=== PATIENT | female | born 1955 | race American Indian/Alaskan Native ===

== ENCOUNTER 2018-03-14 14:55 | Inpatient (IN) | payer MEDICARE ==
--- NOTE | 2018-03-14 15:45 | C.PDOC ---
History Of Present Illness 62 year old female presents to the ER via ALS after daughter noticed patient became increasingly weak and fell, had slurred speech, and had bowel incontinence at approximately 1330. As per daughter, patient has a PMHx of aneurysm s/p coil replacement in 2018, after aneurysm surgery patient was sent to rehab at [facility] where she stayed until 3 weeks ago. Since then patient has been at home with a home health aide, she was improving well, and ambulating with a walker until today. Patient is ambulatory and speaks normally at baseline. Daughter states patient did not hit her head when she fell. Daughter notes patient complained of a headache 2 days ago and yesterday seemed weak with slightly slurred speech but otherwise has not had any recent complaints. Patient also has a Hx of anemia requiring blood transfusion a few weeks ago. Time Seen by Provider: 03/14/18 15:13 Chief Complaint (Nursing): High Blood Sugar History Per: Patient, EMS History/Exam Limitations: no limitations Onset/Duration Of Symptoms: Hrs Current Symptoms Are (Timing): Still Present Causative (Exacerbating) Factor(s): Other (Not known) Recent travel outside of the [place]: No Past Medical History Reviewed: Historical Data, Nursing Documentation, Vital Signs Vital Signs: Last Vital Signs Temp 98.2 F 03/14/18 15:21 Pulse 113 H 03/14/18 16:26 Resp 18 03/14/18 16:26 BP 120/67 03/14/18 16:26 Pulse Ox 98 03/14/18 17:49 Family History: States: Unknown Family Hx - Social History Hx Tobacco Use: Yes Hx Alcohol Use: No Hx Substance Use: No - Immunization History Hx Tetanus Toxoid Vaccination: No Hx Influenza Vaccination: No Hx Pneumococcal Vaccination: No Review Of Systems Constitutional: Positive for: Weakness. Negative for: Fever Cardiovascular: Negative for: Chest Pain, Palpitations Respiratory: Negative for: Shortness of Breath Gastrointestinal: Negative for: Abdominal Pain Neurological: Positive for: Weakness, Altered Mental Status, Dizziness Physical Exam - Physical Exam Appears: Non-toxic Skin: Warm, Dry, Pale Head: Atraumatic, Normacephalic Eye(s): bilateral: Normal Inspection, PERRL, EOMI, Conjunctiva Pale Oral Mucosa: Dry Neck: Normal, Supple Chest: Symmetrical, No Tenderness Cardiovascular: Rhythm Regular (Tachycardic) Respiratory: Normal Breath Sounds, No Rales, No Rhonchi, No Wheezing Gastrointestinal/Abdominal: Soft, No Tenderness Rectal: Normal Exam, Heme Positive (light brown stool) Back: No CVA Tenderness Extremity: No Pedal Edema Extremity: Bilateral: Atraumatic, Normal Color And Temperature Neurological/Psych: No Oriented x3 (patient responsive and answers questions but seems lethargic), No Normal Speech (slurred), Normal Cranial Nerves, No Normal Motor (generalized weakness right greater than left), Normal Sensation, Other (No focal deficits, does not follow commands well. Generalized weakness more to right hand.) Gait: Unable To Assess ED Course And Treatment - Laboratory Results Result Diagrams: 03/14/18 16:07 03/14/18 16:07 Lab Interpretation: Abnormal (Hgb 6.2) ECG: Interpreted By Me ECG Rhythm: Sinus Tachycardia, ST/T Changes ( T wave inversions II, III, AVF, V2 -6) ECG Interpretation: Abnormal O2 Sat by Pulse Oximetry: 98 (room air) Pulse Ox Interpretation: Normal - Radiology CXR: Viewed By Me, Read By Radiologist CXR Interpretation: Yes: Other (Hypoinflation with basilar atelectasis) - CT Scan/US head Other Rad Studies (CT/US): Read By Radiologist, Radiology Report Reviewed CT/US Interpretation: Accession No. : [id number]. Patient Name / ID : OLIVE SORENSEN / [id number]. Exam Date : 03/14/2018 16:11:27 ( Approved ). Study Comment : Sex / Age : F / [id number]. Creator : Destiny Gutiérrez. Dictator : Ole Stephenson MD. Plastic Maker : Rand Sewer : Ole Stephenson MD. Approver2 : Report Date : 03/14/2018 16:16:56. My Comment : . Date of service: 03/14/2018. PROCEDURE: CT HEAD WITHOUT CONTRAST. HISTORY: R/O Bleed. COMPARISON: None available. TECHNIQUE: Axial computed tomography images were obtained through the head/brain without intravenous contrast. Radiation dose: Total exam DLP = 966.45 mGy-cm. This CT exam was performed using one or more of the following dose reduction techniques: Automated exposure control, adjustment of the mA and/or kV according to patient size, and/ or use of iterative reconstruction technique. FINDINGS: HEMORRHAGE: No acute parenchymal, subarachnoid or extra-axial hemorrhage so far as can be seen through significant streak and beam hardening artifact which obscures several of mid axial sections. See below additional details. BRAIN: There is a large approximately 16 mm rounded wall of what appears represent metal embolization located in what appears just anterior to upper brainstem likely occluding a large basilar tip aneurysm however clinical correlation with history is recommended. This wall coils resultant significant streak and beam hardening artifact obscuring nearly all detailed over these levels. Note also made of what may represent small coiled material within the inferior basilar artery. Significant diffuse and confluent chronic white matter ischemic changes seen extending peripherally into the deep and subcortical white matter both cerebral hemispheres. There appears to be extension of these changes into the white matter tracts of both basal nuclei as well. . Chronic appearing bilateral basal ganglia lacunar type infarcts. There is also a chronic infarct along the left VENEER JOINTER territory. Note that the possibility of a hyperacute infarct cannot be excluded on this exam. Clinical correlation recommended. No obvious parenchymal nor extra-axial mass or collection seen on this noncontrast exam. Moderate atrophy. . Minor vascular calcifications both carotid siphons. VENTRICLES: The ventricular system dilated up possibly due to mild chronic compensated hydrocephalus versus central volume loss. . . CALVARIUM: No acute calvarial fractures. Old fracture deformity right lamina a papyracea. . There is a small elliptical shaped lipoma within the mid frontal scalp near the vertex. PARANASAL SINUSES: Unremarkable as visualized. No significant inflammatory changes. MASTOID AIR CELLS: Unremarkable as visualized. No inflammatory changes. OTHER FINDINGS: None. IMPRESSION: Limited study due to significant streak and beam hardening artifact secondary to a large of fall of embolization coils presumably occluding the basilar tip aneurysm. . There also appear to be at least 2 small coils within the inferior margin of the basilar artery appear clinical correlation with history recommended. No evidence of acute intracranial hemorrhage. Significant chronic white matter ischemic changes. Chronic appearing bilateral basal ganglia lacunar type infarcts. There is also a chronic infarct along the left VENEER JOINTER territory. . The ventricles are dilated up possibly due to mild chronic compensated hydrocephalus versus central volume loss Progress Note: CT head, CXR, EKG, and urinalysis ordered. IV fluids administered. Reevaluation Time: 17:41 Reassessment Condition: Improved (after IV fluids) - Physician Consult Information Physician Contacted: Nesha Antonio Outcome Of Conversation: Patient well known to him. He will accept patient to his service for evaluation of anemia. Disposition - Disposition Disposition: HOSPITALIZED Disposition Time: 17:42 Condition: FAIR Instructions: Weakness (ED) - POA Present On Arrival: Falls Or Trauma - Clinical Impression Clinical Impression: Anemia, Weakness generalized, GI bleeding - Scribe Statement The provider has reviewed the documentation as recorded by the Scribclifford Bautista All medical record entries made by the Yamilexibclifford were at my direction and personally dictated by me. I have reviewed the chart and agree that the record accurately reflects my personal performance of the history, physical exam, medical decision making, and the department course for this patient. I have also personally directed, reviewed, and agree with the discharge instructions and disposition.
[2018-03-14] MEDS ORDERED: Sodium Chloride 0.9% 1,000 ML IV ONE (15:48)
[2018-03-14 16:12] LABS: BASO % 0.1 % (0.0-2.0); LYMPH # 0.3 K/uL (1.0-4.3); LYMPH % 1.9 % (20.0-40.0); MEAN CELL VOLUME 62.8 fL (81.0-99.0); MEAN CORPUSCULAR HEMOGLOBIN 20.1 pg (27.0-31.0); MEAN PLATELET VOLUME 8.2 fL (7.2-11.7); MONO # 0.7 K/uL (0.0-0.8); MONO % 4.4 % (0.0-10.0); NEUT # 15.2 K/uL (1.8-7.0); NEUT % 93.6 % (50.0-75.0); NRBC % 0.2 % (0.0-2.0); PLATELET COUNT 442 K/uL (130-400); RBC 3.08 Mil/uL (3.80-5.20); RED CELL DISTRIBUTION WIDTH 23.7 % (11.5-14.5); WHITE BLOOD COUNT 16.3 K/uL (4.8-10.8)
[2018-03-14 16:24] LABS: HEMOGLOBIN 6.2 g/dL (11.0-16.0)
[2018-03-14 16:25] LABS: ALB/GLOB RATIO 1.3 (1.0-2.1); ALBUMIN 3.8 g/dL (3.5-5.0); ALT/SGPT 33 U/L (9-52); AST/SGOT 19 U/L (14-36); BLOOD UREA NITROGEN 10 mg/dL (7-17); CALCIUM 8.6 mg/dl (8.6-10.4); GFR NON-AFRICAN AMERICAN > 60
--- NOTE | 2018-03-14 16:39 | CT ---
Date of service: 03/14/2018 PROCEDURE: CT HEAD WITHOUT CONTRAST. HISTORY: R/O Bleed COMPARISON: None available. TECHNIQUE: Axial computed tomography images were obtained through the head/brain without intravenous contrast. Radiation dose: Total exam DLP = 966.45 mGy-cm. This CT exam was performed using one or more of the following dose reduction techniques: Automated exposure control, adjustment of the mA and/or kV according to patient size, and/or use of iterative reconstruction technique. FINDINGS: HEMORRHAGE: No acute parenchymal, subarachnoid or extra-axial hemorrhage so far as can be seen through significant streak and beam hardening artifact which obscures several of mid axial sections. See below additional details BRAIN: There is a large approximately 16 mm rounded wall of what appears represent metal embolization located in what appears just anterior to upper brainstem likely occluding a large basilar tip aneurysm however clinical correlation with history is recommended. This wall coils resultant significant streak and beam hardening artifact obscuring nearly all detailed over these levels. Note also made of what may represent small coiled material within the inferior basilar artery. Significant diffuse and confluent chronic white matter ischemic changes seen extending peripherally into the deep and subcortical white matter both cerebral hemispheres. There appears to be extension of these changes into the white matter tracts of both basal nuclei as well. . Chronic appearing bilateral basal ganglia lacunar type infarcts. There is also a chronic infarct along the left LINING VAMPER territory. Note that the possibility of a hyperacute infarct cannot be excluded on this exam. Clinical correlation recommended. No obvious parenchymal nor extra-axial mass or collection seen on this noncontrast exam Moderate atrophy. . Minor vascular calcifications both carotid siphons. VENTRICLES: The ventricular system dilated up possibly due to mild chronic compensated hydrocephalus versus central volume loss. . CALVARIUM: No acute calvarial fractures. Old fracture deformity right lamina a papyracea. . There is a small elliptical shaped lipoma within the mid frontal scalp near the vertex. PARANASAL SINUSES: Unremarkable as visualized. No significant inflammatory changes. MASTOID AIR CELLS: Unremarkable as visualized. No inflammatory changes. OTHER FINDINGS: None. IMPRESSION: Limited study due to significant streak and beam hardening artifact secondary to a large of fall of embolization coils presumably occluding the basilar tip aneurysm. . There also appear to be at least 2 small coils within the inferior margin of the basilar artery appear clinical correlation with history recommended. No evidence of acute intracranial hemorrhage. Significant chronic white matter ischemic changes. Chronic appearing bilateral basal ganglia lacunar type infarcts. There is also a chronic infarct along the left LINING VAMPER territory. . The ventricles are dilated up possibly due to mild chronic compensated hydrocephalus versus central volume loss
--- NOTE | 2018-03-14 16:57 | RAD ---
HISTORY: SOB COMPARISON: None available TECHNIQUE: Chest, one view. FINDINGS: Patient's chin obscures evaluation of the lung apices. Examination limited by habitus and hypoinflation. LUNGS: Mild basilar atelectasis. Please note that chest x-ray has limited sensitivity for the detection of pulmonary masses. PLEURA: No significant pleural effusion identified. No definite pneumothorax . CARDIOVASCULAR: Borderline cardiomegaly, partially obscured. OSSEOUS STRUCTURES: Osseous demineralization. Degenerative changes. VISUALIZED UPPER ABDOMEN: Unremarkable. OTHER FINDINGS: None. IMPRESSION: Hypoinflation. Mild basilar atelectasis.
[2018-03-14] MEDS ORDERED: Sodium Chloride 0.9% 1,000 ML ONE (17:02)
[2018-03-14 17:16] LABS: URINE BACTERIA OCC (<OCC); URINE BILIRUBIN NEGATIVE (NEGATIVE); URINE BLOOD 3+ (NEGATIVE); URINE CLARITY Clear (Clear); URINE COLOR Yellow (YELLOW); URINE GLUCOSE (UA) 1+ mg/dL (Normal); URINE LEUKOCYTE ESTERASE NEG Leu/uL (Negative); URINE PROTEIN 1+ mg/dL (NEGATIVE); URINE UROBILINOGEN NORMAL mg/dL (0.2-1.0)
[2018-03-14 17:36] LABS: BARBITURATES, UR NEGATIVE (NEGATIVE); BENZODIAZEPINES, UR NEGATIVE (NEGATIVE); OPIATES, UR NEGATIVE (NEGATIVE); PHENCYCLIDINE, UR NEGATIVE (NEGATIVE)
[2018-03-14] MEDS ORDERED: Potassium Chloride 20 mEq ER Tab PO ONE (17:43)
[2018-03-14] MEDS ORDERED: Potassium Chloride 20 mEq/15 ml LIQ UD ONE (17:52)
[2018-03-14] MEDS ORDERED: Potassium Chloride 20 mEq/15 ml LIQ UD PO STA (17:53)
[2018-03-14] MEDS ORDERED: Potassium Chloride 20 mEq ER Tab PO STA (17:53)
[2018-03-14 18:19] LABS: BANDS 2 % (0-2); LYMPHOCYTE 2 % (20-40); MONOCYTE 3 % (0-10); NEUTROPHIL 93 % (50-75); TOTAL CELLS COUNTED 100
[2018-03-14 18:20] LABS: ANISOCYTOSIS SLIGHT; HYPOCHROMIC SLIGHT; MICROCYTOSIS SLIGHT; POIKILOCYTOSIS SLIGHT; SCHISTOCYTES SLIGHT
[2018-03-14 18:21] LABS: PLATELET ESTIMATE SLIGHTLY INCREASED (NORMAL)
[2018-03-14] MEDS: (Novolin R) Insulin Human Regular 100 units/ml vial SC SCH (22:00)
[2018-03-15 08:29] LABS: INR 1.2; PROTHROMBIN TIME 13.4 SECONDS (9.7-12.2)
[2018-03-15] MEDS: (Novolin R) Insulin Human Regular 100 units/ml vial SC SCH ×4 (08:35→22:00)
[2018-03-15 08:56] LABS: ALB/GLOB RATIO 1.1 (1.0-2.1); ALBUMIN 3.2 g/dL (3.5-5.0); ALT/SGPT 25 U/L (9-52); AST/SGOT 14 U/L (14-36); BLOOD UREA NITROGEN 10 mg/dL (7-17); CALCIUM 8.3 mg/dl (8.6-10.4); CK-MB 0.64 ng/mL (0.0-3.38); GFR NON-AFRICAN AMERICAN > 60
[2018-03-15 09:02] LABS: BASO # 0.1 K/uL (0.0-0.2); BASO % 0.5 % (0.0-2.0); EOS % 0.4 % (0.0-4.0); LYMPH # 1.4 K/uL (1.0-4.3); LYMPH % 12.2 % (20.0-40.0); MEAN CORPUSCULAR HEMOGLOBIN 21.8 pg (27.0-31.0); MEAN CORPUSCULAR HGB CONC 32.5 g/dL (33.0-37.0); MEAN PLATELET VOLUME 8.7 fL (7.2-11.7); MONO # 0.6 K/uL (0.0-0.8); MONO % 5.3 % (0.0-10.0); NEUT # 9.6 K/uL (1.8-7.0); NEUT % 81.6 % (50.0-75.0); NRBC % 0.1 % (0.0-2.0); RBC 3.78 Mil/uL (3.80-5.20); RED CELL DISTRIBUTION WIDTH 23.6 % (11.5-14.5); WHITE BLOOD COUNT 11.7 K/uL (4.8-10.8)
[2018-03-15 09:03] LABS: HEMOGLOBIN 8.2 g/dL (11.0-16.0)
[2018-03-15] MEDS: Sodium Chloride 0.9% 1,000 ML IV SCH (13:02)
--- NOTE | 2018-03-15 13:24 | CP.PCM.PN ---
Subjective - Date & Time of Evaluation Date of Evaluation: 03/15/18 Time of Evaluation: 13:13 - Subjective Subjective: PGY3 progress note for Dr. Antonio 62 year old female with past medical history of brain aneurysm s/p recent coil placement in 2018 presented for syncope, slurred speech and bowel incontinence. Pts daughter at bedside and helps with history. Patient used walker to go to bathroom at home and developed lightheadedness and subsequently had a syncopal episode and had bowel incontinence. Per daughter, no recent blood stools or melena. Patient was admitted to [facility] in December and underwent colonoscopy but daughter does not know results. Currently, pt is A&ox1 (to person). She is answering questions but still has mild slurred speech. Patient denies having any AVILA, CP, SOB, abd pain, N/V/d/c, numbness/tingling in extremities. PMhx: stated above sx: knee replacement, coil placement in brain for aneurysm in 2018 social: lives with daughter Objective - Vital Signs/Intake and Output Vital Signs (last 24 hours): Temp Pulse Resp BP Pulse Ox 98.2 F 94 H 18 145/80 99 03/15/18 07:00 03/15/18 08:00 03/15/18 07:00 03/15/18 07:00 03/15/18 07:00 Intake and Output: 03/15/18 03/15/18 06:59 18:59 Intake Total 1725 Output Total 450 Balance 1275 - Medications Medications: Current Medications Sodium Chloride (Sodium Chloride 0.9%) 1,000 mls @ 50 mls/hr IV .Q20H [facility] Last Admin: 03/15/18 13:02 Dose: 50 mls/hr Insulin Human Regular (Novolin R) 1 unit SC ACHS BILL PRN Reason: Protocol Last Admin: 03/15/18 12:21 Dose: Not Given - Labs Labs: 03/15/18 08:09 03/15/18 08:09 PT 13.4 SECONDS (9.7-12.2) H 03/15/18 08:09 INR 1.2 03/15/18 08:09 APTT 28 SECONDS (21-34) 03/15/18 08:09 - Constitutional Appears: Non-toxic, No Acute Distress - Head Exam Head Exam: ATRAUMATIC, NORMOCEPHALIC - ENT Exam ENT Exam: Mucous Membranes Moist - Respiratory Exam Respiratory Exam: Clear to Ausculation Bilateral, NORMAL BREATHING PATTERN. absent: Accessory Muscle Use, Rales, Rhonchi, Wheezes, Respiratory Distress - Cardiovascular Exam Cardiovascular Exam: REGULAR RHYTHM, +S1, +S2 - GI/Abdominal Exam GI & Abdominal Exam: Soft, Normal Bowel Sounds. absent: Distended, Firm, Guarding, Rigid, Tenderness, Organomegaly - Extremities Exam Extremities Exam: absent: Pedal Edema, Tenderness - Neurological Exam Neurological Exam: Alert, Awake, CN II-XII Intact, Oriented x3 Neuro motor strength exam: Left Upper Extremity: 4, Right Upper Extremity: 4, Left Lower Extremity: 4, Right Lower Extremity: 4 - Psychiatric Exam Psychiatric exam: Normal Affect, Normal Mood - Skin Skin Exam: Dry, Intact, Normal Color, Warm Assessment and Plan - Assessment and Plan (Free Text) Assessment: 62 year old female with past medical history of brain aneurysm s/p coil placement is admitted for syncope and slurred speech Syncope - CT of head on admission showed no acute hemorrhage but did show chronic lacunar infarcts at basal ganglia and chronic left STOCK DEALER infarct. - Negative UDS - On admission, pt had leukocytosis at 16.3. - Hgb was 6.2 on admission - UA showed blood and mild WBC and occasional bacteria - Neurology, Dr. Tovar is consulted. Pending further recs - will check EEG - Will check urine culture. If positive will treat - Will check echo, hgba1c and lipid panel Anemia - Likely 2/2 GI bleed. Stool occult positive on admission - Pt transfused 2 units. Hgb this am is 8.2 - GI, Dr. Lock is consulted. Recommend making pt NPO for EGD in am - Will continue to monitor for bleeding. - Will hold Aspirin, plavix and oral AC - NS at 50 cc - NPO overnight. Accuchecks ACHS Prophylaxis - Will hold oral AC due to GI bleed - SCDs - Protonix IV All orders and management per Dr. Antonio
[2018-03-15] MEDS ORDERED: Potassium Chloride 20 mEq ER Tab PO ONE (17:13)
--- NOTE | 2018-03-15 23:54 | CP.PCM.CON ---
History of Present Illness - History of Present Illness History of Present Illness: 62 year old female with a history of ?CVA, brain aneurysm s/p coiling, presenting after syncopal episode, found to be anemic. The patient is currently lethargic and I am unable to obtain a history from the patient. Review of her medical records shows shows she was admitted with hgb of 6.2 and is FOBT positive. She is s/p PRBC transfusion with improvement in her H/H. She is currently undergoing GI w/u. Past medical, surgical, family history cannot be obtained Allergies: NKA per documentation Review of systems cannot be obtained. Past Patient History - Infectious Disease Hx of Infectious Diseases: None - Past Medical History & Family History Past Medical History?: Yes - Past Social History Smoking Status: Heavy Smoker > 10 Cigarettes Daily - ENDOCRINE/METABOLIC Hx Diabetes Mellitus Type 2: Yes - HEMATOLOGICAL/ONCOLOGICAL Hx Anemia: Yes - MUSCULOSKELETAL/RHEUMATOLOGICAL Hx Falls: Yes - PSYCHIATRIC Hx Substance Use: No - SURGICAL HISTORY Hx Surgeries: Yes Hx Orthopedic Surgery: Yes (tkr= right) - ANESTHESIA Hx Anesthesia: Yes Hx Anesthesia Reactions: No Hx Malignant Hyperthermia: No Meds Allergies/Adverse Reactions: Allergies Allergy/AdvReac Type Severity Reaction Status Date / Time No Known Allergies Allergy Verified 03/14/18 15:20 - Medications Medications: Current Medications Acetaminophen (Tylenol 325mg Tab) 650 mg PO Q6 PRN PRN Reason: Pain, Mild (1-3) Albuterol/Ipratropium (Duoneb 3 Mg/0.5 Mg (3 Ml) Ud) 3 ml INH RQ6 [facility] Amlodipine Besylate (Norvasc) 10 mg PO DAILY [facility] Aspirin (Ecotrin) 81 mg PO DAILY [facility] Carvedilol (Coreg) 3.125 mg PO Q12 [facility] Last Admin: 03/15/18 22:49 Dose: 3.125 mg Clopidogrel Bisulfate (Plavix) 75 mg PO DAILY [facility] Hydralazine HCl (Apresoline) 25 mg PO Q8 [facility] Last Admin: 03/15/18 22:49 Dose: 25 mg Sodium Chloride (Sodium Chloride 0.9%) 1,000 mls @ 50 mls/hr IV .Q20H [facility] Last Admin: 03/15/18 13:02 Dose: 50 mls/hr Insulin Human Regular (Novolin R) 1 unit SC ACHS [facility] PRN Reason: Protocol Last Admin: 03/15/18 17:00 Dose: Not Given Lactulose (Enulose) 20 gm PO HS [facility] Last Admin: 03/15/18 22:49 Dose: 20 gm Levetiracetam (Keppra) 250 mg PO BID [facility] Last Admin: 03/15/18 22:49 Dose: 250 mg Pantoprazole Sodium (Protonix Inj) 40 mg IVP DAILY [facility] Last Admin: 03/15/18 14:31 Dose: 40 mg Venlafaxine HCl (Effexor Xr) 37.5 mg PO DAILY [facility] Physical Exam - Head Exam Head Exam: ATRAUMATIC - Eye Exam Eye Exam: Normal appearance - ENT Exam ENT Exam: Mucous Membranes Dry - Respiratory Exam Respiratory Exam: NORMAL BREATHING PATTERN - Cardiovascular Exam Cardiovascular Exam: +S1, +S2 - GI/Abdominal Exam GI & Abdominal Exam: Normal Bowel Sounds Results - Vital Signs Recent Vital Signs: Last Vital Signs Temp 98.8 F 03/15/18 15:00 Pulse 91 H 03/15/18 15:00 Resp 20 03/15/18 15:00 BP 152/84 H 03/15/18 15:00 Pulse Ox 98 03/15/18 15:00 - Labs Result Diagrams: 03/15/18 08:09 03/15/18 08:09 Labs: Laboratory Results - last 24 hr 03/14/18 03/15/18 03/15/18 16:41 06:12 07:26 WBC RBC Hgb Hct MCV MCH MCHC RDW Plt Count MPV Neut % (Auto) Lymph % (Auto) [place] % (Auto) Eos % (Auto) Baso % (Auto) Neut # (Auto) Lymph # (Auto) [place] # (Auto) Eos # (Auto) Baso # (Auto) PT INR APTT Sodium Potassium Chloride Carbon Dioxide Anion Gap BUN Creatinine Est GFR ( Amer) Est GFR (Non-Af Amer) POC Glucose (mg/dL) 106 Random Glucose Calcium Phosphorus Magnesium Total Bilirubin AST ALT Alkaline Phosphatase Total Creatine Kinase CK-MB (Mass) Troponin I Total Protein Albumin Globulin Albumin/Globulin Ratio Stool Occult Blood Positive H Blood Type B POSITIVE Blood Type Confirm B POSITIVE Antibody Screen Negative 03/15/18 03/15/18 03/15/18 08:09 08:09 08:09 WBC 11.7 H RBC 3.78 L Hgb 8.2 L D Hct 25.3 L MCV 67.0 L D MCH 21.8 L MCHC 32.5 L RDW 23.6 H Plt Count 385 MPV 8.7 Neut % (Auto) 81.6 H Lymph % (Auto) 12.2 L [place] % (Auto) 5.3 Eos % (Auto) 0.4 Baso % (Auto) 0.5 Neut # (Auto) 9.6 H Lymph # (Auto) 1.4 [place] # (Auto) 0.6 Eos # (Auto) 0.0 Baso # (Auto) 0.1 PT 13.4 H INR 1.2 APTT 28 Sodium 148 Potassium 3.6 Chloride 113 H Carbon Dioxide 27 Anion Gap 11 BUN 10 Creatinine 0.7 Est GFR ( Amer) > 60 Est GFR (Non-Af Amer) > 60 POC Glucose (mg/dL) Random Glucose 120 H Calcium 8.3 L Phosphorus 3.2 Magnesium 1.9 Total Bilirubin 2.0 H AST 14 D ALT 25 Alkaline Phosphatase 96 Total Creatine Kinase 131 CK-MB (Mass) 0.64 Troponin I 0.0200 Total Protein 6.2 L Albumin 3.2 L Globulin 3.0 Albumin/Globulin Ratio 1.1 Stool Occult Blood Blood Type Blood Type Confirm Antibody Screen 03/15/18 03/15/18 03/15/18 11:37 16:44 20:42 WBC RBC Hgb Hct MCV MCH MCHC RDW Plt Count MPV Neut % (Auto) Lymph % (Auto) [place] % (Auto) Eos % (Auto) Baso % (Auto) Neut # (Auto) Lymph # (Auto) [place] # (Auto) Eos # (Auto) Baso # (Auto) PT INR APTT Sodium Potassium Chloride Carbon Dioxide Anion Gap BUN Creatinine Est GFR ( Amer) Est GFR (Non-Af Amer) POC Glucose (mg/dL) 121 H 101 105 Random Glucose Calcium Phosphorus Magnesium Total Bilirubin AST ALT Alkaline Phosphatase Total Creatine Kinase CK-MB (Mass) Troponin I Total Protein Albumin Globulin Albumin/Globulin Ratio Stool Occult Blood Blood Type Blood Type Confirm Antibody Screen Assessment & Plan (1) Anemia Assessment and Plan: rule out iron deficiency, rule out hemoglobinopathy f/u retic count, b12, folate ferritin GI w/u s/p PRBC transfusion will start IV iron Thank you for this interesting consult. Status: Acute
[2018-03-16] MEDS: Albuterol-Ipratrop 3 mg / 0.5 (3 ml) UD INH SCH ×4 (01:04→19:34)
[2018-03-16] MEDS: Sodium Chloride 0.9% 1,000 ML IV SCH (04:00)
--- NOTE | 2018-03-16 07:08 | CARD ---
APPROVED REPORT Date of service: 03/15/2018 EXAM: Two-dimensional and M-mode echocardiogram with Doppler and color Doppler. INDICATION Anemia 2D DIMENSIONS IVSd1.1 (0.7-1.1cm)Aortic Root (2D)3.0 (2.0-3.7cm) LVDd3.8 (3.9-5.9cm)PWd1.1 (0.7-1.1cm) LVDs2.4 (2.5-4.0cm)FS (%) 36.8 % LVEF (%)67.4 (>50%) M-Mode DIMENSIONS RVDd1.49 (2.1-3.2cm)Left Atrium (MM)3.25 (2.5-4.0cm) IVSd0.70 (0.7-1.1cm)Aortic Root3.22 (2.2-3.7cm) LVDd3.83 (4.0-5.6cm)Aortic Cusp Exc.2.22 (1.5-2.0cm) PWd0.91 (0.7-1.1cm)FS (%) 40 % LVDs2.28 (2.0-3.8cm)TAPSE14.58 cm LVEF (%)72 (>50%) Aortic Valve AI P 1/2 [id number] Mitral Valve MV E Agxgsceg63.8cm/sMV A Tbmlvmdi728.6cm/sE/A ratio0.7 TDI E/Lateral E'0.0E/Medial E'0.0 Tricuspid Valve TR Peak Dgmvrbol170oa/sTR Peak Gr.[id number] LEFT VENTRICLE The left ventricle is normal size. There is normal left ventricular wall thickness. Left ventricle systolic function is normal. The Ejection Fraction is 65-70%. There is normal LV segmental wall motion. The left ventricular diastolic function is normal. RIGHT VENTRICLE The right ventricle is normal size. There is normal right ventricular wall thickness. The right ventricular systolic function is normal. ATRIA The left atrium size is normal. The right atrium size is normal. The interatrial septum is intact with no evidence for an atrial septal defect. AORTIC VALVE The aortic valve is normal in structure. No aortic regurgitation is present. There is no aortic valvular stenosis. MITRAL VALVE The posterior mitral valve leaflet appears thickened, but open well. Mitral annular calcification is mild. There is no evidence of mitral valve prolapse. There is no mitral valve stenosis. There is no mitral valve regurgitation noted. TRICUSPID VALVE The tricuspid valve is normal in structure. There is mild tricuspid regurgitation. Right ventricular systolic pressure is estimated at 30-40 mmHg. There is mild pulmonary hypertension. PULMONIC VALVE The pulmonic valve is not well visualized. There is no pulmonic valvular regurgitation. GREAT VESSELS The aortic root is normal in size. PERICARDIAL EFFUSION There is no significant pericardial effusion. <Conclusion> Left ventricle systolic function is normal. The Ejection Fraction is 65-70%. No aortic regurgitation is present. There is no mitral valve regurgitation noted. There is mild tricuspid regurgitation. There is mild pulmonary hypertension. There is no pulmonic valvular regurgitation.
--- NOTE | 2018-03-16 07:27 | CP.PCM.PN ---
Subjective - Date & Time of Evaluation Date of Evaluation: 03/16/18 Time of Evaluation: 08:00 - Subjective Subjective: PGY-[address] Antonio Patient was seen and examined at bedside in the AM. Patient is only oriented to self. She is answering questions but continues to have mild slurred speech. Patient denies chest pain, shortness of breath, nausea, vomiting, diarrhea or constipation. Objective - Vital Signs/Intake and Output Vital Signs (last 24 hours): Temp Pulse Resp BP Pulse Ox 98.8 F 98 H 20 137/85 98 03/16/18 04:19 03/16/18 04:19 03/16/18 04:19 03/16/18 04:19 03/16/18 04:19 Intake and Output: 03/16/18 03/16/18 06:59 18:59 Intake Total 1250 Output Total 800 Balance 450 - Medications Medications: Current Medications Acetaminophen (Tylenol 325mg Tab) 650 mg PO Q6 PRN PRN Reason: Pain, Mild (1-3) Albuterol/Ipratropium (Duoneb 3 Mg/0.5 Mg (3 Ml) Ud) 3 ml INH RQ6 [facility] Last Admin: 03/16/18 01:04 Dose: 3 ml Amlodipine Besylate (Norvasc) 10 mg PO DAILY [facility] Aspirin (Ecotrin) 81 mg PO DAILY [facility] Carvedilol (Coreg) 3.125 mg PO Q12 [facility] Last Admin: 03/15/18 22:49 Dose: 3.125 mg Clopidogrel Bisulfate (Plavix) 75 mg PO DAILY [facility] Hydralazine HCl (Apresoline) 25 mg PO Q8 [facility] Last Admin: 03/16/18 05:42 Dose: 25 mg Sodium Chloride (Sodium Chloride 0.9%) 1,000 mls @ 50 mls/hr IV .Q20H [facility] Last Admin: 03/16/18 04:00 Dose: 50 mls/hr Insulin Human Regular (Novolin R) 1 unit SC ACHS BILL PRN Reason: Protocol Last Admin: 03/15/18 22:00 Dose: Not Given Lactulose (Enulose) 20 gm PO HS [facility] Last Admin: 03/15/18 22:00 Dose: Not Given Levetiracetam (Keppra) 250 mg PO BID [facility] Last Admin: 03/15/18 22:49 Dose: 250 mg Pantoprazole Sodium (Protonix Inj) 40 mg IVP DAILY [facility] Last Admin: 03/15/18 14:31 Dose: 40 mg Venlafaxine HCl (Effexor Xr) 37.5 mg PO DAILY [facility] - Labs Labs: 03/15/18 08:09 03/15/18 08:09 PT 13.4 SECONDS (9.7-12.2) H 03/15/18 08:09 INR 1.2 03/15/18 08:09 APTT 28 SECONDS (21-34) 03/15/18 08:09 - Constitutional Appears: No Acute Distress, Chronically Ill - Head Exam Head Exam: ATRAUMATIC, NORMAL INSPECTION - Eye Exam Eye Exam: EOMI, Normal appearance - ENT Exam ENT Exam: Mucous Membranes Moist - Respiratory Exam Respiratory Exam: NORMAL BREATHING PATTERN - Cardiovascular Exam Cardiovascular Exam: REGULAR RHYTHM, +S1, +S2 - GI/Abdominal Exam GI & Abdominal Exam: Soft, Normal Bowel Sounds. absent: Tenderness - Extremities Exam Extremities Exam: Normal Inspection - Neurological Exam Neurological Exam: Awake. absent: Oriented x3 Assessment and Plan - Assessment and Plan (Free Text) Assessment: 62 year old female with past medical history of brain aneurysm s/p coil placement is admitted for syncope and slurred speech Syncope - CT of head on admission showed no acute hemorrhage but did show chronic lacunar infarcts at basal ganglia and chronic left CONTINGENTS SUPERVISOR infarct. - Negative UDS - On admission, pt had leukocytosis at 16.3. - Hgb was 6.2 on admission - UA showed blood and mild WBC and occasional bacteria - Urine culture: Negative - ECHO (03/16/18): Left ventricle systolic function is normal. EF 65-70%. No aortic regurgitation is present. Please see full report. - Neurology, Dr. Tovar is consulted. Pending further recs - will check EEG Anemia - Likely 2/2 GI bleed. Stool occult positive on admission - Patient was transfused 2 units 03/15/18. - Hgb this am is 8.3 - B12 395; Folate 9.7 - Ferritin 46.9; Retic Count 2.0 - GI, Dr. Lock is consulted --> help appreciated - EGD (03/16/18): LA Grade A esophagitis; medium-sized hiatal hernia; patchy mildly erythematous mucosa without bleeding. Please see full report - f/u with Dr. Lock for recommendations - Liquid Diet/NS at 50 cc - Will continue to monitor for bleeding. - Will hold Aspirin, plavix and oral AC History of Brain Aneurysm s/p coil - Head CT: Limited study due to significant streak and beam hardening artifact secondary to a large of fall of embolization coils presumably occluding the basilar tip aneurysm. . There also appear to be at least 2 small coils within the inferior margin of the basilar artery appear clinical correlation with history recommended. No evidence of acute intracranial hemorrhage. Significant chronic white matter ischemic changes. Chronic appearing bilateral basal ganglia lacunar type infarcts. There is also a chronic infarct along the left CONTINGENTS SUPERVISOR territory. The ventricles are dilated up possibly due to mild chronic compensated hydrocephalus versus central volume loss. - f/u MRA of head - Continue Home Medications: * Aspirin 81mg daily - hold * Keppra 250mg po bid History of HTN - Continue home Medications * Amlodipine 10mg daily * Coreg 3.125mg po q12h * Hydralazine 25mg q8h po Impaired Glucose Tolerance - hA1c: 5.6 - Lipid Panel: Cholesterol 90; LDL 39; HDL 28; Triglycerides 108 - Accuchecks - Hypoglycemia Protocol - Insulin 1units SC ACHS Prophylaxis - Will hold oral AC due to GI bleed - SCDs - Dulcolax 10mg po daily; Lactulose 20gm po HS - Will hold Aspirin, plavix and oral AC - VTE contraindication - Protonix IV All orders and management per Dr. Antonio
[2018-03-16] MEDS: (Novolin R) Insulin Human Regular 100 units/ml vial SC SCH ×4 (08:39→22:39)
--- NOTE | 2018-03-16 10:06 | HP ---
HISTORY OF PRESENT ILLNESS: A 62-year-old female with history of intracranial aneurysm status post coiling, admitted to the hospital with altered mental status, weakness. The patient thought that she might be anemic. The patient was advised admission to the hospital . PHYSICAL EXAMINATION: GENERAL: Currently awake, but confused. VITAL SIGNS: Temperature 98, pulse 90. HEENT: Within normal limits. NECK: Supple. CHEST: Symmetrical. HEART: Regular. ABDOMEN: Soft. EXTREMITIES: No edema. IMPRESSION: The patient suffers from anemia, rule out cerebrovascular accident, aneurysm. The patient bed rest, neuro consult and GI consult. Nesha Antonio MD
[2018-03-16] MEDS: Venlafaxine 37.5 mg ER Cap PO SCH (10:28)
[2018-03-16 11:36] LABS: BASO % 0.4 % (0.0-2.0); EOS # 0.1 K/uL (0.0-0.7); EOS % 1.3 % (0.0-4.0); HEMOGLOBIN 8.3 g/dL (11.0-16.0); LYMPH # 1.7 K/uL (1.0-4.3); LYMPH % 18.5 % (20.0-40.0); MEAN CELL VOLUME 66.3 fL (81.0-99.0); MEAN CORPUSCULAR HEMOGLOBIN 22.2 pg (27.0-31.0); MEAN CORPUSCULAR HGB CONC 33.5 g/dL (33.0-37.0); MEAN PLATELET VOLUME 8.6 fL (7.2-11.7); MONO # 0.4 K/uL (0.0-0.8); MONO % 4.4 % (0.0-10.0); NEUT # 6.8 K/uL (1.8-7.0); NEUT % 75.4 % (50.0-75.0); NRBC % 0.3 % (0.0-2.0); RBC 3.72 Mil/uL (3.80-5.20); RED CELL DISTRIBUTION WIDTH 24.8 % (11.5-14.5)
[2018-03-16 11:55] LABS: ALB/GLOB RATIO 1.1 (1.0-2.1); ALBUMIN 3.1 g/dL (3.5-5.0); ALT/SGPT 22 U/L (9-52); AST/SGOT 10 U/L (14-36); BLOOD UREA NITROGEN 8 mg/dL (7-17); CALCIUM 8.3 mg/dl (8.6-10.4); GFR NON-AFRICAN AMERICAN > 60; HDL CHOLESTEROL 28 mg/dL (30-70)
[2018-03-16 12:01] LABS: LDL CHOLESTEROL 39 mg/dL (0-129)
[2018-03-16 12:29] LABS: FERRITIN 46.9 ng/mL
[2018-03-16] MEDS ORDERED: Propofol 10 mg/ml Inj (20 ML) ONE (12:58)
[2018-03-16 12:59] LABS: FOLATE 9.7 ng/mL
[2018-03-16] MEDS ORDERED: Magnesium Citrate Oral SOL (300 ml) PO ONE ×2 (13:14→14:36)
[2018-03-16] MEDS: Bisacodyl 5mg EC Tab PO SCH (14:27)
[2018-03-16] MEDS ORDERED: Potassium Chloride 20 mEq ER Tab PO ONE (14:37)
--- NOTE | 2018-03-16 14:57 | CP.PCM.CON ---
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 Per daughter, patient used walker to go to bathroom at home and developed lightheadedness and subsequently had a syncopal episode and had bowel incontinence. Daughter states patient did not hit her head when she fell. At that time daughter noticed patient was speaking more slowly and with some slurring as if patient was intoxicated. On evaluation today patient was AAOx3 able to follow commands however she she seemed dysarthric and had tangential speech. Patient is ambulatory with walker and speaks normally at baseline. She had a CVA in 10/2017 and spent 3 weeks in rehab after discharge. Patient denies having any AVILA, CP, SOB, abd pain, N/V/d/c, numbness/tingling in extremities. 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, brain aneurysm s/p recent coil placement in 2018, anemia PSHx: knee replacement, coil placement in brain for aneurysm in 2018 Allergies: NKA FamHx: mother from CVA SocialHx: 40 pack year tobacco hx, no alcohol, no illicit substances, lives with daughterChetna Review of Systems - Constitutional Constitutional: absent: Chills, Fever - EENT Eyes: absent: Blurred Vision - Cardiovascular Cardiovascular: absent: Chest Pain - Respiratory Respiratory: absent: Dyspnea - Gastrointestinal Gastrointestinal: absent: Abdominal Pain, Diarrhea, Early Satiety - Genitourinary Genitourinary: absent: Dysuria - Neurological Neurological: absent: Convulsions, Dizziness, Focal Weakness, Sensory Deficit, Syncope Past Patient History - Infectious Disease Hx of Infectious Diseases: None - Past Medical History & Family History Past Medical History?: Yes - Past Social History Smoking Status: Heavy Smoker > 10 Cigarettes Daily - CARDIAC Hx Hypercholesterolemia: Yes Hx Hypertension: Yes - PULMONARY Hx Respiratory Disorders: No - NEUROLOGICAL Hx Seizures: Yes - HEENT Hx HEENT Problems: No - RENAL Hx Chronic Kidney Disease: No - ENDOCRINE/METABOLIC Hx Diabetes Mellitus Type 2: Yes - HEMATOLOGICAL/ONCOLOGICAL Hx Anemia: Yes - INTEGUMENTARY Hx Dermatological Problems: No - MUSCULOSKELETAL/RHEUMATOLOGICAL Hx Falls: Yes - GASTROINTESTINAL Hx Gastroesophageal Reflux: Yes - GENITOURINARY/GYNECOLOGICAL Hx Incontinence: Yes - PSYCHIATRIC Hx Substance Use: No - SURGICAL HISTORY Hx Surgeries: Yes Hx Orthopedic Surgery: Yes (tkr= right) - ANESTHESIA Hx Anesthesia: Yes Hx Anesthesia Reactions: No Hx Malignant Hyperthermia: No Meds Allergies/Adverse Reactions: Allergies Allergy/AdvReac Type Severity Reaction Status Date / Time No Known Allergies Allergy Verified 03/14/18 15:20 - Medications Medications: Current Medications Acetaminophen (Tylenol 325mg Tab) 650 mg PO Q6 PRN PRN Reason: Pain, Mild (1-3) Albuterol/Ipratropium (Duoneb 3 Mg/0.5 Mg (3 Ml) Ud) 3 ml INH RQ6 [facility] Last Admin: 03/16/18 13:58 Dose: Not Given Amlodipine Besylate (Norvasc) 10 mg PO DAILY [facility] Last Admin: 03/16/18 10:29 Dose: Not Given Aspirin (Ecotrin) 81 mg PO DAILY [facility] Last Admin: 03/16/18 10:28 Dose: Not Given Bisacodyl (Dulcolax) 10 mg PO DAILY [facility] Last Admin: 03/16/18 14:27 Dose: 10 mg Carvedilol (Coreg) 3.125 mg PO Q12 [facility] Last Admin: 03/16/18 10:29 Dose: Not Given Clopidogrel Bisulfate (Plavix) 75 mg PO DAILY [facility] Last Admin: 03/16/18 10:29 Dose: Not Given Hydralazine HCl (Apresoline) 25 mg PO Q8 [facility] Last Admin: 03/16/18 05:42 Dose: 25 mg Sodium Chloride (Sodium Chloride 0.9%) 1,000 mls @ 50 mls/hr IV .Q20H [facility] Last Admin: 03/16/18 04:00 Dose: 50 mls/hr Insulin Human Regular (Novolin R) 1 unit SC ACHS [facility] PRN Reason: Protocol Last Admin: 03/16/18 12:00 Dose: Not Given Lactulose (Enulose) 20 gm PO HS [facility] Last Admin: 03/15/18 22:00 Dose: Not Given Levetiracetam (Keppra) 250 mg PO BID [facility] Last Admin: 03/16/18 10:29 Dose: Not Given Pantoprazole Sodium (Protonix Inj) 40 mg IVP DAILY [facility] Last Admin: 03/16/18 09:23 Dose: 40 mg Venlafaxine HCl (Effexor Xr) 37.5 mg PO DAILY [facility] Last Admin: 03/16/18 10:28 Dose: Not Given Physical Exam - Constitutional Appears: No Acute Distress, Unkempt - Head Exam Head Exam: ATRAUMATIC, NORMAL INSPECTION - Eye Exam Eye Exam: EOMI, PERRL - ENT Exam ENT Exam: Mucous Membranes Moist - Neck Exam Neck exam: Positive for: Normal Inspection - Respiratory Exam Respiratory Exam: Clear to Auscultation Bilateral, NORMAL BREATHING PATTERN. absent: Rales, Rhonchi, Wheezes - Cardiovascular Exam Cardiovascular Exam: REGULAR RHYTHM, +S1, +S2. absent: Bradycardia, Tachycardia , JVD, Systolic Murmur - GI/Abdominal Exam GI & Abdominal Exam: Normal Bowel Sounds, Soft. absent: Tenderness - Extremities Exam Extremities exam: Positive for: normal inspection - Neurological Exam Neurological exam: Alert, CN II-XII Intact, Oriented x3 Additional comments: -Dysarthric -Tangential speech -Inhibited Results - Vital Signs Recent Vital Signs: Last Vital Signs Temp 98 F 03/16/18 13:10 Pulse 77 03/16/18 13:40 Resp 19 03/16/18 13:40 BP 136/82 03/16/18 13:40 Pulse Ox 100 03/16/18 13:40 - Labs Result Diagrams: 03/16/18 11:27 03/16/18 11:27 Labs: Laboratory Results - last 24 hr 03/15/18 03/15/18 03/16/18 16:44 20:42 06:07 WBC RBC Hgb Hct MCV MCH MCHC RDW Plt Count MPV Neut % (Auto) Lymph % (Auto) [place] % (Auto) Eos % (Auto) Baso % (Auto) Neut # (Auto) Lymph # (Auto) [place] # (Auto) Eos # (Auto) Baso # (Auto) Retic Count Sodium Potassium Chloride Carbon Dioxide Anion Gap BUN Creatinine Est GFR ( Amer) Est GFR (Non-Af Amer) POC Glucose (mg/dL) 101 105 104 Random Glucose Hemoglobin A1c Calcium Phosphorus Magnesium Ferritin Total Bilirubin AST ALT Alkaline Phosphatase Total Protein Albumin Globulin Albumin/Globulin Ratio Triglycerides Cholesterol LDL Cholesterol Direct HDL Cholesterol Vitamin B12 Folate 03/16/18 03/16/18 03/16/18 10:55 11:27 11:27 WBC RBC Hgb Hct MCV MCH MCHC RDW Plt Count MPV Neut % (Auto) Lymph % (Auto) [place] % (Auto) Eos % (Auto) Baso % (Auto) Neut # (Auto) Lymph # (Auto) [place] # (Auto) Eos # (Auto) Baso # (Auto) Retic Count Sodium 145 Potassium 3.5 L Chloride 111 H Carbon Dioxide 25 Anion Gap 13 BUN 8 Creatinine 0.7 Est GFR ( Amer) > 60 Est GFR (Non-Af Amer) > 60 POC Glucose (mg/dL) 107 Random Glucose 99 Hemoglobin A1c 5.6 Calcium 8.3 L Phosphorus 4.0 Magnesium 1.8 Ferritin 46.9 Total Bilirubin 0.9 AST 10 L D ALT 22 Alkaline Phosphatase 100 Total Protein 6.0 L Albumin 3.1 L Globulin 2.9 Albumin/Globulin Ratio 1.1 Triglycerides 108 Cholesterol 90 LDL Cholesterol Direct 39 HDL Cholesterol 28 L Vitamin B12 395 Folate 9.7 03/16/18 11:27 WBC 9.0 RBC 3.72 L Hgb 8.3 L Hct 24.7 L MCV 66.3 L MCH 22.2 L MCHC 33.5 RDW 24.8 H Plt Count 372 MPV 8.6 Neut % (Auto) 75.4 H Lymph % (Auto) 18.5 L [place] % (Auto) 4.4 Eos % (Auto) 1.3 Baso % (Auto) 0.4 Neut # (Auto) 6.8 Lymph # (Auto) 1.7 [place] # (Auto) 0.4 Eos # (Auto) 0.1 Baso # (Auto) 0.0 Retic Count 2.0 H Sodium Potassium Chloride Carbon Dioxide Anion Gap BUN Creatinine Est GFR ( Amer) Est GFR (Non-Af Amer) POC Glucose (mg/dL) Random Glucose Hemoglobin A1c Calcium Phosphorus Magnesium Ferritin Total Bilirubin AST ALT Alkaline Phosphatase Total Protein Albumin Globulin Albumin/Globulin Ratio Triglycerides Cholesterol LDL Cholesterol Direct HDL Cholesterol Vitamin B12 Folate Assessment & Plan - Assessment and Plan (Free Text) Plan: Mrs Loredo is a 62yo female with a PMHx of brain aneurysm s/p recent coil placement in 2017, 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, HTN, depression, and anemia who presented for syncope, slurred speech and bowel incontinence: Altered Mental Status -Sx possibly 2/2 to TIA; there are no meningeal signs, no fluctuating level of consciousness -Had upper endoscopy today - no active bleeding found -F/U EEG -Speech, occupational and physical therapy -Increased home keppra to 500mg Q12 (home dose was 250mg Q12) -Continue aspirin and plavix -LDL 39 -CT head w/o contrast: * Limited study due to significant streak and beam hardening artifact secondary to a large of fall of embolization coils presumably occluding the basilar tip aneurysm. . There also appear to be at least 2 small coils within the inferior margin of the basilar artery appear clinical correlation with history recommended. No evidence of acute intracranial hemorrhage. Significant chronic white matter ischemic changes. Chronic appearing bilateral basal ganglia lacunar type infarcts. 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 The ventricles are dilated up possibly due to mild chronic compensated hydrocephalus versus central volume loss -Echo: * Left ventricle systolic function is normal. The Ejection Fraction is 65-70%. No aortic regurgitation is present. There is no mitral valve regurgitation noted. There is mild tricuspid regurgitation. There is mild pulmonary hypertension. There is no pulmonic valvular regurgitation. Case discussed with Dr Tovar
[2018-03-16] MEDS ORDERED: Dextrose 50% SYRINGE Inj (50 ml) IV PRN (14:58)
[2018-03-16] MEDS ORDERED: Glucagon Recombinant 1 mg Inj IM PRN (14:58)
[2018-03-16] MEDS: levETIRAcetam 500 MG in Sodium Chloride 0.9% 100 ML IVPB SCH (18:18)
[2018-03-17] MEDS: Albuterol-Ipratrop 3 mg / 0.5 (3 ml) UD INH SCH ×4 (02:36→19:30)
[2018-03-17] MEDS: levETIRAcetam 500 MG in Sodium Chloride 0.9% 100 ML IVPB SCH ×2 (06:00→17:30)
[2018-03-17] MEDS: Sodium Chloride 0.9% 1,000 ML IV SCH ×2 (06:45→19:45)
[2018-03-17] MEDS: (Novolin R) Insulin Human Regular 100 units/ml vial SC SCH ×4 (09:48→22:00)
--- NOTE | 2018-03-17 11:15 | PN ---
DATE: 03/17/2018 LOCATION: 660, bed A. SUBJECTIVE: This is a 62-year-old female seen and examined early in rounds post upper endoscopy with biopsy yesterday without significant clinical changes with intermittent periods of mild abdominal pain. The entire chart is reviewed including but not limited to the most recent lab and radiology study results, current and the previous medication list, current and the previous medical events. Case discussed with the staff at length. Today's lab showed blood glucose level of 97. However, the patient still has low hemoglobin and hematocrit as per yesterday, with low total protein and low albumin, as well as low calcium. PHYSICAL EXAMINATION: GENERAL: A 62-year-old female with low-grade temperature of 99.8, pulse of 92, respiratory rate 20-22, blood pressure of 160/80. HEENT: Showed pale, dry oral mucous membranes. Nonicteric sclerae. LUNGS: Few scattered crepitations. Decreased air entry at bases. HEART: Positive S1 and S2. ABDOMEN: Soft. Bowel sounds are present. No mass or organomegaly. No rebound tenderness or guarding. EXTREMITIES: Slight generalized edematous changes. However, it was noticed that the patient has right-sided upper and lower extremity weakness and edematous changes. No clubbing or cyanosis. NEUROLOGIC: No reported new neurological deficits, sensory or motor. IMPRESSION: 1. Anemia with reexacerbation of peptic ulcer disease, to rule out lower gastrointestinal tract blood loss. 2. Rule out recurrent brain infarction. 3. Multiple past medical history including brain aneurysm, with status post recent coil placement, cerebrovascular accident, hypertension, depression, with malnutrition. SUGGESTIONS: 1. Continue current management. 2. The patient is seen by Neurology mainframe consultant. Further evaluation and recommendation to follow. 3. The patient for colonoscopy when she is more stable clinically. Vishnu Carter MD
[2018-03-17 11:46] LABS: MCH 21.5 pg (27.0-33.0); MCV 70.1 fL (80.0-100.0)
[2018-03-17] MEDS: Bisacodyl 5mg EC Tab PO SCH (11:49)
[2018-03-17] MEDS: Venlafaxine 37.5 mg ER Cap PO SCH (11:50)
[2018-03-18] MEDS: Albuterol-Ipratrop 3 mg / 0.5 (3 ml) UD INH SCH ×4 (02:29→20:17)
[2018-03-18] MEDS: levETIRAcetam 500 MG in Sodium Chloride 0.9% 100 ML IVPB SCH ×2 (04:35→16:37)
[2018-03-18] MEDS: (Novolin R) Insulin Human Regular 100 units/ml vial SC SCH ×4 (08:09→22:30)
--- NOTE | 2018-03-18 08:28 | CARD ---
APPROVED REPORT Date of service: 03/14/2018 EKG Measurement Heart [id number] <Conclusion> Sinus tachycardia Marked T wave abnormality, consider anterolateral ischemia Prolonged QT Abnormal ECG
[2018-03-18] MEDS ORDERED: Magnesium Citrate Oral SOL (300 ml) PO ONE ×3 (08:56→16:00)
--- NOTE | 2018-03-18 09:50 | CON ---
DATE: 03/15/[address] Carter to Dr. Nesha Antonio. I was called for GI consultation by the admitting MD. The patient is seen and fully examined with the admitting medical staff on 03/15/2018, as well as the case was discussed at length with the patient's daughter before and immediately after my GI consultation on 03/15/2018. The entire chart is reviewed, including, but not limited to, the most recent lab and radiology study results, current and previous medication list, current and previous medical events. HISTORY OF PRESENT ILLNESS: This is a 62-year-old female who was admitted to the hospital through the emergency room due to generalized weakness and malaise, some slurred speech with fecal incontinence. She is post coil replacement recently due to brain aneurysm. The patient's family reported also slurred speech and recent episodes of headache prior to her admission. The patient received blood transfusion few weeks ago due to her anemia, details are not available, but no reported recent endoscopic evaluation of the GI tract at all as per her daughter's statement. PAST MEDICAL HISTORY: Including, but not limited to, peptic ulcer disease, brain aneurysm, status post coil replacement, questionable CVA recently. FAMILY HISTORY: Unknown. SOCIAL HISTORY: Positive for cigarette smoking, but no recent history of alcohol intake. CURRENT MEDICATIONS: Post-admission medication lists are reviewed. ALLERGIC TO MEDICATIONS: UNKNOWN. LABORATORY DATA: Initial blood workup post admission showed hemoglobin of 6.2, hematocrit 19.4, white blood cells 16.3 with thrombocytosis of 442. Blood glucose level 180. Sodium 149 and potassium 3.1. EKG showed evidence of sinus tachycardia. The patient had CAT scan of the head at the time of the admission. Official report is seen, but no clear evidence of acute intracranial hemorrhage. PHYSICAL EXAMINATION: GENERAL: A 62-year-old female, somewhat mildly lethargic, does not respond well to verbal stimuli, afebrile with pulse of 100, respiratory rate 18-20, blood pressure 124/64. HEENT: Showed pale, dry oral mucous membrane. Nonicteric sclerae. LYMPH NODES: No lymphadenitis or lymphadenopathy. LUNGS: Scattered mild crepitation. Decreased air entry at bases. HEART: Possible S1 and S2 with increased rate. ABDOMEN: Soft with slight distention, slight generalized tenderness mainly in the midepigastric and left lower quadrant area. No mass or organomegaly. No rebound tenderness or guarding. RECTAL: The patient refused. EXTREMITIES: Without significant clubbing, cyanosis, or edema. NEUROLOGIC: No reported new neurological deficits, sensory or motor. However, it was noticed that the patient has right-sided weakness in the upper and lower extremities with right-sided mild lower extremity edematous changes. IMPRESSION: 1. Severe anemia, to rule out lower versus upper gastrointestinal tract blood loss. 2. To rule out occult gastrointestinal malignancy. 3. Multiple past medical history, including, but not limited to, brain aneurysm with status post recent coil replacement, recent history of cerebrovascular accident with residual right-sided weakness. 4. Past medical history including peptic ulcer disease, depression, hypertension with anemia, recently of unclear etiology. 5. Status post knee replacement. SUGGESTIONS: 1. Agree with your plan. 2. Blood transfusion to keep hemoglobin around 10 g percent. Correct any underlying electrolyte imbalance. Sectional abdominal and pelvic CAT scan. Neurology consult. 3. Endoscopic evaluation of the GI tract upon obtaining an official consent from the legal guardian and when the patient is more stable clinically as well as post blood transfusion. Thank you for letting me to participate in your patient's case management, and cancer markers to be done. Add proton pump inhibitors IV. Vishnu Carter MD
[2018-03-18] MEDS: Bisacodyl 5mg EC Tab PO SCH (11:09)
[2018-03-18] MEDS: Venlafaxine 37.5 mg ER Cap PO SCH (11:09)
--- NOTE | 2018-03-18 12:37 | PN ---
DATE: 03/18/2018 LOCATION: 660, bed A. SUBJECTIVE: This is a 62-year-old female, seen and examined in rounds, somewhat responding to verbal stimuli when you call her name mainly, but with periods of some disorientation of time but not the place without any reported active bleeding, still has slurred speech. No reported chest pain, palpitation, or nausea or vomiting. The entire chart is reviewed including but not limited to the most recent lab and radiology study results, current and the previous medication list, current and the previous medical events. Today's lab results showed blood glucose level of 131. The patient still has low hemoglobin and hematocrit despite recent blood transfusion. PHYSICAL EXAMINATION: GENERAL: A 62-year-old female. VITAL SIGNS: Afebrile, with pulse of 82, respiratory rate of 20-22, blood pressure of 124/74. HEENT: Showed pale, dry oral mucous membranes. Nonicteric sclerae. LUNGS: Few scattered crepitations. Decreased air entry at bases. HEART: Positive S1 and S2. ABDOMEN: Soft. Bowel sounds are present. No mass or organomegaly. No rebound tenderness or guarding. EXTREMITIES: With right-sided residual weakness with slight lower extremity edematous changes, mainly in the right side. No clubbing or cyanosis. NEUROLOGIC: No new reported neurological deficits, sensory or motor. IMPRESSION: 1. Anemia. 2. Reexacerbation of peptic ulcer disease. 3. To rule out lower gastrointestinal tract source of blood loss versus occult gastrointestinal malignancy. 4. History of cerebrovascular accident, brain aneurysm, hypertension, depression with malnutrition, hypoalbuminemia. 5. Status post recent coil replacement done surgically. SUGGESTIONS: 1. Continue current management. 2. The patient for colonoscopy at a.m. Vishnu Carter MD
[2018-03-18] MEDS: Dextrose 5%/0.45% NS 1,000 ML IV SCH (15:01)
--- NOTE | 2018-03-18 18:45 | CP.PCM.PN ---
Subjective - Date & Time of Evaluation Date of Evaluation: 03/16/18 Time of Evaluation: 12:00 - Subjective Subjective: Appears fatigued, lethargic. Objective - Vital Signs/Intake and Output Vital Signs (last 24 hours): Temp Pulse Resp BP Pulse Ox 99.3 F 96 H 20 143/84 97 03/18/18 15:25 03/18/18 15:25 03/18/18 15:25 03/18/18 15:25 03/18/18 15:25 Intake and Output: 03/18/18 03/18/18 06:59 18:59 Intake Total 1400 550 Output Total 600 Balance 1400 -50 - Medications Medications: Current Medications Acetaminophen (Tylenol 325mg Tab) 650 mg PO Q6 PRN PRN Reason: Pain, Mild (1-3) Albuterol/Ipratropium (Duoneb 3 Mg/0.5 Mg (3 Ml) Ud) 3 ml INH RQ6 [facility] Last Admin: 03/18/18 13:45 Dose: 3 ml Amlodipine Besylate (Norvasc) 10 mg PO DAILY [facility] Last Admin: 03/18/18 11:09 Dose: 10 mg Aspirin (Ecotrin) 81 mg PO DAILY [facility] Last Admin: 03/17/18 11:49 Dose: 81 mg Bisacodyl (Dulcolax) 10 mg PO DAILY [facility] Last Admin: 03/18/18 11:09 Dose: 10 mg Carvedilol (Coreg) 3.125 mg PO Q12 [facility] Last Admin: 03/18/18 11:09 Dose: 3.125 mg Clopidogrel Bisulfate (Plavix) 75 mg PO DAILY [facility] Last Admin: 03/17/18 11:49 Dose: 75 mg Dextrose (Dextrose 50% Inj) 0 ml IV STAT PRN; Protocol PRN Reason: Hypoglycemia Protocol Dextrose (Glutose 15) 0 gm PO ONCE PRN; Protocol PRN Reason: Hypoglycemia Protocol Glucagon (Glucagen Diagnostic Kit) 0 mg IM STAT PRN; Protocol PRN Reason: Hypoglycemia Protocol Hydralazine HCl (Apresoline) 25 mg PO Q8 [facility] Last Admin: 03/18/18 13:24 Dose: 25 mg Dextrose (Dextrose 5% In Water 1000 Ml) 1,000 mls @ 0 mls/hr IV .Q0M PRN; Protocol; Per Protocol PRN Reason: Hypoglycemia Protocol Levetiracetam 500 mg/ Sodium (Chloride) 105 mls @ 420 mls/hr IVPB Q12H [facility] Last Admin: 03/18/18 16:37 Dose: 420 mls/hr Dextrose/Sodium Chloride (Dextrose 5%/0.45% Ns 1000 Ml) 1,000 mls @ 80 mls/hr IV .[id number] [facility] Last Admin: 03/18/18 15:01 Dose: 80 mls/hr Insulin Human Regular (Novolin R) 1 unit SC ACHS [facility] PRN Reason: Protocol Last Admin: 03/18/18 12:08 Dose: Not Given Lactulose (Enulose) 20 gm PO HS [facility] Last Admin: 03/17/18 21:39 Dose: 20 gm Levetiracetam (Keppra) 250 mg PO BID [facility] Last Admin: 03/16/18 10:29 Dose: Not Given Pantoprazole Sodium (Protonix Inj) 40 mg IVP DAILY [facility] Last Admin: 03/18/18 11:09 Dose: 40 mg Venlafaxine HCl (Effexor Xr) 37.5 mg PO DAILY [facility] Last Admin: 03/18/18 11:09 Dose: 37.5 mg - Labs Labs: 03/16/18 11:27 03/16/18 11:27 PT 13.4 SECONDS (9.7-12.2) H 03/15/18 08:09 INR 1.2 03/15/18 08:09 APTT 28 SECONDS (21-34) 03/15/18 08:09 - Head Exam Head Exam: ATRAUMATIC - Eye Exam Eye Exam: Normal appearance - ENT Exam ENT Exam: Mucous Membranes Dry - Respiratory Exam Respiratory Exam: NORMAL BREATHING PATTERN - Cardiovascular Exam Cardiovascular Exam: +S1, +S2 - GI/Abdominal Exam GI & Abdominal Exam: Normal Bowel Sounds Assessment and Plan (1) Anemia Assessment & Plan: hypoproliferative erythroid response borderline iron stores in IV iron FOBT positive; GI w/u in progress antiplatelet and anticoagulation on hold Status: Acute
--- NOTE | 2018-03-18 18:46 | CP.PCM.PN ---
Subjective - Date & Time of Evaluation Date of Evaluation: 03/17/18 Time of Evaluation: 18:00 - Subjective Subjective: appears comfortable, lethargic Objective - Vital Signs/Intake and Output Vital Signs (last 24 hours): Temp Pulse Resp BP Pulse Ox 99.3 F 96 H 20 143/84 97 03/18/18 15:25 03/18/18 15:25 03/18/18 15:25 03/18/18 15:25 03/18/18 15:25 Intake and Output: 03/18/18 03/18/18 06:59 18:59 Intake Total 1400 550 Output Total 600 Balance 1400 -50 - Medications Medications: Current Medications Acetaminophen (Tylenol 325mg Tab) 650 mg PO Q6 PRN PRN Reason: Pain, Mild (1-3) Albuterol/Ipratropium (Duoneb 3 Mg/0.5 Mg (3 Ml) Ud) 3 ml INH RQ6 [facility] Last Admin: 03/18/18 13:45 Dose: 3 ml Amlodipine Besylate (Norvasc) 10 mg PO DAILY [facility] Last Admin: 03/18/18 11:09 Dose: 10 mg Aspirin (Ecotrin) 81 mg PO DAILY [facility]S [facility] Last Admin: 03/17/18 11:49 Dose: 81 mg Bisacodyl (Dulcolax) 10 mg PO DAILY [facility] 234 [facility]S [facility] Last Admin: 03/18/18 11:09 Dose: 10 mg Carvedilol (Coreg) 3.125 mg PO Q12 [facility] 234 [facility]S AT [facility] Last Admin: 03/18/18 11:09 Dose: 3.125 mg Clopidogrel Bisulfate (Plavix) 75 mg PO DAILY [facility]S [facility] Last Admin: 03/17/18 11:49 Dose: 75 mg Dextrose (Dextrose 50% Inj) 0 ml IV STAT PRN; Protocol PRN Reason: Hypoglycemia Protocol Dextrose (Glutose 15) 0 gm PO ONCE PRN; Protocol PRN Reason: Hypoglycemia Protocol Glucagon (Glucagen Diagnostic Kit) 0 mg IM STAT PRN; Protocol PRN Reason: Hypoglycemia Protocol Hydralazine HCl (Apresoline) 25 mg PO Q8 [facility]S [facility] Last Admin: 03/18/18 13:24 Dose: 25 mg Dextrose (Dextrose 5% In Water 1000 Ml) 1,000 mls @ 0 mls/hr IV .Q0M PRN; Protocol; Per Protocol PRN Reason: Hypoglycemia Protocol Levetiracetam 500 mg/ Sodium (Chloride) 105 mls @ 420 mls/hr IVPB Q12H [facility] 234 [facility]S [facility] Last Admin: 03/18/18 16:37 Dose: 420 mls/hr Dextrose/Sodium Chloride (Dextrose 5%/0.45% Ns 1000 Ml) 1,000 mls @ 80 mls/hr IV .[id number] [facility] 234 [facility]S AT [facility] Last Admin: 03/18/18 15:01 Dose: 80 mls/hr Insulin Human Regular (Novolin R) 1 unit SC ACHS [facility]S AT [facility] PRN Reason: Protocol Last Admin: 03/18/18 12:08 Dose: Not Given Lactulose (Enulose) 20 gm PO HS [facility] Last Admin: 03/17/18 21:39 Dose: 20 gm Levetiracetam (Keppra) 250 mg PO BID [facility] Last Admin: 03/16/18 10:29 Dose: Not Given Pantoprazole Sodium (Protonix Inj) 40 mg IVP DAILY [facility] Last Admin: 03/18/18 11:09 Dose: 40 mg Venlafaxine HCl (Effexor Xr) 37.5 mg PO DAILY [facility]S [facility] Last Admin: 03/18/18 11:09 Dose: 37.5 mg - Labs Labs: 03/16/18 11:27 03/16/18 11:27 PT 13.4 SECONDS (9.7-12.2) H 03/15/18 08:09 INR 1.2 03/15/18 08:09 APTT 28 SECONDS (21-34) 03/15/18 08:09 - Head Exam Head Exam: ATRAUMATIC - Eye Exam Eye Exam: Normal appearance - ENT Exam ENT Exam: Mucous Membranes Dry - Respiratory Exam Respiratory Exam: NORMAL BREATHING PATTERN - Cardiovascular Exam Cardiovascular Exam: +S1, +S2 - GI/Abdominal Exam GI & Abdominal Exam: Normal Bowel Sounds Assessment and Plan (1) Anemia Assessment & Plan: hypoproliferative erythroid response borderline iron stores in IV iron FOBT positive; GI w/u in progress antiplatelet and anticoagulation on hold Status: Acute
--- NOTE | 2018-03-18 18:46 | CP.PCM.PN ---
Subjective - Date & Time of Evaluation Date of Evaluation: 03/18/18 Time of Evaluation: 13:00 - Subjective Subjective: Appears comfortable but lethargic Objective - Vital Signs/Intake and Output Vital Signs (last 24 hours): Temp Pulse Resp BP Pulse Ox 99.3 F 96 H 20 143/84 97 03/18/18 15:25 03/18/18 15:25 03/18/18 15:25 03/18/18 15:25 03/18/18 15:25 Intake and Output: 03/18/18 03/18/18 06:59 18:59 Intake Total 1400 550 Output Total 600 Balance 1400 -50 - Medications Medications: Current Medications Acetaminophen (Tylenol 325mg Tab) 650 mg PO Q6 PRN PRN Reason: Pain, Mild (1-3) Albuterol/Ipratropium (Duoneb 3 Mg/0.5 Mg (3 Ml) Ud) 3 ml INH RQ6 [facility] Last Admin: 03/18/18 13:45 Dose: 3 ml Amlodipine Besylate (Norvasc) 10 mg PO DAILY [facility] Last Admin: 03/18/18 11:09 Dose: 10 mg Aspirin (Ecotrin) 81 mg PO DAILY [facility] Last Admin: 03/17/18 11:49 Dose: 81 mg Bisacodyl (Dulcolax) 10 mg PO DAILY [facility] Last Admin: 03/18/18 11:09 Dose: 10 mg Carvedilol (Coreg) 3.125 mg PO Q12 [facility] Last Admin: 03/18/18 11:09 Dose: 3.125 mg Clopidogrel Bisulfate (Plavix) 75 mg PO DAILY [facility] Last Admin: 03/17/18 11:49 Dose: 75 mg Dextrose (Dextrose 50% Inj) 0 ml IV STAT PRN; Protocol PRN Reason: Hypoglycemia Protocol Dextrose (Glutose 15) 0 gm PO ONCE PRN; Protocol PRN Reason: Hypoglycemia Protocol Glucagon (Glucagen Diagnostic Kit) 0 mg IM STAT PRN; Protocol PRN Reason: Hypoglycemia Protocol Hydralazine HCl (Apresoline) 25 mg PO Q8 [facility] Last Admin: 03/18/18 13:24 Dose: 25 mg Dextrose (Dextrose 5% In Water 1000 Ml) 1,000 mls @ 0 mls/hr IV .Q0M PRN; Protocol; Per Protocol PRN Reason: Hypoglycemia Protocol Levetiracetam 500 mg/ Sodium (Chloride) 105 mls @ 420 mls/hr IVPB Q12H [facility] Last Admin: 03/18/18 16:37 Dose: 420 mls/hr Dextrose/Sodium Chloride (Dextrose 5%/0.45% Ns 1000 Ml) 1,000 mls @ 80 mls/hr IV .[id number] [facility] Last Admin: 03/18/18 15:01 Dose: 80 mls/hr Insulin Human Regular (Novolin R) 1 unit SC ACHS [facility] PRN Reason: Protocol Last Admin: 03/18/18 12:08 Dose: Not Given Lactulose (Enulose) 20 gm PO HS [facility] Last Admin: 03/17/18 21:39 Dose: 20 gm Levetiracetam (Keppra) 250 mg PO BID [facility] Last Admin: 03/16/18 10:29 Dose: Not Given Pantoprazole Sodium (Protonix Inj) 40 mg IVP DAILY [facility] Last Admin: 03/18/18 11:09 Dose: 40 mg Venlafaxine HCl (Effexor Xr) 37.5 mg PO DAILY [facility] Last Admin: 03/18/18 11:09 Dose: 37.5 mg - Labs Labs: 03/16/18 11:27 03/16/18 11:27 PT 13.4 SECONDS (9.7-12.2) H 03/15/18 08:09 INR 1.2 03/15/18 08:09 APTT 28 SECONDS (21-34) 03/15/18 08:09 - Head Exam Head Exam: ATRAUMATIC - Eye Exam Eye Exam: Normal appearance - ENT Exam ENT Exam: Mucous Membranes Dry - Respiratory Exam Respiratory Exam: NORMAL BREATHING PATTERN - Cardiovascular Exam Cardiovascular Exam: +S1, +S2 - GI/Abdominal Exam GI & Abdominal Exam: Normal Bowel Sounds Assessment and Plan (1) Anemia Assessment & Plan: hypoproliferative erythroid response borderline iron stores in IV iron FOBT positive; GI w/u in progress antiplatelet and anticoagulation on hold Status: Acute
[2018-03-19] MEDS: Albuterol-Ipratrop 3 mg / 0.5 (3 ml) UD INH SCH ×3 (02:26→07:43)
[2018-03-19] MEDS: levETIRAcetam 500 MG in Sodium Chloride 0.9% 100 ML IVPB SCH ×2 (04:50→17:48)
[2018-03-19] MEDS: Dextrose 5%/0.45% NS 1,000 ML IV SCH ×2 (04:57→20:42)
[2018-03-19] MEDS: (Novolin R) Insulin Human Regular 100 units/ml vial SC SCH ×4 (07:52→21:38)
--- NOTE | 2018-03-19 09:04 | CP.PCM.PN ---
Subjective - Date & Time of Evaluation Date of Evaluation: 03/19/18 Time of Evaluation: 08:57 - Subjective Subjective: PGY3 progress note for Dr. Antonio Pt seen and examined at bedside. No acute events overnight. Pt is awake and answering questions without difficulty. Patient denies having any abd pain, CP , AVILA. Complete ROS unobtainable due to mental status. Objective - Vital Signs/Intake and Output Vital Signs (last 24 hours): Temp Pulse Resp BP Pulse Ox 98.6 F 82 20 124/67 95 03/19/18 07:00 03/19/18 08:00 03/19/18 07:00 03/19/18 07:00 03/19/18 07:00 Intake and Output: 03/19/18 03/19/18 06:59 18:59 Intake Total 1280 Output Total 1200 Balance 80 - Medications Medications: Current Medications Acetaminophen (Tylenol 325mg Tab) 650 mg PO Q6 PRN PRN Reason: Pain, Mild (1-3) Albuterol/Ipratropium (Duoneb 3 Mg/0.5 Mg (3 Ml) Ud) 3 ml INH RQ6 [facility] Last Admin: 03/19/18 07:43 Dose: Not Given Amlodipine Besylate (Norvasc) 10 mg PO DAILY [facility] Last Admin: 03/18/18 11:09 Dose: 10 mg Aspirin (Ecotrin) 81 mg PO DAILY [facility] Last Admin: 03/17/18 11:49 Dose: 81 mg Bisacodyl (Dulcolax) 10 mg PO DAILY [facility] Last Admin: 03/18/18 11:09 Dose: 10 mg Carvedilol (Coreg) 3.125 mg PO Q12 [facility] Last Admin: 03/18/18 22:06 Dose: 3.125 mg Clopidogrel Bisulfate (Plavix) 75 mg PO DAILY [facility] Last Admin: 03/17/18 11:49 Dose: 75 mg Dextrose (Dextrose 50% Inj) 0 ml IV STAT PRN; Protocol PRN Reason: Hypoglycemia Protocol Dextrose (Glutose 15) 0 gm PO ONCE PRN; Protocol PRN Reason: Hypoglycemia Protocol Glucagon (Glucagen Diagnostic Kit) 0 mg IM STAT PRN; Protocol PRN Reason: Hypoglycemia Protocol Hydralazine HCl (Apresoline) 25 mg PO Q8 [facility] Last Admin: 03/19/18 06:01 Dose: 25 mg Dextrose (Dextrose 5% In Water 1000 Ml) 1,000 mls @ 0 mls/hr IV .Q0M PRN; Protocol; Per Protocol PRN Reason: Hypoglycemia Protocol Levetiracetam 500 mg/ Sodium (Chloride) 105 mls @ 420 mls/hr IVPB Q12H [facility] Last Admin: 03/19/18 04:50 Dose: 420 mls/hr Dextrose/Sodium Chloride (Dextrose 5%/0.45% Ns 1000 Ml) 1,000 mls @ 80 mls/hr IV .[id number] [facility] Last Admin: 03/19/18 04:57 Dose: 80 mls/hr Insulin Human Regular (Novolin R) 1 unit SC ACHS [facility] PRN Reason: Protocol Last Admin: 03/19/18 07:52 Dose: Not Given Lactulose (Enulose) 20 gm PO [facility] Last Admin: 03/18/18 22:06 Dose: 20 gm Levetiracetam (Keppra) 250 mg PO BID [facility] Last Admin: 03/16/18 10:29 Dose: Not Given Pantoprazole Sodium (Protonix Inj) 40 mg IVP DAILY [facility] Last Admin: 03/18/18 11:09 Dose: 40 mg Rosuvastatin Calcium (Crestor) 20 mg PO [facility] Last Admin: 03/18/18 22:06 Dose: 20 mg Venlafaxine HCl (Effexor Xr) 37.5 mg PO DAILY [facility] Last Admin: 03/18/18 11:09 Dose: 37.5 mg - Labs Labs: 03/16/18 11:27 03/16/18 11:27 PT 13.4 SECONDS (9.7-12.2) H 03/15/18 08:09 INR 1.2 03/15/18 08:09 APTT 28 SECONDS (21-34) 03/15/18 08:09 - Constitutional Appears: Non-toxic, No Acute Distress - Head Exam Head Exam: ATRAUMATIC, NORMOCEPHALIC - ENT Exam ENT Exam: Mucous Membranes Moist - Respiratory Exam Respiratory Exam: Clear to Ausculation Bilateral. absent: Rales, Rhonchi, Wheezes - Cardiovascular Exam Cardiovascular Exam: REGULAR RHYTHM, +S1, +S2. absent: Diastolic murmur, Gallop , Rubs, Murmur - GI/Abdominal Exam GI & Abdominal Exam: Soft, Normal Bowel Sounds. absent: Distended, Firm, Guarding, Rigid, Tenderness, Organomegaly - Extremities Exam Extremities Exam: absent: Pedal Edema, Tenderness - Neurological Exam Neurological Exam: Alert, Awake. absent: Oriented x3 Additional comments: pt is following commands without difficulty. - Psychiatric Exam Psychiatric exam: Normal Affect, Normal Mood - Skin Skin Exam: Dry, Intact, Normal Color, Warm Assessment and Plan - Assessment and Plan (Free Text) Assessment: 62 year old female with past medical history of brain aneurysm s/p coil placement is admitted for syncope and slurred speech Syncope - Seizure vs. symptomatic anemia vs. CVA vs. arrythmia - CT of head on admission showed no acute hemorrhage but did show chronic lacunar infarcts at basal ganglia and chronic left SAFETY ATTENDANT infarct. - Hgb on admission was 6.2 - Negative UDS - UA showed blood and mild WBC and occasional bacteria - Urine culture: Negative - ECHO (03/16/18): Left ventricle systolic function is normal. EF 65-70%. No aortic regurgitation is present. Please see full report. - Neurology, Dr. Tovar is consulted. Pending further recs - EEG report pending - Per neuro, no indication for MRI/MRA of brain at this time. Anemia - Likely 2/2 GI bleed. Stool occult positive on admission - Patient was transfused 2 units 03/15/18. - B12 395; Folate 9.7 - Ferritin 46.9; Retic Count 2.0 - GI, Dr. Lock is consulted --> help appreciated - EGD (03/16/18): LA Grade A esophagitis; medium-sized hiatal hernia; patchy mildly erythematous mucosa without bleeding. Please see full report - f/u with Dr. Lock for recommendations - Plan was for colonoscopy today but daughter states she does not want mother to have colonoscopy today until medical records have not been obtained from [facility] [place]where [place] had colonoscopy in December). Dr. Lock informed. Will request records from [facility] [place] - Hematology, Dr. Coombs consulted- Awaiting further recs - hypoproliferative erythroid response - Will hold Aspirin, plavix and oral AC History of Brain Aneurysm s/p coil - Head CT: Limited study due to significant streak and beam hardening artifact secondary to a large of fall of embolization coils presumably occluding the basilar tip aneurysm. . There also appear to be at least 2 small coils within the inferior margin of the basilar artery appear clinical correlation with history recommended. No evidence of acute intracranial hemorrhage. Significant chronic white matter ischemic changes. Chronic appearing bilateral basal ganglia lacunar type infarcts. There is also a chronic infarct along the left SAFETY ATTENDANT territory. The ventricles are dilated up possibly due to mild chronic compensated hydrocephalus versus central volume loss. - Continue Home Medications: * Keppra 250mg po bid History of HTN - Continue home Medications * Amlodipine 10mg daily * Coreg 3.125mg po q12h * Hydralazine 25mg q8h po Impaired Glucose Tolerance - hA1c: 5.6 - Lipid Panel: Cholesterol 90; LDL 39; HDL 28; Triglycerides 108 - Accuchecks - Hypoglycemia Protocol - Insulin 1units SC ACHS - Continue Crestor Prophylaxis - Will hold oral AC due to GI bleed - SCDs - Dulcolax 10mg po daily; Lactulose 20gm po HS - Will hold Aspirin, plavix and oral AC - VTE contraindication due to GI bleed - Protonix IV All orders and management per Dr. Antonio
[2018-03-19] MEDS: Bisacodyl 5mg EC Tab PO SCH (09:51)
[2018-03-19] MEDS: Venlafaxine 37.5 mg ER Cap PO SCH (09:52)
[2018-03-19 11:37] LABS: INR 1.2; PROTHROMBIN TIME 12.9 SECONDS (9.7-12.2)
[2018-03-19 11:39] LABS: BASO % 0.3 % (0.0-2.0); EOS # 0.1 K/uL (0.0-0.7); EOS % 2.5 % (0.0-4.0); HEMOGLOBIN 7.9 g/dL (11.0-16.0); LYMPH # 0.7 K/uL (1.0-4.3); LYMPH % 12.6 % (20.0-40.0); MEAN CELL VOLUME 66.1 fL (81.0-99.0); MEAN CORPUSCULAR HEMOGLOBIN 21.3 pg (27.0-31.0); MEAN CORPUSCULAR HGB CONC 32.2 g/dL (33.0-37.0); MEAN PLATELET VOLUME 8.5 fL (7.2-11.7); MONO # 0.5 K/uL (0.0-0.8); MONO % 8.9 % (0.0-10.0); NEUT # 4.4 K/uL (1.8-7.0); NEUT % 75.7 % (50.0-75.0); RBC 3.72 Mil/uL (3.80-5.20); WHITE BLOOD COUNT 5.8 K/uL (4.8-10.8)
[2018-03-19 11:48] LABS: ALB/GLOB RATIO 1.1 (1.0-2.1); ALBUMIN 3.1 g/dL (3.5-5.0); ALT/SGPT 25 U/L (9-52); AST/SGOT 11 U/L (14-36); BLOOD UREA NITROGEN 4 mg/dL (7-17); CALCIUM 8.3 mg/dl (8.6-10.4); GFR NON-AFRICAN AMERICAN > 60
[2018-03-19] MEDS ORDERED: Potassium Chloride 20 mEq ER Tab PO ONE (14:00)
--- NOTE | 2018-03-19 14:35 | PN ---
DATE: 03/19/2018 LOCATION: 660, bed A. SUBJECTIVE: This is a 62-year-old female seen and examined early in rounds, who is scheduled initially for colonoscopy due to the subsequent drop of her hemoglobin and hematocrit, but apparently the daughter this morning refused the procedure unfortunately after she took the preparation for colonoscopy and she had been n.p.o. at this point and due to the daughter's decision to cancel the procedure, the procedure had to be canceled. I made more than one attempt to contact the daughter who agreed for the colonoscopy, did not return back my call. Most recent lab results showed blood glucose level of 121. PHYSICAL EXAMINATION: GENERAL: A 62-year-old female. VITAL SIGNS: Afebrile with pulse of 80, respiratory rate 20 to 22, blood pressure 128/64. HEENT: Show pale, dry oral mucous membranes. Nonicteric sclerae. LUNGS: Few scattered crepitation. Decreased air entry at bases. HEART: Positive S1 and S2. ABDOMEN: Soft with mild generalized tenderness. No mass or organomegaly. No rebound tenderness or guarding. EXTREMITIES: With residual right-sided weakness and mild edematous changes. No clubbing or cyanosis. NEUROLOGICAL: No reported new neurological deficits, sensory or motor. IMPRESSION: 1. Anemia, to rule out lower gastrointestinal blood loss versus occult gastrointestinal malignancy. 2. Re-exacerbation of peptic ulcer disease. 3. Known history of brain aneurysm with status post coil insertion. 4. Known history of hypertension. 5. History of cerebrovascular accident, depression with recent history of malnutrition and hypoalbuminemia. SUGGESTIONS: 1. Continue current management. 2. Blood transfusion as needed to keep hemoglobin around 10 g percent. 3. Central hyperalimentation. 4. Further recommendations to follow. Vishnu Carter MD
[2018-03-19 20:31] LABS: SQUAMOUS EPITHIAL 4 /hpf (0-5); URINE AMORPHOUS SEDIMENT OCC /ul (<OCC); URINE BACTERIA MANY (<OCC); URINE BILIRUBIN NEGATIVE (NEGATIVE); URINE BLOOD 3+ (NEGATIVE); URINE CLARITY Turbid (Clear); URINE GLUCOSE (UA) NORMAL (Normal); URINE LEUKOCYTE ESTERASE 3+ Leu/uL (Negative); URINE PROTEIN NEGATIVE (NEGATIVE)
[2018-03-19 20:33] LABS: URINE COLOR YELLOW (YELLOW)
[2018-03-20] MEDS: Albuterol-Ipratrop 3 mg / 0.5 (3 ml) UD INH SCH ×4 (01:08→19:22)
[2018-03-20] MEDS: Dextrose 5%/0.45% NS 1,000 ML IV SCH ×2 (03:45→17:00)
[2018-03-20] MEDS: levETIRAcetam 500 MG in Sodium Chloride 0.9% 100 ML IVPB SCH ×2 (05:35→17:00)
[2018-03-20 07:34] LABS: BASO % 0.4 % (0.0-2.0); EOS # 0.2 K/uL (0.0-0.7); EOS % 2.1 % (0.0-4.0); HEMOGLOBIN 7.8 g/dL (11.0-16.0); LYMPH # 1.5 K/uL (1.0-4.3); LYMPH % 19.6 % (20.0-40.0); MEAN CELL VOLUME 66.5 fL (81.0-99.0); MEAN CORPUSCULAR HEMOGLOBIN 21.6 pg (27.0-31.0); MEAN CORPUSCULAR HGB CONC 32.4 g/dL (33.0-37.0); MEAN PLATELET VOLUME 8.7 fL (7.2-11.7); MONO # 0.6 K/uL (0.0-0.8); MONO % 7.7 % (0.0-10.0); NEUT # 5.4 K/uL (1.8-7.0); NEUT % 70.2 % (50.0-75.0); RBC 3.61 Mil/uL (3.80-5.20); RED CELL DISTRIBUTION WIDTH 26.4 % (11.5-14.5); WHITE BLOOD COUNT 7.7 K/uL (4.8-10.8)
[2018-03-20 07:49] LABS: ALT/SGPT 23 U/L (9-52); AST/SGOT 18 U/L (14-36); BLOOD UREA NITROGEN 6 mg/dL (7-17); CALCIUM 8.1 mg/dl (8.6-10.4); GFR NON-AFRICAN AMERICAN > 60
[2018-03-20] MEDS: (Novolin R) Insulin Human Regular 100 units/ml vial SC SCH ×3 (08:10→17:01)
--- NOTE | 2018-03-20 09:13 | CP.PCM.PN ---
Subjective - Date & Time of Evaluation Date of Evaluation: 03/20/18 Time of Evaluation: 09:13 - Subjective Subjective: Progress note for Dr. Antonio's service Patient was seen and examined at bedside in no acute distress. Patient states she has no complaints today and says she "feels better now." She is oriented to place, but says she doesn't know the date. Patient denies chest pain, palpitations, dyspnea, dizziness, nausea, vomiting, fevers, headache abdominal pain, dysuria, constipation, and diarrhea. Objective - Vital Signs/Intake and Output Vital Signs (last 24 hours): Temp Pulse Resp BP Pulse Ox 98.6 F 83 20 115/66 98 03/20/18 07:00 03/20/18 07:00 03/20/18 07:00 03/20/18 07:00 03/20/18 07:00 Intake and Output: 03/20/18 03/20/18 06:59 18:59 Output Total 600 Balance -600 - Medications Medications: Current Medications Acetaminophen (Tylenol 325mg Tab) 650 mg PO Q6 PRN PRN Reason: Pain, Mild (1-3) Albuterol/Ipratropium (Duoneb 3 Mg/0.5 Mg (3 Ml) Ud) 3 ml INH RQ6 [facility] Last Admin: 03/20/18 08:05 Dose: Not Given Amlodipine Besylate (Norvasc) 10 mg PO DAILY [facility] Last Admin: 03/19/18 09:52 Dose: 10 mg Aspirin (Ecotrin) 81 mg PO DAILY [facility] Last Admin: 03/17/18 11:49 Dose: 81 mg Bisacodyl (Dulcolax) 10 mg PO DAILY [facility] Last Admin: 03/19/18 09:51 Dose: 10 mg Carvedilol (Coreg) 3.125 mg PO Q12 [facility] Last Admin: 03/19/18 21:57 Dose: 3.125 mg Clopidogrel Bisulfate (Plavix) 75 mg PO DAILY [facility] Last Admin: 03/17/18 11:49 Dose: 75 mg Dextrose (Dextrose 50% Inj) 0 ml IV STAT PRN; Protocol PRN Reason: Hypoglycemia Protocol Dextrose (Glutose 15) 0 gm PO ONCE PRN; Protocol PRN Reason: Hypoglycemia Protocol Glucagon (Glucagen Diagnostic Kit) 0 mg IM STAT PRN; Protocol PRN Reason: Hypoglycemia Protocol Hydralazine HCl (Apresoline) 25 mg PO Q8 [facility] Last Admin: 03/20/18 05:38 Dose: 25 mg Levetiracetam 500 mg/ Sodium (Chloride) 105 mls @ 420 mls/hr IVPB Q12H [facility] Last Admin: 03/20/18 05:35 Dose: 420 mls/hr Dextrose/Sodium Chloride (Dextrose 5%/0.45% Ns 1000 Ml) 1,000 mls @ 80 mls/hr IV .[id number] [facility] Last Admin: 03/20/18 03:45 Dose: Not Given Insulin Human Regular (Novolin R) [address] [facility] PRN Reason: Protocol Last Admin: 03/20/18 08:10 Dose: Not Given Lactulose (Enulose) 20 gm PO [facility] Last Admin: 03/19/18 21:04 Dose: Not Given Levetiracetam (Keppra) 250 mg PO BID [facility] Last Admin: 03/16/18 10:29 Dose: Not Given Pantoprazole Sodium (Protonix Inj) 40 mg IVP DAILY [facility] Last Admin: 03/19/18 09:51 Dose: 40 mg Rosuvastatin Calcium (Crestor) 20 mg PO [facility] Last Admin: 03/19/18 21:58 Dose: 20 mg Venlafaxine HCl (Effexor Xr) 37.5 mg PO DAILY [facility] Last Admin: 03/19/18 09:52 Dose: 37.5 mg - Labs Labs: 03/20/18 07:22 03/20/18 07:22 PT 12.9 SECONDS (9.7-12.2) H 03/19/18 11:25 INR 1.2 03/19/18 11:25 APTT 31 SECONDS (21-34) 03/19/18 11:25 - Constitutional Appears: No Acute Distress - Head Exam Head Exam: ATRAUMATIC, NORMAL INSPECTION - Eye Exam Eye Exam: EOMI, Normal appearance - ENT Exam ENT Exam: Mucous Membranes Moist - Respiratory Exam Respiratory Exam: Clear to Ausculation Bilateral, NORMAL BREATHING PATTERN. absent: Rales, Rhonchi, Wheezes, Respiratory Distress - Cardiovascular Exam Cardiovascular Exam: REGULAR RHYTHM, +S1, +S2, Murmur - GI/Abdominal Exam GI & Abdominal Exam: Soft, Normal Bowel Sounds. absent: Distended, Firm, Tenderness - Extremities Exam Extremities Exam: absent: Pedal Edema, Tenderness - Neurological Exam Neurological Exam: Awake. absent: Oriented x3 - Psychiatric Exam Psychiatric exam: Flat Affect - Skin Skin Exam: Dry, Intact, Warm Assessment and Plan - Assessment and Plan (Free Text) Assessment: 62 year old female with past medical history of brain aneurysm s/p coil placement is admitted for syncope and slurred speech Syncope - Seizure vs. symptomatic anemia vs. CVA vs. arrythmia - CT of head on admission showed no acute hemorrhage but did show chronic lacunar infarcts at basal ganglia and chronic left [employer] infarct. - Hgb on admission was 6.2 - Negative UDS - UA showed blood and mild WBC and occasional bacteria - Urine culture: Negative - ECHO (03/16/18): Left ventricle systolic function is normal. EF 65-70%. No aortic regurgitation is present. Please see full report. - Neurology, Dr. Tovar is consulted. Pending further recs - EEG report pending - Per neuro, no indication for MRI/MRA of brain at this time. Anemia - Likely 2/2 GI bleed and anemia of chronic disease. - Stool occult positive x3 - Patient was transfused 2 units 03/15/18. Received additional unit of PRBC on . Continue to monitor - B12 395; Folate 9.7 - Ferritin 46.9; Retic Count 2.0 - GI, Dr. Lock is consulted --> help appreciated - EGD (03/16/18): LA Grade A esophagitis; medium-sized hiatal hernia; patchy mildly erythematous mucosa without bleeding. Please see full report - f/u with Dr. Lock for recommendations - Plan was for colonoscopy, but daughter states she does not want mother to have colonoscopy until [place] [facility] [place] Dr. Lock informed. [place] [facility] [place] were signed and [place] [facility] [place] - Hematology, Dr. Coombs consulted- Awaiting further recs - hypoproliferative erythroid response - Hold Aspirin & Plavix History of Brain Aneurysm - s/p coil - Head CT: Limited study due to significant streak and beam hardening artifact secondary to a large of fall of embolization coils presumably occluding the basilar tip aneurysm. . There also appear to be at least 2 small coils within the inferior margin of the basilar artery appear clinical correlation with history recommended. No evidence of acute intracranial hemorrhage. Significant chronic white matter ischemic changes. Chronic appearing bilateral basal ganglia lacunar type infarcts. There is also a chronic infarct along the left [employer] territory. The ventricles are dilated up possibly due to mild chronic compensated hydrocephalus versus central volume loss. - Continue Home Medications: Keppra 250mg po bid History of HTN - Continue home Medications * Amlodipine 10mg daily * Coreg 3.125mg po q12h * Hydralazine 25mg q8h po Impaired Glucose Tolerance - hA1c: 5.6 - Lipid Panel: Cholesterol 90; LDL 39; HDL 28; Triglycerides 108 - Accuchecks - Hypoglycemia Protocol - Insulin 1units SC ACHS - Continue Crestor 20mg HS Prophylaxis - DVT: chemical anticoagulation contraindication due to GI bleed, hold aspirin and plavix - SCDs - GI: Protonix IV - Dulcolax 10mg po daily; Lactulose 20gm po HS - Case management referral for rehab placement - PT/OT All management per Dr. Antonio
[2018-03-20] MEDS: Venlafaxine 37.5 mg ER Cap PO SCH (10:00)
[2018-03-20] MEDS: Bisacodyl 5mg EC Tab PO SCH (10:27)
--- NOTE | 2018-03-20 13:59 | PN ---
DATE: 03/20/2018 LOCATION: 660, bed A. SUBJECTIVE: This is a 62-year-old female seen and examined in rounds without significant clinical changes or reported active bleeding with intermittent period of agitation and restlessness, appears to be somewhat lethargic with reported cloudy urine. Urine analysis, repeat, still pending results. The entire chart is reviewed including but not limited to the most recent lab and radiology study results, current and the previous medication list, current and the previous medical events, and today's lab results showed drop of hemoglobin 7.8, hematocrit 24 with low indices highly suggestive of hypochromic microcytic anemia, potassium of 3.5, BUN 6 with normal creatinine, blood glucose level 132, calcium 8.1, total protein 5.8, albumin 3 with red blood cells and white blood cells in the urine as well as multiple bacteria. . PHYSICAL EXAMINATION: GENERAL: A 62-year-old female. VITAL SIGNS: Afebrile with pulse of 80, respiratory rate 20 to 22, blood pressure 120/68. HEENT: Showed pale, dry oral mucous membrane. Nonicteric sclerae. LUNGS: Few scattered crepitation. Decreased air entry at bases. HEART: Positive S1 and S2. ABDOMEN: Soft with mild generalized tenderness. No mass or organomegaly. No rebound tenderness or guarding. EXTREMITIES: Without significant clubbing, cyanosis or edema. NEUROLOGICAL: No reported new neurological deficits, sensory or motor. No reported new focal deficits. Peripheral pulses are present bilaterally. It has to be mentioned that the patient still has right-sided weakness in the upper and lower extremities with slight lower extremities edematous changes at the right side. IMPRESSION: 1. Re-exacerbation of peptic ulcer disease. 2. Anemia, to rule out lower gastrointestinal tract blood loss versus occult gastrointestinal malignancy. 3. Known history of brain aneurysm with status post coil insertion recently. 4. Hypertension by history, history of cerebrovascular accident with right-sided residual. 5. Known history of depression. 6. Malnutrition with hypoalbuminemia. 7. Change of mental status, to rule out a new cerebrovascular accident or/and intracranial bleeding, please see official CAT scan report. The patient may need MRI of the brain. SUGGESTIONS: 1. Continue current management. 2. Despite the patient's subsequent drop of hemoglobin and hematocrit, daughter refusing colonoscopy for now. 3. The patient will need blood transfusion to keep hemoglobin around 10 g percent. 4. Further recommendation to follow. Vishnu Carter MD
[2018-03-20] MEDS ORDERED: Ferric Sodium Gluconat Complex 62.5 mg/5 ml Vial IVPB SCH ×2 (15:00→18:00)
[2018-03-21] MEDS: Albuterol-Ipratrop 3 mg / 0.5 (3 ml) UD INH SCH ×4 (01:34→19:13)
[2018-03-21] MEDS: levETIRAcetam 500 MG in Sodium Chloride 0.9% 100 ML IVPB SCH ×2 (05:00→17:48)
[2018-03-21] MEDS: (Novolin R) Insulin Human Regular 100 units/ml vial SC SCH ×4 (08:30→22:40)
[2018-03-21] MEDS: Bisacodyl 5mg EC Tab PO SCH (11:04)
[2018-03-21] MEDS: Venlafaxine 37.5 mg ER Cap PO SCH (11:05)
[2018-03-21] MEDS: Ferric Sodium Gluconat Complex 125 MG in Sodium Chloride 0.9% 100 ML IVPB SCH (11:43)
--- NOTE | 2018-03-21 12:52 | CP.PCM.PN ---
Subjective - Date & Time of Evaluation Date of Evaluation: 03/21/18 Time of Evaluation: 09:00 - Subjective Subjective: PGY 3 medicine progress note for Dr. Antonio: Patient was seen and examined at bedside in no acute distress. Patient states she has no complaints today and says she "feels better now." She is oriented to place, but says she doesn't know the date. Patient denies chest pain, palpitations, dyspnea, dizziness, nausea, vomiting, fevers, headache abdominal pain, dysuria, constipation, and diarrhea. Patient' younger sister was at bedside today. She was asking what was going on with the patient/ This is her first time at the hospital from [place]. It was explained to the sister that they would need to designate one person to communicate with us so that way that designated person could communicate with the whole family. Objective - Vital Signs/Intake and Output Vital Signs (last 24 hours): Temp Pulse Resp BP Pulse Ox 98.8 F 84 18 146/80 97 03/21/18 07:00 03/21/18 07:00 03/21/18 07:00 03/21/18 07:00 03/21/18 07:00 Intake and Output: 03/21/18 03/21/18 06:59 18:59 Output Total 700 Balance -700 - Medications Medications: Current Medications Acetaminophen (Tylenol 325mg Tab) 650 mg PO Q6 PRN PRN Reason: Pain, Mild (1-3) Albuterol/Ipratropium (Duoneb 3 Mg/0.5 Mg (3 Ml) Ud) 3 ml INH RQ6 [facility] Last Admin: 03/21/18 08:12 Dose: 3 ml Amlodipine Besylate (Norvasc) 10 mg PO DAILY [facility] Last Admin: 03/21/18 11:05 Dose: 10 mg Aspirin (Ecotrin) 81 mg PO DAILY [facility] Last Admin: 03/20/18 10:27 Dose: 81 mg Bisacodyl (Dulcolax) 10 mg PO DAILY [facility] Last Admin: 03/21/18 11:04 Dose: 10 mg Carvedilol (Coreg) 3.125 mg PO Q12 [facility] Last Admin: 03/21/18 11:04 Dose: 3.125 mg Clopidogrel Bisulfate (Plavix) 75 mg PO DAILY [facility] Last Admin: 03/20/18 10:27 Dose: 75 mg Dextrose (Dextrose 50% Inj) 0 ml IV STAT PRN; Protocol PRN Reason: Hypoglycemia Protocol Dextrose (Glutose 15) 0 gm PO ONCE PRN; Protocol PRN Reason: Hypoglycemia Protocol Famotidine (Pepcid) 20 mg PO BID [facility] Last Admin: 03/21/18 11:17 Dose: 20 mg Glucagon (Glucagen Diagnostic Kit) 0 mg IM STAT PRN; Protocol PRN Reason: Hypoglycemia Protocol Hydralazine HCl (Apresoline) 25 mg PO Q8 [facility] Last Admin: 03/21/18 06:59 Dose: 25 mg Levetiracetam 500 mg/ Sodium (Chloride) 105 mls @ 420 mls/hr IVPB Q12H [facility] Last Admin: 03/20/18 17:00 Dose: 420 mls/hr Dextrose/Sodium Chloride (Dextrose 5%/0.45% Ns 1000 Ml) 1,000 mls @ 80 mls/hr IV .[id number] [facility] Last Admin: 03/20/18 17:00 Dose: 80 mls/hr Ferric Sodium Gluconate Complex 125 mg/ Sodium Chloride 110 mls @ 110 mls/hr IVPB DAILY [facility] Stop: 03/28/18 11:01 Last Admin: 03/21/18 11:43 Dose: 110 mls/hr Insulin Human Regular (Novolin R) 1 unit SC ACHS [facility] PRN Reason: Protocol Last Admin: 03/21/18 08:30 Dose: Not Given Lactulose (Enulose) 20 gm PO [facility] Last Admin: 03/20/18 21:52 Dose: 20 gm Levetiracetam (Keppra) 250 mg PO BID [facility] Last Admin: 03/16/18 10:29 Dose: Not Given Rosuvastatin Calcium (Crestor) 20 mg PO HS [facility] Last Admin: 03/20/18 21:52 Dose: 20 mg Venlafaxine HCl (Effexor Xr) 37.5 mg PO DAILY [facility] Last Admin: 03/21/18 11:05 Dose: 37.5 mg - Labs Labs: 03/20/18 07:22 03/20/18 07:22 PT 12.9 SECONDS (9.7-12.2) H 03/19/18 11:25 INR 1.2 03/19/18 11:25 APTT 31 SECONDS (21-34) 03/19/18 11:25 - Constitutional Appears: Non-toxic, No Acute Distress, Chronically Ill - Head Exam Head Exam: NORMAL INSPECTION - Eye Exam Eye Exam: EOMI, PERRL Pupil Exam: NORMAL ACCOMODATION - ENT Exam ENT Exam: Mucous Membranes Moist - Respiratory Exam Respiratory Exam: Clear to Ausculation Bilateral, NORMAL BREATHING PATTERN. absent: Respiratory Distress - Cardiovascular Exam Cardiovascular Exam: REGULAR RHYTHM, +S1, +S2, Murmur - GI/Abdominal Exam GI & Abdominal Exam: Soft, Normal Bowel Sounds. absent: Distended, Firm, Guarding, Tenderness - Extremities Exam Extremities Exam: Normal Inspection - Back Exam Back Exam: NORMAL INSPECTION - Neurological Exam Neurological Exam: Alert, Awake. absent: Normal Gait, Oriented x3 - Psychiatric Exam Psychiatric exam: Flat Affect, Normal Mood - Skin Skin Exam: Dry, Intact Assessment and Plan - Assessment and Plan (Free Text) Assessment: Assessment: 62 year old female with past medical history of brain aneurysm s/p coil placement is admitted for syncope and slurred speech Plan: Anemia - Likely 2/2 GI bleed and anemia of chronic disease. - GI, Dr. Lock is consulted --> help appreciated - EGD (03/16/18): LA Grade A esophagitis; medium-sized hiatal hernia; patchy mildly erythematous mucosa without bleeding. Please see full report - Plan was for colonoscopy, but daughter states she does not want mother to have colonoscopy until medical records have not been obtained from - colonoscopy at [facility] [place] in December had minor findings but no source of GI bleed. Will need capsule endoscopy outpatient. - Hematology, Dr. Coombs consulted: hypoproliferative erythroid response, secondary to GI loss - Ferric Na gluconate IVPB daily - Stool occult positive x3 - Patient was transfused 2 units 03/15/18. Received additional unit of PRBC on . Continue to monitor - B12 395; Folate 9.7 - Ferritin 46.9; Retic Count 2.0 - Hold Aspirin & Plavix Syncope - Seizure vs. symptomatic anemia vs. arrhythmia - Neurology, Dr. Tovar is consulted. Pending further recs - EEG report pending - Per neuro, no indication for MRI/MRA of brain at this time. - CT of head on admission showed no acute hemorrhage but did show chronic lacunar infarcts at basal ganglia and chronic left [employer] infarct. - Negative UDS - Urine culture: Negative - ECHO (03/16/18): Left ventricle systolic function is normal. EF 65-70%. No aortic regurgitation is present. Please see full report. 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 . There also appear to be at least 2 small coils within the inferior margin of the basilar artery appear clinical correlation with history recommended. No evidence of acute intracranial hemorrhage. Significant chronic white matter ischemic changes. Chronic appearing bilateral basal ganglia lacunar type infarcts. There is also a chronic infarct along the left [employer] territory. The ventricles are dilated up possibly due to mild chronic compensated hydrocephalus versus central volume loss. - Continue Home Medications: Keppra 250mg po bid - Effexor 37.5 mg PO daily Hypertension - Continue home Medications * Amlodipine 10mg daily * Coreg 3.125mg po q12h * Hydralazine 25mg q8h po Impaired Glucose Tolerance - hA1c: 5.6 - Lipid Panel: Cholesterol 90; LDL 39; HDL 28; Triglycerides 108 - Accuchecks - Hypoglycemia Protocol - Insulin sliding scale - Continue Crestor 20mg HS Prophylaxis - DVT: chemical anticoagulation contraindication due to GI bleed, hold aspirin and plavix - SCDs - GI: Protonix IV - Dulcolax 10mg po daily; Lactulose 20gm po HS - Case management referral for rehab placement - PT/OT Dispo -> to rehab facility. Will need outpatient capsule endoscopy and IV Fe therapy All management per Dr. Antonio
[2018-03-21] MEDS: Dextrose 5%/0.45% NS 1,000 ML IV SCH (14:58)
[2018-03-21 15:37] VITALS: RESP 20
--- NOTE | 2018-03-21 23:16 | PN ---
DATE: 03/21/2018 LOCATION: 660, bed A. SUBJECTIVE: This is 62-year-old female, seen and examined in rounds without any significant clinical changes post-blood transfusion with period of semi agitation and restless, still aphasic somewhat. No reported evidence of active bleeding, chest pain, or palpitation, but mild shortness of breath. Despite the patient is somewhat able to express herself, the family members have been at bedside with different kind of questions before. The entire chart is reviewed including but not limited to the most recent lab and radiology study results, current and previous medication lists, current and the previous medical events. Today's lab show blood glucose level 119. Rest of the lab results still pending. PHYSICAL EXAMINATION: GENERAL: A 62-year-old female. VITAL SIGNS: Afebrile with pulse of 92, respiratory rate 20 to 22, blood pressure 148/80. HEENT: Showed pale, dry oral mucous membrane. Nonicteric sclerae. LUNGS: Few scattered crepitation. Decreased air entry at bases. HEART: Positive S1 and S2 with increased rate. ABDOMEN: Soft with mild distention. No mass or organomegaly. No rebound tenderness or guarding. EXTREMITIES: With right-sided mild weakness and left lower extremity edematous changes. No clubbing or cyanosis. NEUROLOGICAL: No reported new neurological deficits, sensory or motor. IMPRESSION: 1. Re-exacerbation of peptic ulcer disease. 2. Anemia that could be secondary to gastrointestinal blood loss, family refusing colonoscopy. 3. Known history of hypertension, brain aneurysm, status post coil insertion. 4. Syncopal episodes, could be related to her initial surgery. SUGGESTIONS: 1. Agree with your plan. 2. due to the patient recent history of CVA. 3. Further recommendation to follow. Vishnu Carter MD
--- NOTE | 2018-03-21 23:45 | CP.PCM.PN ---
Subjective - Date & Time of Evaluation Date of Evaluation: 03/19/18 Time of Evaluation: 09:00 - Subjective Subjective: Appears comfortable. Objective - Vital Signs/Intake and Output Vital Signs (last 24 hours): Temp Pulse Resp BP Pulse Ox 98.4 F 97 H 20 153/84 H 97 03/21/18 15:00 03/21/18 16:00 03/21/18 15:00 03/21/18 15:00 03/21/18 15:00 Intake and Output: 03/21/18 03/22/18 18:59 06:59 Intake Total 640 Output Total 400 Balance 240 - Medications Medications: Current Medications Acetaminophen (Tylenol 325mg Tab) 650 mg PO Q6 PRN PRN Reason: Pain, Mild (1-3) Albuterol/Ipratropium (Duoneb 3 Mg/0.5 Mg (3 Ml) Ud) 3 ml INH RQ6 [facility] Last Admin: 03/21/18 19:13 Dose: Not Given Amlodipine Besylate (Norvasc) 10 mg PO DAILY [facility] Last Admin: 03/21/18 11:05 Dose: 10 mg Aspirin (Ecotrin) 81 mg PO DAILY [facility] Last Admin: 03/20/18 10:27 Dose: 81 mg Bisacodyl (Dulcolax) 10 mg PO DAILY [facility] Last Admin: 03/21/18 11:04 Dose: 10 mg Carvedilol (Coreg) 3.125 mg PO Q12 [facility] Last Admin: 03/21/18 21:33 Dose: 3.125 mg Clopidogrel Bisulfate (Plavix) 75 mg PO DAILY [facility] Last Admin: 03/20/18 10:27 Dose: 75 mg Dextrose (Dextrose 50% Inj) 0 ml IV STAT PRN; Protocol PRN Reason: Hypoglycemia Protocol Dextrose (Glutose 15) 0 gm PO ONCE PRN; Protocol PRN Reason: Hypoglycemia Protocol Famotidine (Pepcid) 20 mg PO BID [facility] Last Admin: 03/21/18 17:48 Dose: 20 mg Glucagon (Glucagen Diagnostic Kit) 0 mg IM STAT PRN; Protocol PRN Reason: Hypoglycemia Protocol Hydralazine HCl (Apresoline) 25 mg PO Q8 [facility] Last Admin: 03/21/18 21:33 Dose: 25 mg Levetiracetam 500 mg/ Sodium (Chloride) 105 mls @ 420 mls/hr IVPB Q12H [facility] Last Admin: 03/21/18 17:48 Dose: 420 mls/hr Ferric Sodium Gluconate Complex 125 mg/ Sodium Chloride 110 mls @ 110 mls/hr IVPB DAILY [facility] Stop: 03/28/18 11:01 Last Admin: 03/21/18 11:43 Dose: 110 mls/hr Insulin Human Regular (Novolin R) 1 unit SC ACHS [facility] PRN Reason: Protocol Last Admin: 03/21/18 17:06 Dose: Not Given Lactulose (Enulose) 20 gm PO HS [facility] Last Admin: 03/21/18 21:33 Dose: 20 gm Levetiracetam (Keppra) 250 mg PO BID [facility] Last Admin: 03/16/18 10:29 Dose: Not Given Rosuvastatin Calcium (Crestor) 20 mg PO HS [facility] Last Admin: 03/21/18 21:33 Dose: 20 mg Venlafaxine HCl (Effexor Xr) 37.5 mg PO DAILY [facility] Last Admin: 03/21/18 11:05 Dose: 37.5 mg - Labs Labs: 03/20/18 07:22 03/20/18 07:22 PT 12.9 SECONDS (9.7-12.2) H 03/19/18 11:25 INR 1.2 03/19/18 11:25 APTT 31 SECONDS (21-34) 03/19/18 11:25 - Head Exam Head Exam: ATRAUMATIC - Eye Exam Eye Exam: Normal appearance - ENT Exam ENT Exam: Mucous Membranes Dry - Respiratory Exam Respiratory Exam: NORMAL BREATHING PATTERN - Cardiovascular Exam Cardiovascular Exam: +S1, +S2 - GI/Abdominal Exam GI & Abdominal Exam: Normal Bowel Sounds Assessment and Plan (1) Anemia Assessment & Plan: hypoproliferative erythroid response borderline iron stores FOBT positive IV iron GI w/u antiplatelets held transfusion support PRN Status: Acute
--- NOTE | 2018-03-21 23:46 | CP.PCM.PN ---
Subjective - Date & Time of Evaluation Date of Evaluation: 03/20/18 Time of Evaluation: 13:00 - Subjective Subjective: More alert spoke to patients sister and updated her on anemia w/u and tx Objective - Vital Signs/Intake and Output Vital Signs (last 24 hours): Temp Pulse Resp BP Pulse Ox 98.4 F 97 H 20 153/84 H 97 03/21/18 15:00 03/21/18 16:00 03/21/18 15:00 03/21/18 15:00 03/21/18 15:00 Intake and Output: 03/21/18 03/22/18 18:59 06:59 Intake Total 640 Output Total 400 Balance 240 - Medications Medications: Current Medications Acetaminophen (Tylenol 325mg Tab) 650 mg PO Q6 PRN PRN Reason: Pain, Mild (1-3) Albuterol/Ipratropium (Duoneb 3 Mg/0.5 Mg (3 Ml) Ud) 3 ml INH RQ6 [facility] Last Admin: 03/21/18 19:13 Dose: Not Given Amlodipine Besylate (Norvasc) 10 mg PO DAILY [facility] Last Admin: 03/21/18 11:05 Dose: 10 mg Aspirin (Ecotrin) 81 mg PO DAILY [facility] Last Admin: 03/20/18 10:27 Dose: 81 mg Bisacodyl (Dulcolax) 10 mg PO DAILY [facility] Last Admin: 03/21/18 11:04 Dose: 10 mg Carvedilol (Coreg) 3.125 mg PO Q12 [facility] Last Admin: 03/21/18 21:33 Dose: 3.125 mg Clopidogrel Bisulfate (Plavix) 75 mg PO DAILY [facility] Last Admin: 03/20/18 10:27 Dose: 75 mg Dextrose (Dextrose 50% Inj) 0 ml IV STAT PRN; Protocol PRN Reason: Hypoglycemia Protocol Dextrose (Glutose 15) 0 gm PO ONCE PRN; Protocol PRN Reason: Hypoglycemia Protocol Famotidine (Pepcid) 20 mg PO BID [facility] Last Admin: 03/21/18 17:48 Dose: 20 mg Glucagon (Glucagen Diagnostic Kit) 0 mg IM STAT PRN; Protocol PRN Reason: Hypoglycemia Protocol Hydralazine HCl (Apresoline) 25 mg PO Q8 [facility] Last Admin: 03/21/18 21:33 Dose: 25 mg Levetiracetam 500 mg/ Sodium (Chloride) 105 mls @ 420 mls/hr IVPB Q12H [facility] Last Admin: 03/21/18 17:48 Dose: 420 mls/hr Ferric Sodium Gluconate Complex 125 mg/ Sodium Chloride 110 mls @ 110 mls/hr IVPB DAILY [facility] Stop: 03/28/18 11:01 Last Admin: 03/21/18 11:43 Dose: 110 mls/hr Insulin Human Regular (Novolin R) 1 unit SC ACHS [facility] PRN Reason: Protocol Last Admin: 03/21/18 17:06 Dose: Not Given Lactulose (Enulose) 20 gm PO HS [facility] Last Admin: 03/21/18 21:33 Dose: 20 gm Levetiracetam (Keppra) 250 mg PO BID [facility] Last Admin: 03/16/18 10:29 Dose: Not Given Rosuvastatin Calcium (Crestor) 20 mg PO HS [facility] Last Admin: 03/21/18 21:33 Dose: 20 mg Venlafaxine HCl (Effexor Xr) 37.5 mg PO DAILY [facility] Last Admin: 03/21/18 11:05 Dose: 37.5 mg - Labs Labs: 03/20/18 07:22 03/20/18 07:22 PT 12.9 SECONDS (9.7-12.2) H 03/19/18 11:25 INR 1.2 03/19/18 11:25 APTT 31 SECONDS (21-34) 03/19/18 11:25 - Head Exam Head Exam: ATRAUMATIC - Eye Exam Eye Exam: Normal appearance - ENT Exam ENT Exam: Mucous Membranes Dry - Respiratory Exam Respiratory Exam: NORMAL BREATHING PATTERN - Cardiovascular Exam Cardiovascular Exam: +S1, +S2 - GI/Abdominal Exam GI & Abdominal Exam: Normal Bowel Sounds Assessment and Plan (1) Anemia Assessment & Plan: hypoproliferative erythroid response borderline iron stores FOBT positive IV iron GI w/u antiplatelets held transfusion support PRN Status: Acute
--- NOTE | 2018-03-21 23:47 | CP.PCM.PN ---
Subjective - Date & Time of Evaluation Date of Evaluation: 03/21/18 Time of Evaluation: 20:00 - Subjective Subjective: Appears comfortable Objective - Vital Signs/Intake and Output Vital Signs (last 24 hours): Temp Pulse Resp BP Pulse Ox 98.4 F 97 H 20 153/84 H 97 03/21/18 15:00 03/21/18 16:00 03/21/18 15:00 03/21/18 15:00 03/21/18 15:00 Intake and Output: 03/21/18 03/22/18 18:59 06:59 Intake Total 640 Output Total 400 Balance 240 - Medications Medications: Current Medications Acetaminophen (Tylenol 325mg Tab) 650 mg PO Q6 PRN PRN Reason: Pain, Mild (1-3) Albuterol/Ipratropium (Duoneb 3 Mg/0.5 Mg (3 Ml) Ud) 3 ml INH RQ6 [facility] Last Admin: 03/21/18 19:13 Dose: Not Given Amlodipine Besylate (Norvasc) 10 mg PO DAILY [facility] Last Admin: 03/21/18 11:05 Dose: 10 mg Aspirin (Ecotrin) 81 mg PO DAILY [facility] Last Admin: 03/20/18 10:27 Dose: 81 mg Bisacodyl (Dulcolax) 10 mg PO DAILY [facility] Last Admin: 03/21/18 11:04 Dose: 10 mg Carvedilol (Coreg) 3.125 mg PO Q12 [facility] Last Admin: 03/21/18 21:33 Dose: 3.125 mg Clopidogrel Bisulfate (Plavix) 75 mg PO DAILY [facility] Last Admin: 03/20/18 10:27 Dose: 75 mg Dextrose (Dextrose 50% Inj) 0 ml IV STAT PRN; Protocol PRN Reason: Hypoglycemia Protocol Dextrose (Glutose 15) 0 gm PO ONCE PRN; Protocol PRN Reason: Hypoglycemia Protocol Famotidine (Pepcid) 20 mg PO BID [facility] Last Admin: 03/21/18 17:48 Dose: 20 mg Glucagon (Glucagen Diagnostic Kit) 0 mg IM STAT PRN; Protocol PRN Reason: Hypoglycemia Protocol Hydralazine HCl (Apresoline) 25 mg PO Q8 [facility] Last Admin: 03/21/18 21:33 Dose: 25 mg Levetiracetam 500 mg/ Sodium (Chloride) 105 mls @ 420 mls/hr IVPB Q12H [facility] Last Admin: 03/21/18 17:48 Dose: 420 mls/hr Ferric Sodium Gluconate Complex 125 mg/ Sodium Chloride 110 mls @ 110 mls/hr IVPB DAILY [facility] Stop: 03/28/18 11:01 Last Admin: 03/21/18 11:43 Dose: 110 mls/hr Insulin Human Regular (Novolin R) 1 unit SC ACHS [facility] PRN Reason: Protocol Last Admin: 03/21/18 17:06 Dose: Not Given Lactulose (Enulose) 20 gm PO HS [facility] Last Admin: 03/21/18 21:33 Dose: 20 gm Levetiracetam (Keppra) 250 mg PO BID [facility] Last Admin: 03/16/18 10:29 Dose: Not Given Rosuvastatin Calcium (Crestor) 20 mg PO HS [facility] Last Admin: 03/21/18 21:33 Dose: 20 mg Venlafaxine HCl (Effexor Xr) 37.5 mg PO DAILY [facility] Last Admin: 03/21/18 11:05 Dose: 37.5 mg - Labs Labs: 03/20/18 07:22 03/20/18 07:22 PT 12.9 SECONDS (9.7-12.2) H 03/19/18 11:25 INR 1.2 03/19/18 11:25 APTT 31 SECONDS (21-34) 03/19/18 11:25 - Head Exam Head Exam: ATRAUMATIC - Eye Exam Eye Exam: Normal appearance - ENT Exam ENT Exam: Mucous Membranes Dry - Respiratory Exam Respiratory Exam: NORMAL BREATHING PATTERN - Cardiovascular Exam Cardiovascular Exam: +S1, +S2 - GI/Abdominal Exam GI & Abdominal Exam: Normal Bowel Sounds Assessment and Plan (1) Anemia Assessment & Plan: hypoproliferative erythroid response borderline iron stores FOBT positive IV iron GI w/u antiplatelets held transfusion support PRN Status: Acute
[2018-03-22] MEDS ORDERED: cefTRIAXone 1 gm 1 GM/100 ML BAG IVPB SCH (00:43)
--- NOTE | 2018-03-22 00:47 | CP.PCM.PN ---
Subjective - Date & Time of Evaluation Date of Evaluation: 03/22/18 Time of Evaluation: 00:44 - Subjective Subjective: Called by Nurse at 12:40 AM for fever of 102 (First time). Objective - Vital Signs/Intake and Output Vital Signs (last 24 hours): Temp Pulse Resp BP Pulse Ox 98.4 F 125 H 20 165/94 H 96 03/21/18 15:00 03/21/18 23:25 03/21/18 23:25 03/21/18 23:25 03/21/18 23:25 Intake and Output: 03/21/18 03/22/18 18:59 06:59 Intake Total 640 740 Output Total 400 650 Balance 240 90 - Medications Medications: Current Medications Acetaminophen (Tylenol 325mg Tab) 650 mg PO Q6 PRN PRN Reason: Pain, Mild (1-3) Albuterol/Ipratropium (Duoneb 3 Mg/0.5 Mg (3 Ml) Ud) 3 ml INH RQ6 [facility] Last Admin: 03/21/18 19:13 Dose: Not Given Amlodipine Besylate (Norvasc) 10 mg PO DAILY [facility] Last Admin: 03/21/18 11:05 Dose: 10 mg Aspirin (Ecotrin) 81 mg PO DAILY [facility] Last Admin: 03/20/18 10:27 Dose: 81 mg Bisacodyl (Dulcolax) 10 mg PO DAILY [facility] Last Admin: 03/21/18 11:04 Dose: 10 mg Carvedilol (Coreg) 3.125 mg PO Q12 [facility] Last Admin: 03/21/18 21:33 Dose: 3.125 mg Clopidogrel Bisulfate (Plavix) 75 mg PO DAILY [facility] Last Admin: 03/20/18 10:27 Dose: 75 mg Dextrose (Dextrose 50% Inj) 0 ml IV STAT PRN; Protocol PRN Reason: Hypoglycemia Protocol Dextrose (Glutose 15) 0 gm PO ONCE PRN; Protocol PRN Reason: Hypoglycemia Protocol Famotidine (Pepcid) 20 mg PO BID [facility] Last Admin: 03/21/18 17:48 Dose: 20 mg Glucagon (Glucagen Diagnostic Kit) 0 mg IM STAT PRN; Protocol PRN Reason: Hypoglycemia Protocol Hydralazine HCl (Apresoline) 25 mg PO Q8 [facility] Last Admin: 03/21/18 21:33 Dose: 25 mg Levetiracetam 500 mg/ Sodium (Chloride) 105 mls @ 420 mls/hr IVPB Q12H [facility] Last Admin: 03/21/18 17:48 Dose: 420 mls/hr Ferric Sodium Gluconate Complex 125 mg/ Sodium Chloride 110 mls @ 110 mls/hr IVPB DAILY [facility] Stop: 03/28/18 11:01 Last Admin: 03/21/18 11:43 Dose: 110 mls/hr Insulin Human Regular (Novolin R) 1 unit SC [facility] PRN Reason: Protocol Last Admin: 03/21/18 22:40 Dose: Not Given Lactulose (Enulose) 20 gm PO [facility] Last Admin: 03/21/18 21:33 Dose: 20 gm Levetiracetam (Keppra) 250 mg PO BID [facility] Last Admin: 03/16/18 10:29 Dose: Not Given Rosuvastatin Calcium (Crestor) 20 mg PO [facility] Last Admin: 03/21/18 21:33 Dose: 20 mg Venlafaxine HCl (Effexor Xr) 37.5 mg PO DAILY [facility] Last Admin: 03/21/18 11:05 Dose: 37.5 mg - Labs Labs: 03/20/18 07:22 03/20/18 07:22 PT 12.9 SECONDS (9.7-12.2) H 03/19/18 11:25 INR 1.2 03/19/18 11:25 APTT 31 SECONDS (21-34) 03/19/18 11:25 Assessment and Plan - Assessment and Plan (Free Text) Assessment: First time Fever Plan: First time Fever - UA -Blood Cultures -Urine Cultures -CXR -Rocephin 1 gram stat. Urine CUltures on 03/19/18 positive for E.Coli and Proteus. Sensitive to Ceftriaxone.
[2018-03-22] MEDS ORDERED: cefTRIAXone 1 gm 1 GM/100 ML BAG IVPB STA (00:49)
[2018-03-22] MEDS: Albuterol-Ipratrop 3 mg / 0.5 (3 ml) UD INH SCH ×4 (01:18→19:19)
[2018-03-22 02:27] LABS: BASO # 0.1 K/uL (0.0-0.2); BASO % 0.4 % (0.0-2.0); EOS % 0.1 % (0.0-4.0); HEMOGLOBIN 11.1 g/dL (11.0-16.0); LYMPH # 0.6 K/uL (1.0-4.3); LYMPH % 3.3 % (20.0-40.0); MEAN CELL VOLUME 70.1 fL (81.0-99.0); MEAN CORPUSCULAR HEMOGLOBIN 22.2 pg (27.0-31.0); MEAN CORPUSCULAR HGB CONC 31.7 g/dL (33.0-37.0); MEAN PLATELET VOLUME 8.7 fL (7.2-11.7); MONO # 0.7 K/uL (0.0-0.8); MONO % 3.7 % (0.0-10.0); NEUT # 17.8 K/uL (1.8-7.0); NEUT % 92.5 % (50.0-75.0); NRBC % 0.1 % (0.0-2.0); PLATELET COUNT 422 K/uL (130-400); RBC 5.02 Mil/uL (3.80-5.20); RED CELL DISTRIBUTION WIDTH 28.7 % (11.5-14.5); WHITE BLOOD COUNT 19.3 K/uL (4.8-10.8)
[2018-03-22 02:51] LABS: ALB/GLOB RATIO 1.2 (1.0-2.1); ALT/SGPT 33 U/L (9-52); AST/SGOT 25 U/L (14-36); BLOOD UREA NITROGEN 7 mg/dL (7-17); GFR NON-AFRICAN AMERICAN > 60
[2018-03-22 04:24] LABS: ANISOCYTOSIS SLIGHT; BANDS 1 % (0-2); LYMPHOCYTE 4 % (20-40); MONOCYTE 4 % (0-10); NEUTROPHIL 91 % (50-75); PLATELET ESTIMATE NORMAL (NORMAL); POIKILOCYTOSIS SLIGHT; TOTAL CELLS COUNTED 100
[2018-03-22] MEDS: levETIRAcetam 500 MG in Sodium Chloride 0.9% 100 ML IVPB SCH ×2 (04:25→17:42)
--- NOTE | 2018-03-22 06:52 | PQF ---
PROVIDER RESPONSE TEXT: Acute blood loss Anemia in the setting of GI Bleed with Positive Occult blood in stool and H/H = 6.2/ 19.4 requiring Blood Transfusion REVIEWER QUERY TEXT: Anemia Type Anemia is documented in the Medical Record. Please specify the cause (includes suspected or probable cause) Such as: Acute blood loss Anemia in the setting of GI Bleed with Positive Occult blood in stool and H/H = 6.2/ 19.4 requiring Blood Transfusion. -Other Explanation -Unable t Determine The patient's Clinical Indicators include: Clinical Findings: Gen weakness, Positive Occult Blood in Stool, H/H = 6.2/19.4 Treatment: Blood Transfusion , H/H Monitoring, EGD Risk Factors: GI Bleed Query created by: Danae Gutierrez on 03/15/2018 4:48 PM Electronically signed by: Radha Blackburn 03/22/2018 6:50 AM
[2018-03-22] MEDS: (Novolin R) Insulin Human Regular 100 units/ml vial SC SCH ×5 (07:58→21:25)
--- NOTE | 2018-03-22 08:02 | RAD ---
Date of service: 03/22/2018 HISTORY: Fever COMPARISON: Portable chest 03/14/2018. FINDINGS: LUNGS: No active pulmonary disease. PLEURA: No significant pleural effusion identified, no pneumothorax apparent. CARDIOVASCULAR: Cardiomediastinal silhouette appears stable. No pulmonary vascular congestion appreciated. OSSEOUS STRUCTURES: No significant abnormalities. VISUALIZED UPPER ABDOMEN: Left hemidiaphragm elevated likely as a function of distended bowel loops and/or stomach in the left upper quadrant. OTHER FINDINGS: None. IMPRESSION: No acute infiltrate or pulmonary vascular congestion. Elevated left hemidiaphragm as discussed above.
[2018-03-22] MEDS: Venlafaxine 37.5 mg ER Cap PO SCH (10:05)
--- NOTE | 2018-03-22 10:08 | CT ---
Date of service: 03/21/2018 PROCEDURE: CT HEAD WITHOUT CONTRAST. HISTORY: stroke follow-up COMPARISON: Noncontrast head CT dated 03/14/2018. TECHNIQUE: Axial computed tomography images were obtained through the head/brain without intravenous contrast. Radiation dose: Total exam DLP = 1636.44 mGy-cm. This CT exam was performed using one or more of the following dose reduction techniques: Automated exposure control, adjustment of the mA and/or kV according to patient size, and/or use of iterative reconstruction technique. FINDINGS: HEMORRHAGE: No intracranial hemorrhage. BRAIN: Stable age related neuro degenerative findings are appreciate without interval definite cortical edema appreciated above or below the tentorium. Brainstem is stable. Marked artifacts are again identified related to large aggregate of embolization coils and potentially endovascular cement immediately cephalad to the basilar artery, limiting evaluation of the inferior cerebrum, upper brainstem, the 3rd ventricle and bilateral lateral ventricles. Bithalamic chronic lacunes are reiterated. Left occipital chronic infarct reiterated. VENTRICLES: Unremarkable. No hydrocephalus. CALVARIUM: Unremarkable. PARANASAL SINUSES: Unremarkable as visualized. No significant inflammatory changes. MASTOID AIR CELLS: Unremarkable as visualized. No inflammatory changes. OTHER FINDINGS: None. IMPRESSION: Stable noncontrast CT of the head with no definite interval cortical edema appreciated throughout the brain. Marked artifact is again seen related to endovascular coiling of a large aneurysm cephalad to the level of the basilar artery. Bithalamic chronic lacunes are again identified as well as chronic lobar infarction left occipital lobe. No acute ICH apparent.
[2018-03-22] MEDS: Bisacodyl 5mg EC Tab PO SCH (10:17)
[2018-03-22] MEDS: Ferric Sodium Gluconat Complex 125 MG in Sodium Chloride 0.9% 100 ML IVPB SCH (11:23)
[2018-03-22 11:24] LABS: HEMOGLOBIN A 76.9 Percent (>96.0); HEMOGLOBIN S 19.1 Percent (0.0-0.0)
--- NOTE | 2018-03-22 12:02 | CP.PCM.PN ---
Subjective - Date & Time of Evaluation Date of Evaluation: 03/22/18 Time of Evaluation: 08:00 - Subjective Subjective: PGY 2 medicine progress note for Dr. Antonio: Patient was seen and examined at bedside in the AM. Patient is only oriented to self. She is answering some questions but patient goes in and out of sleep. Patient denies chest pain, shortness of breath, nausea, vomiting, diarrhea or constipation. Objective - Vital Signs/Intake and Output Vital Signs (last 24 hours): Temp Pulse Resp BP Pulse Ox 98.5 F 91 H 20 120/76 97 03/22/18 07:05 03/22/18 07:05 03/22/18 07:05 03/22/18 07:05 03/22/18 07:05 Intake and Output: 03/22/18 03/22/18 06:59 18:59 Intake Total 1480 Output Total 1050 Balance 430 - Medications Medications: Current Medications Acetaminophen (Tylenol 325mg Tab) 650 mg PO Q6 PRN PRN Reason: Fever >100.4 F Albuterol/Ipratropium (Duoneb 3 Mg/0.5 Mg (3 Ml) Ud) 3 ml INH RQ6 [facility] Last Admin: 03/22/18 07:35 Dose: Not Given Amlodipine Besylate (Norvasc) 10 mg PO DAILY [facility] Last Admin: 03/22/18 10:05 Dose: 10 mg Aspirin (Ecotrin) 81 mg PO DAILY [facility] Last Admin: 03/20/18 10:27 Dose: 81 mg Bisacodyl (Dulcolax) 10 mg PO DAILY [facility] Last Admin: 03/22/18 10:17 Dose: 10 mg Carvedilol (Coreg) 3.125 mg PO Q12 [facility] Last Admin: 03/22/18 10:05 Dose: 3.125 mg Clopidogrel Bisulfate (Plavix) 75 mg PO DAILY [facility] Last Admin: 03/20/18 10:27 Dose: 75 mg Dextrose (Dextrose 50% Inj) 0 ml IV STAT PRN; Protocol PRN Reason: Hypoglycemia Protocol Dextrose (Glutose 15) 0 gm PO ONCE PRN; Protocol PRN Reason: Hypoglycemia Protocol Famotidine (Pepcid) 20 mg PO BID [facility] Last Admin: 03/22/18 10:05 Dose: 20 mg Glucagon (Glucagen Diagnostic Kit) 0 mg IM STAT PRN; Protocol PRN Reason: Hypoglycemia Protocol Hydralazine HCl (Apresoline) 25 mg PO Q8 [facility] Last Admin: 03/22/18 06:52 Dose: 25 mg Levetiracetam 500 mg/ Sodium (Chloride) 105 mls @ 420 mls/hr IVPB Q12H [facility] Last Admin: 03/22/18 04:25 Dose: 420 mls/hr Ferric Sodium Gluconate Complex 125 mg/ Sodium Chloride 110 mls @ 110 mls/hr IVPB DAILY [facility] Stop: 03/28/18 11:01 Last Admin: 03/22/18 11:23 Dose: 110 mls/hr Ceftriaxone Sodium 1 gm/ (Sodium Chloride) 100 mls @ 100 mls/hr IVPB Q24H [facility] PRN Reason: Protocol Insulin Human Regular (Novolin R) 1 unit SC ACHS [facility] PRN Reason: Protocol Last Admin: 03/22/18 07:58 Dose: Not Given Lactulose (Enulose) 20 gm PO [facility] Last Admin: 03/21/18 21:33 Dose: 20 gm Levetiracetam (Keppra) 250 mg PO BID [facility] Last Admin: 03/16/18 10:29 Dose: Not Given Rosuvastatin Calcium (Crestor) 20 mg PO [facility] Last Admin: 03/21/18 21:33 Dose: 20 mg Venlafaxine HCl (Effexor Xr) 37.5 mg PO DAILY [facility] Last Admin: 03/22/18 10:05 Dose: 37.5 mg - Labs Labs: 03/22/18 02:09 03/22/18 02:09 PT 12.9 SECONDS (9.7-12.2) H 03/19/18 11:25 INR 1.2 03/19/18 11:25 APTT 31 SECONDS (21-34) 03/19/18 11:25 - Constitutional Appears: No Acute Distress, Chronically Ill - Head Exam Head Exam: ATRAUMATIC, NORMAL INSPECTION - Eye Exam Eye Exam: EOMI, Normal appearance - ENT Exam ENT Exam: Mucous Membranes Moist - Respiratory Exam Respiratory Exam: NORMAL BREATHING PATTERN - Cardiovascular Exam Cardiovascular Exam: REGULAR RHYTHM, +S1, +S2 - GI/Abdominal Exam GI & Abdominal Exam: Soft, Normal Bowel Sounds. absent: Tenderness - Extremities Exam Extremities Exam: Normal Inspection - Neurological Exam Neurological Exam: Awake - Psychiatric Exam Psychiatric exam: Flat Affect Assessment and Plan - Assessment and Plan (Free Text) Assessment: 62 year old female with past medical history of brain aneurysm s/p coil placement is admitted for syncope and slurred speech UTI - Febrile overnight with leukocytosis - WBC 19.3 - Urine Culture: E. Coli and Proteus Mirabilis - Medications: * Ceftriaxone 1gm daily * Tylenol 650mg q6prn for fever * When patient is ready to be discharge to [facility] will continue Cipro 500mg po bid for 7 days Anemia - Likely 2/2 GI bleed and anemia of chronic disease. - GI, Dr. Lock is consulted --> help appreciated - EGD (03/16/18): [place] Grade A esophagitis; medium-sized hiatal hernia; patchy mildly erythematous mucosa without bleeding. Please see full report - Plan was for colonoscopy, but daughter states she does not want mother to have colonoscopy until medical records have not been obtained from - colonoscopy at [facility] in December had minor findings but no source of GI bleed. Will need capsule endoscopy outpatient. - Hematology, Dr. Coombs consulted: hypoproliferative erythroid response, secondary to GI loss - Ferric Na gluconate IVPB daily - Stool occult positive x3 - Patient was transfused 2 units 03/15/18. Received additional unit of PRBC on . Continue to monitor - B12 395; Folate 9.7 - Ferritin 46.9; Retic Count 2.0 - Hold Aspirin & Plavix Syncope - Seizure vs. symptomatic anemia vs. arrhythmia - Neurology, Dr. Tovar is consulted. Pending further recs - EEG report pending - Per neuro, no indication for MRI/MRA of brain at this time. - CT of head on admission showed no acute hemorrhage but did show chronic lacunar infarcts at basal ganglia and chronic left CASTING ASSISTANT infarct. - Negative UDS - Urine culture: Negative - ECHO (03/16/18): Left ventricle systolic function is normal. EF 65-70%. No aortic regurgitation is present. Please see full report. 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 . There also appear to be at least 2 small coils within the inferior margin of the basilar artery appear clinical correlation with history recommended. No evidence of acute intracranial hemorrhage. Significant chronic white matter ischemic changes. Chronic appearing bilateral basal ganglia lacunar type infarcts. There is also a chronic infarct along the left CASTING ASSISTANT territory. The ventricles are dilated up possibly due to mild chronic compensated hydrocephalus versus central volume loss. - Continue Home Medications: Keppra 250mg po bid - Effexor 37.5 mg PO daily Hypertension - Continue home Medications * Amlodipine 10mg daily * Coreg 3.125mg po q12h * Hydralazine 25mg q8h po Impaired Glucose Tolerance - hA1c: 5.6 - Lipid Panel: Cholesterol 90; LDL 39; HDL 28; Triglycerides 108 - Accuchecks - Hypoglycemia Protocol - Insulin sliding scale - Continue Crestor 20mg HS Prophylaxis - DVT: chemical anticoagulation contraindication due to GI bleed, hold aspirin and plavix - SCDs - GI: Protonix IV - Dulcolax 10mg po daily; Lactulose 20gm po HS - Case management referral for rehab placement - PT/OT Disposition: Pending to rehab facility. Will need outpatient capsule endoscopy and IV Fe therapy; When patient is ready to be discharge to [facility] will continue Cipro 500mg po bid for 7 days All management per Dr. Antonio
--- NOTE | 2018-03-22 14:17 | CP.PCM.CON ---
History of Present Illness - History of Present Illness History of Present Illness: Cardiology consult note (Dr. Solo covering Dr. Kang's service) Consult: Tachycardia HPI ( As per EMR due to patient's condition) Patient is a 62 year old female with past medical history of brain aneurysm s/p recent coil placement in October 2017 presented for syncope, slurred speech and bowel incontinence. Patient was found to be anemic on admission and was transfused 3 units over the course of hospitalization. Cardiology consult was placed due to noted asymptomatic sinus tachycardia. During the evaluation, patient is alert, however, she is very drowsy and able to answer some questions. Patient denies chest pain, palpitations and SOB. PMHx: brain aneurysm PSHx: knee replacement, coil placement in brain for aneurysm in October 2017 FHx: Unknown Medications: refer to the EMR Allergies: NKDA Social Hx: Lives with daughter Review of Systems - Constitutional Constitutional: absent: Chills, Fever - Cardiovascular Cardiovascular: absent: Chest Pain, Dyspnea, Lightheadedness, Palpitations - Endocrine Endocrine: absent: Palpitations Past Patient History - Infectious Disease Hx of Infectious Diseases: None - Past Medical History & Family History Past Medical History?: Yes - Past Social History Smoking Status: Heavy Smoker > 10 Cigarettes Daily - CARDIAC Hx Hypercholesterolemia: Yes Hx Hypertension: Yes - PULMONARY Hx Respiratory Disorders: No - NEUROLOGICAL Hx Seizures: Yes - HEENT Hx HEENT Problems: No - RENAL Hx Chronic Kidney Disease: No - ENDOCRINE/METABOLIC Hx Diabetes Mellitus Type 2: Yes - HEMATOLOGICAL/ONCOLOGICAL Hx Anemia: Yes - INTEGUMENTARY Hx Dermatological Problems: No - MUSCULOSKELETAL/RHEUMATOLOGICAL Hx Falls: Yes - GASTROINTESTINAL Hx Gastroesophageal Reflux: Yes - GENITOURINARY/GYNECOLOGICAL Hx Incontinence: Yes - PSYCHIATRIC Hx Substance Use: No - SURGICAL HISTORY Hx Surgeries: Yes Hx Orthopedic Surgery: Yes (tkr= right) - ANESTHESIA Hx Anesthesia: Yes Hx Anesthesia Reactions: No Hx Malignant Hyperthermia: No Meds Allergies/Adverse Reactions: Allergies Allergy/AdvReac Type Severity Reaction Status Date / Time No Known Allergies Allergy Verified 03/14/18 15:20 - Medications Medications: Current Medications Acetaminophen (Tylenol 325mg Tab) 650 mg PO Q6 PRN PRN Reason: Fever >100.4 F Albuterol/Ipratropium (Duoneb 3 Mg/0.5 Mg (3 Ml) Ud) 3 ml INH RQ6 BILL Last Admin: 03/22/18 13:34 Dose: 3 ml Amlodipine Besylate (Norvasc) 10 mg PO DAILY [facility] Last Admin: 03/22/18 10:05 Dose: 10 mg Aspirin (Ecotrin) 81 mg PO DAILY [facility] Last Admin: 03/20/18 10:27 Dose: 81 mg Bisacodyl (Dulcolax) 10 mg PO DAILY [facility] Last Admin: 03/22/18 10:17 Dose: 10 mg Carvedilol (Coreg) 3.125 mg PO Q12 [facility] Last Admin: 03/22/18 10:05 Dose: 3.125 mg Clopidogrel Bisulfate (Plavix) 75 mg PO DAILY [facility] Last Admin: 03/20/18 10:27 Dose: 75 mg Dextrose (Dextrose 50% Inj) 0 ml IV STAT PRN; Protocol PRN Reason: Hypoglycemia Protocol Dextrose (Glutose 15) 0 gm PO ONCE PRN; Protocol PRN Reason: Hypoglycemia Protocol Famotidine (Pepcid) 20 mg PO BID [facility] Last Admin: 03/22/18 10:05 Dose: 20 mg Glucagon (Glucagen Diagnostic Kit) 0 mg IM STAT PRN; Protocol PRN Reason: Hypoglycemia Protocol Hydralazine HCl (Apresoline) 25 mg PO Q8 [facility] Last Admin: 03/22/18 13:03 Dose: 25 mg Levetiracetam 500 mg/ Sodium (Chloride) 105 mls @ 420 mls/hr IVPB Q12H [facility] Last Admin: 03/22/18 04:25 Dose: 420 mls/hr Ferric Sodium Gluconate Complex 125 mg/ Sodium Chloride 110 mls @ 110 mls/hr IVPB DAILY [facility] Stop: 03/28/18 11:01 Last Admin: 03/22/18 11:23 Dose: 110 mls/hr Ceftriaxone Sodium 1 gm/ (Sodium Chloride) 100 mls @ 100 mls/hr IVPB Q24H [facility] PRN Reason: Protocol Last Admin: 03/22/18 12:53 Dose: 100 mls/hr Insulin Human Regular (Novolin R) 1 unit SC ACHS [facility] PRN Reason: Protocol Last Admin: 03/22/18 12:56 Dose: 1 unit Lactulose (Enulose) 20 gm PO HS [facility] Last Admin: 03/21/18 21:33 Dose: 20 gm Levetiracetam (Keppra) 250 mg PO BID [facility] Last Admin: 03/16/18 10:29 Dose: Not Given Rosuvastatin Calcium (Crestor) 20 mg PO HS [facility] Last Admin: 03/21/18 21:33 Dose: 20 mg Venlafaxine HCl (Effexor Xr) 37.5 mg PO DAILY [facility] Last Admin: 03/22/18 10:05 Dose: 37.5 mg Physical Exam - Constitutional Appears: No Acute Distress - Head Exam Head Exam: ATRAUMATIC - Respiratory Exam Respiratory Exam: NORMAL BREATHING PATTERN - Cardiovascular Exam Cardiovascular Exam: REGULAR RHYTHM, +S1, +S2 - GI/Abdominal Exam GI & Abdominal Exam: Normal Bowel Sounds, Soft - Extremities Exam Extremities exam: Negative for: pedal edema - Neurological Exam Neurological exam: Alert - Psychiatric Exam Psychiatric exam: Flat Affect Results - Vital Signs Recent Vital Signs: Last Vital Signs Temp 98.5 F 03/22/18 07:05 Pulse 91 H 03/22/18 07:05 Resp 20 03/22/18 07:05 BP 120/76 03/22/18 07:05 Pulse Ox 97 03/22/18 07:05 - Labs Result Diagrams: 03/22/18 02:09 03/22/18 02:09 Labs: Laboratory Results - last 24 hr 03/16/18 03/21/18 03/21/18 11:27 12:31 16:36 WBC RBC Hgb Hct MCV MCH MCHC RDW Plt Count MPV Neut % (Auto) Lymph % (Auto) [place] % (Auto) Eos % (Auto) Baso % (Auto) Neut # (Auto) Lymph # (Auto) [place] # (Auto) Eos # (Auto) Baso # (Auto) Neutrophils % (Manual) Band Neutrophils % Lymphocytes % (Manual) Monocytes % (Manual) Platelet Estimate Poikilocytosis (manual Anisocytosis (manual) Hemoglobin A 76.9 L Hemoglobin A2 3.0 Hemoglobin C 0.0 Hemoglobin F () <1.0 Hemoglobin S 19.1 H Variant Hemoglobin 0.0 Hemoglobinopathy Interp See note Sodium Potassium Chloride Carbon Dioxide Anion Gap BUN Creatinine Est GFR ( Amer) Est GFR (Non-Af Amer) POC Glucose (mg/dL) 105 119 H Random Glucose Calcium Phosphorus Magnesium Total Bilirubin AST ALT Alkaline Phosphatase Total Protein Albumin Globulin Albumin/Globulin Ratio 03/21/18 03/22/18 03/22/18 20:47 02:09 02:09 WBC 19.3 H D RBC 5.02 Hgb 11.1 D Hct 35.2 MCV 70.1 L D MCH 22.2 L MCHC 31.7 L RDW 28.7 H Plt Count 422 H MPV 8.7 Neut % (Auto) 92.5 H Lymph % (Auto) 3.3 L [place] % (Auto) 3.7 Eos % (Auto) 0.1 Baso % (Auto) 0.4 Neut # (Auto) 17.8 H Lymph # (Auto) 0.6 L [place] # (Auto) 0.7 Eos # (Auto) 0.0 Baso # (Auto) 0.1 Neutrophils % (Manual) 91 H Band Neutrophils % 1 Lymphocytes % (Manual) 4 L Monocytes % (Manual) 4 Platelet Estimate Normal Poikilocytosis (manual Slight Anisocytosis (manual) Slight Hemoglobin A Hemoglobin A2 Hemoglobin C Hemoglobin F () Hemoglobin S Variant Hemoglobin Hemoglobinopathy Interp Sodium 143 Potassium 3.6 Chloride 106 Carbon Dioxide 24 Anion Gap 16 BUN 7 Creatinine 0.8 Est GFR ( Amer) > 60 Est GFR (Non-Af Amer) > 60 POC Glucose (mg/dL) 146 H Random Glucose 184 H Calcium 9.0 Phosphorus 2.8 Magnesium 2.0 Total Bilirubin 0.7 AST 25 ALT 33 Alkaline Phosphatase 168 H D Total Protein 7.2 Albumin 4.0 Globulin 3.2 Albumin/Globulin Ratio 1.2 03/22/18 03/22/18 06:28 11:03 WBC RBC Hgb Hct MCV MCH MCHC RDW Plt Count MPV Neut % (Auto) Lymph % (Auto) [place] % (Auto) Eos % (Auto) Baso % (Auto) Neut # (Auto) Lymph # (Auto) [place] # (Auto) Eos # (Auto) Baso # (Auto) Neutrophils % (Manual) Band Neutrophils % Lymphocytes % (Manual) Monocytes % (Manual) Platelet Estimate Poikilocytosis (manual Anisocytosis (manual) Hemoglobin A Hemoglobin A2 Hemoglobin C Hemoglobin F () Hemoglobin S Variant Hemoglobin Hemoglobinopathy Interp Sodium Potassium Chloride Carbon Dioxide Anion Gap BUN Creatinine Est GFR ( Amer) Est GFR (Non-Af Amer) POC Glucose (mg/dL) 134 H 154 H Random Glucose Calcium Phosphorus Magnesium Total Bilirubin AST ALT Alkaline Phosphatase Total Protein Albumin Globulin Albumin/Globulin Ratio Assessment & Plan (1) Sinus tachycardia Assessment and Plan: Patient is a 62 year old female with past medical history of brain aneurysm s/p recent coil placement in October 2017 presented for syncope, slurred speech and bowel incontinence, who was admitted for anemia and syncope. Over the course of hospitalization, patient is noted to have a UTI. Cardiology consult was placed for sinus tachycardia: - Isolated tachycardia with fever, possibly secondary to underlying UTI infection - Continue to monitor rhythm on telemetry - Please treat underlying etiology - Echo: LV systolic function is normal. EF (65-70%). Please refer to the EMR for complete impression - EKG: T wave abnormality in anterior lateral leads. No previous EKGs for comparison in the EMR - Patient may benefit from a pharmacologic stress test - Will continue to follow course Status: Acute
[2018-03-22] MEDS: Dextrose 5%/0.45% NS 1,000 ML IV SCH (14:31)
--- NOTE | 2018-03-22 15:30 | PN ---
DATE: 03/22/2018 LOCATION: 660, bed A. SUBJECTIVE: This is a 62-year-old female seen and examined early in rounds with reported low grade temperature early today without any other significant clinical changes, somewhat tolerated liquid intake without reported active bleeding, nausea or vomiting. No reported actual chest pain or palpitation. The entire chart is reviewed including but not limited to the most recent lab and radiology study results. Current and the previous medication list, current and the previous medical events. Case discussed with the staff at length and today's lab results showed white blood cells of 19.3 with normal hemoglobin and hematocrit with thrombocytosis of 422, blood glucose level 134 and alkaline phosphatase 168. Most recent chest x-ray done today, official report is seen. The patient also had repeat CAT scan of the head yesterday, official report is still pending. PHYSICAL EXAMINATION: GENERAL: A 62-year-old female. VITAL SIGNS: Afebrile with pulse of 92, respiratory rate 20 to 22, blood pressure of 116/74. HEENT: Showed pale, dry mucous membrane. Nonicteric sclerae. LUNGS: Few scattered crepitation. Decreased air entry at bases. HEART: Positive S1 and S2. ABDOMEN: Soft with mild generalized tenderness. No mass or organomegaly. No rebound tenderness or guarding. EXTREMITIES: With right-sided mild weakness. IMPRESSION: 1. Anemia with possible gastrointestinal blood loss, upper versus lower. 2. Re-exacerbation of peptic ulcer disease. 3. Brain aneurysm with status post coil insertion. 4. To rule out occult gastrointestinal malignancy. 5. Known history of hypertension. 6. Recent episode of syncope, could be related to her initial brain surgery or/and her anemia. SUGGESTIONS: 1. Continue current management. 2. Blood transfusion to keep hemoglobin around 10 g percent. 3. Antireflux measure. 4. Again, so far the family refusing any aggressive further GI workup including colonoscopy. 5. It has to be mentioned that the gastric mucosa biopsy showed negative Helicobacter pylori. 6. Further recommendations to follow. Vishnu Carter MD
--- NOTE | 2018-03-22 16:19 | CP.PCM.PN ---
Subjective - Date & Time of Evaluation Date of Evaluation: 03/22/18 Time of Evaluation: 16:16 - Subjective Subjective: PGY-2 neurology progress note for Dr Crabtree Febrile overnight. Patient today appeared somnolent, worse than before. Motor strength in right upper and lower extremities 2/5. Able to withdraw from pain. Altered, AAOx1. Objective - Vital Signs/Intake and Output Vital Signs (last 24 hours): Temp Pulse Resp BP Pulse Ox 98.5 F 102 H 20 120/76 97 03/22/18 07:05 03/22/18 16:00 03/22/18 07:05 03/22/18 07:05 03/22/18 07:05 Intake and Output: 03/22/18 03/22/18 06:59 18:59 Intake Total 1480 Output Total 1050 Balance 430 - Medications Medications: Current Medications Acetaminophen (Tylenol 325mg Tab) 650 mg PO Q6 PRN PRN Reason: Fever >100.4 F Albuterol/Ipratropium (Duoneb 3 Mg/0.5 Mg (3 Ml) Ud) 3 ml INH RQ6 [facility] Last Admin: 03/22/18 13:34 Dose: 3 ml Amlodipine Besylate (Norvasc) 10 mg PO DAILY [facility] Last Admin: 03/22/18 10:05 Dose: 10 mg Aspirin (Ecotrin) 81 mg PO DAILY [facility] Last Admin: 03/20/18 10:27 Dose: 81 mg Bisacodyl (Dulcolax) 10 mg PO DAILY [facility] Last Admin: 03/22/18 10:17 Dose: 10 mg Carvedilol (Coreg) 3.125 mg PO Q12 BILL Last Admin: 03/22/18 10:05 Dose: 3.125 mg Clopidogrel Bisulfate (Plavix) 75 mg PO DAILY [facility] Last Admin: 03/20/18 10:27 Dose: 75 mg Dextrose (Dextrose 50% Inj) 0 ml IV STAT PRN; Protocol PRN Reason: Hypoglycemia Protocol Dextrose (Glutose 15) 0 gm PO ONCE PRN; Protocol PRN Reason: Hypoglycemia Protocol Famotidine (Pepcid) 20 mg PO BID [facility] Last Admin: 03/22/18 10:05 Dose: 20 mg Glucagon (Glucagen Diagnostic Kit) 0 mg IM STAT PRN; Protocol PRN Reason: Hypoglycemia Protocol Hydralazine HCl (Apresoline) 25 mg PO Q8 [facility] Last Admin: 03/22/18 13:03 Dose: 25 mg Levetiracetam 500 mg/ Sodium (Chloride) 105 mls @ 420 mls/hr IVPB Q12H [facility] Last Admin: 03/22/18 04:25 Dose: 420 mls/hr Ferric Sodium Gluconate Complex 125 mg/ Sodium Chloride 110 mls @ 110 mls/hr IVPB DAILY [facility] Stop: 03/28/18 11:01 Last Admin: 03/22/18 11:23 Dose: 110 mls/hr Ceftriaxone Sodium 1 gm/ (Sodium Chloride) 100 mls @ 100 mls/hr IVPB Q24H BILL PRN Reason: Protocol Last Admin: 03/22/18 12:53 Dose: 100 mls/hr Insulin Human Regular (Novolin R) 1 unit SC ACHS [facility] PRN Reason: Protocol Last Admin: 03/22/18 12:56 Dose: 1 unit Lactulose (Enulose) 20 gm PO [facility] Last Admin: 03/21/18 21:33 Dose: 20 gm Levetiracetam (Keppra) 250 mg PO BID [facility] Last Admin: 03/16/18 10:29 Dose: Not Given Rosuvastatin Calcium (Crestor) 20 mg PO [facility] Last Admin: 03/21/18 21:33 Dose: 20 mg Venlafaxine HCl (Effexor Xr) 37.5 mg PO DAILY [facility] Last Admin: 03/22/18 10:05 Dose: 37.5 mg - Labs Labs: 03/22/18 02:09 03/22/18 02:09 PT 12.9 SECONDS (9.7-12.2) H 03/19/18 11:25 INR 1.2 03/19/18 11:25 APTT 31 SECONDS (21-34) 03/19/18 11:25 - Constitutional Appears: Well, Toxic, Unkempt - Head Exam Head Exam: ATRAUMATIC, NORMAL INSPECTION - Eye Exam Eye Exam: EOMI, Normal appearance, PERRL - ENT Exam ENT Exam: Mucous Membranes Moist - Neck Exam Neck Exam: Full ROM - Respiratory Exam Respiratory Exam: Clear to Ausculation Bilateral, NORMAL BREATHING PATTERN. absent: Rales, Rhonchi, Wheezes - Cardiovascular Exam Cardiovascular Exam: Tachycardia, REGULAR RHYTHM, +S1, +S2 - GI/Abdominal Exam GI & Abdominal Exam: Soft, Normal Bowel Sounds - Neurological Exam Neurological Exam: Alert, Altered, Awake, Reflexes Normal Neuro motor strength exam: Left Upper Extremity: 3, Right Upper Extremity: 2/1, Left Lower Extremity: 3, Right Lower Extremity: 2/1 Additional comments: Patient today appeared somnolent, worse than before. Motor strength in right upper and lower extremities 2/5. Able to withdraw from pain. Altered, AAOx1. 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, HTN, depression, and anemia who presented for syncope, slurred speech and bowel incontinence: -Sx possibly 2/2 to TIA or new CVA; there are no meningeal signs to indicate encephalitis, no fluctuating level of consciousness to indicate delirium -Will consider brain MRI as her coils were placed earlier this year and they are MRI compatible -EEG: normal -Increased home keppra to 500mg Q12 (home dose was 250mg Q12) -Holding aspirin and plavix as patient has had FOBT (+) x3; EGD showed no bleed ; [place] performed [place] [facility] [place] show bleed; family at this time not agreeable to repeat colonoscopy -LDL 39 -Speech, occupational and physical therapy -CT head w/o contrast 03/14/18: * Limited study due to significant streak and beam hardening artifact secondary to a large of fall of embolization coils presumably occluding the basilar tip aneurysm. . There also appear to be at least 2 small coils within the inferior margin of the basilar artery appear clinical correlation with history recommended. No evidence of acute intracranial hemorrhage. Significant chronic white matter ischemic changes. Chronic appearing bilateral basal ganglia lacunar type infarcts. There is also a chronic infarct along the left [employer] territory. The ventricles are dilated up possibly due to mild chronic compensated hydrocephalus versus central volume loss -Repeat CT head w/o contrast 03/14/18: * Stable noncontrast CT of the head with no definite interval cortical edema appreciated throughout the brain. Marked artifact is again seen related to endovascular coiling of a large aneurysm cephalad to the level of the basilar artery. Bithalamic chronic lacunes are again identified as well as chronic lobar infarction left occipital lobe. No acute ICH apparent. -Echo: * Left ventricle systolic function is normal. The Ejection Fraction is 65-70%. No aortic regurgitation is present. There is no mitral valve regurgitation noted. There is mild tricuspid regurgitation. There is mild pulmonary hypertension. There is no pulmonic valvular regurgitation. Case discussed with Dr crabtree
--- NOTE | 2018-03-22 21:30 | CARD ---
APPROVED REPORT Date of service: 03/21/2018 EKG Measurement Heart [id number] <Conclusion> Sinus tachycardia T wave abnormality, consider anterior ischemia Abnormal ECG
[2018-03-23] MEDS: levETIRAcetam 500 MG in Sodium Chloride 0.9% 100 ML IVPB SCH (04:10)
[2018-03-23 04:35] VITALS: O2SAT 100
[2018-03-23] MEDS: Dextrose 5%/0.45% NS 1,000 ML IV SCH (05:19)
--- NOTE | 2018-03-23 07:03 | CP.PCM.PN ---
Subjective - Date & Time of Evaluation Date of Evaluation: 03/23/18 Time of Evaluation: 08:00 - Subjective Subjective: PGY 2 medicine progress note for Dr. Antonio: Patient was seen and examined at bedside in the AM. Patient is only oriented to self. Patient is not somnolent today. Patient denies chest pain, shortness of breath, nausea, vomiting, diarrhea or constipation. Objective - Vital Signs/Intake and Output Vital Signs (last 24 hours): Temp Pulse Resp BP Pulse Ox 97.6 F 70 20 103/66 100 03/23/18 04:00 03/23/18 04:00 03/23/18 04:00 03/23/18 04:00 03/23/18 04:00 Intake and Output: 03/23/18 03/23/18 06:59 18:59 Intake Total 640 Output Total 750 Balance -110 - Medications Medications: Current Medications Acetaminophen (Tylenol 325mg Tab) 650 mg PO Q6 PRN PRN Reason: Fever >100.4 F Last Admin: 03/22/18 17:43 Dose: 650 mg Albuterol/Ipratropium (Duoneb 3 Mg/0.5 Mg (3 Ml) Ud) 3 ml INH RQ6 [facility] Last Admin: 03/22/18 19:19 Dose: Not Given Amlodipine Besylate (Norvasc) 10 mg PO DAILY [facility] Last Admin: 03/22/18 10:05 Dose: 10 mg Aspirin (Ecotrin) 81 mg PO DAILY [facility] Last Admin: 03/20/18 10:27 Dose: 81 mg Bisacodyl (Dulcolax) 10 mg PO DAILY [facility] Last Admin: 03/22/18 10:17 Dose: 10 mg Carvedilol (Coreg) 3.125 mg PO Q12 [facility] Last Admin: 03/22/18 21:23 Dose: Not Given Clopidogrel Bisulfate (Plavix) 75 mg PO DAILY [facility] Last Admin: 03/20/18 10:27 Dose: 75 mg Dextrose (Dextrose 50% Inj) 0 ml IV STAT PRN; Protocol PRN Reason: Hypoglycemia Protocol Dextrose (Glutose 15) 0 gm PO ONCE PRN; Protocol PRN Reason: Hypoglycemia Protocol Famotidine (Pepcid) 20 mg PO BID [facility] Last Admin: 03/22/18 17:43 Dose: 20 mg Glucagon (Glucagen Diagnostic Kit) 0 mg IM STAT PRN; Protocol PRN Reason: Hypoglycemia Protocol Hydralazine HCl (Apresoline) 25 mg PO Q8 [facility] Last Admin: 03/23/18 05:21 Dose: 25 mg Levetiracetam 500 mg/ Sodium (Chloride) 105 mls @ 420 mls/hr IVPB Q12H [facility] Last Admin: 03/23/18 04:10 Dose: 420 mls/hr Ferric Sodium Gluconate Complex 125 mg/ Sodium Chloride 110 mls @ 110 mls/hr IVPB DAILY [facility] Stop: 03/28/18 11:01 Last Admin: 03/22/18 11:23 Dose: 110 mls/hr Ceftriaxone Sodium 1 gm/ (Sodium Chloride) 100 mls @ 100 mls/hr IVPB Q24H BILL PRN Reason: Protocol Last Admin: 03/22/18 12:53 Dose: 100 mls/hr Insulin Human Regular (Novolin R) 1 unit SC ACHS [facility] PRN Reason: Protocol Last Admin: 03/22/18 21:25 Dose: Not Given Lactulose (Enulose) 20 gm PO [facility] Last Admin: 03/22/18 21:23 Dose: 20 gm Levetiracetam (Keppra) 250 mg PO BID [facility] Last Admin: 03/16/18 10:29 Dose: Not Given Rosuvastatin Calcium (Crestor) 20 mg PO [facility] Last Admin: 03/22/18 21:23 Dose: 20 mg Venlafaxine HCl (Effexor Xr) 37.5 mg PO DAILY [facility] Last Admin: 03/22/18 10:05 Dose: 37.5 mg - Labs Labs: 03/22/18 02:09 03/22/18 02:09 PT 12.9 SECONDS (9.7-12.2) H 03/19/18 11:25 INR 1.2 03/19/18 11:25 APTT 31 SECONDS (21-34) 03/19/18 11:25 - Constitutional Appears: No Acute Distress, Chronically Ill - Head Exam Head Exam: ATRAUMATIC, NORMAL INSPECTION - Eye Exam Eye Exam: EOMI, Normal appearance - ENT Exam ENT Exam: Mucous Membranes Moist - Respiratory Exam Respiratory Exam: NORMAL BREATHING PATTERN - Cardiovascular Exam Cardiovascular Exam: REGULAR RHYTHM, +S1, +S2 - GI/Abdominal Exam GI & Abdominal Exam: Soft, Normal Bowel Sounds. absent: Tenderness - Extremities Exam Extremities Exam: Normal Inspection - Neurological Exam Neurological Exam: Awake - Psychiatric Exam Psychiatric exam: Flat Affect - Skin Skin Exam: Normal Color Assessment and Plan - Assessment and Plan (Free Text) Assessment: 62 year old female with past medical history of brain aneurysm s/p coil placement is admitted for syncope and slurred speech UTI - Febrile overnight with leukocytosis - WBC 19.3 - Urine Culture: E. Coli and Proteus Mirabilis - Medications: * Ceftriaxone 1gm daily * Tylenol 650mg q6prn for fever * When patient is ready to be discharge to [facility] will continue Cipro 500mg po bid for 7 days Anemia - Likely 2/2 GI bleed and anemia of chronic disease. - GI, Dr. Lock is consulted --> help appreciated - EGD (03/16/18): LA Grade A esophagitis; medium-sized hiatal hernia; patchy mildly erythematous mucosa without bleeding. Please see full report - Plan was for colonoscopy, but daughter states she does not want mother to have colonoscopy until medical records have not been obtained from - colonoscopy at [facility] in December had minor findings but no source of GI bleed. Will need capsule endoscopy outpatient. - Hematology, Dr. Coombs consulted: hypoproliferative erythroid response, secondary to GI loss - Ferric Na gluconate IVPB daily - Stool occult positive x3 - Patient was transfused 2 units 03/15/18. Received additional unit of PRBC on . Continue to monitor - B12 395; Folate 9.7 - Ferritin 46.9; Retic Count 2.0 - Hold Aspirin & Plavix Syncope - Seizure vs. symptomatic anemia vs. arrhythmia - Neurology, Dr. Tovar is consulted. Pending further recs - EEG report pending - Per neuro, no indication for MRI/MRA of brain at this time. - CT of head on admission showed no acute hemorrhage but did show chronic lacunar infarcts at basal ganglia and chronic left INDUSTRIAL ROOFER infarct. - Negative UDS - Urine culture: Negative - ECHO (03/16/18): Left ventricle systolic function is normal. EF 65-70%. No aortic regurgitation is present. Please see full report. 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 . There also appear to be at least 2 small coils within the inferior margin of the basilar artery appear clinical correlation with history recommended. No evidence of acute intracranial hemorrhage. Significant chronic white matter ischemic changes. Chronic appearing bilateral basal ganglia lacunar type infarcts. There is also a chronic infarct along the left INDUSTRIAL ROOFER territory. The ventricles are dilated up possibly due to mild chronic compensated hydrocephalus versus central volume loss. - Increased Keppra --> Keppra 500mg po q12h - Effexor 37.5 mg PO daily Hypertension - Continue home Medications * Amlodipine 10mg daily * Coreg 3.125mg po q12h * Hydralazine 25mg q8h po Impaired Glucose Tolerance - hA1c: 5.6 - Lipid Panel: Cholesterol 90; LDL 39; HDL 28; Triglycerides 108 - Accuchecks - Hypoglycemia Protocol - Insulin sliding scale - Continue Crestor 20mg HS Prophylaxis - DVT: chemical anticoagulation contraindication due to GI bleed, hold aspirin and plavix - SCDs - GI: Protonix IV - Dulcolax 10mg po daily; Lactulose 20gm po HS - Case management referral for rehab placement - PT/OT Disposition: [facility] [place] [place]. Will need outpatient capsule endoscopy and IV Fe therapy; When patient is ready to be discharge to [facility] will continue Cipro 500mg po bid for 7 days Please continue medications. Please follow up with primary care physician. Will need outpatient capsule endoscopy so please follow up with Gastroenterology physician Please follow up with hematology, Dr. Coombs as patient will need IV iron therapy. Please follow up with your neuro-vascular surgeon in 1-2 weeks. Please return to the emergency room if symptoms return or worsen. All management per Dr. Antonio
[2018-03-23] MEDS: Albuterol-Ipratrop 3 mg / 0.5 (3 ml) UD INH SCH ×2 (07:05→13:05)
[2018-03-23] MEDS: (Novolin R) Insulin Human Regular 100 units/ml vial SC SCH ×2 (07:34→11:02)
[2018-03-23 08:07] VITALS: TEMP 98.5
--- NOTE | 2018-03-23 09:28 | CP.PCM.PN ---
Subjective - Date & Time of Evaluation Date of Evaluation: 03/22/18 Time of Evaluation: 19:00 - Subjective Subjective: Appears comfortable, arousable but drowsy. Objective - Vital Signs/Intake and Output Vital Signs (last 24 hours): Temp Pulse Resp BP Pulse Ox 98.5 F 79 20 175/65 H 100 03/23/18 07:15 03/23/18 07:15 03/23/18 07:15 03/23/18 07:15 03/23/18 07:15 Intake and Output: 03/23/18 03/23/18 06:59 18:59 Intake Total 1440 Output Total 750 Balance 690 - Medications Medications: Current Medications Acetaminophen (Tylenol 325mg Tab) 650 mg PO Q6 PRN PRN Reason: Fever >100.4 F Last Admin: 03/22/18 17:43 Dose: 650 mg Albuterol/Ipratropium (Duoneb 3 Mg/0.5 Mg (3 Ml) Ud) 3 ml INH RQ6 [facility] Last Admin: 03/22/18 19:19 Dose: Not Given Amlodipine Besylate (Norvasc) 10 mg PO DAILY [facility] Last Admin: 03/22/18 10:05 Dose: 10 mg Aspirin (Ecotrin) 81 mg PO DAILY [facility] Last Admin: 03/20/18 10:27 Dose: 81 mg Bisacodyl (Dulcolax) 10 mg PO DAILY [facility] Last Admin: 03/22/18 10:17 Dose: 10 mg Carvedilol (Coreg) 3.125 mg PO Q12 [facility] Last Admin: 03/22/18 21:23 Dose: Not Given Clopidogrel Bisulfate (Plavix) 75 mg PO DAILY [facility] Last Admin: 03/20/18 10:27 Dose: 75 mg Dextrose (Dextrose 50% Inj) 0 ml IV STAT PRN; Protocol PRN Reason: Hypoglycemia Protocol Dextrose (Glutose 15) 0 gm PO ONCE PRN; Protocol PRN Reason: Hypoglycemia Protocol Famotidine (Pepcid) 20 mg PO BID [facility] Last Admin: 03/22/18 17:43 Dose: 20 mg Glucagon (Glucagen Diagnostic Kit) 0 mg IM STAT PRN; Protocol PRN Reason: Hypoglycemia Protocol Hydralazine HCl (Apresoline) 25 mg PO Q8 [facility] Last Admin: 03/23/18 05:21 Dose: 25 mg Levetiracetam 500 mg/ Sodium (Chloride) 105 mls @ 420 mls/hr IVPB Q12H [facility] Last Admin: 03/23/18 04:10 Dose: 420 mls/hr Ferric Sodium Gluconate Complex 125 mg/ Sodium Chloride 110 mls @ 110 mls/hr IVPB DAILY [facility] Stop: 03/28/18 11:01 Last Admin: 03/22/18 11:23 Dose: 110 mls/hr Ceftriaxone Sodium 1 gm/ (Sodium Chloride) 100 mls @ 100 mls/hr IVPB Q24H BILL PRN Reason: Protocol Last Admin: 03/22/18 12:53 Dose: 100 mls/hr Insulin Human Regular (Novolin R) 1 unit SC ACHS [facility] PRN Reason: Protocol Last Admin: 03/23/18 07:34 Dose: Not Given Lactulose (Enulose) 20 gm PO [facility] Last Admin: 03/22/18 21:23 Dose: 20 gm Levetiracetam (Keppra) 250 mg PO BID [facility] Last Admin: 03/16/18 10:29 Dose: Not Given Rosuvastatin Calcium (Crestor) 20 mg PO [facility] Last Admin: 03/22/18 21:23 Dose: 20 mg Venlafaxine HCl (Effexor Xr) 37.5 mg PO DAILY [facility] Last Admin: 03/22/18 10:05 Dose: 37.5 mg - Labs Labs: 03/22/18 02:09 03/22/18 02:09 PT 12.9 SECONDS (9.7-12.2) H 03/19/18 11:25 INR 1.2 03/19/18 11:25 APTT 31 SECONDS (21-34) 03/19/18 11:25 - Head Exam Head Exam: ATRAUMATIC - Eye Exam Eye Exam: Normal appearance - ENT Exam ENT Exam: Mucous Membranes Dry - Respiratory Exam Respiratory Exam: NORMAL BREATHING PATTERN - Cardiovascular Exam Cardiovascular Exam: +S1, +S2 - GI/Abdominal Exam GI & Abdominal Exam: Normal Bowel Sounds Assessment and Plan (1) Anemia Assessment & Plan: borderline iron stores antiplatelets held s/p PRBC transfusion on IV iron seen by GI, s/p EGD with no active bleeding Status: Acute
[2018-03-23] MEDS: Bisacodyl 5mg EC Tab PO SCH (10:37)
[2018-03-23] MEDS: Ferric Sodium Gluconat Complex 125 MG in Sodium Chloride 0.9% 100 ML IVPB SCH (10:50)
[2018-03-23] MEDS: Venlafaxine 37.5 mg ER Cap PO SCH (10:50)
[2018-03-23 11:54] LABS: BASO % 0.3 % (0.0-2.0); EOS # 0.1 K/uL (0.0-0.7); EOS % 1.2 % (0.0-4.0); HEMOGLOBIN 9.5 g/dL (11.0-16.0); LYMPH % 12.5 % (20.0-40.0); MEAN CELL VOLUME 69.9 fL (81.0-99.0); MEAN CORPUSCULAR HGB CONC 32.8 g/dL (33.0-37.0); MEAN PLATELET VOLUME 8.6 fL (7.2-11.7); MONO # 0.6 K/uL (0.0-0.8); MONO % 7.1 % (0.0-10.0); NEUT # 6.3 K/uL (1.8-7.0); NEUT % 78.9 % (50.0-75.0); RBC 4.13 Mil/uL (3.80-5.20); RED CELL DISTRIBUTION WIDTH 27.8 % (11.5-14.5)
[2018-03-23 12:11] LABS: ALT/SGPT 25 U/L (9-52); AST/SGOT 18 U/L (14-36); BLOOD UREA NITROGEN 9 mg/dL (7-17); CALCIUM 8.5 mg/dl (8.6-10.4); GFR NON-AFRICAN AMERICAN > 60
[2018-03-23 12:45] VITALS: BP 120/74; PULSE 89
--- NOTE | 2018-03-23 23:26 | PN ---
DATE: 03/23/2018 LOCATION: 660, bed A. SUBJECTIVE: This is a 62 years old female seen early in rounds today without any significant clinical changes or reported active bleeding and no reported actual chest pain or palpitation. The entire chart is reviewed including but not limited to the most recent lab and radiology study results, current and the previous medication list, current and the previous medical events. The patient appears to be somewhat oriented only to self. No reported active GI blood loss. Today's lab results showed hemoglobin 9.5, hematocrit 28.9 with low indices highly suggestive of hypochromic microcytic anemia with blood glucose level 142, calcium 8.5 and albumin 3. The patient still have poor oral intake. PHYSICAL EXAMINATION: GENERAL: A 62 years old female. VITAL SIGNS: Afebrile with pulse of 74, respiratory rate 20-22, blood pressure of 160/62. HEENT: Showed pale dry oral mucous membrane. Nonicteric sclerae. LUNGS: Few scattered crepitation. Decreased air entry at bases. HEART: Positive S1 and S2. ABDOMEN: Soft with mild generalized tenderness. No mass or organomegaly. No rebound tenderness or guarding. EXTREMITIES: Without significant clubbing, cyanosis or edema but right-sided lower extremities mild edematous changes and right sided extremity weakness. NEUROLOGIC: No reported new neurological deficits, sensory or motor. IMPRESSION: 1. Peptic ulcer disease. 2. Known history of brain aneurysm with status post coil insertion. 3. Anemia, the possibility of lower gastrointestinal blood loss was raised versus anemia secondary to chronic disease. 4. Known history of hypertension. SUGGESTIONS: 1. Continue current management. 2. Follow up H and H. 3. It has to be mentioned that the family refusing any aggressive GI workup, colonoscopy, for which I will sign off the case. Further recommendation to follow. Vishnu Carter MD
--- NOTE | 2018-03-30 06:30 | DS ---
The patient was admitted with a chief complaint of alerted mental status and fatigue. The patient has a history of aneurysm, mild shortness of breath, history of seizure. The patient came to the ER, advised admission. The patient came get bedrest, CAT scan of the head was done. There was a normal CTA of the head. The patient had anemia. Had workup for GI bleeding. Endoscopy revealed gastritis. Colonoscopy was . The patient was advised to be followed by GI and followed by the neurosurgeon who is following her with some problems with her aneurysm. DIAGNOSES: Aneurysm, cerebrovascular accident, possible seizure, anemia secondary to gastrointestinal blood loss. PLAN: Bed rest, supportive care. The patient will follow up as an outpatient with the above. Nesha Antonio MD
== END 2018-03-23 15:06 | DRG 378 ==
LOC: C.ER 14:55 → C.9E 18:05 → C.6T 19:06
PROVIDERS: ADMIT Internal Medicine Pulmonary Disease; ATTEND Internal Medicine Pulmonary Disease
PROC: 0DB68ZX Excision of Stomach, Via Natural or Artificial Opening Endoscopic, Diagnostic (ICD-10-PCS; principal; 2018-03-16 12:50)
DX: K92.2 Gastrointestinal hemorrhage, unspecified (principal); D62 Acute posthemorrhagic anemia; I69.251 Hemiplegia and hemiparesis following other nontraumatic intracranial hemorrhage affecting right dominant side; E46 Unspecified protein-calorie malnutrition; N39.0 Urinary tract infection, site not specified; K29.70 Gastritis, unspecified, without bleeding; K44.9 Diaphragmatic hernia without obstruction or gangrene; K21.0 Gastro-esophageal reflux disease with esophagitis; E11.65 Type 2 diabetes mellitus with hyperglycemia; F17.210 Nicotine dependence, cigarettes, uncomplicated; I10 Essential (primary) hypertension; K27.9 Peptic ulcer, site unspecified, unspecified as acute or chronic, without hemorrhage or perforation

== ENCOUNTER 2018-07-14 13:33 | Outpatient (CLI) | payer MEDICARE | END 2018-07-14 13:34 | disposition home or self-care (01) | LOC: C.CTH 13:33 | DX: I63.9 Cerebral infarction, unspecified (principal) ==

== ENCOUNTER 2018-07-16 11:43 | Inpatient (IN) | payer MEDICARE ==
[2018-07-16] MEDS ORDERED: Sodium Chloride 0.9% 500 ML IV ONE (12:18)
[2018-07-16] MEDS ORDERED: Sodium Chloride 0.9% 1,000 ML IV ONE (12:20)
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
[2018-07-16 12:52] LABS: SQUAMOUS EPITHIAL < 1 /hpf (0-5); URINE BACTERIA RARE (<OCC); URINE BILIRUBIN NEGATIVE (NEGATIVE); URINE BLOOD 2+ (NEGATIVE); URINE CLARITY Clear (Clear); URINE COLOR Yellow (YELLOW); URINE GLUCOSE (UA) NORMAL (Normal); URINE LEUKOCYTE ESTERASE NEG Leu/uL (Negative); URINE PROTEIN 1+ mg/dL (NEGATIVE)
--- NOTE | 2018-07-16 13:30 | CT ---
Date of service: 07/16/2018 PROCEDURE: CT HEAD WITHOUT CONTRAST. HISTORY: WEAKNESS, AMS COMPARISON: 07/14/2018 and 03/21/2018 TECHNIQUE: Axial computed tomography images were obtained through the head/brain without intravenous contrast. Radiation dose: Total exam DLP = 884.2 mGy-cm. This CT exam was performed using one or more of the following dose reduction techniques: Automated exposure control, adjustment of the mA and/or kV according to patient size, and/or use of iterative reconstruction technique. FINDINGS: HEMORRHAGE: No intracranial hemorrhage. BRAIN: Embolization coils are seen adjacent to the basilar artery. There is a large amount of metallic artifact. Chronic lacunar infarcts are seen in the thalamus bilaterally. There is also a chronic infarct of the left occipital lobe. There is mild atrophy VENTRICLES: Unremarkable. No hydrocephalus. CALVARIUM: Unremarkable. PARANASAL SINUSES: Unremarkable as visualized. No significant inflammatory changes. MASTOID AIR CELLS: Unremarkable as visualized. No inflammatory changes. OTHER FINDINGS: The ocular lenses are dislocated bilaterally. This could be seen on the recent study but was not present on the study dated 03/21/2018 IMPRESSION: Embolization coils are seen adjacent to the basilar artery. There is a large amount of metallic artifact. Chronic lacunar infarcts are seen in the thalamus bilaterally. There is also a chronic infarct of the left occipital lobe. The ocular lenses are dislocated bilaterally. This could be seen on the recent study but was not present on the study dated 03/21/2018
[2018-07-16 13:36] LABS: VENOUS BLOOD GAS BASE EXCESS 3.5 mmol/L (0.0-2.0); VENOUS BLOOD GAS PCO2 47 mmHg (40-60); VENOUS BLOOD GAS PO2 32 mm/Hg (30-55)
[2018-07-16 13:36] LABS: BASO % 0.2 % (0.0-2.0); EOS # 0.1 K/uL (0.0-0.7); EOS % 1.5 % (0.0-4.0); HEMOGLOBIN 11.1 g/dL (11.0-16.0); LYMPH # 1.2 K/uL (1.0-4.3); LYMPH % 15.3 % (20.0-40.0); MEAN CORPUSCULAR HEMOGLOBIN 24.6 pg (27.0-31.0); MEAN PLATELET VOLUME 9.1 fL (7.2-11.7); MONO # 0.4 K/uL (0.0-0.8); MONO % 4.8 % (0.0-10.0); NEUT # 6.3 K/uL (1.8-7.0); NEUT % 78.2 % (50.0-75.0); RBC 4.5 Mil/uL (3.80-5.20)
[2018-07-16 13:44] LABS: ALB/GLOB RATIO 1.2 (1.0-2.1); ALBUMIN 3.5 g/dL (3.5-5.0); ALT/SGPT 26 U/L (9-52); AST/SGOT 23 U/L (14-36); BLOOD UREA NITROGEN 21 mg/dL (7-17); CALCIUM 8.6 mg/dl (8.6-10.4); GFR NON-AFRICAN AMERICAN 57; MEAN CELL VOLUME 79.2 fL (81.0-99.0)
[2018-07-16 13:52] LABS: CK-MB 1.93 ng/mL (0.0-3.38)
--- NOTE | 2018-07-16 14:55 | RAD ---
HISTORY: weakness COMPARISON: Chest x-ray performed 03/22/18 TECHNIQUE: Chest, one view. FINDINGS: Examination limited by patient obliquity and hypoinflation. LUNGS: No focal consolidation. Bilateral 13 mm nodular opacities, possibly nipple shadows. Please note that chest x-ray has limited sensitivity for the detection of pulmonary masses. PLEURA: No significant pleural effusion identified. No definite pneumothorax . CARDIOVASCULAR: Heart size top-normal. Tortuous aorta. No significant atherosclerotic calcification present. OSSEOUS STRUCTURES: Degenerative changes. Acromioclavicular arthropathy. Glenohumeral joint space narrowing bilaterally. VISUALIZED UPPER ABDOMEN: Unremarkable. OTHER FINDINGS: None. IMPRESSION: No focal consolidation. Bilateral 13 mm nodular opacities, possibly nipple shadows.
[2018-07-16] MEDS: Dextrose 5%/0.45% NS 1,000 ML IV SCH (17:30)
[2018-07-16] MEDS: Enoxaparin 40 mg Syringe SC SCH (19:00)
[2018-07-17] MEDS: Dextrose 5%/0.45% NS 1,000 ML IV SCH ×3 (04:35→23:55)
[2018-07-17 07:28] LABS: HEMOGLOBIN 10.3 g/dL (11.0-16.0); MEAN CELL VOLUME 79.3 fL (81.0-99.0); MEAN CORPUSCULAR HEMOGLOBIN 25.3 pg (27.0-31.0); MEAN CORPUSCULAR HGB CONC 31.9 g/dL (33.0-37.0); MEAN PLATELET VOLUME 9.2 fL (7.2-11.7); RBC 4.07 Mil/uL (3.80-5.20); RED CELL DISTRIBUTION WIDTH 15.1 % (11.5-14.5); WHITE BLOOD COUNT 6.8 K/uL (4.8-10.8)
[2018-07-17 08:18] LABS: ALBUMIN 3.1 g/dL (3.5-5.0); ALT/SGPT 30 U/L (9-52); AST/SGOT 21 U/L (14-36); BLOOD UREA NITROGEN 11 mg/dL (7-17); CALCIUM 8.4 mg/dl (8.6-10.4); GFR NON-AFRICAN AMERICAN > 60
[2018-07-17] MEDS: Venlafaxine 37.5 mg ER Cap PO SCH (09:47)
[2018-07-17] MEDS: Enoxaparin 40 mg Syringe SC SCH (09:47)
[2018-07-17] MEDS: Pantoprazole 40 mg EC Tab PO SCH (09:47)
--- NOTE | 2018-07-17 10:25 | CP.PCM.CON ---
History of Present Illness - History of Present Illness History of Present Illness: Patient JUAN from home for evaluation of generalized weakness and lethargy. she appears to have lost a lot of weight accordi ng to family members She is weak lethargic and bedridden but in NAD She has contractures and multiple wounds on skin of unclear etiology ID consulted for possible UTI Patient has PMhx of CVA (discharged 03/29/18), cerebral aneurysm (s/p coiling), seizures, PUD, anemia. HTN, hyperlipidemia. - Medical History PMH: Anemia, Depression, HTN, Hypercholesterolemia, Seizures Other Surgeries: right knee replacement, cerebral anheurysm coiling - [facility] Procedures EXCISION OF STOMACH, ENDO, DIAGN (03/14/18) Review of Systems - Review of Systems Systems not reviewed;Unavailable: Altered Mental Status All systems: reviewed and no additional remarkable complaints except - Constitutional Constitutional: As Per HPI, Anorexia - EENT Eyes: absent: As Per HPI, Blind Spots, Blurred Vision, Change in Vision, Decreased Night Vision, Diplopia, Discharge, Dry Eye, Exophthalmos, Floaters, Irritation, Itchy Eyes, Loss of Peripheral Vision, Pain, Photophobia, Requires Corrective Lenses, Sees Flashes, Spots in Vision, Tunnel Vision, Other Visual Di sturbances, Loss of Vision, Other Ears: absent: As Per HPI, Decreased Hearing, Ear Discharge, Ear Pain, Tinnitus, Abnormal Hearing, Disequilibrium, Dizziness, Other Nose/Mouth/Throat: absent: As Per HPI, Epistaxis, Nasal Congestion, Nasal Discharge, Nasal Obstruction, Nasal Trauma, Nose Pain, Post Nasal Drip, Sinus Pain, Sinus Pressure, Bleeding Gums, Change in Voice, Dental Pain, Dry Mouth, Dysphagia, Halitosis, Hoarsness, Lip Swelling, Mouth Lesions, Mouth Pain, Odynophagia, Sore Throat, Throat Swelling, Tongue Swelling, Facial Pain, Neck Pain, Neck Mass, Other - Cardiovascular Cardiovascular: As Per HPI - Respiratory Respiratory: absent: As Per HPI, Cough, Dyspnea, Hemoptysis, Dyspnea on Exertion, Wheezing, Snoring, Stridor, Pain on Inspiration, Chest Congestion, Excessive Mucous Production, Change in Mucous Color, Pain with Coughing, Other - Gastrointestinal Gastrointestinal: absent: As Per HPI, Abdominal Pain, Belching, Bloating, Change in Bowel Habits, Change in Stool Character, Coffee Ground Emesis, Constipation, Cramping, Diarrhea, Dyspepsia, Dysphagia, Early Satiety, Excessive Flatus, Fecal Incontinence, Heartburn, Hematemesis, Hematochezia, Loose Stools, Melena, Nausea, Odynophagia, Temesmus, Vomiting, Other - Genitourinary Genitourinary: absent: As Per HPI, Change in Urinary Stream, Difficulty Urinating, Dysuria, Flank Pain, Hematuria, Pyuria, Nocturia, Urinary Incontinence, Urinary Frequency, Urinary Hesitance, Urinary Urgency, Voiding Freq/Small Amts, Freq UTI, Hx Renal/Bladder Calculi, Hx /Renal Surgery, Bladder Distension, Other - Reproductive: Female Reproductive:Female: absent: As Per HPI, Amenorrhea, Amenorrhea/ Control, Currently Menstual, Cycle <21 Days, Cycle >35 Days, Cycle Variable, Menses 1-7 Days, Menses >/= 8 Days, Menses Variable, Cycle > 4 Weeks Between, No Menses for 6 Months, Heavy Menses, Light Menses, Normal Menses, Spotting Between Cycles, S/P Hysterectomy, Menopausal, Post Menopausal, Premenarche, Abnormal Vaginal Bleeding, Dysmenorrhea, Dyspareunia, Genital Lesions, Genital Pruritis, Pelvic Pain, Prolapse Symptoms, Sexual Dysfunction, Vaginal Discharge, Vaginal Dryness, Vaginal Odor, Vaginal Pruritis, Other - Menstruation Menstruation: absent: As Per HPI, Amenorrhea, Amenorrhea/ Control, Currently Menstual, Cycle <21 Days, Cycle >35 Days, Cycle Variable, Menses 1-7 Days, Menses >/= 8 Days, Menses Variable, Cycle > 4 Weeks Between, No Menses for 6 Months, Heavy Menses, Light Menses, Normal Menses, Spotting Between Cycles, S/P Hysterectomy, Menopausal, Post Menopausal, Premenarche, Abnormal Vaginal Bleeding, Dysmenorrhea, Other - Musculoskeletal Musculoskeletal: As Per HPI - Integumentary Integumentary: As Per HPI, Skin Pain, Wounds - Neurological Neurological: As Per HPI, Abnormal Gait, Memory Loss - Endocrine Endocrine: absent: As Per HPI, Change in Body Appearance, Change in Libido, Cold Intolorance, Deepening of Voice, Excessive Sweating, Fatigue, Flushing, Heat Intolorance, Increase in Ring/Shoe/Hat Size, Palpitations, Polydipsia, Polyphagia, Polyuria, Other - Hematologic/Lymphatic Hematologic: absent: As Per HPI, Easy Bleeding, Easy Bruising, Lymphadenopathy, Other Past Patient History - Infectious Disease Hx of Infectious Diseases: None - Past Medical History & Family History Past Medical History?: Yes - Past Social History Smoking Status: Former Smoker - CARDIAC Hx Hypercholesterolemia: Yes Hx Hypertension: Yes - PULMONARY Hx Respiratory Disorders: No - NEUROLOGICAL Hx Seizures: Yes - HEENT Hx HEENT Problems: No - RENAL Hx Chronic Kidney Disease: No - ENDOCRINE/METABOLIC Hx Diabetes Mellitus Type 2: Yes - HEMATOLOGICAL/ONCOLOGICAL Hx Anemia: Yes - INTEGUMENTARY Hx Dermatological Problems: No - MUSCULOSKELETAL/RHEUMATOLOGICAL Hx Falls: Yes - GASTROINTESTINAL Hx Gastroesophageal Reflux: Yes - GENITOURINARY/GYNECOLOGICAL Hx Incontinence: Yes - PSYCHIATRIC Hx Depression: Yes Hx Substance Use: No - SURGICAL HISTORY Hx Surgeries: Yes Hx Orthopedic Surgery: Yes (tkr= right) - ANESTHESIA Hx Anesthesia: Yes Hx Anesthesia Reactions: No Hx Malignant Hyperthermia: No Meds Allergies/Adverse Reactions: Allergies Allergy/AdvReac Type Severity Reaction Status Date / Time No Known Allergies Allergy Verified 07/16/18 11:54 - Medications Medications: Current Medications Amlodipine Besylate (Norvasc) 10 mg PO DAILY [facility] Last Admin: 07/17/18 09:47 Dose: 10 mg Enoxaparin Sodium (Lovenox) 40 mg SC DAILY [facility] Last Admin: 07/17/18 09:47 Dose: 40 mg Ferrous Sulfate (Feosol) 325 mg PO BID [facility] Last Admin: 07/17/18 09:47 Dose: 325 mg Hydralazine HCl (Apresoline) 25 mg PO Q8H [facility] Last Admin: 07/17/18 06:03 Dose: 25 mg Dextrose/Sodium Chloride (Dextrose 5%/0.45% Ns 1000 Ml) 1,000 mls @ 100 mls/hr IV .Q10H [facility] Last Admin: 07/17/18 04:35 Dose: 100 mls/hr Ceftriaxone Sodium 1 gm/ (Sodium Chloride) 100 mls @ 100 mls/hr IVPB DAILY [facility]; Protocol Last Admin: 07/17/18 09:48 Dose: 100 mls/hr Influenza Virus Vaccine (Flucelvax Quad 0570-6362 Syr) 60 mcg IM .ONCE ONE Stop: 07/19/18 10:01 Pantoprazole Sodium (Protonix Ec Tab) 40 mg PO DAILY [facility] Last Admin: 07/17/18 09:47 Dose: 40 mg Potassium Chloride (Potassium Chloride Oral Soln) 40 meq PO ONCE ONE Stop: 07/17/18 10:01 Potassium Chloride (Potassium Chloride Oral Soln) 20 meq PO ONCE ONE Stop: 07/17/18 09:59 Rosuvastatin Calcium (Crestor) 20 mg PO HS [facility] Last Admin: 07/16/18 21:20 Dose: 20 mg Venlafaxine HCl (Effexor Xr) 37.5 mg PO DAILY [facility] Last Admin: 07/17/18 09:47 Dose: 37.5 mg Physical Exam - Constitutional Appears: Non-toxic, Confused, Cachectic, Chronically Ill - Head Exam Head Exam: ATRAUMATIC, NORMOCEPHALIC - Eye Exam Eye Exam: EOMI, PERRL. absent: Scleral icterus - ENT Exam ENT Exam: Mucous Membranes Dry, Normal External Ear Exam, Normal Oropharynx - Neck Exam Neck exam: Positive for: Lymphadenopathy - Respiratory Exam Respiratory Exam: Decreased Breath Sounds, Prolonged Expiratory Phase, Rhonchi - Cardiovascular Exam Cardiovascular Exam: REGULAR RHYTHM, +S1, +S2 - GI/Abdominal Exam GI & Abdominal Exam: Diminished Bowel Sounds, Soft. absent: Tenderness - Rectal Exam Rectal Exam: Deferred - Exam Exam: NORMAL INSPECTION - Extremities Exam Extremities exam: Positive for: pedal edema, tenderness. Negative for: calf tenderness, full ROM - Back Exam Back exam: absent: CVA tenderness (L), CVA tenderness (R), paraspinal tenderness - Neurological Exam Neurological exam: Alert, Altered, CN II-XII Intact - Psychiatric Exam Psychiatric exam: Depressed - Skin Skin Exam: Dry Results - Vital Signs Recent Vital Signs: Last Vital Signs Temp 97.6 F 07/17/18 07:00 Pulse 89 07/17/18 07:00 Resp 20 07/17/18 07:00 BP 123/90 07/17/18 07:00 Pulse Ox 96 07/17/18 07:00 - Labs Result Diagrams: 07/17/18 07:22 07/17/18 07:22 Labs: Laboratory Results - last 24 hr 07/16/18 07/16/18 07/16/18 12:42 13:25 13:25 WBC 8.0 RBC 4.50 Hgb 11.1 Hct 35.6 MCV 79.2 L D MCH 24.6 L MCHC 31.0 L RDW 15.0 H Plt Count 210 D MPV 9.1 Neut % (Auto) 78.2 H Lymph % (Auto) 15.3 L [place] % (Auto) 4.8 Eos % (Auto) 1.5 Baso % (Auto) 0.2 Neut # (Auto) 6.3 Lymph # (Auto) 1.2 Pike # (Auto) 0.4 Eos # (Auto) 0.1 Baso # (Auto) 0.0 pO2 VBG pH VBG pCO2 VBG HCO3 VBG Total CO2 VBG O2 Sat (Calc) VBG Base Excess VBG Potassium Glucose Lactate Sodium 152 H Potassium 4.0 Chloride 118 H Carbon Dioxide 29 Anion Gap 9 L BUN 21 H Creatinine 1.0 Est GFR ( Amer) > 60 Est GFR (Non-Af Amer) 57 Random Glucose 193 H D Calcium 8.6 Total Bilirubin 0.4 AST 23 ALT 26 Alkaline Phosphatase 142 H Total Creatine Kinase 59 CK-MB (Mass) 1.93 Troponin I < 0.0120 Total Protein 6.5 Albumin 3.5 Globulin 2.9 Albumin/Globulin Ratio 1.2 Venous Blood Potassium Urine Color Yellow Urine Clarity Clear Urine pH 5.0 Ur Specific [place] 1.014 Urine Protein 1+ H Urine Glucose (UA) Normal Urine Ketones Negative Urine Blood 2+ H Urine Nitrate Negative Urine Bilirubin Negative Urine Urobilinogen 2.0 H Ur Leukocyte Esterase Neg Urine WBC (Auto) 7 H Urine RBC (Auto) 25 H Ur Squamous Epith Cells < 1 Urine Bacteria Rare Hyaline Casts 3-5 H 07/16/18 07/17/18 07/17/18 13:30 07:22 07:22 WBC 6.8 RBC 4.07 Hgb 10.3 L Hct 32.3 L MCV 79.3 L MCH 25.3 L MCHC 31.9 L RDW 15.1 H Plt Count 178 MPV 9.2 Neut % (Auto) Lymph % (Auto) [place] % (Auto) Eos % (Auto) Baso % (Auto) Neut # (Auto) Lymph # (Auto) [place] # (Auto) Eos # (Auto) Baso # (Auto) pO2 32 VBG pH 7.40 VBG pCO2 47 VBG HCO3 26.7 VBG Total CO2 30.5 H VBG O2 Sat (Calc) 60.4 VBG Base Excess 3.5 H VBG Potassium 3.6 Glucose 185 H Lactate 2.1 Sodium 154.0 H 147 Potassium 3.2 L Chloride 122.0 H 115 H Carbon Dioxide 27 Anion Gap 8 L BUN 11 Creatinine 0.7 Est GFR ( Amer) > 60 Est GFR (Non-Af Amer) > 60 Random Glucose 136 H D Calcium 8.4 L Total Bilirubin 0.3 AST 21 ALT 30 Alkaline Phosphatase 134 H Total Creatine Kinase CK-MB (Mass) Troponin I Total Protein 6.0 L Albumin 3.1 L Globulin 3.0 Albumin/Globulin Ratio 1.0 Venous Blood Potassium 3.6 Urine Color Urine Clarity Urine pH Ur Specific [place] Urine Protein Urine Glucose (UA) Urine Ketones Urine Blood Urine Nitrate Urine Bilirubin Urine Urobilinogen Ur Leukocyte Esterase Urine WBC (Auto) Urine RBC (Auto) Ur Squamous Epith Cells Urine Bacteria Hyaline Casts Assessment & Plan (1) Dehydration Status: Acute (2) Depression Status: Acute (3) Dislocated intraocular lens Status: Acute (4) Hypernatremia Status: Acute - Assessment and Plan (Free Text) Assessment: 62 yo female eith hx of stroke, is admitted with severe weakness and failure to thrive refererred for ID eval for possible UTI, sepsis patient has been cultured up and started on IV antiboiotic RX Plan: IV antibotics have been ordered '[facility] social service eval , wound car consult, swallowing eval with calorie count, neuro follow up
[2018-07-17] MEDS ORDERED: Potassium Chloride 20 mEq/15 ml LIQ UD PO ONE ×2 (11:00→12:00)
--- NOTE | 2018-07-17 13:53 | CP.PCM.PN ---
Subjective - Date & Time of Evaluation Date of Evaluation: 07/17/18 Time of Evaluation: 07:45 - Subjective Subjective: Medicine progress note ( Dr. Antonio's service) Patient is a 62 year old with past medical history of brain aneurysm s/p recent coil placement in 2018, 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, HTN, depression, and anemia, who was brought in by EMS as a result of the condition she was found in after a legal wellness check which was requested by her sisters after not being able to contact her sister/ niece or enter the house for the past month. Patient was seen and examined at bedside. Patient was mildly somnolent but resp onded that she is "fine" when asked about how she is doing and if there are any issues or discomfort. As per nursing staff, there were no acute issues overnight. Patient was also seen at a later time with younger sister at bedside, patient reported that she is doing well. When asked about current home situation, patient states all is well. Objective - Vital Signs/Intake and Output Vital Signs (last 24 hours): Temp Pulse Resp BP Pulse Ox 97.6 F 89 20 123/90 96 07/17/18 07:00 07/17/18 07:00 07/17/18 07:00 07/17/18 07:00 07/17/18 07:00 Intake and Output: 07/17/18 07/17/18 06:59 18:59 Intake Total 18 Balance 18 - Medications Medications: Current Medications Amlodipine Besylate (Norvasc) 10 mg PO DAILY [facility] Last Admin: 07/17/18 09:47 Dose: 10 mg Enoxaparin Sodium (Lovenox) 40 mg SC DAILY [facility] Last Admin: 07/17/18 09:47 Dose: 40 mg Ferrous Sulfate (Feosol) 325 mg PO BID [facility] Last Admin: 07/17/18 09:47 Dose: 325 mg Hydralazine HCl (Apresoline) 25 mg PO Q8H [facility] Last Admin: 07/17/18 13:39 Dose: 25 mg Dextrose/Sodium Chloride (Dextrose 5%/0.45% Ns 1000 Ml) 1,000 mls @ 100 mls/hr IV .Q10H [facility] Last Admin: 07/17/18 04:35 Dose: 100 mls/hr Ceftriaxone Sodium 1 gm/ (Sodium Chloride) 100 mls @ 100 mls/hr IVPB DAILY [facility]; Protocol Last Admin: 07/17/18 09:48 Dose: 100 mls/hr Influenza Virus Vaccine (Flucelvax Quad 2226-5830 Syr) 60 mcg IM .ONCE ONE Stop: 07/19/18 10:01 Pantoprazole Sodium (Protonix Ec Tab) 40 mg PO DAILY [facility] Last Admin: 07/17/18 09:47 Dose: 40 mg Rosuvastatin Calcium (Crestor) 20 mg PO HS [facility] Last Admin: 07/16/18 21:20 Dose: 20 mg Venlafaxine HCl (Effexor Xr) 37.5 mg PO DAILY [facility] Last Admin: 07/17/18 09:47 Dose: 37.5 mg - Labs Labs: 07/17/18 07:22 07/17/18 07:22 - Constitutional Appears: No Acute Distress - Head Exam Additional comments: Small 0.5 x0.5cm frontal healed skin abrasion - ENT Exam ENT Exam: Mucous Membranes Dry - Respiratory Exam Respiratory Exam: Clear to Ausculation Bilateral, NORMAL BREATHING PATTERN - Cardiovascular Exam Cardiovascular Exam: REGULAR RHYTHM - GI/Abdominal Exam GI & Abdominal Exam: Soft, Normal Bowel Sounds - Extremities Exam Additional comments: Contracted upper and Lower extremities 2/2 to CVA - Neurological Exam Neurological Exam: Oriented x3 - Psychiatric Exam Psychiatric exam: Flat Affect - Skin Skin Exam: Normal Color Assessment and Plan (1) Lethargy Assessment & Plan: 2/2 to severe dehydration, poor PO intake, poor care or possible infection D51/2NS @100mls/hr Ensure nutritional supplement UA: Negative, PPx abx: Rocephin 1gm IV daily pending UC BC: No growth after 24 hours Status: Acute (2) Hypernatremia Assessment & Plan: Resolving Possible 2/2 to dehydration Continue to monitor with am labs Status: Acute (3) Hx of iron deficiency anemia Assessment & Plan: Feosol 325mg PO BID Status: Acute (4) Brain aneurysm Assessment & Plan: Hx od brain aneursym S/p coil in 10/[address] (07/16/17): Embolization coils are seen adjacent to the basilar artery. There is a large amount of metallic artifact. Chronic lacunar infarcts are seen in the thalamus bilaterally. There is also a chronic infarct of the left occipital lobe. The ocular lenses are dislocated bilaterally -Keppra 250mg PO BID Status: Resolved (5) Depression as late effect of cerebrovascular accident (CVA) Assessment & Plan: Effexor 37.5mg PO daily Status: Acute (6) History of CVA (cerebrovascular accident) Assessment & Plan: Residual right sided deficit - ASA 81mg PO daily; As per daughter, patient's plavix has been discontinued - Crestor 20mg PO HS Status: Acute (7) Hypertension Assessment & Plan: Continue home Medications * Amlodipine 10mg daily * Hydralazine 25mg PO Q8H * Coreg 3.125mg PO daily Status: Acute (8) Prophylactic measure Assessment & Plan: DVT: Lovenox 40mg SC daily GI: Protonix 40mg PO daily Disposition: Plans for subacute rehab and possible oil heaterman care All plans and management discussed with Dr. Antonio Status: Acute
--- NOTE | 2018-07-18 07:04 | CP.PCM.PN ---
Subjective - Date & Time of Evaluation Date of Evaluation: 07/18/18 Time of Evaluation: 07:04 - Subjective Subjective: PGY2 Medicine Note for Dr. Antonio Patient seen and examiend this morning at bedside. She is refusing medications and refused swallow evaluation. She is turning her away and refusing to talk, but allows resident to exam her. Patient's sister states that she was able to feed the patient without incident. Objective - Vital Signs/Intake and Output Vital Signs (last 24 hours): Temp Pulse Resp BP Pulse Ox 98.1 F 89 20 143/89 94 L 07/18/18 00:00 07/18/18 05:48 07/18/18 00:00 07/18/18 05:48 07/18/18 00:00 Intake and Output: 07/18/18 07/18/18 06:59 18:59 Intake Total 1600 Output Total 1150 Balance 450 - Medications Medications: Current Medications Amlodipine Besylate (Norvasc) 10 mg PO DAILY [facility] Last Admin: 07/17/18 09:47 Dose: 10 mg Aspirin (Aspirin Chewable) 81 mg PO DAILY [facility] Carvedilol (Coreg) 3.125 mg PO BID [facility] Last Admin: 07/17/18 18:00 Dose: Not Given Enoxaparin Sodium (Lovenox) 40 mg SC DAILY [facility] Last Admin: 07/17/18 09:47 Dose: 40 mg Ferrous Sulfate (Feosol) 325 mg PO BID [facility] Last Admin: 07/17/18 17:42 Dose: 325 mg Hydralazine HCl (Apresoline) 25 mg PO Q8H [facility] Last Admin: 07/18/18 05:48 Dose: 25 mg Dextrose/Sodium Chloride (Dextrose 5%/0.45% Ns 1000 Ml) 1,000 mls @ 100 mls/hr IV .Q10H [facility] Last Admin: 07/17/18 23:55 Dose: Not Given Ceftriaxone Sodium 1 gm/ (Sodium Chloride) 100 mls @ 100 mls/hr IVPB DAILY [facility]; Protocol Last Admin: 07/17/18 09:48 Dose: 100 mls/hr Influenza Virus Vaccine (Flucelvax Quad [id number] Syr) 60 mcg IM .ONCE ONE Stop: 07/19/18 10:01 Levetiracetam (Keppra) 250 mg PO BID [facility] Last Admin: 07/17/18 17:42 Dose: 250 mg Pantoprazole Sodium (Protonix Ec Tab) 40 mg PO DAILY [facility] Last Admin: 07/17/18 09:47 Dose: 40 mg Rosuvastatin Calcium (Crestor) 20 mg PO HS [facility] Last Admin: 07/17/18 21:31 Dose: 20 mg Venlafaxine HCl (Effexor Xr) 37.5 mg PO DAILY [facility] Last Admin: 07/17/18 09:47 Dose: 37.5 mg - Labs Labs: 07/17/18 07:22 07/17/18 07:22 - Constitutional Appears: Non-toxic, No Acute Distress - Head Exam Head Exam: ATRAUMATIC, NORMOCEPHALIC - Eye Exam Eye Exam: Normal appearance - ENT Exam ENT Exam: Mucous Membranes Moist - Respiratory Exam Respiratory Exam: Clear to Ausculation Bilateral, NORMAL BREATHING PATTERN. absent: Accessory Muscle Use, Rales, Rhonchi, Wheezes, Respiratory Distress - Cardiovascular Exam Cardiovascular Exam: REGULAR RHYTHM, +S1, +S2 - GI/Abdominal Exam GI & Abdominal Exam: Soft. absent: Distended, Firm, Guarding, Rigid, Tenderness - Extremities Exam Extremities Exam: absent: Calf Tenderness, Pedal Edema - Neurological Exam Neurological Exam: Alert, Awake - Skin Skin Exam: Dry, Warm Assessment and Plan - Assessment and Plan (Free Text) Plan: Lethargy 2/2 to severe dehydration, poor PO intake, poor care or possible infection afebrile no leukocytosis D5-1/2NS @100mls/hr Ensure nutritional supplement UA: Negative, PPx abx: Rocephin 1gm IV daily UC: No growth BC: No growth after 48 hours Patient refused to speak to doctor's today. Per sister at bedside, patient talked to her and was able to eat crackers that she fed her. Hypernatremia Resolved Possible 2/2 to dehydration Continue to monitor with am labs Hx of iron deficiency anemia Feosol 325mg PO BID Brain aneurysm Hx od brain aneursym S/p coil in 10/[address] (07/16/17): Embolization coils are seen adjacent to the basilar artery. There is a large amount of metallic artifact. Chronic lacunar infarcts are seen in the thalamus bilaterally. There is also a chronic infarct of the left occipital lobe. The ocular lenses are dislocated bilaterally -Keppra 250mg PO BID Depression as late effect of cerebrovascular accident (CVA) Effexor 37.5mg PO daily History of CVA (cerebrovascular accident) Residual right sided deficit - ASA 81mg PO daily; As per daughter, patient's plavix has been discontinued - Crestor 20mg PO HS Hypertension Continue home Medications * Amlodipine 10mg daily * Hydralazine 25mg PO Q8H * Coreg 3.125mg PO daily Prophylactic measure DVT: Lovenox 40mg SC daily GI: Protonix 40mg PO daily Disposition: Plans for subacute rehab and possible prison care. Attempted to call patient's daughter today but no answer. Will attempt again tomorrow. All plans and management discussed with Dr. Marisela Mckeon Natalie PGY2
[2018-07-18 07:19] LABS: BASO % 0.1 % (0.0-2.0); EOS # 0.2 K/uL (0.0-0.7); EOS % 2.5 % (0.0-4.0); HEMOGLOBIN 10.7 g/dL (11.0-16.0); LYMPH # 1.4 K/uL (1.0-4.3); LYMPH % 21.4 % (20.0-40.0); MEAN CELL VOLUME 77.9 fL (81.0-99.0); MEAN CORPUSCULAR HEMOGLOBIN 25.1 pg (27.0-31.0); MEAN CORPUSCULAR HGB CONC 32.2 g/dL (33.0-37.0); MEAN PLATELET VOLUME 9.4 fL (7.2-11.7); MONO # 0.3 K/uL (0.0-0.8); MONO % 5.4 % (0.0-10.0); NEUT # 4.5 K/uL (1.8-7.0); NEUT % 70.6 % (50.0-75.0); NRBC % 0.1 % (0.0-2.0); RBC 4.26 Mil/uL (3.80-5.20); RED CELL DISTRIBUTION WIDTH 14.6 % (11.5-14.5); WHITE BLOOD COUNT 6.4 K/uL (4.8-10.8)
[2018-07-18 07:47] LABS: ALB/GLOB RATIO 1.1 (1.0-2.1); ALBUMIN 3.1 g/dL (3.5-5.0); ALT/SGPT 27 U/L (9-52); AST/SGOT 21 U/L (14-36); BLOOD UREA NITROGEN 6 mg/dL (7-17); CALCIUM 8.4 mg/dl (8.6-10.4); GFR NON-AFRICAN AMERICAN > 60
[2018-07-18] MEDS: Venlafaxine 37.5 mg ER Cap PO SCH ×2 (09:27→09:53)
[2018-07-18] MEDS: Pantoprazole 40 mg EC Tab PO SCH ×2 (09:27→09:54)
[2018-07-18] MEDS: Enoxaparin 40 mg Syringe SC SCH ×2 (09:27→09:53)
[2018-07-18] MEDS: Dextrose 5%/0.45% NS 1,000 ML IV SCH ×2 (09:28→23:55)
[2018-07-18] MEDS: SILVASORB ANTIMICROBIAL WOUND GEL TOP SCH (14:05)
--- NOTE | 2018-07-18 16:19 | CP.PCM.PN ---
Subjective - Date & Time of Evaluation Date of Evaluation: 07/18/18 Time of Evaluation: 07:00 - Subjective Subjective: 62 yo female with PMhx of CVA (discharged 03/29/18), cerebral aneurysm (s/p coiling), seizures, PUD, anemia. HTN, hyperlipidemia brought in for weight loss and weakness Septic work up negative so far Objective - Vital Signs/Intake and Output Vital Signs (last 24 hours): Temp Pulse Resp BP Pulse Ox 98.8 F 88 20 154/89 H 100 07/18/18 07:00 07/18/18 07:00 07/18/18 07:00 07/18/18 07:00 07/18/18 07:00 Intake and Output: 07/18/18 07/18/18 06:59 18:59 Intake Total 1600 1040 Output Total 1150 Balance 450 1040 - Medications Medications: Current Medications Amlodipine Besylate (Norvasc) 10 mg PO DAILY [facility] Last Admin: 07/18/18 09:53 Dose: Not Given Aspirin (Aspirin Chewable) 81 mg PO DAILY [facility] Last Admin: 07/18/18 09:53 Dose: Not Given Carvedilol (Coreg) 3.125 mg PO BID [facility] Last Admin: 07/18/18 09:53 Dose: Not Given Enoxaparin Sodium (Lovenox) 40 mg SC DAILY [facility] Last Admin: 07/18/18 09:53 Dose: Not Given Ferrous Sulfate (Feosol) 325 mg PO BID [facility] Last Admin: 07/18/18 09:53 Dose: Not Given Hydralazine HCl (Apresoline) 25 mg PO Q8H [facility] Last Admin: 07/18/18 13:45 Dose: Not Given Dextrose/Sodium Chloride (Dextrose 5%/0.45% Ns 1000 Ml) 1,000 mls @ 100 mls/hr IV .Q10H [facility] Last Admin: 07/18/18 09:28 Dose: 100 mls/hr Ceftriaxone Sodium 1 gm/ (Sodium Chloride) 100 mls @ 100 mls/hr IVPB DAILY [facility]; Protocol Last Admin: 07/18/18 10:29 Dose: 100 mls/hr Influenza Virus Vaccine (Flucelvax Quad 8423-8062 Syr) 60 mcg IM .ONCE ONE Stop: 07/19/18 10:01 Levetiracetam (Keppra) 250 mg PO BID [facility] Last Admin: 07/18/18 09:53 Dose: Not Given Pantoprazole Sodium (Protonix Ec Tab) 40 mg PO DAILY [facility] Last Admin: 07/18/18 09:54 Dose: Not Given Rosuvastatin Calcium (Crestor) 20 mg PO HS [facility] Last Admin: 07/17/18 21:31 Dose: 20 mg Venlafaxine HCl (Effexor Xr) 37.5 mg PO DAILY [facility] Last Admin: 07/18/18 09:53 Dose: Not Given - Labs Labs: 07/18/18 06:56 07/18/18 06:56 - Constitutional Appears: Confused, Cachectic, Chronically Ill - Head Exam Head Exam: NORMOCEPHALIC - Eye Exam Eye Exam: absent: Scleral icterus - ENT Exam ENT Exam: Mucous Membranes Dry - Neck Exam Neck Exam: absent: Lymphadenopathy - Respiratory Exam Respiratory Exam: Decreased Breath Sounds, Prolonged Expiratory Phase, Rhonchi - Cardiovascular Exam Cardiovascular Exam: REGULAR RHYTHM, +S1, +S2 - GI/Abdominal Exam GI & Abdominal Exam: Distended, Soft. absent: Tenderness - Rectal Exam Rectal Exam: Deferred - Exam Exam: NORMAL INSPECTION - Extremities Exam Extremities Exam: absent: Pedal Edema - Back Exam Back Exam: absent: CVA tenderness (L), CVA tenderness (R), paraspinal tenderness - Neurological Exam Neurological Exam: Altered, CN II-XII Intact Neuro motor strength exam: Left Upper Extremity: 2/1, Right Upper Extremity: 3, Left Lower Extremity: 2/1, Right Lower Extremity: 3 - Psychiatric Exam Psychiatric exam: Depressed - Skin Skin Exam: Dry Assessment and Plan (1) Dehydration Status: Acute (2) Depression Status: Acute (3) Dislocated intraocular lens Status: Acute (4) Hypernatremia Status: Acute - Assessment and Plan (Free Text) Assessment: cont iv antibiotics cultures pending consider regional intermodal truck driver care
[2018-07-19] MEDS: Dextrose 5%/0.45% NS 1,000 ML IV SCH ×4 (05:45→22:17)
[2018-07-19] MEDS: Venlafaxine 37.5 mg ER Cap PO SCH (09:35)
[2018-07-19] MEDS: Pantoprazole 40 mg EC Tab PO SCH (09:36)
[2018-07-19] MEDS: SILVASORB ANTIMICROBIAL WOUND GEL TOP SCH (09:36)
[2018-07-19] MEDS: Enoxaparin 40 mg Syringe SC SCH (09:37)
[2018-07-19] MEDS ORDERED: Influenza Vaccine 60 mcg/0.5 mL SYR (4YR UP) IM ONE (10:00)
[2018-07-19 11:04] LABS: BASO % 0.2 % (0.0-2.0); EOS # 0.1 K/uL (0.0-0.7); EOS % 1.9 % (0.0-4.0); HEMOGLOBIN 10.2 g/dL (11.0-16.0); LYMPH # 1.5 K/uL (1.0-4.3); LYMPH % 29.4 % (20.0-40.0); MEAN CELL VOLUME 77.6 fL (81.0-99.0); MEAN CORPUSCULAR HEMOGLOBIN 25.5 pg (27.0-31.0); MEAN CORPUSCULAR HGB CONC 32.8 g/dL (33.0-37.0); MEAN PLATELET VOLUME 9.1 fL (7.2-11.7); MONO # 0.3 K/uL (0.0-0.8); MONO % 5.7 % (0.0-10.0); NEUT # 3.2 K/uL (1.8-7.0); NEUT % 62.8 % (50.0-75.0); NRBC % 0.1 % (0.0-2.0); RBC 4.01 Mil/uL (3.80-5.20); RED CELL DISTRIBUTION WIDTH 14.7 % (11.5-14.5)
[2018-07-19 11:32] LABS: ALBUMIN 2.9 g/dL (3.5-5.0); ALT/SGPT 19 U/L (9-52); AST/SGOT 21 U/L (14-36); BLOOD UREA NITROGEN 6 mg/dL (7-17); CALCIUM 8.3 mg/dl (8.6-10.4); GFR NON-AFRICAN AMERICAN > 60
--- NOTE | 2018-07-19 11:52 | CP.PCM.PN ---
Subjective - Date & Time of Evaluation Date of Evaluation: 07/19/18 Time of Evaluation: 07:35 - Subjective Subjective: Medicine progress note ( Dr. Antonio's service) Patient was seen and examined at bedside. Patient was awake, alert and oriented to the fact that she is in the hospital. Patient denies any discomfort or pain. Patient states that she is doing well. Patient denies any symptoms of fever, chills, chest pain, palpitations, shortness of breath, As per nursing staffing, there were no acute issues overnight. Objective - Vital Signs/Intake and Output Vital Signs (last 24 hours): Temp Pulse Resp BP Pulse Ox 98 F 88 20 125/77 97 07/19/18 07:35 07/19/18 07:35 07/19/18 07:35 07/19/18 07:35 07/19/18 07:35 Intake and Output: 07/19/18 07/19/18 06:59 18:59 Intake Total 1000 900 Output Total 600 Balance 400 900 - Medications Medications: Current Medications Amlodipine Besylate (Norvasc) 10 mg PO DAILY [facility] Last Admin: 07/19/18 09:36 Dose: 10 mg Aspirin (Aspirin Chewable) 81 mg PO DAILY [facility] Last Admin: 07/19/18 09:36 Dose: 81 mg Carvedilol (Coreg) 3.125 mg PO BID [facility] Last Admin: 07/19/18 09:35 Dose: 3.125 mg Enoxaparin Sodium (Lovenox) 40 mg SC DAILY [facility] Last Admin: 07/19/18 09:37 Dose: 40 mg Ferrous Sulfate (Feosol) 325 mg PO BID [facility] Last Admin: 07/19/18 09:36 Dose: 325 mg Hydralazine HCl (Apresoline) 25 mg PO Q8H [facility] Last Admin: 07/19/18 06:17 Dose: 25 mg Dextrose/Sodium Chloride (Dextrose 5%/0.45% Ns 1000 Ml) 1,000 mls @ 100 mls/hr IV .Q10H [facility] Last Admin: 07/19/18 09:44 Dose: 100 mls/hr Ceftriaxone Sodium 1 gm/ (Sodium Chloride) 100 mls @ 100 mls/hr IVPB DAILY [facility]; Protocol Last Admin: 07/19/18 09:43 Dose: 100 mls/hr Levetiracetam (Keppra) 250 mg PO BID [facility] Last Admin: 07/19/18 09:36 Dose: 250 mg Pantoprazole Sodium (Protonix Ec Tab) 40 mg PO DAILY [facility] Last Admin: 07/19/18 09:36 Dose: 40 mg Rosuvastatin Calcium (Crestor) 20 mg PO HS [facility] Last Admin: 07/18/18 22:31 Dose: 20 mg Venlafaxine HCl (Effexor Xr) 37.5 mg PO DAILY [facility] Last Admin: 07/19/18 09:35 Dose: 37.5 mg - Labs Labs: 07/19/18 10:56 07/19/18 10:56 - Constitutional Appears: No Acute Distress - Head Exam Head Exam: ATRAUMATIC Additional comments: Small 0.5 x0.5cm frontal healed skin abrasion - Eye Exam Eye Exam: EOMI - ENT Exam ENT Exam: Mucous Membranes Dry - Respiratory Exam Respiratory Exam: Clear to Ausculation Bilateral, NORMAL BREATHING PATTERN. absent: Accessory Muscle Use, Prolonged Expiratory Phase, Rhonchi, Wheezes, Respiratory Distress - Cardiovascular Exam Cardiovascular Exam: REGULAR RHYTHM, +S1, +S2 - GI/Abdominal Exam GI & Abdominal Exam: Soft, Normal Bowel Sounds. absent: Distended, Firm, Guarding, Rigid, Tenderness - Extremities Exam Additional comments: Contracted upper and Lower extremities 2/2 to CVA - Neurological Exam Neurological Exam: Alert, Awake - Psychiatric Exam Psychiatric exam: Flat Affect - Skin Skin Exam: Normal Color Assessment and Plan (1) Lethargy Assessment & Plan: 2/2 to severe dehydration, poor PO intake, poor care or possible infection D51/2NS @100mls/hr Ensure nutritional supplement UA: Negative, PPx abx: Rocephin 1gm IV daily for 5 days UC: Negative BC: No growth after 3 days Chest X-ray: No active disease Status: Acute (2) Hypernatremia Assessment & Plan: Resolving Possible 2/2 to dehydration Continue to monitor with am labs Status: Acute (3) Hx of iron deficiency anemia Assessment & Plan: Feosol 325mg PO BID Status: Acute (4) Brain aneurysm Assessment & Plan: x od brain aneursym S/p coil in 10/[address] (07/16/17): Embolization coils are seen adjacent to the basilar artery. There is a large amount of metallic artifact. Chronic lacunar infarcts are seen in the thalamus bilaterally. There is also a chronic infarct of the left occipital lobe. The ocular lenses are dislocated bilaterally -Keppra 250mg PO BID Status: Resolved (5) Depression as late effect of cerebrovascular accident (CVA) Assessment & Plan: Effexor 37.5mg PO daily Status: Acute (6) History of CVA (cerebrovascular accident) Assessment & Plan: Residual right sided deficit - ASA 81mg PO daily; As per daughter, patient's plavix has been discontinued - Crestor 20mg PO HS Status: Acute (7) Hypertension Assessment & Plan: Continue home Medications * Amlodipine 10mg daily * Hydralazine 25mg PO Q8H * Coreg 3.125mg PO daily Status: Acute (8) Prophylactic measure Assessment & Plan: DVT: Lovenox 40mg SC daily GI: Protonix 40mg PO daily Disposition: Plans for subacute rehab and possible longterm care All plans and management discussed with Dr. Antonio Status: Acute
[2018-07-20] MEDS: Dextrose 5%/0.45% NS 1,000 ML IV SCH ×2 (01:45→06:31)
[2018-07-20 08:21] LABS: BASO % 0.3 % (0.0-2.0); EOS # 0.1 K/uL (0.0-0.7); EOS % 2.2 % (0.0-4.0); LYMPH # 0.8 K/uL (1.0-4.3); LYMPH % 16.4 % (20.0-40.0); MEAN CELL VOLUME 77.5 fL (81.0-99.0); MEAN CORPUSCULAR HEMOGLOBIN 25.3 pg (27.0-31.0); MEAN CORPUSCULAR HGB CONC 32.7 g/dL (33.0-37.0); MONO # 0.4 K/uL (0.0-0.8); MONO % 7.2 % (0.0-10.0); NEUT # 3.8 K/uL (1.8-7.0); NEUT % 73.9 % (50.0-75.0); NRBC % 0.1 % (0.0-2.0); RBC 3.95 Mil/uL (3.80-5.20); RED CELL DISTRIBUTION WIDTH 14.7 % (11.5-14.5); WHITE BLOOD COUNT 5.1 K/uL (4.8-10.8)
[2018-07-20 08:33] LABS: ALB/GLOB RATIO 1.1 (1.0-2.1); ALBUMIN 2.9 g/dL (3.5-5.0); ALT/SGPT 20 U/L (9-52); AST/SGOT 20 U/L (14-36); BLOOD UREA NITROGEN 5 mg/dL (7-17); CALCIUM 8.3 mg/dl (8.6-10.4); GFR NON-AFRICAN AMERICAN > 60
[2018-07-20] MEDS: Enoxaparin 40 mg Syringe SC SCH (09:19)
[2018-07-20] MEDS: Venlafaxine 37.5 mg ER Cap PO SCH (09:19)
[2018-07-20] MEDS: Pantoprazole 40 mg EC Tab PO SCH (09:19)
[2018-07-20] MEDS: SILVASORB ANTIMICROBIAL WOUND GEL TOP SCH (09:20)
[2018-07-20] MEDS ORDERED: Potassium Chloride 20 mEq/15 ml LIQ UD PO ONE (09:47)
--- NOTE | 2018-07-20 09:49 | CP.PCM.PN ---
Subjective - Date & Time of Evaluation Date of Evaluation: 07/20/18 Time of Evaluation: 07:30 - Subjective Subjective: Medicine progress note ( Dr. Antonio's service) Patient was seen and examined at bedside. Patient was awake, alert and responsive to questions. Patient denies any discomfort or pain. Patient states that she is doing well. Patient denies any symptoms of fever, chills, chest pain, palpitations, shortness of breath. Objective - Vital Signs/Intake and Output Vital Signs (last 24 hours): Temp Pulse Resp BP Pulse Ox 97.9 F 98 H 20 130/71 96 07/20/18 07:42 07/20/18 07:42 07/20/18 07:42 07/20/18 07:42 07/20/18 07:42 Intake and Output: 07/20/18 07/20/18 06:59 18:59 Intake Total 1989 - Medications Medications: Current Medications Amlodipine Besylate (Norvasc) 10 mg PO DAILY [facility] Last Admin: 07/20/18 09:19 Dose: 10 mg Aspirin (Aspirin Chewable) 81 mg PO DAILY [facility] Last Admin: 07/20/18 09:19 Dose: 81 mg Carvedilol (Coreg) 3.125 mg PO BID [facility] Last Admin: 07/20/18 09:23 Dose: 3.125 mg Enoxaparin Sodium (Lovenox) 40 mg SC DAILY [facility] Last Admin: 07/20/18 09:19 Dose: 40 mg Ferrous Sulfate (Feosol) 325 mg PO BID [facility] Last Admin: 07/20/18 09:18 Dose: 325 mg Hydralazine HCl (Apresoline) 25 mg PO Q8H [facility] Last Admin: 07/20/18 05:33 Dose: 25 mg Dextrose/Sodium Chloride (Dextrose 5%/0.45% Ns 1000 Ml) 1,000 mls @ 100 mls/hr IV .Q10H [facility] Last Admin: 07/20/18 06:31 Dose: 100 mls/hr Ceftriaxone Sodium 1 gm/ (Sodium Chloride) 100 mls @ 100 mls/hr IVPB DAILY [facility]; Protocol Last Admin: 07/20/18 09:23 Dose: 100 mls/hr Magnesium Sulfate/Dextrose (Magnesium Sulfate 1 Gm/100 Ml D5w) 1 gm in 100 mls @ 300 mls/hr IVPB Q30M [facility] Stop: 07/20/18 10:49 Levetiracetam (Keppra) 250 mg PO BID [facility] Last Admin: 07/20/18 09:19 Dose: 250 mg Pantoprazole Sodium (Protonix Ec Tab) 40 mg PO DAILY [facility] Last Admin: 07/20/18 09:19 Dose: 40 mg Potassium Chloride (Potassium Chloride Oral Soln) 40 meq PO ONCE ONE Stop: 07/20/18 09:48 Rosuvastatin Calcium (Crestor) 20 mg PO HS [facility] Last Admin: 07/19/18 22:16 Dose: 20 mg Venlafaxine HCl (Effexor Xr) 37.5 mg PO DAILY [facility] Last Admin: 07/20/18 09:19 Dose: 37.5 mg - Labs Labs: 07/20/18 08:08 07/20/18 08:08 - Constitutional Appears: No Acute Distress - Head Exam Head Exam: ATRAUMATIC, NORMAL INSPECTION - Eye Exam Eye Exam: EOMI, Normal appearance - ENT Exam ENT Exam: Mucous Membranes Dry - Respiratory Exam Respiratory Exam: Clear to Ausculation Bilateral, NORMAL BREATHING PATTERN. absent: Prolonged Expiratory Phase, Rhonchi, Wheezes, Respiratory Distress - Cardiovascular Exam Cardiovascular Exam: REGULAR RHYTHM, +S1, +S2 - GI/Abdominal Exam GI & Abdominal Exam: Soft, Normal Bowel Sounds - Extremities Exam Additional comments: Contracted upper and Lower extremities 2/2 to CVA - Neurological Exam Neurological Exam: Alert, Awake, Oriented x3 - Psychiatric Exam Psychiatric exam: Flat Affect - Skin Skin Exam: Normal Color Assessment and Plan (1) Lethargy Assessment & Plan: 2/2 to severe dehydration, poor PO intake, poor care or possible infection D51/2NS @100mls/hr Ensure nutritional supplement UA: Negative, PPx abx: Rocephin 1gm IV daily for 5 days UC: Negative BC: No growth after 3 days Chest X-ray: No active disease Status: Acute (2) Hypernatremia Assessment & Plan: Resolving Possible 2/2 to dehydration; continue with IV hydration Continue to monitor with am labs Status: Acute (3) Hx of iron deficiency anemia Assessment & Plan: Feosol 325mg PO BID Status: Acute (4) Brain aneurysm Assessment & Plan: Hx od brain aneursym S/p coil in 10/[address] (07/16/17): Embolization coils are seen adjacent to the basilar artery. There is a large amount of metallic artifact. Chronic lacunar infarcts are seen in the thalamus bilaterally. There is also a chronic infarct of the left occipital lobe. The ocular lenses are dislocated bilaterally -Keppra 250mg PO BID Status: Resolved (5) Depression as late effect of cerebrovascular accident (CVA) Assessment & Plan: Effexor 37.5mg PO daily Status: Acute (6) History of CVA (cerebrovascular accident) Assessment & Plan: Residual right sided deficit - ASA 81mg PO daily; As per daughter, patient's plavix has been discontinued - Crestor 20mg PO HS Status: Acute (7) Hypertension Assessment & Plan: Continue home Medications * Amlodipine 10mg daily * Hydralazine 25mg PO Q8H * Coreg 3.125mg PO daily Status: Acute (8) Prophylactic measure Assessment & Plan: DVT: Lovenox 40mg SC daily GI: Protonix 40mg PO daily Disposition: Plans for subacute rehab and 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 Antonio Status: Acute
[2018-07-20] MEDS: Magnesium Sulfate 1 gm in D5W 1 GM/100 ML BAG IVPB SCH ×2 (10:42→11:37)
--- NOTE | 2018-07-20 16:45 | CP.PCM.PN ---
Subjective - Date & Time of Evaluation Date of Evaluation: 07/20/18 Time of Evaluation: 10:00 - Subjective Subjective: AFEBRILE NAD RESPONSIVE RIGHT SIDED WEAKNESS SAME Objective - Vital Signs/Intake and Output Vital Signs (last 24 hours): Temp Pulse Resp BP Pulse Ox 98.2 F 95 H 20 106/66 95 07/20/18 15:49 07/20/18 15:49 07/20/18 15:49 07/20/18 15:49 07/20/18 15:49 Intake and Output: 07/20/18 07/20/18 06:59 18:59 Intake Total 1989 8101 Balance 1989 8101 - Medications Medications: Current Medications Amlodipine Besylate (Norvasc) 10 mg PO DAILY [facility] Last Admin: 07/20/18 09:19 Dose: 10 mg Aspirin (Aspirin Chewable) 81 mg PO DAILY [facility] Last Admin: 07/20/18 09:19 Dose: 81 mg Carvedilol (Coreg) 3.125 mg PO BID [facility] Last Admin: 07/20/18 09:23 Dose: 3.125 mg Enoxaparin Sodium (Lovenox) 40 mg SC DAILY [facility] Last Admin: 07/20/18 09:19 Dose: 40 mg Ferrous Sulfate (Feosol) 325 mg PO BID [facility] Last Admin: 07/20/18 09:18 Dose: 325 mg Hydralazine HCl (Apresoline) 25 mg PO Q8H [facility] Last Admin: 07/20/18 14:08 Dose: 25 mg Dextrose/Sodium Chloride (Dextrose 5%/0.45% Ns 1000 Ml) 1,000 mls @ 100 mls/hr IV .Q10H [facility] Last Admin: 07/20/18 06:31 Dose: 100 mls/hr Ceftriaxone Sodium 1 gm/ (Sodium Chloride) 100 mls @ 100 mls/hr IVPB DAILY [facility]; Protocol Last Admin: 07/20/18 09:23 Dose: 100 mls/hr Levetiracetam (Keppra) 250 mg PO BID [facility] Last Admin: 07/20/18 09:19 Dose: 250 mg Pantoprazole Sodium (Protonix Ec Tab) 40 mg PO DAILY [facility] Last Admin: 07/20/18 09:19 Dose: 40 mg Rosuvastatin Calcium (Crestor) 20 mg PO HS [facility] Last Admin: 07/19/18 22:16 Dose: 20 mg Venlafaxine HCl (Effexor Xr) 37.5 mg PO DAILY [facility] Last Admin: 07/20/18 09:19 Dose: 37.5 mg - Labs Labs: 07/20/18 08:08 07/20/18 08:08 - Constitutional Appears: Non-toxic, Chronically Ill - Head Exam Head Exam: NORMOCEPHALIC - Eye Exam Eye Exam: absent: Scleral icterus - ENT Exam ENT Exam: Mucous Membranes Dry - Neck Exam Neck Exam: absent: Lymphadenopathy - Respiratory Exam Respiratory Exam: Decreased Breath Sounds - Cardiovascular Exam Cardiovascular Exam: REGULAR RHYTHM - GI/Abdominal Exam GI & Abdominal Exam: Distended, Soft - Rectal Exam Rectal Exam: Deferred - Exam Exam: NORMAL INSPECTION - Extremities Exam Extremities Exam: absent: Pedal Edema - Back Exam Back Exam: absent: CVA tenderness (L), CVA tenderness (R) - Neurological Exam Neurological Exam: Alert, Awake, CN II-XII Intact Neuro motor strength exam: Left Upper Extremity: 4, Right Upper Extremity: 2/1, Left Lower Extremity: 4, Right Lower Extremity: 2/1 - Psychiatric Exam Psychiatric exam: Depressed - Skin Skin Exam: Dry Assessment and Plan (1) Dehydration Status: Acute (2) Depression Status: Acute (3) Dislocated intraocular lens Status: Acute (4) Hypernatremia Status: Acute - Assessment and Plan (Free Text) Assessment: S/P UTI- RESOLVING NEEDS CHANDLER
[2018-07-21] MEDS: Dextrose 5%/0.45% NS 1,000 ML IV SCH ×4 (05:00→18:24)
[2018-07-21 06:45] LABS: BASO % 0.4 % (0.0-2.0); EOS # 0.1 K/uL (0.0-0.7); EOS % 2.2 % (0.0-4.0); HEMOGLOBIN 9.5 g/dL (11.0-16.0); LYMPH # 1.2 K/uL (1.0-4.3); LYMPH % 27.9 % (20.0-40.0); MEAN CELL VOLUME 77.7 fL (81.0-99.0); MEAN CORPUSCULAR HEMOGLOBIN 25.5 pg (27.0-31.0); MEAN CORPUSCULAR HGB CONC 32.9 g/dL (33.0-37.0); MEAN PLATELET VOLUME 8.7 fL (7.2-11.7); MONO # 0.6 K/uL (0.0-0.8); MONO % 12.8 % (0.0-10.0); NEUT # 2.4 K/uL (1.8-7.0); NEUT % 56.7 % (50.0-75.0); RBC 3.71 Mil/uL (3.80-5.20); RED CELL DISTRIBUTION WIDTH 14.9 % (11.5-14.5); WHITE BLOOD COUNT 4.3 K/uL (4.8-10.8)
[2018-07-21 06:53] LABS: ALBUMIN 2.8 g/dL (3.5-5.0); ALT/SGPT 26 U/L (9-52); AST/SGOT 23 U/L (14-36); BLOOD UREA NITROGEN 6 mg/dL (7-17); GFR NON-AFRICAN AMERICAN > 60
[2018-07-21] MEDS: Venlafaxine 37.5 mg ER Cap PO SCH (09:36)
[2018-07-21] MEDS: SILVASORB ANTIMICROBIAL WOUND GEL TOP SCH (09:36)
[2018-07-21] MEDS: Enoxaparin 40 mg Syringe SC SCH (09:36)
[2018-07-21] MEDS: Pantoprazole 40 mg EC Tab PO SCH (09:36)
[2018-07-22] MEDS: Dextrose 5%/0.45% NS 1,000 ML IV SCH ×3 (00:30→22:02)
[2018-07-22 08:36] LABS: BASO % 0.3 % (0.0-2.0); EOS # 0.1 K/uL (0.0-0.7); EOS % 1.7 % (0.0-4.0); HEMOGLOBIN 9.3 g/dL (11.0-16.0); LYMPH # 1.4 K/uL (1.0-4.3); LYMPH % 27.1 % (20.0-40.0); MEAN CELL VOLUME 78.3 fL (81.0-99.0); MEAN CORPUSCULAR HGB CONC 31.9 g/dL (33.0-37.0); MEAN PLATELET VOLUME 8.7 fL (7.2-11.7); MONO # 0.5 K/uL (0.0-0.8); MONO % 9.6 % (0.0-10.0); NEUT # 3.1 K/uL (1.8-7.0); NEUT % 61.3 % (50.0-75.0); RBC 3.74 Mil/uL (3.80-5.20); RED CELL DISTRIBUTION WIDTH 15.4 % (11.5-14.5); WHITE BLOOD COUNT 5.1 K/uL (4.8-10.8)
[2018-07-22 09:02] LABS: ALBUMIN 2.8 g/dL (3.5-5.0); ALT/SGPT 28 U/L (9-52); AST/SGOT 21 U/L (14-36); BLOOD UREA NITROGEN 9 mg/dL (7-17); CALCIUM 7.9 mg/dl (8.6-10.4); GFR NON-AFRICAN AMERICAN > 60
[2018-07-22] MEDS: Pantoprazole 40 mg EC Tab PO SCH (09:46)
[2018-07-22] MEDS: Venlafaxine 37.5 mg ER Cap PO SCH (09:46)
[2018-07-22] MEDS: SILVASORB ANTIMICROBIAL WOUND GEL TOP SCH (09:46)
[2018-07-22] MEDS: Enoxaparin 40 mg Syringe SC SCH (09:47)
--- NOTE | 2018-07-22 16:14 | CP.PCM.PN ---
Subjective - Date & Time of Evaluation Date of Evaluation: 07/22/18 Time of Evaluation: 07:00 - Subjective Subjective: AFEBRILE RESPONSIVE RIGHT SIDED WEAKNESS SAME Objective - Vital Signs/Intake and Output Vital Signs (last 24 hours): Temp Pulse Resp BP Pulse Ox 98.1 F 87 20 125/79 95 07/22/18 08:00 07/22/18 08:00 07/22/18 08:00 07/22/18 08:00 07/22/18 08:00 Intake and Output: 07/22/18 07/22/18 06:59 18:59 Intake Total 1950 Balance 1950 - Medications Medications: Current Medications Amlodipine Besylate (Norvasc) 10 mg PO DAILY [facility] Last Admin: 07/22/18 09:47 Dose: 10 mg Aspirin (Aspirin Chewable) 81 mg PO DAILY [facility] Last Admin: 07/22/18 09:47 Dose: 81 mg Carvedilol (Coreg) 3.125 mg PO BID [facility] Last Admin: 07/22/18 09:46 Dose: 3.125 mg Enoxaparin Sodium (Lovenox) 40 mg SC DAILY [facility] Last Admin: 07/22/18 09:47 Dose: 40 mg Ferrous Sulfate (Feosol) 325 mg PO BID [facility] Last Admin: 07/22/18 09:47 Dose: 325 mg Hydralazine HCl (Apresoline) 25 mg PO Q8H [facility] Last Admin: 07/22/18 14:12 Dose: 25 mg Levetiracetam (Keppra) 250 mg PO BID [facility] Last Admin: 07/22/18 09:47 Dose: 250 mg Pantoprazole Sodium (Protonix Ec Tab) 40 mg PO DAILY [facility] Last Admin: 07/22/18 09:46 Dose: 40 mg Rosuvastatin Calcium (Crestor) 20 mg PO HS [facility] Last Admin: 07/21/18 22:12 Dose: 20 mg Venlafaxine HCl (Effexor Xr) 37.5 mg PO DAILY [facility] Last Admin: 07/22/18 09:46 Dose: 37.5 mg - Labs Labs: 07/22/18 08:10 07/22/18 08:10 - Constitutional Appears: Non-toxic, Cachectic, Chronically Ill - Head Exam Head Exam: NORMOCEPHALIC - Eye Exam Eye Exam: absent: Scleral icterus - ENT Exam ENT Exam: Mucous Membranes Dry - Neck Exam Neck Exam: absent: Lymphadenopathy - Respiratory Exam Respiratory Exam: Decreased Breath Sounds - Cardiovascular Exam Cardiovascular Exam: REGULAR RHYTHM - GI/Abdominal Exam GI & Abdominal Exam: Distended, Soft - Rectal Exam Rectal Exam: Deferred - Exam Exam: NORMAL INSPECTION - Extremities Exam Extremities Exam: absent: Pedal Edema - Back Exam Back Exam: absent: CVA tenderness (L), CVA tenderness (R) - Neurological Exam Neurological Exam: Altered Neuro motor strength exam: Left Upper Extremity: 4, Right Upper Extremity: 2/1, Left Lower Extremity: 4, Right Lower Extremity: 2/1 - Psychiatric Exam Psychiatric exam: Depressed - Skin Skin Exam: Dry Assessment and Plan (1) Dehydration Status: Acute (2) Depression Status: Acute (3) Dislocated intraocular lens Status: Acute (4) Hypernatremia Status: Acute - Assessment and Plan (Free Text) Assessment: overall improved
[2018-07-23] MEDS: Dextrose 5%/0.45% NS 1,000 ML IV SCH (06:24)
--- NOTE | 2018-07-23 07:14 | CP.PCM.PN ---
Subjective - Date & Time of Evaluation Date of Evaluation: 07/23/18 Time of Evaluation: 07:14 Objective - Vital Signs/Intake and Output Vital Signs (last 24 hours): Temp Pulse Resp BP Pulse Ox 98.4 F 71 20 110/69 95 07/23/18 00:05 07/23/18 00:05 07/23/18 00:05 07/23/18 00:05 07/23/18 00:05 Intake and Output: 07/23/18 07/23/18 06:59 18:59 Intake Total 1100 Balance 1100 - Medications Medications: Current Medications Amlodipine Besylate (Norvasc) 10 mg PO DAILY [facility] Last Admin: 07/22/18 09:47 Dose: 10 mg Aspirin (Aspirin Chewable) 81 mg PO DAILY [facility] Last Admin: 07/22/18 09:47 Dose: 81 mg Carvedilol (Coreg) 3.125 mg PO BID [facility] Last Admin: 07/22/18 17:35 Dose: 3.125 mg Enoxaparin Sodium (Lovenox) 40 mg SC DAILY [facility] Last Admin: 07/22/18 09:47 Dose: 40 mg Ferrous Sulfate (Feosol) 325 mg PO BID [facility] Last Admin: 07/22/18 17:35 Dose: 325 mg Hydralazine HCl (Apresoline) 25 mg PO Q8H [facility] Last Admin: 07/23/18 06:19 Dose: 25 mg Levetiracetam (Keppra) 250 mg PO BID [facility] Last Admin: 07/22/18 17:35 Dose: 250 mg Pantoprazole Sodium (Protonix Ec Tab) 40 mg PO DAILY [facility] Last Admin: 07/22/18 09:46 Dose: 40 mg Rosuvastatin Calcium (Crestor) 20 mg PO HS [facility] Last Admin: 07/22/18 22:01 Dose: 20 mg Venlafaxine HCl (Effexor Xr) 37.5 mg PO DAILY [facility] Last Admin: 07/22/18 09:46 Dose: 37.5 mg - Labs Labs: 07/22/18 08:10 07/22/18 08:10
[2018-07-23] MEDS: Venlafaxine 37.5 mg ER Cap PO SCH (09:30)
[2018-07-23] MEDS: Pantoprazole 40 mg EC Tab PO SCH (09:30)
[2018-07-23] MEDS: Enoxaparin 40 mg Syringe SC SCH (09:30)
--- NOTE | 2018-07-23 09:33 | CP.PCM.PN ---
Subjective - Date & Time of Evaluation Date of Evaluation: 07/23/18 Time of Evaluation: 09:33 - Subjective Subjective: PGY2 Medicine Note for Dr. Antonio Patient was seen and examined this morning at bedside. Patient is currently pending discharge to [facility] but there are currently issues pertaining to patient's future care. After discussion with SW, the patient's sister will be coming to the hospital to sign paperwork to become P.O.A. and will take over care for the patient. Patient is currently resting comfortably in bed. Patient says she feels well and denies any complaints. Objective - Vital Signs/Intake and Output Vital Signs (last 24 hours): Temp Pulse Resp BP Pulse Ox 98.4 F 90 20 150/81 96 07/23/18 08:00 07/23/18 08:00 07/23/18 08:00 07/23/18 08:00 07/23/18 08:00 Intake and Output: 07/23/18 07/23/18 06:59 18:59 Intake Total 1100 920 Balance 1100 920 - Medications Medications: Current Medications Amlodipine Besylate (Norvasc) 10 mg PO DAILY [facility] Last Admin: 07/23/18 09:30 Dose: 10 mg Aspirin (Aspirin Chewable) 81 mg PO DAILY [facility] Last Admin: 07/23/18 09:30 Dose: 81 mg Carvedilol (Coreg) 3.125 mg PO BID [facility] Last Admin: 07/23/18 09:30 Dose: 3.125 mg Enoxaparin Sodium (Lovenox) 40 mg SC DAILY [facility] Last Admin: 07/23/18 09:30 Dose: 40 mg Ferrous Sulfate (Feosol) 325 mg PO BID [facility] Last Admin: 07/23/18 09:30 Dose: 325 mg Hydralazine HCl (Apresoline) 25 mg PO Q8H [facility] Last Admin: 07/23/18 06:19 Dose: 25 mg Levetiracetam (Keppra) 250 mg PO BID [facility] Last Admin: 07/23/18 09:30 Dose: 250 mg Pantoprazole Sodium (Protonix Ec Tab) 40 mg PO DAILY [facility] Last Admin: 07/23/18 09:30 Dose: 40 mg Rosuvastatin Calcium (Crestor) 20 mg PO HS [facility] Last Admin: 07/22/18 22:01 Dose: 20 mg Venlafaxine HCl (Effexor Xr) 37.5 mg PO DAILY [facility] Last Admin: 07/23/18 09:30 Dose: 37.5 mg - Labs Labs: 07/22/18 08:10 07/22/18 08:10 - Constitutional Appears: Non-toxic, No Acute Distress - Head Exam Head Exam: ATRAUMATIC, NORMOCEPHALIC - Eye Exam Eye Exam: Normal appearance - ENT Exam ENT Exam: Mucous Membranes Moist - Respiratory Exam Respiratory Exam: Clear to Ausculation Bilateral, NORMAL BREATHING PATTERN. absent: Rales, Rhonchi, Wheezes, Respiratory Distress - Cardiovascular Exam Cardiovascular Exam: REGULAR RHYTHM, +S1 - GI/Abdominal Exam GI & Abdominal Exam: Soft. absent: Distended, Firm, Guarding, Rigid, Tenderness - Extremities Exam Extremities Exam: absent: Calf Tenderness, Pedal Edema - Neurological Exam Neurological Exam: Alert, Awake - Skin Skin Exam: Dry, Warm Assessment and Plan - Assessment and Plan (Free Text) Plan: Lethargy 2/2 to severe dehydration, poor PO intake, poor care or possible infection - patient more awake, alert, and eating D51/2NS @100mls/hr - discontinued Continue Ensure nutritional supplement UA: Negative Urine Culture: Negative Blood Culture: No growth Chest X-ray: No active disease abx discontinued over the weekend Hypernatremia Resolved Possible 2/2 to dehydration Continue to monitor with am labs Hx of iron deficiency anemia Feosol 325mg PO BID Brain aneurysm Hx od brain aneursym S/p coil in 10/[address] (07/16/17): Embolization coils are seen adjacent to the basilar artery. There is a large amount of metallic artifact. Chronic lacunar infarcts are seen in the thalamus bilaterally. There is also a chronic infarct of the left occipital lobe. The ocular lenses are dislocated bilaterally -Keppra 250mg PO BID Depression as late effect of cerebrovascular accident (CVA) Effexor 37.5mg PO daily History of CVA (cerebrovascular accident) Residual right sided deficit - ASA 81mg PO daily; As per daughter, patient's plavix has been discontinued - Crestor 20mg PO HS Hypertension Continue home Medications * Amlodipine 10mg daily * Hydralazine 25mg PO Q8H * Coreg 3.125mg PO daily Prophylactic measure DVT: Lovenox 40mg SC daily GI: Protonix 40mg PO daily Disposition: Plans for subacute rehab and [facility]. SW is working with sister to sign paperwork to become POA. Once sister becomes POA, will look to discharge to [facility]. All plans and management discussed with Dr. Marisela Mckeon Natalie PGY2
[2018-07-23 11:45] LABS: BASO % 0.3 % (0.0-2.0); EOS # 0.1 K/uL (0.0-0.7); EOS % 1.7 % (0.0-4.0); HEMOGLOBIN 10.1 g/dL (11.0-16.0); LYMPH # 1.2 K/uL (1.0-4.3); LYMPH % 22.5 % (20.0-40.0); MEAN CELL VOLUME 78.6 fL (81.0-99.0); MEAN CORPUSCULAR HEMOGLOBIN 25.7 pg (27.0-31.0); MEAN CORPUSCULAR HGB CONC 32.6 g/dL (33.0-37.0); MEAN PLATELET VOLUME 8.6 fL (7.2-11.7); MONO # 0.5 K/uL (0.0-0.8); NEUT # 3.5 K/uL (1.8-7.0); NEUT % 65.5 % (50.0-75.0); RBC 3.93 Mil/uL (3.80-5.20); RED CELL DISTRIBUTION WIDTH 15.6 % (11.5-14.5); WHITE BLOOD COUNT 5.3 K/uL (4.8-10.8)
[2018-07-23 12:18] LABS: ALBUMIN 2.9 g/dL (3.5-5.0); ALT/SGPT 41 U/L (9-52); AST/SGOT 38 U/L (14-36); BLOOD UREA NITROGEN 7 mg/dL (7-17); CALCIUM 7.9 mg/dl (8.6-10.4); GFR NON-AFRICAN AMERICAN > 60
--- NOTE | 2018-07-24 09:26 | CP.PCM.PN ---
Subjective - Date & Time of Evaluation Date of Evaluation: 07/24/18 Time of Evaluation: 09:05 - Subjective Subjective: Progress Note for Dr. Antonio Patient was seen and examined. No acute events overnight. Patient is currently resting comfortably in bed. She denies any pain or discomfort. Patient is currently pending discharge to [facility] paperwork pending. She denies fever, chills, shortness of breath, or chest pain. Objective - Vital Signs/Intake and Output Vital Signs (last 24 hours): Temp Pulse Resp BP Pulse Ox 98.5 F 85 20 116/73 97 07/24/18 07:28 07/24/18 07:28 07/24/18 07:28 07/24/18 07:28 07/24/18 07:28 Intake and Output: 07/24/18 07/24/18 06:59 18:59 Intake Total 1050 Balance 1050 - Medications Medications: Current Medications Amlodipine Besylate (Norvasc) 10 mg PO DAILY [facility] Last Admin: 07/23/18 09:30 Dose: 10 mg Aspirin (Aspirin Chewable) 81 mg PO DAILY [facility] Last Admin: 07/23/18 09:30 Dose: 81 mg Carvedilol (Coreg) 3.125 mg PO BID [facility] Last Admin: 07/23/18 17:29 Dose: 3.125 mg Ferrous Sulfate (Feosol) 325 mg PO BID [facility] Last Admin: 07/23/18 17:29 Dose: 325 mg Hydralazine HCl (Apresoline) 25 mg PO Q8H [facility] Last Admin: 07/24/18 06:09 Dose: 25 mg Levetiracetam (Keppra) 250 mg PO BID [facility] Last Admin: 07/23/18 17:29 Dose: 250 mg Pantoprazole Sodium (Protonix Ec Tab) 40 mg PO DAILY [facility] Last Admin: 07/23/18 09:30 Dose: 40 mg Rosuvastatin Calcium (Crestor) 20 mg PO HS [facility] Last Admin: 07/22/18 22:01 Dose: 20 mg Venlafaxine HCl (Effexor Xr) 37.5 mg PO DAILY [facility] Last Admin: 07/23/18 09:30 Dose: 37.5 mg - Labs Labs: 07/23/18 11:30 07/23/18 11:30 - Additional Findings Additional findings: - Constitutional Appears: Non-toxic, No Acute Distress - Head Exam Head Exam: ATRAUMATIC, NORMOCEPHALIC - Eye Exam Eye Exam: Normal appearance - ENT Exam ENT Exam: Mucous Membranes Moist - Respiratory Exam Respiratory Exam: Clear to Ausculation Bilateral, NORMAL BREATHING PATTERN. absent: Rales, Rhonchi, Wheezes, Respiratory Distress - Cardiovascular Exam Cardiovascular Exam: REGULAR RHYTHM, +S1 - GI/Abdominal Exam GI & Abdominal Exam: Soft. absent: Distended, Firm, Guarding, Rigid, Tenderness - Extremities Exam Extremities Exam: absent: Calf Tenderness, Pedal Edema - Neurological Exam Neurological Exam: Alert, Awake - Skin Skin Exam: Dry, Warm Assessment and Plan - Assessment and Plan (Free Text) Assessment: Lethargy 2/2 to severe dehydration, poor PO intake, poor care or possible infection - im proving, patient more awake, alert, and eating Continue Ensure nutritional supplement UA: Negative Urine Culture: Negative Blood Culture: No growth Chest X-ray: No active disease abx discontinued over the weekend Hypernatremia Resolved Possible 2/2 to dehydration Continue to monitor with am labs Hx of iron deficiency anemia Feosol 325mg PO BID Brain aneurysm Hx od brain aneursym S/p coil in 10/[address] (07/16/17): Embolization coils are seen adjacent to the basilar artery. There is a large amount of metallic artifact. Chronic lacunar infarcts are seen in the thalamus bilaterally. There is also a chronic infarct of the left occipital lobe. The ocular lenses are dislocated bilaterally -Keppra 250mg PO BID Depression as late effect of cerebrovascular accident (CVA) Effexor 37.5mg PO daily History of CVA (cerebrovascular accident) Residual right sided deficit - ASA 81mg PO daily; As per daughter, patient's plavix has been discontinued - Crestor 20mg PO HS Hypertension Continue home Medications * Amlodipine 10mg daily * Hydralazine 25mg PO Q8H * Coreg 3.125mg PO daily Prophylactic measure DVT: Lovenox 40mg SC daily GI: Protonix 40mg PO daily Disposition: Patient is medically stable. Plans for subacute rehab vs manager terminal care. SW is working with sister to sign paperwork to become POA. All plans and management discussed with Dr. Antonio
[2018-07-24] MEDS: Venlafaxine 37.5 mg ER Cap PO SCH (10:54)
[2018-07-24] MEDS: Pantoprazole 40 mg EC Tab PO SCH (10:54)
[2018-07-24] MEDS: Enoxaparin 40 mg Syringe SC SCH (10:54)
[2018-07-24] MEDS: SILVASORB ANTIMICROBIAL WOUND GEL TOP SCH (10:55)
[2018-07-25 06:16] LABS: BASO % 0.4 % (0.0-2.0); EOS # 0.1 K/uL (0.0-0.7); EOS % 1.9 % (0.0-4.0); HEMOGLOBIN 9.5 g/dL (11.0-16.0); LYMPH # 1.9 K/uL (1.0-4.3); MEAN CELL VOLUME 78.8 fL (81.0-99.0); MEAN CORPUSCULAR HEMOGLOBIN 25.8 pg (27.0-31.0); MEAN CORPUSCULAR HGB CONC 32.8 g/dL (33.0-37.0); MEAN PLATELET VOLUME 8.5 fL (7.2-11.7); MONO # 0.6 K/uL (0.0-0.8); MONO % 9.4 % (0.0-10.0); NEUT # 3.8 K/uL (1.8-7.0); NEUT % 59.3 % (50.0-75.0); NRBC % 0.1 % (0.0-2.0); RBC 3.69 Mil/uL (3.80-5.20); WHITE BLOOD COUNT 6.4 K/uL (4.8-10.8)
[2018-07-25 06:31] LABS: ALB/GLOB RATIO 1.2 (1.0-2.1); ALT/SGPT 31 U/L (9-52); AST/SGOT 22 U/L (14-36); BLOOD UREA NITROGEN 11 mg/dL (7-17); CALCIUM 8.4 mg/dl (8.6-10.4); GFR NON-AFRICAN AMERICAN > 60
[2018-07-25] MEDS: Pantoprazole 40 mg EC Tab PO SCH (09:37)
[2018-07-25] MEDS: Venlafaxine 37.5 mg ER Cap PO SCH (09:37)
[2018-07-25] MEDS: Enoxaparin 40 mg Syringe SC SCH (09:39)
[2018-07-25] MEDS: SILVASORB ANTIMICROBIAL WOUND GEL TOP SCH (09:40)
--- NOTE | 2018-07-25 14:03 | CP.PCM.PN ---
Subjective - Date & Time of Evaluation Date of Evaluation: 07/25/18 Time of Evaluation: 13:51 - Subjective Subjective: PGY2 Medicine Note for Dr. Antonio Patient seen and examined this morning at bedside. No acute events overnight. Patient's sister signed POA form yesterday. She is currently pending transfer to [facility]. Patient denies any complaints but does not want to talk to Resident Natalie. She denies any pain. Objective - Vital Signs/Intake and Output Vital Signs (last 24 hours): Temp Pulse Resp BP Pulse Ox 97.7 F 74 18 106/64 96 07/25/18 08:22 07/25/18 08:22 07/25/18 08:22 07/25/18 08:22 07/25/18 08:22 Intake and Output: 07/25/18 07/25/18 06:59 18:59 Intake Total 320 Balance 320 - Medications Medications: Current Medications Amlodipine Besylate (Norvasc) 10 mg PO DAILY [facility] Last Admin: 07/25/18 09:37 Dose: 10 mg Aspirin (Aspirin Chewable) 81 mg PO DAILY [facility] Last Admin: 07/25/18 09:39 Dose: 81 mg Carvedilol (Coreg) 3.125 mg PO BID [facility] Last Admin: 07/25/18 09:37 Dose: Not Given Enoxaparin Sodium (Lovenox) 40 mg SC DAILY [facility] Last Admin: 07/25/18 09:39 Dose: 40 mg Ferrous Sulfate (Feosol) 325 mg PO BID [facility] Last Admin: 07/25/18 09:37 Dose: 325 mg Hydralazine HCl (Apresoline) 25 mg PO Q8H [facility] Last Admin: 07/25/18 05:39 Dose: 25 mg Levetiracetam (Keppra) 250 mg PO BID [facility] Last Admin: 07/25/18 09:37 Dose: 250 mg Pantoprazole Sodium (Protonix Ec Tab) 40 mg PO DAILY [facility] Last Admin: 07/25/18 09:37 Dose: 40 mg Rosuvastatin Calcium (Crestor) 20 mg PO HS [facility] Last Admin: 07/24/18 21:45 Dose: 20 mg Venlafaxine HCl (Effexor Xr) 37.5 mg PO DAILY [facility] Last Admin: 07/25/18 09:37 Dose: 37.5 mg - Labs Labs: 07/25/18 06:04 07/25/18 06:04 - Additional Findings Additional findings: - Constitutional Appears: Non-toxic, No Acute Distress - Head Exam Head Exam: ATRAUMATIC, NORMOCEPHALIC - Eye Exam Eye Exam: Normal appearance - ENT Exam ENT Exam: Mucous Membranes Moist - Respiratory Exam Respiratory Exam: Clear to Ausculation Bilateral, NORMAL BREATHING PATTERN. absent: Rales, Rhonchi, Wheezes, Respiratory Distress - Cardiovascular Exam Cardiovascular Exam: REGULAR RHYTHM, +S1 - GI/Abdominal Exam GI & Abdominal Exam: Soft. absent: Distended, Firm, Guarding, Rigid, Tenderness - Extremities Exam Extremities Exam: absent: Calf Tenderness, Pedal Edema - Neurological Exam Neurological Exam: Alert, Awake - Skin Skin Exam: Dry, Warm
--- NOTE | 2018-07-26 07:13 | CP.PCM.PN ---
Subjective - Date & Time of Evaluation Date of Evaluation: 07/26/18 Time of Evaluation: 07:00 - Subjective Subjective: Medicine progress note ( Dr. Antonio's service) Patient was seen and examined at bedside. As per nursing staff, no acute issues overnight. Currently, patient denies any acute issues or discomfort. Objective - Vital Signs/Intake and Output Vital Signs (last 24 hours): Temp Pulse Resp BP Pulse Ox 98.1 F 76 20 115/68 97 07/26/18 00:02 07/26/18 05:00 07/26/18 00:02 07/26/18 05:00 07/26/18 00:02 Intake and Output: 07/26/18 07/26/18 06:59 18:59 Intake Total 450 Output Total 900 Balance -450 - Medications Medications: Current Medications Amlodipine Besylate (Norvasc) 10 mg PO DAILY [facility] Last Admin: 07/25/18 09:37 Dose: 10 mg Aspirin (Aspirin Chewable) 81 mg PO DAILY [facility] Last Admin: 07/25/18 09:39 Dose: 81 mg Carvedilol (Coreg) 3.125 mg PO BID [facility] Last Admin: 07/25/18 17:29 Dose: 3.125 mg Enoxaparin Sodium (Lovenox) 40 mg SC DAILY [facility] Last Admin: 07/25/18 09:39 Dose: 40 mg Ferrous Sulfate (Feosol) 325 mg PO BID [facility] Last Admin: 07/25/18 17:29 Dose: 325 mg Hydralazine HCl (Apresoline) 25 mg PO Q8H [facility] Last Admin: 07/26/18 05:24 Dose: 25 mg Levetiracetam (Keppra) 250 mg PO BID [facility] Last Admin: 07/25/18 17:29 Dose: 250 mg Pantoprazole Sodium (Protonix Ec Tab) 40 mg PO DAILY [facility] Last Admin: 07/25/18 09:37 Dose: 40 mg Rosuvastatin Calcium (Crestor) 20 mg PO HS [facility] Last Admin: 07/25/18 21:35 Dose: 20 mg Venlafaxine HCl (Effexor Xr) 37.5 mg PO DAILY [facility] Last Admin: 07/25/18 09:37 Dose: 37.5 mg - Labs Labs: 07/25/18 06:04 07/25/18 06:04 - Constitutional Appears: Non-toxic, No Acute Distress - Eye Exam Eye Exam: EOMI - ENT Exam ENT Exam: Mucous Membranes Dry - Respiratory Exam Respiratory Exam: Clear to Ausculation Bilateral, NORMAL BREATHING PATTERN. absent: Prolonged Expiratory Phase, Rhonchi, Wheezes, Respiratory Distress - Cardiovascular Exam Cardiovascular Exam: REGULAR RHYTHM, +S1, +S2 - GI/Abdominal Exam GI & Abdominal Exam: Soft, Normal Bowel Sounds. absent: Firm, Guarding, Rigid, Tenderness - Neurological Exam Neurological Exam: Alert, Awake Additional comments: Residual right sided weakness - Psychiatric Exam Psychiatric exam: Depressed, Flat Affect Assessment and Plan (1) Lethargy Assessment & Plan: 2/2 to severe dehydration, poor PO intake, poor care or possible infection Ensure nutritional supplement UA: Negative, PPx abx: Rocephin 1gm IV daily for 5 days UC: Negative BC: No growth after 3 days Chest X-ray: No active disease Status: Acute (2) Hypernatremia Assessment & Plan: Resolving Possible 2/2 to dehydration; continue with IV hydration Continue to monitor with am labs Status: Acute (3) Hx of iron deficiency anemia Assessment & Plan: Feosol 325mg PO BID Status: Acute (4) Brain aneurysm Assessment & Plan: Hx od brain aneursym S/p coil in 10/[address] (07/16/17): Embolization coils are seen adjacent to the basilar artery. There is a large amount of metallic artifact. Chronic lacunar infarcts are seen in the thalamus bilaterally. There is also a chronic infarct of the left occipital lobe. The ocular lenses are dislocated bilaterally -Keppra 250mg PO BID Status: Resolved (5) Depression as late effect of cerebrovascular accident (CVA) Assessment & Plan: Effexor 37.5mg PO daily Status: Acute (6) History of CVA (cerebrovascular accident) Assessment & Plan: Residual right sided deficit - ASA 81mg PO daily; As per daughter, patient's plavix has been discontinued - Crestor 20mg PO HS Status: Acute (7) Hypertension Assessment & Plan: Continue home Medications * Amlodipine 10mg daily * Hydralazine 25mg PO Q8H * Coreg 3.125mg PO daily Status: Acute (8) Prophylactic measure Assessment & Plan: DVT: Lovenox 40mg SC daily GI: Protonix 40mg PO daily Disposition: Patient is medically stable. Patient's sister signed paperwork to become POA 05/24/18, as per perinatal social worker. Patient is currently pending approval to [facility] for [facility] with transition to shelter care. All plans and management discussed with Dr. Antonio Status: Acute
[2018-07-26] MEDS: Pantoprazole 40 mg EC Tab PO SCH (10:11)
[2018-07-26] MEDS: Enoxaparin 40 mg Syringe SC SCH (10:12)
[2018-07-26] MEDS: Venlafaxine 37.5 mg ER Cap PO SCH (10:12)
[2018-07-26] MEDS: SILVASORB ANTIMICROBIAL WOUND GEL TOP SCH (10:13)
[2018-07-27 08:17] LABS: BASO % 0.3 % (0.0-2.0); EOS # 0.1 K/uL (0.0-0.7); EOS % 1.5 % (0.0-4.0); HEMOGLOBIN 10.4 g/dL (11.0-16.0); LYMPH # 1.8 K/uL (1.0-4.3); LYMPH % 27.7 % (20.0-40.0); MEAN CELL VOLUME 79.3 fL (81.0-99.0); MEAN CORPUSCULAR HEMOGLOBIN 25.7 pg (27.0-31.0); MEAN CORPUSCULAR HGB CONC 32.4 g/dL (33.0-37.0); MEAN PLATELET VOLUME 7.9 fL (7.2-11.7); MONO # 0.5 K/uL (0.0-0.8); MONO % 7.7 % (0.0-10.0); NEUT # 4.2 K/uL (1.8-7.0); NEUT % 62.8 % (50.0-75.0); NRBC % 0.1 % (0.0-2.0); RBC 4.04 Mil/uL (3.80-5.20); RED CELL DISTRIBUTION WIDTH 16.6 % (11.5-14.5); WHITE BLOOD COUNT 6.6 K/uL (4.8-10.8)
[2018-07-27 08:34] LABS: ALB/GLOB RATIO 1.2 (1.0-2.1); ALBUMIN 3.4 g/dL (3.5-5.0); ALT/SGPT 33 U/L (9-52); AST/SGOT 29 U/L (14-36); BLOOD UREA NITROGEN 12 mg/dL (7-17); CALCIUM 8.7 mg/dl (8.6-10.4); GFR NON-AFRICAN AMERICAN > 60
[2018-07-27] MEDS: Enoxaparin 40 mg Syringe SC SCH (10:04)
[2018-07-27] MEDS: Venlafaxine 37.5 mg ER Cap PO SCH (10:05)
[2018-07-27] MEDS: Pantoprazole 40 mg EC Tab PO SCH (10:05)
[2018-07-27] MEDS: SILVASORB ANTIMICROBIAL WOUND GEL TOP SCH (10:06)
--- NOTE | 2018-07-27 10:09 | CP.PCM.PN ---
Subjective - Date & Time of Evaluation Date of Evaluation: 07/27/18 Time of Evaluation: 09:30 - Subjective Subjective: Medicine progress note ( Dr. Antonio's service) Patient was seen and examined at bedside. As per nursing staff, no acute issues overnight. Currently, patient denies any acute issues or discomfort. As per nursing staff, there were no acute issues overnight. Objective - Vital Signs/Intake and Output Vital Signs (last 24 hours): Temp Pulse Resp BP Pulse Ox 97.9 F 81 20 115/73 97 07/27/18 07:50 07/27/18 07:50 07/27/18 07:50 07/27/18 07:50 07/27/18 07:50 Intake and Output: 07/27/18 07/27/18 06:59 18:59 Intake Total 450 Output Total 650 Balance -200 - Medications Medications: Current Medications Amlodipine Besylate (Norvasc) 10 mg PO DAILY [facility] Last Admin: 07/27/18 10:05 Dose: 10 mg Aspirin (Aspirin Chewable) 81 mg PO DAILY [facility] Last Admin: 07/27/18 10:05 Dose: 81 mg Carvedilol (Coreg) 3.125 mg PO BID [facility] Last Admin: 07/27/18 10:05 Dose: 3.125 mg Enoxaparin Sodium (Lovenox) 40 mg SC DAILY [facility] Last Admin: 07/27/18 10:04 Dose: 40 mg Ferrous Sulfate (Feosol) 325 mg PO BID [facility] Last Admin: 07/27/18 10:05 Dose: 325 mg Hydralazine HCl (Apresoline) 25 mg PO Q8H [facility] Last Admin: 07/27/18 05:33 Dose: 25 mg Levetiracetam (Keppra) 250 mg PO BID [facility] Last Admin: 07/27/18 10:05 Dose: 250 mg Pantoprazole Sodium (Protonix Ec Tab) 40 mg PO DAILY [facility] Last Admin: 07/27/18 10:05 Dose: 40 mg Rosuvastatin Calcium (Crestor) 20 mg PO HS [facility] Last Admin: 07/26/18 21:05 Dose: 20 mg Venlafaxine HCl (Effexor Xr) 37.5 mg PO DAILY [facility] Last Admin: 07/27/18 10:05 Dose: 37.5 mg - Labs Labs: 07/27/18 08:13 07/27/18 08:13 - Constitutional Appears: No Acute Distress - Head Exam Head Exam: ATRAUMATIC - Eye Exam Eye Exam: EOMI - ENT Exam ENT Exam: Mucous Membranes Dry - Respiratory Exam Respiratory Exam: Clear to Ausculation Bilateral, NORMAL BREATHING PATTERN. absent: Chest Wall Tenderness, Decreased Breath Sounds, Prolonged Expiratory Phase, Rhonchi, Wheezes, Respiratory Distress - Cardiovascular Exam Cardiovascular Exam: REGULAR RHYTHM, +S1, +S2 - GI/Abdominal Exam GI & Abdominal Exam: Soft, Normal Bowel Sounds. absent: Distended, Firm, Guarding, Rigid, Tenderness - Extremities Exam Extremities Exam: Pedal Edema - Neurological Exam Neurological Exam: Alert, Awake Additional comments: Right residual weakness - Psychiatric Exam Psychiatric exam: Depressed, Flat Affect - Skin Skin Exam: Normal Color Assessment and Plan (1) Lethargy Assessment & Plan: 2/2 to severe dehydration, poor PO intake, poor care or possible infection Ensure nutritional supplement UA: Negative, PPx abx: Rocephin discontinue UC: Negative BC: No growth after 5 days Chest X-ray: No active disease Status: Acute (2) Hypernatremia Assessment & Plan: Resolved Possible 2/2 to dehydration; continue with IV hydration Continue to monitor with am labs Status: Acute (3) Hx of iron deficiency anemia Assessment & Plan: Feosol 325mg PO BID Status: Acute (4) Brain aneurysm Assessment & Plan: Hx of brain aneursym S/p coil in 10/[address] (07/16/17): Embolization coils are seen adjacent to the basilar artery. There is a large amount of metallic artifact. Chronic lacunar infarcts are seen in the thalamus bilaterally. There is also a chronic infarct of the left occipital lobe. The ocular lenses are dislocated bilaterally -Keppra 250mg PO BID Status: Resolved (5) Depression as late effect of cerebrovascular accident (CVA) Assessment & Plan: Effexor 37.5mg PO daily Status: Acute (6) History of CVA (cerebrovascular accident) Assessment & Plan: Residual right sided deficit - ASA 81mg PO daily; As per daughter, patient's plavix has been discontinued - Crestor 20mg PO HS Status: Acute (7) Hypertension Assessment & Plan: Continue home Medications * Amlodipine 10mg daily * Hydralazine 25mg PO Q8H * Coreg 3.125mg PO daily Status: Acute (8) Prophylactic measure Assessment & Plan: DVT: Lovenox 40mg SC daily GI: Protonix 40mg PO daily Disposition: Patient is medically stable. Patient's sister signed paperwork to become POA 05/24/18, as per licensed clinical social worker. Patient is currently pending approval to [facility] for [facility] with transition to [facility] care. All plans and management discussed with Dr. Antonio Status: Acute
[2018-07-27] MEDS ORDERED: Dextrose 5%/0.9% NS 1,000 ML IV SCH (10:15)
[2018-07-28] MEDS: Pantoprazole 40 mg EC Tab PO SCH (09:52)
[2018-07-28] MEDS: Enoxaparin 40 mg Syringe SC SCH (09:52)
[2018-07-28] MEDS: Venlafaxine 37.5 mg ER Cap PO SCH (09:52)
[2018-07-28] MEDS: levETIRAcetam 100 mg/ml (5ml) Oral Syringe PO SCH ×2 (10:00→17:47)
[2018-07-29 08:11] LABS: BASO % 0.2 % (0.0-2.0); EOS # 0.2 K/uL (0.0-0.7); EOS % 2.7 % (0.0-4.0); HEMOGLOBIN 10.3 g/dL (11.0-16.0); LYMPH # 1.7 K/uL (1.0-4.3); LYMPH % 28.3 % (20.0-40.0); MEAN CELL VOLUME 79.4 fL (81.0-99.0); MEAN CORPUSCULAR HEMOGLOBIN 25.9 pg (27.0-31.0); MEAN CORPUSCULAR HGB CONC 32.6 g/dL (33.0-37.0); MEAN PLATELET VOLUME 7.9 fL (7.2-11.7); MONO # 0.5 K/uL (0.0-0.8); MONO % 8.8 % (0.0-10.0); NEUT # 3.7 K/uL (1.8-7.0); RBC 3.99 Mil/uL (3.80-5.20); WHITE BLOOD COUNT 6.1 K/uL (4.8-10.8)
[2018-07-29 08:18] LABS: ALB/GLOB RATIO 1.3 (1.0-2.1); ALBUMIN 3.5 g/dL (3.5-5.0); ALT/SGPT 24 U/L (9-52); AST/SGOT 21 U/L (14-36); BLOOD UREA NITROGEN 12 mg/dL (7-17); CALCIUM 8.9 mg/dl (8.6-10.4); GFR NON-AFRICAN AMERICAN > 60
[2018-07-29] MEDS: Pantoprazole 40 mg EC Tab PO SCH (10:56)
[2018-07-29] MEDS: Venlafaxine 37.5 mg ER Cap PO SCH (10:56)
[2018-07-29] MEDS: levETIRAcetam 100 mg/ml (5ml) Oral Syringe PO SCH ×2 (10:56→17:09)
[2018-07-29] MEDS: Enoxaparin 40 mg Syringe SC SCH (10:57)
[2018-07-29] MEDS: SILVASORB ANTIMICROBIAL WOUND GEL TOP SCH (11:00)
[2018-07-30] MEDS: levETIRAcetam 100 mg/ml (5ml) Oral Syringe PO SCH ×2 (10:56→17:29)
[2018-07-30] MEDS: Venlafaxine 37.5 mg ER Cap PO SCH (10:56)
[2018-07-30] MEDS: Pantoprazole 40 mg EC Tab PO SCH (10:56)
[2018-07-30] MEDS: Enoxaparin 40 mg Syringe SC SCH (10:58)
[2018-07-30] MEDS: SILVASORB ANTIMICROBIAL WOUND GEL TOP SCH (11:01)
--- NOTE | 2018-07-30 11:07 | CP.PCM.PN ---
Subjective - Date & Time of Evaluation Date of Evaluation: 07/30/18 Time of Evaluation: 16:55 - Subjective Subjective: PGY2 Medicine Note for Dr. Antonio Patient was seen and examined this morning at bedside. Patient is still pending discharge to [facility] to residential care at [facility]. Patient is feeling well and has no additional complaints at this time. Objective - Vital Signs/Intake and Output Vital Signs (last 24 hours): Temp Pulse Resp BP Pulse Ox 97.8 F 77 20 122/80 98 07/30/18 07:00 07/30/18 07:00 07/30/18 07:00 07/30/18 07:00 07/30/18 07:00 Intake and Output: 07/30/18 07/30/18 06:59 18:59 Intake Total 590 Output Total 300 Balance 290 - Medications Medications: Current Medications Amlodipine Besylate (Norvasc) 10 mg PO DAILY [facility] Last Admin: 07/30/18 10:56 Dose: 10 mg Aspirin (Aspirin Chewable) 81 mg PO DAILY [facility] Last Admin: 07/30/18 10:56 Dose: 81 mg Carvedilol (Coreg) 3.125 mg PO BID [facility] Last Admin: 07/30/18 11:00 Dose: 3.125 mg Enoxaparin Sodium (Lovenox) 40 mg SC DAILY [facility] Last Admin: 07/30/18 10:58 Dose: 40 mg Ferrous Sulfate (Feosol) 325 mg PO BID [facility] Last Admin: 07/30/18 10:55 Dose: 325 mg Hydralazine HCl (Apresoline) 25 mg PO Q8H [facility] Last Admin: 07/30/18 06:02 Dose: 25 mg Levetiracetam (Keppra) 250 mg PO BID [facility] Last Admin: 07/30/18 10:56 Dose: 250 mg Pantoprazole Sodium (Protonix Ec Tab) 40 mg PO DAILY [facility] Last Admin: 07/30/18 10:56 Dose: 40 mg Rosuvastatin Calcium (Crestor) 20 mg PO HS [facility] Last Admin: 07/29/18 21:52 Dose: 20 mg Venlafaxine HCl (Effexor Xr) 37.5 mg PO DAILY [facility] Last Admin: 07/30/18 10:56 Dose: 37.5 mg - Labs Labs: 07/29/18 07:46 07/29/18 07:44 - Additional Findings Additional findings: - Constitutional Appears: Non-toxic, No Acute Distress - Head Exam Head Exam: ATRAUMATIC, NORMOCEPHALIC - Eye Exam Eye Exam: Normal appearance - ENT Exam ENT Exam: Mucous Membranes Moist - Respiratory Exam Respiratory Exam: Clear to Ausculation Bilateral, NORMAL BREATHING PATTERN. absent: Rales, Rhonchi, Wheezes, Respiratory Distress - Cardiovascular Exam Cardiovascular Exam: REGULAR RHYTHM, +S1 - GI/Abdominal Exam GI & Abdominal Exam: Soft. absent: Distended, Firm, Guarding, Rigid, Tenderness - Extremities Exam Extremities Exam: absent: Calf Tenderness, Pedal Edema - Neurological Exam Neurological Exam: Alert, Awake - Skin Skin Exam: Dry, Warm Assessment and Plan - Assessment and Plan (Free Text) Plan: Lethargy 2/2 to severe dehydration, poor PO intake, poor care or possible infection - improving, patient more awake, alert, and eating Continue Ensure nutritional supplement UA: Negative Urine Culture: Negative Blood Culture: No growth Chest X-ray: No active disease abx discontinued over the weekend Hx of iron deficiency anemia Feosol 325mg PO BID Brain aneurysm Hx od brain aneursym S/p coil in 10/[address] (07/16/17): Embolization coils are seen adjacent to the basilar artery. There is a large amount of metallic artifact. Chronic lacunar infarcts are seen in the thalamus bilaterally. There is also a chronic infarct of the left occipital lobe. The ocular lenses are dislocated bilaterally -Keppra 250mg PO BID Depression as late effect of cerebrovascular accident (CVA) Effexor 37.5mg PO daily History of CVA (cerebrovascular accident) Residual right sided deficit - ASA 81mg PO daily; As per daughter, patient's plavix has been discontinued - Crestor 20mg PO HS Hypertension Continue home Medications * Amlodipine 10mg daily * Hydralazine 25mg PO Q8H * Coreg 3.125mg PO daily Prophylactic measure DVT: Lovenox 40mg SC daily GI: Protonix 40mg PO daily Disposition: Patient is medically stable. Patient's sister signed paperwork to become POA 05/24/18, as per social professionals. Patient is still currently pending approval to [facility] for [facility] with transition to residential care. Discussed with SW again and there are no new updates at this time. All plans and management discussed with Dr. Marisela Mckeon Natalie PGY2
[2018-07-31 08:26] LABS: BASO % 0.3 % (0.0-2.0); EOS # 0.1 K/uL (0.0-0.7); EOS % 2.2 % (0.0-4.0); HEMOGLOBIN 11.1 g/dL (11.0-16.0); LYMPH # 1.5 K/uL (1.0-4.3); LYMPH % 22.5 % (20.0-40.0); MEAN CELL VOLUME 80.9 fL (81.0-99.0); MEAN CORPUSCULAR HEMOGLOBIN 26.1 pg (27.0-31.0); MEAN CORPUSCULAR HGB CONC 32.3 g/dL (33.0-37.0); MEAN PLATELET VOLUME 7.7 fL (7.2-11.7); MONO # 0.6 K/uL (0.0-0.8); MONO % 8.7 % (0.0-10.0); NEUT # 4.4 K/uL (1.8-7.0); NEUT % 66.3 % (50.0-75.0); RBC 4.27 Mil/uL (3.80-5.20); WHITE BLOOD COUNT 6.6 K/uL (4.8-10.8)
[2018-07-31 08:44] LABS: ALB/GLOB RATIO 1.4 (1.0-2.1); ALBUMIN 3.9 g/dL (3.5-5.0); ALT/SGPT 30 U/L (9-52); AST/SGOT 25 U/L (14-36); BLOOD UREA NITROGEN 16 mg/dL (7-17); CALCIUM 9.2 mg/dl (8.6-10.4); GFR NON-AFRICAN AMERICAN > 60
[2018-07-31] MEDS: Pantoprazole 40 mg EC Tab PO SCH (10:37)
[2018-07-31] MEDS: Venlafaxine 37.5 mg ER Cap PO SCH (10:37)
[2018-07-31] MEDS: Enoxaparin 40 mg Syringe SC SCH (10:38)
[2018-07-31] MEDS: levETIRAcetam 100 mg/ml (5ml) Oral Syringe PO SCH ×2 (10:38→17:36)
[2018-07-31] MEDS: SILVASORB ANTIMICROBIAL WOUND GEL TOP SCH (10:39)
--- NOTE | 2018-07-31 11:39 | CP.PCM.PN ---
Subjective - Date & Time of Evaluation Date of Evaluation: 07/31/18 Time of Evaluation: 10:45 - Subjective Subjective: Medicine progress note ( Dr. Antonio's service) Patient was seen and examined at bedside. As per nursing staff, no acute issues overnight. Currently, patient denies any acute issues or discomfort. As per nursing staff, there were no acute issues overnight. Objective - Vital Signs/Intake and Output Vital Signs (last 24 hours): Temp Pulse Resp BP Pulse Ox 98.1 F 69 20 116/74 98 07/31/18 07:00 07/31/18 07:00 07/31/18 07:00 07/31/18 07:00 07/31/18 07:00 Intake and Output: 07/31/18 07/31/18 06:59 18:59 Intake Total 500 Output Total 350 Balance 150 - Medications Medications: Current Medications Amlodipine Besylate (Norvasc) 10 mg PO DAILY [facility] Last Admin: 07/31/18 10:38 Dose: 10 mg Aspirin (Aspirin Chewable) 81 mg PO DAILY [facility] Last Admin: 07/31/18 10:38 Dose: 81 mg Carvedilol (Coreg) 3.125 mg PO BID [facility] Last Admin: 07/31/18 10:37 Dose: 3.125 mg Enoxaparin Sodium (Lovenox) 40 mg SC DAILY [facility] Last Admin: 07/31/18 10:38 Dose: 40 mg Ferrous Sulfate (Feosol) 325 mg PO BID [facility] Last Admin: 07/31/18 10:37 Dose: 325 mg Hydralazine HCl (Apresoline) 25 mg PO Q8H [facility] Last Admin: 07/31/18 06:05 Dose: 25 mg Levetiracetam (Keppra) 250 mg PO BID [facility] Last Admin: 07/31/18 10:38 Dose: 250 mg Pantoprazole Sodium (Protonix Ec Tab) 40 mg PO DAILY [facility] Last Admin: 07/31/18 10:37 Dose: 40 mg Rosuvastatin Calcium (Crestor) 20 mg PO HS [facility] Last Admin: 07/30/18 21:41 Dose: 20 mg Venlafaxine HCl (Effexor Xr) 37.5 mg PO DAILY [facility] Last Admin: 07/31/18 10:37 Dose: 37.5 mg - Labs Labs: 07/31/18 08:19 07/31/18 08:19 - Constitutional Appears: No Acute Distress - Head Exam Head Exam: ATRAUMATIC - Eye Exam Eye Exam: EOMI - ENT Exam ENT Exam: Mucous Membranes Dry - Respiratory Exam Respiratory Exam: NORMAL BREATHING PATTERN. absent: Decreased Breath Sounds, Prolonged Expiratory Phase, Rhonchi, Wheezes - Cardiovascular Exam Cardiovascular Exam: REGULAR RHYTHM, +S1, +S2 - GI/Abdominal Exam GI & Abdominal Exam: Soft, Normal Bowel Sounds. absent: Firm, Guarding, Rigid, Tenderness - Extremities Exam Extremities Exam: absent: Pedal Edema - Neurological Exam Neurological Exam: Awake Additional comments: Right residual weakness - Psychiatric Exam Psychiatric exam: Depressed, Flat Affect Assessment and Plan (1) Lethargy Assessment & Plan: 2/2 to severe dehydration, poor PO intake, poor care or possible infection - improving, patient more awake, alert, and eating Continue Ensure nutritional supplement UA: Negative Urine Culture: Negative Blood Culture: No growth Chest X-ray: No active disease abx discontinued Status: Acute (2) Hx of iron deficiency anemia Assessment & Plan: Feosol 325mg PO BID Status: Acute (3) Brain aneurysm Assessment & Plan: Hx of brain aneursym S/p coil in 10/[address] (07/16/17): Embolization coils are seen adjacent to the basilar artery. There is a large amount of metallic artifact. Chronic lacunar infarcts are seen in the thalamus bilaterally. There is also a chronic infarct of the left occipital lobe. The ocular lenses are dislocated bilaterally -Keppra 250mg PO BID Status: Resolved (4) Depression as late effect of cerebrovascular accident (CVA) Assessment & Plan: Effexor 37.5mg PO daily Status: Acute (5) History of CVA (cerebrovascular accident) Assessment & Plan: Residual right sided deficit - ASA 81mg PO daily; As per daughter, patient's plavix has been discontinued - Crestor 20mg PO HS Status: Acute (6) Hypertension Assessment & Plan: Continue home Medications * Amlodipine 10mg daily * Hydralazine 25mg PO Q8H * Coreg 3.125mg PO daily Status: Acute (7) Prophylactic measure Assessment & Plan: DVT: Lovenox 40mg SC daily GI: Protonix 40mg PO daily Disposition: Patient is medically stable. Patient's sister signed paperwork to become POA 05/24/18, as per social sciences professor. Patient is still currently pending approval to [facility] for [facility] with transition to snf care. Awaiting updates from All plans and management discussed with Dr. Antonio Status: Acute
--- NOTE | 2018-08-01 07:13 | CP.PCM.PN ---
Subjective - Date & Time of Evaluation Date of Evaluation: 08/01/18 Time of Evaluation: 13:06 - Subjective Subjective: PGY2 Medicine Note for Dr. Antonio Patient seen and examined this morning at bedside. No acute events overnight. Patient is sleeping in bed and refuses to wake up. She did not speak to Dr. Estrada but allowed him to examine her. Objective - Vital Signs/Intake and Output Vital Signs (last 24 hours): Temp Pulse Resp BP Pulse Ox 98.2 F 81 20 109/74 98 08/01/18 00:00 08/01/18 00:00 08/01/18 00:00 08/01/18 00:00 08/01/18 00:00 Intake and Output: 08/01/18 08/01/18 06:59 18:59 Intake Total 350 Output Total 200 Balance 150 - Medications Medications: Current Medications Amlodipine Besylate (Norvasc) 10 mg PO DAILY [facility] Last Admin: 07/31/18 10:38 Dose: 10 mg Aspirin (Aspirin Chewable) 81 mg PO DAILY [facility] Last Admin: 07/31/18 10:38 Dose: 81 mg Carvedilol (Coreg) 3.125 mg PO BID [facility] Last Admin: 07/31/18 17:37 Dose: 3.125 mg Enoxaparin Sodium (Lovenox) 40 mg SC DAILY [facility] Last Admin: 07/31/18 10:38 Dose: 40 mg Ferrous Sulfate (Feosol) 325 mg PO BID [facility] Last Admin: 07/31/18 17:37 Dose: 325 mg Hydralazine HCl (Apresoline) 25 mg PO Q8H [facility] Last Admin: 08/01/18 05:27 Dose: 25 mg Levetiracetam (Keppra) 250 mg PO BID [facility] Last Admin: 07/31/18 17:36 Dose: 250 mg Pantoprazole Sodium (Protonix Ec Tab) 40 mg PO DAILY [facility] Last Admin: 07/31/18 10:37 Dose: 40 mg Rosuvastatin Calcium (Crestor) 20 mg PO HS [facility] Last Admin: 07/31/18 21:50 Dose: 20 mg Venlafaxine HCl (Effexor Xr) 37.5 mg PO DAILY [facility] Last Admin: 07/31/18 10:37 Dose: 37.5 mg - Labs Labs: 07/31/18 08:19 07/31/18 08:19 - Constitutional Appears: No Acute Distress, Chronically Ill - Head Exam Head Exam: ATRAUMATIC - Eye Exam Eye Exam: Normal appearance - ENT Exam ENT Exam: Mucous Membranes Moist - Respiratory Exam Respiratory Exam: NORMAL BREATHING PATTERN. absent: Accessory Muscle Use, Rales, Rhonchi, Wheezes, Respiratory Distress - Cardiovascular Exam Cardiovascular Exam: REGULAR RHYTHM, +S1, +S2 - GI/Abdominal Exam GI & Abdominal Exam: Soft. absent: Distended, Firm, Guarding, Rigid, Tenderness - Extremities Exam Extremities Exam: absent: Calf Tenderness, Pedal Edema - Neurological Exam Neurological Exam: Awake - Psychiatric Exam Psychiatric exam: Depressed, Flat Affect Assessment and Plan - Assessment and Plan (Free Text) Plan: (1) Lethargy Assessment & Plan: 2/2 to severe dehydration, poor PO intake, poor care or possible infection - improving, patient more awake, alert, and eating Continue Ensure nutritional supplement UA: Negative Urine Culture: Negative Blood Culture: No growth Chest X-ray: No active disease abx discontinued Status: Acute (2) Hx of iron deficiency anemia Assessment & Plan: Feosol 325mg PO BID Status: Acute (3) Brain aneurysm Assessment & Plan: Hx of brain aneursym S/p coil in 10/[address] (07/16/17): Embolization coils are seen adjacent to the basilar artery. There is a large amount of metallic artifact. Chronic lacunar infarcts are seen in the thalamus bilaterally. There is also a chronic infarct of the left occipital lobe. The ocular lenses are dislocated bilaterally -Keppra 250mg PO BID Status: Resolved (4) Depression as late effect of cerebrovascular accident (CVA) Assessment & Plan: Effexor 37.5mg PO daily Status: Acute (5) History of CVA (cerebrovascular accident) Assessment & Plan: Residual right sided deficit - ASA 81mg PO daily; As per daughter, patient's plavix has been discontinued - Crestor 20mg PO HS Status: Acute (6) Hypertension Assessment & Plan: Continue home Medications * Amlodipine 10mg daily * Hydralazine 25mg PO Q8H * Coreg 3.125mg PO daily Status: Acute (7) Prophylactic measure Assessment & Plan: DVT: Lovenox 40mg SC daily GI: Protonix 40mg PO daily Disposition: Patient is medically stable. Patient's sister signed paperwork to become POA 11/22/18, as per director social service. She has been initially accepted to [employer]. Patient is currently pending authorization from her insurance company. Per note, medicaid office is closing due to the weather and will not re-open until Monday. Case discussed with Dr. Marisela Mckeon
[2018-08-01] MEDS: Venlafaxine 37.5 mg ER Cap PO SCH (10:32)
[2018-08-01] MEDS: Pantoprazole 40 mg EC Tab PO SCH (10:32)
[2018-08-01] MEDS: Enoxaparin 40 mg Syringe SC SCH (10:33)
[2018-08-01] MEDS: levETIRAcetam 100 mg/ml (5ml) Oral Syringe PO SCH ×2 (10:33→18:41)
[2018-08-01] MEDS: SILVASORB ANTIMICROBIAL WOUND GEL TOP SCH (10:36)
[2018-08-02 07:40] LABS: BASO % 0.6 % (0.0-2.0); EOS # 0.2 K/uL (0.0-0.7); EOS % 2.9 % (0.0-4.0); HEMOGLOBIN 11.5 g/dL (11.0-16.0); LYMPH # 1.6 K/uL (1.0-4.3); LYMPH % 29.6 % (20.0-40.0); MEAN CELL VOLUME 80.5 fL (81.0-99.0); MEAN CORPUSCULAR HEMOGLOBIN 26.1 pg (27.0-31.0); MEAN CORPUSCULAR HGB CONC 32.4 g/dL (33.0-37.0); MEAN PLATELET VOLUME 7.9 fL (7.2-11.7); MONO # 0.5 K/uL (0.0-0.8); MONO % 9.2 % (0.0-10.0); NEUT # 3.1 K/uL (1.8-7.0); NEUT % 57.7 % (50.0-75.0); NRBC % 0.1 % (0.0-2.0); RBC 4.4 Mil/uL (3.80-5.20); RED CELL DISTRIBUTION WIDTH 17.7 % (11.5-14.5); WHITE BLOOD COUNT 5.4 K/uL (4.8-10.8)
[2018-08-02 08:08] LABS: ALB/GLOB RATIO 1.3 (1.0-2.1); ALBUMIN 3.8 g/dL (3.5-5.0); ALT/SGPT 27 U/L (9-52); AST/SGOT 26 U/L (14-36); BLOOD UREA NITROGEN 16 mg/dL (7-17); CALCIUM 9.6 mg/dl (8.6-10.4); GFR NON-AFRICAN AMERICAN > 60
--- NOTE | 2018-08-02 08:36 | CP.PCM.PN ---
Subjective - Date & Time of Evaluation Date of Evaluation: 08/02/18 Time of Evaluation: 07:40 - Subjective Subjective: Medicine progress note ( Dr. Antonio's service) Patient was seen and examined at bedside. As per nursing staff, no acute issues overnight. Currently, patient denies any acute issues or discomfort. As per nursing staff, there were no acute issues overnight. Objective - Vital Signs/Intake and Output Vital Signs (last 24 hours): Temp Pulse Resp BP Pulse Ox 98.7 F 79 20 109/72 96 08/02/18 08:06 08/02/18 08:06 08/02/18 08:06 08/02/18 08:06 08/02/18 08:06 Intake and Output: 08/02/18 08/02/18 06:59 18:59 Intake Total 400 Balance 400 - Medications Medications: Current Medications Amlodipine Besylate (Norvasc) 10 mg PO DAILY [facility] Last Admin: 08/01/18 10:32 Dose: 10 mg Aspirin (Aspirin Chewable) 81 mg PO DAILY [facility] Last Admin: 08/01/18 10:32 Dose: 81 mg Carvedilol (Coreg) 3.125 mg PO BID [facility] Last Admin: 08/01/18 18:42 Dose: 3.125 mg Enoxaparin Sodium (Lovenox) 40 mg SC DAILY [facility] Last Admin: 08/01/18 10:33 Dose: 40 mg Ferrous Sulfate (Feosol) 325 mg PO BID [facility] Last Admin: 08/01/18 18:42 Dose: 325 mg Hydralazine HCl (Apresoline) 25 mg PO Q8H [facility] Last Admin: 08/02/18 05:23 Dose: 25 mg Levetiracetam (Keppra) 250 mg PO BID [facility] Last Admin: 08/01/18 18:41 Dose: 250 mg Pantoprazole Sodium (Protonix Ec Tab) 40 mg PO DAILY [facility] Last Admin: 08/01/18 10:32 Dose: 40 mg Rosuvastatin Calcium (Crestor) 20 mg PO HS [facility] Last Admin: 08/01/18 22:22 Dose: 20 mg Venlafaxine HCl (Effexor Xr) 37.5 mg PO DAILY [facility] Last Admin: 08/01/18 10:32 Dose: 37.5 mg - Labs Labs: 08/02/18 07:33 01/31/19 07:33 - Constitutional Appears: No Acute Distress - Head Exam Head Exam: ATRAUMATIC - ENT Exam ENT Exam: Mucous Membranes Moist - Respiratory Exam Respiratory Exam: NORMAL BREATHING PATTERN - Cardiovascular Exam Cardiovascular Exam: REGULAR RHYTHM, +S1, +S2 - GI/Abdominal Exam GI & Abdominal Exam: Soft, Normal Bowel Sounds. absent: Distended, Firm, Rigid, Tenderness - Extremities Exam Extremities Exam: absent: Pedal Edema - Neurological Exam Neurological Exam: Awake Additional comments: Right residual weakness - Psychiatric Exam Psychiatric exam: Flat Affect - Skin Skin Exam: Normal Color Assessment and Plan (1) Lethargy Assessment & Plan: 2/2 to severe dehydration, poor PO intake, poor care or possible infection - improving, patient more awake, alert, and eating Continue Ensure nutritional supplement UA: Negative Urine Culture: Negative Blood Culture: No growth Chest X-ray: No active disease abx discontinued Status: Acute (2) Hx of iron deficiency anemia Assessment & Plan: Feosol 325mg PO BID Status: Acute (3) Brain aneurysm Assessment & Plan: Hx of brain aneursym S/p coil in 10/[address] (07/16/17): Embolization coils are seen adjacent to the basilar artery. There is a large amount of metallic artifact. Chronic lacunar infarcts are seen in the thalamus bilaterally. There is also a chronic infarct of the left occipital lobe. The ocular lenses are dislocated bilaterally -Keppra 250mg PO BID Status: Resolved (4) Depression as late effect of cerebrovascular accident (CVA) Assessment & Plan: Effexor 37.5mg PO daily Status: Acute (5) History of CVA (cerebrovascular accident) Assessment & Plan: Residual right sided deficit - ASA 81mg PO daily; As per daughter, patient's plavix has been discontinued - Crestor 20mg PO HS Status: Acute (6) Hypertension Assessment & Plan: Continue home Medications * Amlodipine 10mg daily * Hydralazine 25mg PO Q8H * Coreg 3.125mg PO daily Status: Acute (7) Prophylactic measure Assessment & Plan: DVT: Lovenox 40mg SC daily GI: Protonix 40mg PO daily Disposition: Patient is medically stable. Patient's sister signed paperwork to become POA 05/24/18, as per social work therapist. Patient is still currently pending approval to [facility] with transition to detention care. Awaiting updates from All plans and management discussed with Dr. Antonio Status: Acute
[2018-08-02] MEDS: Pantoprazole 40 mg EC Tab PO SCH (09:39)
[2018-08-02] MEDS: Venlafaxine 37.5 mg ER Cap PO SCH (09:39)
[2018-08-02] MEDS: Enoxaparin 40 mg Syringe SC SCH (09:40)
[2018-08-02] MEDS: levETIRAcetam 100 mg/ml (5ml) Oral Syringe PO SCH ×2 (09:40→18:17)
[2018-08-02] MEDS: SILVASORB ANTIMICROBIAL WOUND GEL TOP SCH (12:15)
[2018-08-03 07:36] LABS: HEMOGLOBIN 11.3 g/dL (11.0-16.0); MEAN CELL VOLUME 80.4 fL (81.0-99.0); MEAN CORPUSCULAR HEMOGLOBIN 26.3 pg (27.0-31.0); MEAN CORPUSCULAR HGB CONC 32.7 g/dL (33.0-37.0); RBC 4.29 Mil/uL (3.80-5.20); RED CELL DISTRIBUTION WIDTH 17.9 % (11.5-14.5); WHITE BLOOD COUNT 6.5 K/uL (4.8-10.8)
[2018-08-03 07:37] LABS: BASO % 0.4 % (0.0-2.0); EOS # 0.2 K/uL (0.0-0.7); EOS % 2.4 % (0.0-4.0); LYMPH # 1.7 K/uL (1.0-4.3); LYMPH % 26.8 % (20.0-40.0); MEAN PLATELET VOLUME 7.9 fL (7.2-11.7); MONO # 0.6 K/uL (0.0-0.8); MONO % 9.1 % (0.0-10.0); NEUT % 61.3 % (50.0-75.0)
[2018-08-03 07:59] LABS: ALB/GLOB RATIO 1.4 (1.0-2.1); ALBUMIN 3.8 g/dL (3.5-5.0); ALT/SGPT 16 U/L (9-52); AST/SGOT 18 U/L (14-36); BLOOD UREA NITROGEN 13 mg/dL (7-17); CALCIUM 9.6 mg/dl (8.6-10.4); GFR NON-AFRICAN AMERICAN > 60
[2018-08-03] MEDS: Pantoprazole 40 mg EC Tab PO SCH (09:55)
[2018-08-03] MEDS: Enoxaparin 40 mg Syringe SC SCH (09:56)
[2018-08-03] MEDS: levETIRAcetam 100 mg/ml (5ml) Oral Syringe PO SCH ×2 (09:56→17:22)
[2018-08-03] MEDS: Venlafaxine 37.5 mg ER Cap PO SCH (09:57)
--- NOTE | 2018-08-03 10:12 | CP.PCM.PN ---
Subjective - Date & Time of Evaluation Date of Evaluation: 08/03/18 Time of Evaluation: 10:09 - Subjective Subjective: PGY2 Medicine Note for Dr. Antonio Patient seen and examined this morning at bedside. No acute events overnight. Patient is resting comfortably in bed in no acute distress. She is still not speaking. Objective - Vital Signs/Intake and Output Vital Signs (last 24 hours): Temp Pulse Resp BP Pulse Ox 97.7 F 80 20 123/81 97 08/03/18 07:57 08/03/18 07:57 08/03/18 07:57 08/03/18 07:57 08/03/18 07:57 Intake and Output: 08/03/18 08/03/18 06:59 18:59 Intake Total 420 Output Total 1300 Balance -880 - Medications Medications: Current Medications Amlodipine Besylate (Norvasc) 10 mg PO DAILY [facility] Last Admin: 08/03/18 09:55 Dose: 10 mg Aspirin (Aspirin Chewable) 81 mg PO DAILY [facility] Last Admin: 08/03/18 09:55 Dose: 81 mg Carvedilol (Coreg) 3.125 mg PO BID [facility] Last Admin: 08/02/18 18:17 Dose: 3.125 mg Enoxaparin Sodium (Lovenox) 40 mg SC DAILY [facility] Last Admin: 08/03/18 09:56 Dose: 40 mg Ferrous Sulfate (Feosol) 325 mg PO BID [facility] Last Admin: 08/03/18 09:55 Dose: 325 mg Hydralazine HCl (Apresoline) 25 mg PO Q8H [facility] Last Admin: 08/03/18 05:48 Dose: 25 mg Levetiracetam (Keppra) 250 mg PO BID [facility] Last Admin: 08/03/18 09:56 Dose: 250 mg Pantoprazole Sodium (Protonix Ec Tab) 40 mg PO DAILY [facility] Last Admin: 08/03/18 09:55 Dose: 40 mg Rosuvastatin Calcium (Crestor) 20 mg PO HS [facility] Last Admin: 08/02/18 22:04 Dose: 20 mg Venlafaxine HCl (Effexor Xr) 37.5 mg PO DAILY [facility] Last Admin: 08/03/18 09:57 Dose: 37.5 mg - Labs Labs: 08/03/18 07:21 08/03/18 07:21 - Constitutional Appears: No Acute Distress - Head Exam Head Exam: ATRAUMATIC - Eye Exam Eye Exam: Normal appearance - ENT Exam ENT Exam: Mucous Membranes Moist - Respiratory Exam Respiratory Exam: Clear to Ausculation Bilateral, NORMAL BREATHING PATTERN. absent: Accessory Muscle Use, Rales, Rhonchi, Wheezes, Respiratory Distress - Cardiovascular Exam Cardiovascular Exam: REGULAR RHYTHM, +S1, +S2 - GI/Abdominal Exam GI & Abdominal Exam: Soft. absent: Distended, Firm, Guarding, Rigid, Tenderness - Extremities Exam Extremities Exam: absent: Calf Tenderness, Pedal Edema - Neurological Exam Neurological Exam: Alert, Awake - Psychiatric Exam Psychiatric exam: Depressed, Flat Affect - Skin Skin Exam: Dry, Warm Assessment and Plan - Assessment and Plan (Free Text) Plan: (1) Lethargy Assessment & Plan: 2/2 to severe dehydration, poor PO intake, poor care or possible infection - improving, patient more awake, alert, and eating Continue Ensure nutritional supplement UA: Negative Urine Culture: Negative Blood Culture: No growth Chest X-ray: No active disease abx discontinued Status: Acute (2) Hx of iron deficiency anemia Assessment & Plan: Feosol 325mg PO BID Status: Acute (3) Brain aneurysm Assessment & Plan: Hx of brain aneursym S/p coil in 10/[address] (07/16/17): Embolization coils are seen adjacent to the basilar artery. There is a large amount of metallic artifact. Chronic lacunar infarcts are seen in the thalamus bilaterally. There is also a chronic infarct of the left occipital lobe. The ocular lenses are dislocated bilaterally -Keppra 250mg PO BID Status: Resolved (4) Depression as late effect of cerebrovascular accident (CVA) Assessment & Plan: Effexor 37.5mg PO daily Status: Acute (5) History of CVA (cerebrovascular accident) Assessment & Plan: Residual right sided deficit - ASA 81mg PO daily; As per daughter, patient's plavix has been discontinued - Crestor 20mg PO HS Status: Acute (6) Hypertension Assessment & Plan: Continue home Medications * Amlodipine 10mg daily * Hydralazine 25mg PO Q8H * Coreg 3.125mg PO daily Status: Acute (7) Prophylactic measure Assessment & Plan: DVT: Lovenox 40mg SC daily GI: Protonix 40mg PO daily Disposition: Patient is medically stable. Patient's sister signed paperwork to become POA 05/24/18, as per nephrology social worker. She has been initially accepted to [employer]. Patient is currently pending authorization from her insurance company. Per SW note, medicaid office is closing due to the weather and will not re-open until Monday. Case discussed with Dr. Marisela Mckeon Natalie PGY2
[2018-08-03] MEDS: SILVASORB ANTIMICROBIAL WOUND GEL TOP SCH (15:03)
[2018-08-04] MEDS: Pantoprazole 40 mg EC Tab PO SCH (09:41)
[2018-08-04] MEDS: Venlafaxine 37.5 mg ER Cap PO SCH (09:41)
[2018-08-04] MEDS: levETIRAcetam 100 mg/ml (5ml) Oral Syringe PO SCH ×2 (09:41→17:28)
[2018-08-04] MEDS: Enoxaparin 40 mg Syringe SC SCH (09:42)
[2018-08-04] MEDS: SILVASORB ANTIMICROBIAL WOUND GEL TOP SCH (09:43)
[2018-08-05] MEDS: Enoxaparin 40 mg Syringe SC SCH (09:16)
[2018-08-05] MEDS: Pantoprazole 40 mg EC Tab PO SCH (09:16)
[2018-08-05] MEDS: Venlafaxine 37.5 mg ER Cap PO SCH (09:16)
[2018-08-05] MEDS: SILVASORB ANTIMICROBIAL WOUND GEL TOP SCH (09:21)
[2018-08-05] MEDS: levETIRAcetam 100 mg/ml (5ml) Oral Syringe PO SCH ×2 (10:44→17:03)
[2018-08-06 06:47] LABS: ALB/GLOB RATIO 1.3 (1.0-2.1); ALBUMIN 3.7 g/dL (3.5-5.0); ALT/SGPT 294 U/L (9-52); AST/SGOT 122 U/L (14-36); BLOOD UREA NITROGEN 25 mg/dL (7-17); CALCIUM 9.7 mg/dl (8.6-10.4); GFR NON-AFRICAN AMERICAN > 60
[2018-08-06 07:10] LABS: BASO % 0.7 % (0.0-2.0); EOS # 0.2 K/uL (0.0-0.7); EOS % 2.6 % (0.0-4.0); HEMOGLOBIN 11.5 g/dL (11.0-16.0); LYMPH # 1.9 K/uL (1.0-4.3); LYMPH % 30.4 % (20.0-40.0); MEAN CELL VOLUME 80.7 fL (81.0-99.0); MEAN CORPUSCULAR HEMOGLOBIN 26.7 pg (27.0-31.0); MEAN CORPUSCULAR HGB CONC 33.1 g/dL (33.0-37.0); MEAN PLATELET VOLUME 8.1 fL (7.2-11.7); MONO # 0.5 K/uL (0.0-0.8); MONO % 8.8 % (0.0-10.0); NEUT # 3.6 K/uL (1.8-7.0); NEUT % 57.5 % (50.0-75.0); NRBC % 0.2 % (0.0-2.0); RBC 4.31 Mil/uL (3.80-5.20); RED CELL DISTRIBUTION WIDTH 18.7 % (11.5-14.5); WHITE BLOOD COUNT 6.2 K/uL (4.8-10.8)
[2018-08-06] MEDS: Enoxaparin 40 mg Syringe SC SCH (11:27)
[2018-08-06] MEDS: Pantoprazole 40 mg EC Tab PO SCH (11:27)
[2018-08-06] MEDS: levETIRAcetam 100 mg/ml (5ml) Oral Syringe PO SCH ×2 (11:27→18:01)
[2018-08-06] MEDS: Venlafaxine 37.5 mg ER Cap PO SCH (11:27)
[2018-08-06] MEDS: SILVASORB ANTIMICROBIAL WOUND GEL TOP SCH ×2 (11:29→11:30)
--- NOTE | 2018-08-06 11:41 | CP.PCM.PN ---
Subjective - Date & Time of Evaluation Date of Evaluation: 08/06/18 Time of Evaluation: 11:41 - Subjective Subjective: PGY2 Medicine Note for Dr. Antonio Patient seen and examined this morning at bedside. No acute events overnight. Patient is resting comfortably in bed, in no acute distress. Patient is non- verbal. Objective - Vital Signs/Intake and Output Vital Signs (last 24 hours): Temp Pulse Resp BP Pulse Ox 97.2 F L 76 20 104/74 95 08/06/18 08:25 08/06/18 08:25 08/06/18 08:25 08/06/18 08:25 08/06/18 08:25 Intake and Output: 08/06/18 08/06/18 06:59 18:59 Intake Total 350 120 Balance 350 120 - Medications Medications: Current Medications Amlodipine Besylate (Norvasc) 10 mg PO DAILY [facility] Last Admin: 08/06/18 11:27 Dose: 10 mg Aspirin (Aspirin Chewable) 81 mg PO DAILY [facility] Last Admin: 08/06/18 11:27 Dose: 81 mg Carvedilol (Coreg) 3.125 mg PO BID [facility] Last Admin: 08/06/18 11:32 Dose: 3.125 mg Enoxaparin Sodium (Lovenox) 40 mg SC DAILY [facility] Last Admin: 08/06/18 11:27 Dose: 40 mg Ferrous Sulfate (Feosol) 325 mg PO BID [facility] Last Admin: 08/06/18 11:27 Dose: 325 mg Hydralazine HCl (Apresoline) 25 mg PO Q8H [facility] Last Admin: 08/06/18 05:48 Dose: 25 mg Levetiracetam (Keppra) 250 mg PO BID [facility] Last Admin: 08/06/18 11:27 Dose: 250 mg Pantoprazole Sodium (Protonix Ec Tab) 40 mg PO DAILY [facility] Last Admin: 08/06/18 11:27 Dose: 40 mg Rosuvastatin Calcium (Crestor) 20 mg PO HS [facility] Last Admin: 08/05/18 21:10 Dose: 20 mg Venlafaxine HCl (Effexor Xr) 37.5 mg PO DAILY [facility] Last Admin: 08/06/18 11:27 Dose: 37.5 mg - Labs Labs: 08/06/18 06:10 08/06/18 06:10 - Additional Findings Additional findings: - Constitutional Appears: No Acute Distress - Head Exam Head Exam: ATRAUMATIC - Eye Exam Eye Exam: Normal appearance - ENT Exam ENT Exam: Mucous Membranes Moist - Respiratory Exam Respiratory Exam: Clear to Ausculation Bilateral, NORMAL BREATHING PATTERN. absent: Accessory Muscle Use, Rales, Rhonchi, Wheezes, Respiratory Distress - Cardiovascular Exam Cardiovascular Exam: REGULAR RHYTHM, +S1, +S2 - GI/Abdominal Exam GI & Abdominal Exam: Soft. absent: Distended, Firm, Guarding, Rigid, Tenderness - Extremities Exam Extremities Exam: absent: Calf Tenderness, Pedal Edema - Neurological Exam Neurological Exam: Alert, Awake - Psychiatric Exam Psychiatric exam: Depressed, Flat Affect - Skin Skin Exam: Dry, Warm Assessment and Plan - Assessment and Plan (Free Text) Plan: (1) Lethargy Assessment & Plan: 2/2 to severe dehydration, poor PO intake, poor care or possible infection - improving, patient more awake, alert, and eating Continue Ensure nutritional supplement UA: Negative Urine Culture: Negative Blood Culture: No growth Chest X-ray: No active disease abx discontinued Status: Acute (2) Hx of iron deficiency anemia Assessment & Plan: Feosol 325mg PO BID Status: Acute (3) Brain aneurysm Assessment & Plan: Hx of brain aneursym S/p coil in 10/[address] (07/16/17): Embolization coils are seen adjacent to the basilar artery. There is a large amount of metallic artifact. Chronic lacunar infarcts are seen in the thalamus bilaterally. There is also a chronic infarct of the left occipital lobe. The ocular lenses are dislocated bilaterally -Keppra 250mg PO BID Status: Resolved (4) Depression as late effect of cerebrovascular accident (CVA) Assessment & Plan: Effexor 37.5mg PO daily Status: Acute (5) History of CVA (cerebrovascular accident) Assessment & Plan: Residual right sided deficit - ASA 81mg PO daily; As per daughter, patient's plavix has been discontinued - Crestor 20mg PO HS Status: Acute (6) Hypertension Assessment & Plan: Continue home Medications * Amlodipine 10mg daily * Hydralazine 25mg PO Q8H * Coreg 3.125mg PO daily Status: Acute (7) Prophylactic measure Assessment & Plan: DVT: Lovenox 40mg SC daily GI: Protonix 40mg PO daily Disposition: Patient is medically stable. Patient's sister signed paperwork to become POA 05/24/18, as per social work nurse. She has been initially accepted to [facility]. Patient is currently pending authorization from her insurance company. Medically stable for discharge once authorization obtained. Case discussed with Dr. Marisela Mckeon Natalie PGY2
--- NOTE | 2018-08-07 07:37 | CP.PCM.PN ---
Subjective - Date & Time of Evaluation Date of Evaluation: 08/07/18 Time of Evaluation: 10:15 - Subjective Subjective: Medicine progress note ( Dr. Antonio's service) Patient was seen and examined at bedside. As per nursing staff, no acute issues overnight. Currently, patient denies any acute issues or discomfort and states that she is "fine" when asked how she is doing. Patient refused her medications momentarily but after pleading with her she agrees to take her medications. Objective - Vital Signs/Intake and Output Vital Signs (last 24 hours): Temp Pulse Resp BP Pulse Ox 97.6 F 80 20 122/81 97 08/07/18 07:32 08/07/18 07:32 08/07/18 07:32 08/07/18 07:32 08/07/18 07:32 Intake and Output: 08/07/18 08/07/18 06:59 18:59 Intake Total 250 Balance 250 - Medications Medications: Current Medications Amlodipine Besylate (Norvasc) 10 mg PO DAILY [facility] Last Admin: 08/06/18 11:27 Dose: 10 mg Aspirin (Aspirin Chewable) 81 mg PO DAILY [facility] Last Admin: 08/06/18 11:27 Dose: 81 mg Carvedilol (Coreg) 3.125 mg PO BID [facility] Last Admin: 08/06/18 18:02 Dose: Not Given Enoxaparin Sodium (Lovenox) 40 mg SC DAILY [facility] Last Admin: 08/06/18 11:27 Dose: 40 mg Ferrous Sulfate (Feosol) 325 mg PO BID [facility] Last Admin: 08/06/18 18:02 Dose: 325 mg Hydralazine HCl (Apresoline) 25 mg PO Q8H [facility] Last Admin: 08/07/18 05:56 Dose: 25 mg Levetiracetam (Keppra) 250 mg PO BID [facility] Last Admin: 08/06/18 18:01 Dose: 250 mg Pantoprazole Sodium (Protonix Ec Tab) 40 mg PO DAILY [facility] Last Admin: 08/06/18 11:27 Dose: 40 mg Rosuvastatin Calcium (Crestor) 20 mg PO HS [facility] Last Admin: 08/06/18 21:54 Dose: 20 mg Venlafaxine HCl (Effexor Xr) 37.5 mg PO DAILY [facility] Last Admin: 08/06/18 11:27 Dose: 37.5 mg - Labs Labs: 08/06/18 06:10 08/06/18 06:10 - Constitutional Appears: No Acute Distress - Head Exam Head Exam: ATRAUMATIC - Eye Exam Eye Exam: EOMI - ENT Exam ENT Exam: Mucous Membranes Dry - Respiratory Exam Respiratory Exam: Clear to Ausculation Bilateral, NORMAL BREATHING PATTERN. absent: Prolonged Expiratory Phase, Rhonchi, Wheezes, Respiratory Distress - Cardiovascular Exam Cardiovascular Exam: REGULAR RHYTHM, +S1, +S2 - GI/Abdominal Exam GI & Abdominal Exam: Soft, Normal Bowel Sounds. absent: Distended, Firm, Guarding, Rigid, Tenderness - Extremities Exam Extremities Exam: Normal Inspection. absent: Calf Tenderness, Pedal Edema - Neurological Exam Neurological Exam: Alert, Awake Additional comments: Right residual weakness from old CVA - Psychiatric Exam Psychiatric exam: Flat Affect - Skin Skin Exam: Normal Color Assessment and Plan (1) Lethargy Assessment & Plan: 2/2 to severe dehydration, poor PO intake, poor care or possible infection - improving, patient more awake, alert, and eating Continue Ensure nutritional supplement UA: Negative Urine Culture: Negative Blood Culture: No growth Chest X-ray: No active disease abx discontinued Status: Acute (2) Hx of iron deficiency anemia Assessment & Plan: Feosol 325mg PO BID Status: Acute (3) Brain aneurysm Assessment & Plan: Hx of brain aneursym S/p coil in 10/[address] (07/16/17): Embolization coils are seen adjacent to the basilar artery. There is a large amount of metallic artifact. Chronic lacunar infarcts are seen in the thalamus bilaterally. There is also a chronic infarct of the left occipital lobe. The ocular lenses are dislocated bilaterally -Keppra 250mg PO BID Status: Resolved (4) Depression as late effect of cerebrovascular accident (CVA) Assessment & Plan: Effexor 37.5mg PO daily Status: Acute (5) History of CVA (cerebrovascular accident) Assessment & Plan: Residual right sided deficit - ASA 81mg PO daily; As per daughter, patient's plavix has been discontinued - Crestor 20mg PO HS Status: Acute (6) Hypertension Assessment & Plan: Continue home Medications * Amlodipine 10mg daily * Hydralazine 25mg PO Q8H * Coreg 3.125mg PO daily Status: Acute (7) Elevated liver enzymes Assessment & Plan: Possibly secondary to poor ORAL intake and dehydration Will give maintenance fluid Will monitor with am labs Status: Acute (8) Prophylactic measure Assessment & Plan: DVT: Lovenox 40mg SC daily GI: Protonix 40mg PO daily Disposition: Patient is medically stable. Patient's sister signed paperwork to become POA 05/24/18, as per certified social workers in health care. Patient is still currently pending approval to [facility] for [facility] with transition to termite treater care. Awaiting updates from All plans and management discussed with Dr. Antonio Status: Acute
[2018-08-07] MEDS: Venlafaxine 37.5 mg ER Cap PO SCH (09:53)
[2018-08-07] MEDS: Pantoprazole 40 mg EC Tab PO SCH (09:53)
[2018-08-07] MEDS: Enoxaparin 40 mg Syringe SC SCH (09:54)
[2018-08-07] MEDS: SILVASORB ANTIMICROBIAL WOUND GEL TOP SCH (09:55)
[2018-08-07] MEDS: levETIRAcetam 100 mg/ml (5ml) Oral Syringe PO SCH ×2 (09:58→18:03)
[2018-08-07] MEDS ORDERED: Dextrose 5%/0.9% NS 1,000 ML IV SCH (11:00)
[2018-08-07] MEDS: Sodium Chloride 0.9% 1,000 ML IV SCH (22:18)
[2018-08-08] MEDS: Sodium Chloride 0.9% 1,000 ML IV SCH ×3 (03:30→22:43)
[2018-08-08] MEDS: Enoxaparin 40 mg Syringe SC SCH (11:41)
[2018-08-08] MEDS: levETIRAcetam 100 mg/ml (5ml) Oral Syringe PO SCH (11:41)
[2018-08-08] MEDS: Pantoprazole 40 mg EC Tab PO SCH (11:42)
[2018-08-08] MEDS: Venlafaxine 37.5 mg ER Cap PO SCH (11:42)
[2018-08-08] MEDS: SILVASORB ANTIMICROBIAL WOUND GEL TOP SCH (11:43)
--- NOTE | 2018-08-08 15:14 | CP.PCM.PN ---
Subjective - Date & Time of Evaluation Date of Evaluation: 08/08/18 Time of Evaluation: 07:00 - Subjective Subjective: Medicine progress note ( Dr. Antonio's service) Patient was seen and examined at bedside. As per nursing staff, no acute issues overnight. Currently, patient denies any acute complaints. Objective - Vital Signs/Intake and Output Vital Signs (last 24 hours): Temp Pulse Resp BP Pulse Ox 98.2 F 68 20 111/95 H 95 08/08/18 08:06 08/08/18 08:06 08/08/18 08:06 08/08/18 08:06 08/08/18 08:06 Intake and Output: 08/08/18 08/08/18 06:59 18:59 Intake Total 1750 Balance 1750 - Medications Medications: Current Medications Amlodipine Besylate (Norvasc) 10 mg PO DAILY [facility] Last Admin: 08/08/18 11:42 Dose: 10 mg Aspirin (Aspirin Chewable) 81 mg PO DAILY [facility] Last Admin: 08/08/18 11:42 Dose: 81 mg Carvedilol (Coreg) 3.125 mg PO BID [facility] Last Admin: 08/08/18 11:44 Dose: Not Given Enoxaparin Sodium (Lovenox) 40 mg SC DAILY [facility] Last Admin: 08/08/18 11:41 Dose: 40 mg Ferrous Sulfate (Feosol) 325 mg PO BID [facility] Last Admin: 08/08/18 11:42 Dose: 325 mg Hydralazine HCl (Apresoline) 25 mg PO Q8H [facility] Last Admin: 08/08/18 14:47 Dose: Not Given Sodium Chloride (Sodium Chloride 0.9%) 1,000 mls @ 100 mls/hr IV .Q10H [facility] Last Admin: 08/08/18 11:49 Dose: 100 mls/hr Levetiracetam (Keppra) 250 mg PO BID [facility] Last Admin: 08/08/18 11:41 Dose: 250 mg Pantoprazole Sodium (Protonix Ec Tab) 40 mg PO DAILY [facility] Last Admin: 08/08/18 11:42 Dose: 40 mg Rosuvastatin Calcium (Crestor) 20 mg PO HS [facility] Last Admin: 08/07/18 22:20 Dose: Not Given Venlafaxine HCl (Effexor Xr) 37.5 mg PO DAILY [facility] Last Admin: 08/08/18 11:42 Dose: 37.5 mg - Labs Labs: 08/06/18 06:10 08/06/18 06:10 - Additional Findings Additional findings: - Constitutional Appears: No Acute Distress - Head Exam Head Exam: ATRAUMATIC - Eye Exam Eye Exam: EOMI - ENT Exam ENT Exam: Mucous Membranes Dry - Respiratory Exam Respiratory Exam: Clear to Ausculation Bilateral, NORMAL BREATHING PATTERN. absent: Prolonged Expiratory Phase, Rhonchi, Wheezes, Respiratory Distress - Cardiovascular Exam Cardiovascular Exam: REGULAR RHYTHM, +S1, +S2 - GI/Abdominal Exam GI & Abdominal Exam: Soft, Normal Bowel Sounds. absent: Distended, Firm, Guarding, Rigid, Tenderness - Extremities Exam Extremities Exam: Normal Inspection. absent: Calf Tenderness, Pedal Edema - Neurological Exam Neurological Exam: Alert, Awake Additional comments: Right residual weakness from old CVA - Psychiatric Exam Psychiatric exam: Flat Affect - Skin Skin Exam: Normal Color Assessment and Plan - Assessment and Plan (Free Text) Assessment: (1) Lethargy Assessment & Plan: 2/2 to severe dehydration, poor PO intake, poor care or possible infection - improving, patient more awake, alert, and eating Continue Ensure nutritional supplement UA: Negative Urine Culture: Negative Blood Culture: No growth Chest X-ray: No active disease abx discontinued Status: Acute (2) Hx of iron deficiency anemia Assessment & Plan: Feosol 325mg PO BID Status: Acute (3) Brain aneurysm Assessment & Plan: Hx of brain aneursym S/p coil in 10/[address] (07/16/17): Embolization coils are seen adjacent to the basilar artery. There is a large amount of metallic artifact. Chronic lacunar infarcts are seen in the thalamus bilaterally. There is also a chronic infarct of the left occipital lobe. The ocular lenses are dislocated bilaterally -Keppra 250mg PO BID Status: Resolved (4) Depression as late effect of cerebrovascular accident (CVA) Assessment & Plan: Effexor 37.5mg PO daily Status: Acute (5) History of CVA (cerebrovascular accident) Assessment & Plan: Residual right sided deficit - ASA 81mg PO daily; As per daughter, patient's plavix has been discontinued - Crestor 20mg PO HS Status: Acute (6) Hypertension Assessment & Plan: Continue home Medications * Amlodipine 10mg daily * Hydralazine 25mg PO Q8H * Coreg 3.125mg PO daily Status: Acute (7) Elevated liver enzymes Assessment & Plan: Possibly secondary to poor ORAL intake and dehydration Will give maintenance fluid Will monitor with am labs Status: Acute (8) Prophylactic measure Assessment & Plan: DVT: Lovenox 40mg SC daily GI: Protonix 40mg PO daily Status: Acute Disposition: Patient is medically stable. Patient's sister signed paperwork to become POA 05/24/18, as per outreach and education social worker. Patient is still currently pending approval to [facility] for [facility] with transition to retirement care. Awaiting updates from All plans and management discussed with Dr. Antonio
[2018-08-09 08:13] LABS: BASO % 0.2 % (0.0-2.0); EOS # 0.2 K/uL (0.0-0.7); EOS % 3.5 % (0.0-4.0); HEMOGLOBIN 9.9 g/dL (11.0-16.0); LYMPH # 1.5 K/uL (1.0-4.3); LYMPH % 29.7 % (20.0-40.0); MEAN CELL VOLUME 80.7 fL (81.0-99.0); MEAN CORPUSCULAR HEMOGLOBIN 26.7 pg (27.0-31.0); MEAN CORPUSCULAR HGB CONC 33.1 g/dL (33.0-37.0); MONO # 0.4 K/uL (0.0-0.8); MONO % 8.6 % (0.0-10.0); NRBC % 0.1 % (0.0-2.0); RBC 3.7 Mil/uL (3.80-5.20); RED CELL DISTRIBUTION WIDTH 18.2 % (11.5-14.5); WHITE BLOOD COUNT 5.2 K/uL (4.8-10.8)
[2018-08-09 08:25] LABS: ALB/GLOB RATIO 1.2 (1.0-2.1); ALBUMIN 3.1 g/dL (3.5-5.0); ALT/SGPT 82 U/L (9-52); AST/SGOT 22 U/L (14-36); BLOOD UREA NITROGEN 8 mg/dL (7-17); CALCIUM 9.1 mg/dl (8.6-10.4); GFR NON-AFRICAN AMERICAN > 60
--- NOTE | 2018-08-09 10:10 | CP.PCM.PN ---
Subjective - Date & Time of Evaluation Date of Evaluation: 08/09/18 Time of Evaluation: 07:00 - Subjective Subjective: PGY2- Progress Note for Dr. Antonio Patient seen and examined at bedside and in no acute distress. Patient says she is feeling fine and denies any pain. No acute events overnight as per nursing. Objective - Vital Signs/Intake and Output Vital Signs (last 24 hours): Temp Pulse Resp BP Pulse Ox 98.5 F 73 20 119/76 96 08/09/18 07:56 08/09/18 07:56 08/09/18 07:56 08/09/18 07:56 08/09/18 07:56 Intake and Output: 08/09/18 08/09/18 06:59 18:59 Intake Total 1050 Output Total 700 Balance 350 - Medications Medications: Current Medications Amlodipine Besylate (Norvasc) 10 mg PO DAILY [facility] Last Admin: 08/08/18 11:42 Dose: 10 mg Aspirin (Aspirin Chewable) 81 mg PO DAILY [facility] Last Admin: 08/08/18 11:42 Dose: 81 mg Carvedilol (Coreg) 3.125 mg PO BID [facility] Last Admin: 08/08/18 17:41 Dose: 3.125 mg Enoxaparin Sodium (Lovenox) 40 mg SC DAILY [facility] Last Admin: 08/08/18 11:41 Dose: 40 mg Ferrous Sulfate (Feosol) 325 mg PO BID [facility] Last Admin: 08/08/18 17:41 Dose: 325 mg Hydralazine HCl (Apresoline) 25 mg PO Q8H [facility] Last Admin: 08/09/18 06:56 Dose: 25 mg Sodium Chloride (Sodium Chloride 0.9%) 1,000 mls @ 100 mls/hr IV .Q10H [facility] Last Admin: 08/08/18 22:43 Dose: 100 mls/hr Levetiracetam (Keppra) 250 mg PO BID [facility] Last Admin: 08/08/18 11:41 Dose: 250 mg Pantoprazole Sodium (Protonix Ec Tab) 40 mg PO DAILY [facility] Last Admin: 08/08/18 11:42 Dose: 40 mg Rosuvastatin Calcium (Crestor) 20 mg PO HS [facility] Last Admin: 08/08/18 21:26 Dose: 20 mg Venlafaxine HCl (Effexor Xr) 37.5 mg PO DAILY [facility] Last Admin: 08/08/18 11:42 Dose: 37.5 mg - Labs Labs: 08/09/18 08:04 08/09/18 08:04 - Additional Findings Additional findings: - Constitutional Appears: No Acute Distress - Head Exam Head Exam: ATRAUMATIC - Eye Exam Eye Exam: EOMI - ENT Exam ENT Exam: Mucous Membranes Dry - Respiratory Exam Respiratory Exam: Clear to Ausculation Bilateral, NORMAL BREATHING PATTERN. absent: Prolonged Expiratory Phase, Rhonchi, Wheezes, Respiratory Distress - Cardiovascular Exam Cardiovascular Exam: REGULAR RHYTHM, +S1, +S2 - GI/Abdominal Exam GI & Abdominal Exam: Soft, Normal Bowel Sounds. absent: Distended, Firm, Guarding, Rigid, Tenderness - Extremities Exam Extremities Exam: Normal Inspection. absent: Calf Tenderness, Pedal Edema - Neurological Exam Neurological Exam: Alert, Awake Additional comments: Right residual weakness from old CVA - Psychiatric Exam Psychiatric exam: Flat Affect - Skin Skin Exam: Normal Color Assessment and Plan - Assessment and Plan (Free Text) Assessment: (1) Lethargy Assessment & Plan: 2/2 to severe dehydration, poor PO intake, poor care or possible infection - improving, patient more awake, alert, and eating Continue Ensure nutritional supplement UA: Negative Urine Culture: Negative Blood Culture: No growth Chest X-ray: No active disease abx discontinued Status: Acute (2) Hx of iron deficiency anemia Assessment & Plan: Feosol 325mg PO BID Status: Acute (3) Brain aneurysm Assessment & Plan: Hx of brain aneursym S/p coil in 10/[address] (07/16/17): Embolization coils are seen adjacent to the basilar artery. There is a large amount of metallic artifact. Chronic lacunar infarcts are seen in the thalamus bilaterally. There is also a chronic infarct of the left occipital lobe. The ocular lenses are dislocated bilaterally -Keppra 250mg PO BID Status: Resolved (4) Depression as late effect of cerebrovascular accident (CVA) Assessment & Plan: Effexor 37.5mg PO daily Status: Acute (5) History of CVA (cerebrovascular accident) Assessment & Plan: Residual right sided deficit - ASA 81mg PO daily; As per daughter, patient's plavix has been discontinued - Crestor 20mg PO HS Status: Acute (6) Hypertension Assessment & Plan: Continue home Medications * Amlodipine 10mg daily * Hydralazine 25mg PO Q8H * Coreg 3.125mg PO daily Status: Acute (7) Elevated liver enzymes Assessment & Plan: Possibly secondary to poor oral intake and dehydration NS @ 100 cc/hr decreasing AST: 82 (from 294), ALT: 145 (from 247) Will monitor with am labs Status: Acute (8) Prophylactic measure Assessment & Plan: DVT: Lovenox 40mg SC daily GI: Protonix 40mg PO daily Status: Acute Disposition: Patient is medically stable. Patient's sister signed paperwork to become POA medically 05/24/18, as per social work professor. Sister now needs to get POA financially. Then patient will need to get approval for [facility] for [facility] with transition to [facility] care. All plans and management discussed with Dr. Antonio
[2018-08-09] MEDS: levETIRAcetam 100 mg/ml (5ml) Oral Syringe PO SCH ×3 (10:38→18:43)
[2018-08-09] MEDS: Venlafaxine 37.5 mg ER Cap PO SCH (10:39)
[2018-08-09] MEDS: SILVASORB ANTIMICROBIAL WOUND GEL TOP SCH (10:39)
[2018-08-09] MEDS: Pantoprazole 40 mg EC Tab PO SCH (10:39)
[2018-08-09] MEDS: Enoxaparin 40 mg Syringe SC SCH (10:46)
[2018-08-09] MEDS: Sodium Chloride 0.9% 1,000 ML IV SCH (18:43)
[2018-08-10] MEDS: Sodium Chloride 0.9% 1,000 ML IV SCH ×2 (05:30→15:30)
--- NOTE | 2018-08-10 09:23 | CP.PCM.PN ---
Subjective - Date & Time of Evaluation Date of Evaluation: 08/10/18 Time of Evaluation: 09:21 - Subjective Subjective: PGY2 Medicine Note for Dr. Antonio Patient seen and examined this morning at bedside. No acute events over night. Patient is resting comfortably in bed in no acute distress. Objective - Vital Signs/Intake and Output Vital Signs (last 24 hours): Temp Pulse Resp BP Pulse Ox 98.1 F 69 20 115/73 98 08/10/18 07:00 08/10/18 07:00 08/10/18 07:00 08/10/18 07:00 08/10/18 07:00 Intake and Output: 08/10/18 08/10/18 06:59 18:59 Intake Total 1120 Balance 1120 - Medications Medications: Current Medications Amlodipine Besylate (Norvasc) 10 mg PO DAILY [facility] Last Admin: 08/09/18 10:39 Dose: 10 mg Aspirin (Aspirin Chewable) 81 mg PO DAILY [facility] Last Admin: 08/09/18 10:39 Dose: 81 mg Carvedilol (Coreg) 3.125 mg PO BID [facility] Last Admin: 08/09/18 18:41 Dose: 3.125 mg Enoxaparin Sodium (Lovenox) 40 mg SC DAILY [facility] Last Admin: 08/09/18 10:46 Dose: 40 mg Ferrous Sulfate (Feosol) 325 mg PO BID [facility] Last Admin: 08/09/18 18:41 Dose: 325 mg Hydralazine HCl (Apresoline) 25 mg PO Q8H [facility] Last Admin: 08/10/18 06:04 Dose: 25 mg Sodium Chloride (Sodium Chloride 0.9%) 1,000 mls @ 100 mls/hr IV .Q10H [facility] Last Admin: 08/10/18 05:30 Dose: Not Given Levetiracetam (Keppra) 250 mg PO BID [facility] Last Admin: 08/09/18 18:43 Dose: 250 mg Pantoprazole Sodium (Protonix Ec Tab) 40 mg PO DAILY [facility] Last Admin: 08/09/18 10:39 Dose: 40 mg Rosuvastatin Calcium (Crestor) 20 mg PO HS [facility] Last Admin: 08/09/18 21:42 Dose: 20 mg Venlafaxine HCl (Effexor Xr) 37.5 mg PO DAILY [facility] Last Admin: 08/09/18 10:39 Dose: 37.5 mg - Labs Labs: 08/09/18 08:04 08/09/18 08:04 - Additional Findings Additional findings: - Constitutional Appears: No Acute Distress - Head Exam Head Exam: ATRAUMATIC - Eye Exam Eye Exam: Normal appearance - ENT Exam ENT Exam: Mucous Membranes Moist - Respiratory Exam Respiratory Exam: Clear to Ausculation Bilateral, NORMAL BREATHING PATTERN. absent: Accessory Muscle Use, Rales, Rhonchi, Wheezes, Respiratory Distress - Cardiovascular Exam Cardiovascular Exam: REGULAR RHYTHM, +S1, +S2 - GI/Abdominal Exam GI & Abdominal Exam: Soft. absent: Distended, Firm, Guarding, Rigid, Tenderness - Extremities Exam Extremities Exam: absent: Calf Tenderness, Pedal Edema - Neurological Exam Neurological Exam: Alert, Awake - Psychiatric Exam Psychiatric exam: Depressed, Flat Affect - Skin Skin Exam: Dry, Warm Assessment and Plan - Assessment and Plan (Free Text) Plan: (1) Lethargy Assessment & Plan: 2/2 to severe dehydration, poor PO intake, poor care or possible infection - improving, patient more awake, alert, and eating Continue Ensure nutritional supplement UA: Negative Urine Culture: Negative Blood Culture: No growth Chest X-ray: No active disease abx discontinued Status: Acute (2) Hx of iron deficiency anemia Assessment & Plan: Feosol 325mg PO BID Status: Acute (3) Brain aneurysm Assessment & Plan: Hx of brain aneursym S/p coil in 10/[address] (07/16/17): Embolization coils are seen adjacent to the basilar artery. There is a large amount of metallic artifact. Chronic lacunar infarcts are seen in the thalamus bilaterally. There is also a chronic infarct of the left occipital lobe. The ocular lenses are dislocated bilaterally -Keppra 250mg PO BID Status: Resolved (4) Depression as late effect of cerebrovascular accident (CVA) Assessment & Plan: Effexor 37.5mg PO daily Status: Acute (5) History of CVA (cerebrovascular accident) Assessment & Plan: Residual right sided deficit - ASA 81mg PO daily; As per daughter, patient's plavix has been discontinued - Crestor 20mg PO HS Status: Acute (6) Hypertension Assessment & Plan: Continue home Medications * Amlodipine 10mg daily * Hydralazine 25mg PO Q8H * Coreg 3.125mg PO daily Status: Acute (7) Elevated liver enzymes Assessment & Plan: Possibly secondary to poor oral intake and dehydration NS @ 100 cc/hr decreasing AST: 82 (from 294), ALT: 145 (from 247) Will monitor with am labs Status: Acute (8) Prophylactic measure Assessment & Plan: DVT: Lovenox 40mg SC daily GI: Protonix 40mg PO daily Status: Acute Disposition: Patient is medically stable. Patient's sisters signed all paperwork. We are currently awaiting them to provide all finical paperwork to get their Medicaid application approved. 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 All plans and management discussed with Dr. Antonio
[2018-08-10] MEDS: levETIRAcetam 100 mg/ml (5ml) Oral Syringe PO SCH ×2 (10:14→17:04)
[2018-08-10] MEDS: Enoxaparin 40 mg Syringe SC SCH (10:15)
[2018-08-10] MEDS: Pantoprazole 40 mg EC Tab PO SCH (10:16)
[2018-08-10] MEDS: Venlafaxine 37.5 mg ER Cap PO SCH (10:16)
[2018-08-10] MEDS: SILVASORB ANTIMICROBIAL WOUND GEL TOP SCH (10:22)
[2018-08-11] MEDS: Sodium Chloride 0.9% 1,000 ML IV SCH ×2 (01:30→12:52)
[2018-08-11] MEDS: Enoxaparin 40 mg Syringe SC SCH (10:07)
[2018-08-11] MEDS: levETIRAcetam 100 mg/ml (5ml) Oral Syringe PO SCH ×2 (10:07→17:45)
[2018-08-11] MEDS: Pantoprazole 40 mg EC Tab PO SCH (10:08)
[2018-08-11] MEDS: Venlafaxine 37.5 mg ER Cap PO SCH (10:08)
[2018-08-11] MEDS: SILVASORB ANTIMICROBIAL WOUND GEL TOP SCH (10:09)
[2018-08-12 07:57] LABS: BASO % 0.5 % (0.0-2.0); EOS # 0.2 K/uL (0.0-0.7); EOS % 4.7 % (0.0-4.0); LYMPH # 1.5 K/uL (1.0-4.3); LYMPH % 33.3 % (20.0-40.0); MEAN CELL VOLUME 80.7 fL (81.0-99.0); MEAN CORPUSCULAR HEMOGLOBIN 26.6 pg (27.0-31.0); MEAN PLATELET VOLUME 7.4 fL (7.2-11.7); MONO # 0.4 K/uL (0.0-0.8); MONO % 8.5 % (0.0-10.0); NEUT # 2.4 K/uL (1.8-7.0); RBC 3.74 Mil/uL (3.80-5.20); RED CELL DISTRIBUTION WIDTH 17.9 % (11.5-14.5); WHITE BLOOD COUNT 4.6 K/uL (4.8-10.8)
[2018-08-12 08:12] LABS: ALB/GLOB RATIO 1.2 (1.0-2.1); ALT/SGPT 39 U/L (9-52); AST/SGOT 15 U/L (14-36); BLOOD UREA NITROGEN 9 mg/dL (7-17); GFR NON-AFRICAN AMERICAN > 60
[2018-08-12] MEDS: Pantoprazole 40 mg EC Tab PO SCH (10:31)
[2018-08-12] MEDS: Venlafaxine 37.5 mg ER Cap PO SCH (10:32)
[2018-08-12] MEDS: levETIRAcetam 100 mg/ml (5ml) Oral Syringe PO SCH ×2 (10:33→17:25)
[2018-08-12] MEDS: Enoxaparin 40 mg Syringe SC SCH (10:33)
[2018-08-12] MEDS: SILVASORB ANTIMICROBIAL WOUND GEL TOP SCH (10:34)
[2018-08-12] MEDS: Sodium Chloride 0.9% 1,000 ML IV SCH ×3 (10:36→21:38)
[2018-08-13] MEDS: Sodium Chloride 0.9% 1,000 ML IV SCH (03:06)
[2018-08-13] MEDS: Venlafaxine 37.5 mg ER Cap PO SCH (09:33)
[2018-08-13] MEDS: Pantoprazole 40 mg EC Tab PO SCH (09:33)
[2018-08-13] MEDS: levETIRAcetam 100 mg/ml (5ml) Oral Syringe PO SCH ×2 (09:33→17:42)
[2018-08-13] MEDS: Enoxaparin 40 mg Syringe SC SCH (09:34)
--- NOTE | 2018-08-13 10:30 | CP.PCM.PN ---
Subjective - Date & Time of Evaluation Date of Evaluation: 08/13/18 Time of Evaluation: 10:30 - Subjective Subjective: Progress note. Attending: Dr. Antonio. Pt seen and examined at bedside. No acute distress. No events overnight. No complaints at this time. Awaiting placement. Objective - Vital Signs/Intake and Output Vital Signs (last 24 hours): Temp Pulse Resp BP Pulse Ox 97.6 F 61 16 107/76 98 08/13/18 00:00 08/13/18 00:00 08/13/18 00:00 08/13/18 00:00 08/13/18 00:00 Intake and Output: 08/13/18 08/13/18 06:59 18:59 Intake Total 1040 Balance 1040 - Medications Medications: Current Medications Amlodipine Besylate (Norvasc) 10 mg PO DAILY [facility] Last Admin: 08/13/18 09:33 Dose: 10 mg Aspirin (Aspirin Chewable) 81 mg PO DAILY [facility] Last Admin: 08/13/18 09:33 Dose: 81 mg Carvedilol (Coreg) 3.125 mg PO BID [facility] Last Admin: 08/13/18 09:35 Dose: 3.125 mg Enoxaparin Sodium (Lovenox) 40 mg SC DAILY [facility] Last Admin: 08/13/18 09:34 Dose: 40 mg Ferrous Sulfate (Feosol) 325 mg PO BID [facility] Last Admin: 08/13/18 09:33 Dose: 325 mg Hydralazine HCl (Apresoline) 25 mg PO Q8H [facility] Last Admin: 08/13/18 05:32 Dose: 25 mg Sodium Chloride (Sodium Chloride 0.9%) 1,000 mls @ 100 mls/hr IV .Q10H [facility] Last Admin: 08/13/18 03:06 Dose: Not Given Levetiracetam (Keppra) 250 mg PO BID [facility] Last Admin: 08/13/18 09:33 Dose: 250 mg Pantoprazole Sodium (Protonix Ec Tab) 40 mg PO DAILY [facility] Last Admin: 08/13/18 09:33 Dose: 40 mg Rosuvastatin Calcium (Crestor) 20 mg PO HS [facility] Last Admin: 08/12/18 21:23 Dose: 20 mg Venlafaxine HCl (Effexor Xr) 37.5 mg PO DAILY [facility] Last Admin: 02/11/19 09:33 Dose: 37.5 mg - Labs Labs: 08/12/18 07:52 08/12/18 07:52 - Constitutional Appears: No Acute Distress, Chronically Ill - Head Exam Head Exam: ATRAUMATIC, NORMAL INSPECTION - Eye Exam Eye Exam: EOMI - ENT Exam ENT Exam: Mucous Membranes Moist - Neck Exam Neck Exam: Full ROM, Normal Inspection - Respiratory Exam Respiratory Exam: NORMAL BREATHING PATTERN. absent: Respiratory Distress - Cardiovascular Exam Cardiovascular Exam: +S1, +S2 - GI/Abdominal Exam GI & Abdominal Exam: Soft, Normal Bowel Sounds. absent: Tenderness - Extremities Exam Extremities Exam: Full ROM, Normal Inspection - Neurological Exam Neurological Exam: Alert, Awake - Psychiatric Exam Psychiatric exam: Flat Affect - Skin Skin Exam: Dry, Intact, Normal Color, Warm Assessment and Plan - Assessment and Plan (Free Text) Assessment: (1) Lethargy 2/2 to severe dehydration, poor PO intake, poor care or possible infection - improving, patient more awake, alert, and eating Continue Ensure nutritional supplement UA: Negative Urine Culture: Negative Blood Culture: No growth Chest X-ray: No active disease abx discontinued (2) Hx of iron deficiency anemia Feosol 325mg PO BID (3) Brain aneurysm Hx of brain aneursym S/p coil in 10/[address] (07/16/17): Embolization coils are seen adjacent to the basilar artery. There is a large amount of metallic artifact. Chronic lacunar infarcts are seen in the thalamus bilaterally. There is also a chronic infarct of the left occipital lobe. The ocular lenses are dislocated bilaterally -Keppra 250mg PO BID (4) Depression as late effect of cerebrovascular accident (CVA) continue Effexor 37.5mg PO daily (5) History of CVA Residual right sided deficit - ASA 81 mg PO daily; As per daughter, patient's plavix has been discontinued - Crestor 20 mg PO HS (6) Hypertension Continue home Medications * Amlodipine 10mg daily * Hydralazine 25 mg PO Q8H * Coreg 3.125 mg PO daily (7) Elevated liver enzymes likely multifactorial in etiology NS @ 100 cc/hr Will monitor with am labs (8) Prophylactic measure DVT: Lovenox 40mg SC daily GI: Protonix 40mg PO daily Disposition: Patient is medically stable. Patient's sisters signed all paperwork. We are currently awaiting them to provide all finical paperwork to get their Medicaid application approved. Once their application is approved, patient is to be discharged to [facility] with transition to [facility] care.
[2018-08-13 10:59] LABS: BASO % 0.4 % (0.0-2.0); EOS # 0.2 K/uL (0.0-0.7); HEMOGLOBIN 9.9 g/dL (11.0-16.0); LYMPH # 1.4 K/uL (1.0-4.3); LYMPH % 24.9 % (20.0-40.0); MEAN CELL VOLUME 81.1 fL (81.0-99.0); MEAN CORPUSCULAR HEMOGLOBIN 26.5 pg (27.0-31.0); MEAN CORPUSCULAR HGB CONC 32.7 g/dL (33.0-37.0); MONO # 0.5 K/uL (0.0-0.8); NEUT # 3.4 K/uL (1.8-7.0); NEUT % 62.7 % (50.0-75.0); NRBC % 0.1 % (0.0-2.0); RBC 3.72 Mil/uL (3.80-5.20); RED CELL DISTRIBUTION WIDTH 17.7 % (11.5-14.5); WHITE BLOOD COUNT 5.5 K/uL (4.8-10.8)
[2018-08-13 11:19] LABS: ALB/GLOB RATIO 1.3 (1.0-2.1); ALT/SGPT 34 U/L (9-52); AST/SGOT 15 U/L (14-36); BLOOD UREA NITROGEN 11 mg/dL (7-17); CALCIUM 8.8 mg/dl (8.6-10.4); GFR NON-AFRICAN AMERICAN > 60
[2018-08-13] MEDS: SILVASORB ANTIMICROBIAL WOUND GEL TOP SCH (14:32)
[2018-08-14 08:19] LABS: BASO % 0.3 % (0.0-2.0); EOS # 0.2 K/uL (0.0-0.7); EOS % 2.4 % (0.0-4.0); HEMOGLOBIN 10.1 g/dL (11.0-16.0); LYMPH # 1.6 K/uL (1.0-4.3); LYMPH % 25.9 % (20.0-40.0); MEAN CELL VOLUME 81.6 fL (81.0-99.0); MEAN CORPUSCULAR HEMOGLOBIN 27.1 pg (27.0-31.0); MEAN CORPUSCULAR HGB CONC 33.2 g/dL (33.0-37.0); MEAN PLATELET VOLUME 7.9 fL (7.2-11.7); MONO # 0.6 K/uL (0.0-0.8); MONO % 8.9 % (0.0-10.0); NEUT % 62.5 % (50.0-75.0); RBC 3.74 Mil/uL (3.80-5.20); RED CELL DISTRIBUTION WIDTH 18.1 % (11.5-14.5); WHITE BLOOD COUNT 6.3 K/uL (4.8-10.8)
[2018-08-14 08:35] LABS: ALB/GLOB RATIO 1.3 (1.0-2.1); ALBUMIN 3.2 g/dL (3.5-5.0); ALT/SGPT 31 U/L (9-52); AST/SGOT 14 U/L (14-36); BLOOD UREA NITROGEN 10 mg/dL (7-17); CALCIUM 9.1 mg/dl (8.6-10.4); GFR NON-AFRICAN AMERICAN > 60
[2018-08-14] MEDS: Venlafaxine 37.5 mg ER Cap PO SCH (09:31)
[2018-08-14] MEDS: Pantoprazole 40 mg EC Tab PO SCH (09:32)
[2018-08-14] MEDS: levETIRAcetam 100 mg/ml (5ml) Oral Syringe PO SCH ×2 (09:32→17:49)
[2018-08-14] MEDS: SILVASORB ANTIMICROBIAL WOUND GEL TOP SCH (09:36)
--- NOTE | 2018-08-14 13:18 | CP.PCM.PN ---
Subjective - Date & Time of Evaluation Date of Evaluation: 08/14/18 Time of Evaluation: 13:15 - Subjective Subjective: Progress note. Attending: Dr. Antonio. Patient seen and examined at bedside. No acute distress. No fevers, chills, vomiting, diarrhea. No complaints today. Objective - Vital Signs/Intake and Output Vital Signs (last 24 hours): Temp Pulse Resp BP Pulse Ox 97.6 F 64 20 101/62 97 08/14/18 07:55 08/14/18 07:55 08/14/18 07:55 08/14/18 07:55 08/14/18 07:55 Intake and Output: 08/14/18 08/14/18 06:59 18:59 Intake Total 820 Balance 820 - Medications Medications: Current Medications Amlodipine Besylate (Norvasc) 10 mg PO DAILY [facility] Last Admin: 08/14/18 09:32 Dose: 10 mg Aspirin (Aspirin Chewable) 81 mg PO DAILY [facility] Last Admin: 08/14/18 09:31 Dose: 81 mg Carvedilol (Coreg) 3.125 mg PO BID [facility] Last Admin: 08/14/18 09:31 Dose: 3.125 mg Ferrous Sulfate (Feosol) 325 mg PO BID [facility] Last Admin: 08/14/18 09:31 Dose: 325 mg Hydralazine HCl (Apresoline) 25 mg PO Q8H [facility] Last Admin: 08/14/18 05:44 Dose: 25 mg Levetiracetam (Keppra) 250 mg PO BID [facility] Last Admin: 08/14/18 09:32 Dose: 250 mg Pantoprazole Sodium (Protonix Ec Tab) 40 mg PO DAILY [facility] Last Admin: 08/14/18 09:32 Dose: 40 mg Rosuvastatin Calcium (Crestor) 20 mg PO HS [facility] Last Admin: 08/13/18 21:26 Dose: 20 mg Venlafaxine HCl (Effexor Xr) 37.5 mg PO DAILY [facility] Last Admin: 08/14/18 09:31 Dose: 37.5 mg - Labs Labs: 08/14/18 08:12 08/14/18 08:12 - Constitutional Appears: Chronically Ill - Head Exam Head Exam: ATRAUMATIC, NORMAL INSPECTION, NORMOCEPHALIC - Eye Exam Eye Exam: EOMI - ENT Exam ENT Exam: Mucous Membranes Moist - Neck Exam Neck Exam: Full ROM, Normal Inspection - Respiratory Exam Respiratory Exam: NORMAL BREATHING PATTERN. absent: Respiratory Distress - Cardiovascular Exam Cardiovascular Exam: +S1, +S2 - GI/Abdominal Exam GI & Abdominal Exam: Soft, Normal Bowel Sounds. absent: Tenderness - Extremities Exam Extremities Exam: Full ROM, Normal Inspection - Neurological Exam Neurological Exam: Alert, Awake. absent: Oriented x3 - Psychiatric Exam Psychiatric exam: Flat Affect - Skin Skin Exam: Dry, Intact, Normal Color, Warm Assessment and Plan - Assessment and Plan (Free Text) Assessment: This is a 62 year old female with (1) Lethargy 2/2 to severe dehydration, poor PO intake, poor care or possible infection - improving, patient more awake, alert, and eating Continue Ensure nutritional supplement UA: Negative Urine Culture: Negative Blood Culture: No growth Chest X-ray: No active disease abx discontinued (2) Hx of iron deficiency anemia Feosol 325mg PO BID (3) Brain aneurysm Hx of brain aneursym S/p coil in 10/[address] (07/16/17): Embolization coils are seen adjacent to the basilar artery. There is a large amount of metallic artifact. Chronic lacunar infarcts are seen in the thalamus bilaterally. There is also a chronic infarct of the left occipital lobe. The ocular lenses are dislocated bilaterally -Keppra 250mg PO BID (4) Depression as late effect of cerebrovascular accident (CVA) continue Effexor 37.5mg PO daily (5) History of CVA Residual right sided deficit - ASA 81 mg PO daily; As per daughter, patient's plavix has been discontinued - Crestor 20 mg PO HS (6) Hypertension Continue home Medications * Amlodipine 10mg daily * Hydralazine 25 mg PO Q8H * Coreg 3.125 mg PO daily (7) Elevated liver enzymes likely multifactorial in etiology NS @ 100 cc/hr Will monitor with am labs (8) GI/DVT ppx DVT: Lovenox 40 mg SC daily GI: Protonix 40mg PO daily Disposition: Patient is medically stable. Patient's sisters signed all paperwork. We are currently awaiting them to provide all finical paperwork to get their Medicaid application approved. Once their application is approved, patient is to be discharged to [facility] with transition to long-term care.
--- NOTE | 2018-08-15 07:04 | CP.PCM.PN ---
Subjective - Date & Time of Evaluation Date of Evaluation: 08/15/18 Time of Evaluation: 06:55 - Subjective Subjective: Progress note for Dr. Antonio Patient was seen and examined at bedside in no acute distress. Patient is nonverbal, but opens eyes when spoken to. ROS not obtained due to patient's condition. Objective - Vital Signs/Intake and Output Vital Signs (last 24 hours): Temp Pulse Resp BP Pulse Ox 98.1 F 74 20 112/69 95 08/15/18 00:00 08/15/18 05:58 08/15/18 00:00 08/15/18 05:58 08/15/18 00:00 Intake and Output: 08/14/18 08/15/18 18:59 06:59 Intake Total 250 350 Balance 250 350 - Medications Medications: Current Medications Amlodipine Besylate (Norvasc) 10 mg PO DAILY [facility] Last Admin: 08/14/18 09:32 Dose: 10 mg Aspirin (Aspirin Chewable) 81 mg PO DAILY [facility] Last Admin: 08/14/18 09:31 Dose: 81 mg Carvedilol (Coreg) 3.125 mg PO BID [facility] Last Admin: 08/14/18 17:51 Dose: 3.125 mg Ferrous Sulfate (Feosol) 325 mg PO BID [facility] Last Admin: 08/14/18 17:48 Dose: 325 mg Hydralazine HCl (Apresoline) 25 mg PO Q8H [facility] Last Admin: 08/15/18 05:58 Dose: 25 mg Levetiracetam (Keppra) 250 mg PO BID [facility] Last Admin: 08/14/18 17:49 Dose: 250 mg Pantoprazole Sodium (Protonix Ec Tab) 40 mg PO DAILY [facility] Last Admin: 08/14/18 09:32 Dose: 40 mg Rosuvastatin Calcium (Crestor) 20 mg PO HS [facility] Last Admin: 08/14/18 21:32 Dose: 20 mg Venlafaxine HCl (Effexor Xr) 37.5 mg PO DAILY [facility] Last Admin: 08/14/18 09:31 Dose: 37.5 mg - Labs Labs: 08/14/18 08:12 08/14/18 08:12 - Constitutional Appears: No Acute Distress, Chronically Ill - Head Exam Head Exam: NORMAL INSPECTION - Eye Exam Eye Exam: EOMI, Normal appearance - ENT Exam ENT Exam: Mucous Membranes Dry - Respiratory Exam Respiratory Exam: NORMAL BREATHING PATTERN. absent: Rales, Rhonchi, Wheezes, Respiratory Distress - Cardiovascular Exam Cardiovascular Exam: REGULAR RHYTHM, +S1, +S2 - GI/Abdominal Exam GI & Abdominal Exam: Soft, Normal Bowel Sounds. absent: Distended, Tenderness - Neurological Exam Neurological Exam: Awake. absent: Alert, Oriented x3 - Psychiatric Exam Psychiatric exam: Flat Affect - Skin Skin Exam: Dry, Warm Assessment and Plan - Assessment and Plan (Free Text) Plan: Lethargy * 2/2 to severe dehydration, poor PO intake, poor care or possible infection - improving, patient more awake, alert, and eating * Continue Ensure nutritional supplement * UA: Negative * Urine Culture: Negative * Blood Culture: No growth * Chest X-ray: No active disease * Abx discontinued Hx of iron deficiency anemia * Feosol 325mg PO BID Brain aneurysm * Hx of brain aneursym * S/p coil in 10/2017 * Head CT (07/16/17): Embolization coils are seen adjacent to the basilar artery. There is a large amount of metallic artifact. Chronic lacunar infarcts are seen in the thalamus bilaterally. There is also a chronic infarct of the left occipital lobe. The ocular lenses are dislocated bilaterally * Keppra 250mg PO BID Depression as late effect of cerebrovascular accident (CVA) * Continue Effexor 37.5mg PO daily History of CVA * Residual right sided deficit * ASA 81 mg PO daily; As per daughter, patient's plavix has been discontinued * Crestor 20 mg PO HS Hypertension Continue home Medications * Amlodipine 10mg daily * Hydralazine 25 mg PO Q8H * Coreg 3.125 mg PO daily Elevated liver enzymes * likely multifactorial in etiology * NS @ 100 cc/hr * Will monitor with am labs GI/DVT ppx * DVT: Lovenox 40 mg SC daily * GI: Protonix 40mg PO daily Disposition: Patient is medically stable. Patient's sisters signed all paperwor k. We are currently awaiting them to provide all finical paperwork to get their Medicaid application approved. Once their application is approved, patient is to be discharged to [facility] with transition to termite inspector care. Case discussed with and patient seen with Dr. Antonio.
[2018-08-15 07:08] LABS: BASO % 0.3 % (0.0-2.0); EOS # 0.1 K/uL (0.0-0.7); EOS % 1.8 % (0.0-4.0); HEMOGLOBIN 10.8 g/dL (11.0-16.0); LYMPH # 1.7 K/uL (1.0-4.3); LYMPH % 28.1 % (20.0-40.0); MEAN CELL VOLUME 82.1 fL (81.0-99.0); MEAN CORPUSCULAR HEMOGLOBIN 26.3 pg (27.0-31.0); MEAN PLATELET VOLUME 8.2 fL (7.2-11.7); MONO # 0.4 K/uL (0.0-0.8); MONO % 6.7 % (0.0-10.0); NEUT # 3.9 K/uL (1.8-7.0); NEUT % 63.1 % (50.0-75.0); RBC 4.09 Mil/uL (3.80-5.20); RED CELL DISTRIBUTION WIDTH 17.5 % (11.5-14.5); WHITE BLOOD COUNT 6.2 K/uL (4.8-10.8)
[2018-08-15 07:32] LABS: ALB/GLOB RATIO 1.4 (1.0-2.1); ALBUMIN 3.6 g/dL (3.5-5.0); ALT/SGPT 28 U/L (9-52); AST/SGOT 16 U/L (14-36); BLOOD UREA NITROGEN 14 mg/dL (7-17); CALCIUM 9.1 mg/dl (8.6-10.4); GFR NON-AFRICAN AMERICAN > 60
[2018-08-15] MEDS: Pantoprazole 40 mg EC Tab PO SCH (09:44)
[2018-08-15] MEDS: levETIRAcetam 100 mg/ml (5ml) Oral Syringe PO SCH ×2 (09:44→17:29)
[2018-08-15] MEDS: Venlafaxine 37.5 mg ER Cap PO SCH (09:44)
[2018-08-15] MEDS: SILVASORB ANTIMICROBIAL WOUND GEL TOP SCH ×2 (11:35→11:36)
--- NOTE | 2018-08-16 07:27 | CP.PCM.PN ---
<Imelda Bhatia - Last Filed: 08/16/18 15:19> Subjective - Date & Time of Evaluation Date of Evaluation: 08/16/18 Time of Evaluation: 07:26 - Subjective Subjective: Progress note for Dr. Castro (covering for Dr. Antonio) Patient was seen and examined at bedside in no acute distress. Patient is nonverbal in the morning, but opens eyes when spoken to. Patient was reseen in the afternoon and was more alert/awake. She smiled and softly spoke. Patient follows some commands. ROS limited due to patient's condition. Objective - Vital Signs/Intake and Output Vital Signs (last 24 hours): Temp Pulse Resp BP Pulse Ox 98 F 82 20 105/74 97 08/16/18 00:00 08/16/18 05:14 08/16/18 00:00 08/16/18 05:14 08/16/18 00:00 Intake and Output: 08/16/18 08/16/18 06:59 18:59 Intake Total 300 50 Balance 300 50 - Medications Medications: Current Medications Amlodipine Besylate (Norvasc) 10 mg PO DAILY [facility] Last Admin: 08/15/18 09:44 Dose: 10 mg Aspirin (Aspirin Chewable) 81 mg PO DAILY [facility] Last Admin: 08/15/18 09:44 Dose: 81 mg Carvedilol (Coreg) 3.125 mg PO BID [facility] Last Admin: 08/15/18 17:29 Dose: Not Given Enoxaparin Sodium (Lovenox) 40 mg SC DAILY [facility] Ferrous Sulfate (Feosol) 325 mg PO BID [facility] Last Admin: 08/15/18 17:29 Dose: 325 mg Hydralazine HCl (Apresoline) 25 mg PO Q8H [facility] Last Admin: 08/16/18 06:25 Dose: 25 mg Levetiracetam (Keppra) 250 mg PO BID [facility] Last Admin: 08/15/18 17:29 Dose: 250 mg Pantoprazole Sodium (Protonix Ec Tab) 40 mg PO DAILY [facility] Last Admin: 08/15/18 09:44 Dose: 40 mg Rosuvastatin Calcium (Crestor) 20 mg PO HS [facility] Last Admin: 08/15/18 21:22 Dose: 20 mg Venlafaxine HCl (Effexor Xr) 37.5 mg PO DAILY [facility] Last Admin: 08/15/18 09:44 Dose: 37.5 mg - Labs Labs: 08/15/18 06:38 08/15/18 06:38 - Additional Findings Additional findings: - Constitutional Appears: No Acute Distress, Chronically Ill - Head Exam Head Exam: NORMAL INSPECTION - Eye Exam Eye Exam: EOMI, Normal appearance - ENT Exam ENT Exam: Mucous Membranes Dry - Respiratory Exam Respiratory Exam: NORMAL BREATHING PATTERN. absent: Rales, Rhonchi, Wheezes, Respiratory Distress - Cardiovascular Exam Cardiovascular Exam: REGULAR RHYTHM, +S1, +S2 - GI/Abdominal Exam GI & Abdominal Exam: Soft, Normal Bowel Sounds. absent: Distended, Tenderness - Extremities Exam Extremities Exam: Full ROM, Normal Inspection, No edema - Neurological Exam Neurological Exam: Awake. absent: Alert, Oriented x3 - Psychiatric Exam Psychiatric exam: Flat Affect - Skin Skin Exam: Dry, Warm Assessment and Plan - Assessment and Plan (Free Text) Plan: Lethargy 2/2 to severe dehydration * Poor PO intake, poor care or possible infection - improving, patient more awake, alert, and eating * Continue Ensure nutritional supplement * UA: Negative * Urine Culture: Negative * Blood Culture: No growth * Chest X-ray: No active disease * Abx discontinued Brain aneurysm * Hx of brain aneursym * S/p coil in 10/2017 * Head CT (07/16/17): Embolization coils are seen adjacent to the basilar artery. There is a large amount of metallic artifact. Chronic lacunar infarcts are seen in the thalamus bilaterally. There is also a chronic infarct of the left occipital lobe. The ocular lenses are dislocated bilaterally * Keppra 250mg PO BID History of CVA * Residual right sided deficit * ASA 81 mg PO daily; As per daughter, patient's plavix has been discontinued * Crestor 20 mg PO HS Hypertension Continue home Medications * Amlodipine 10mg daily * Hydralazine 25 mg PO Q8H * Coreg 3.125 mg PO daily Elevated liver enzymes (Resolved) * Resolved, within normal range * likely multifactorial in etiology * NS @ 100 cc/hr * Will monitor with am labs Depression as late effect of cerebrovascular accident (CVA) * Continue Effexor 37.5mg PO daily Hx of iron deficiency anemia * Feosol 325mg PO BID GI/DVT ppx * DVT: Lovenox 40 mg SC daily * GI: Protonix 40mg PO daily * PT/OT Disposition: Patient is medically stable. Patient's sisters signed all medical paperwork. We are currently awaiting them to provide all financial paperwork to get their Medicaid application approved. Once their application is approved, patient is to be discharged to [facility] with transition to senior care care. Case discussed with and patient seen with Dr. Casrto (covering for Dr. Antonio). <Fransisca Castro V - Last Filed: 08/17/18 17:14> Objective - Vital Signs/Intake and Output Vital Signs (last 24 hours): Temp Pulse Resp BP Pulse Ox 98.4 F 71 20 96/61 L 95 08/17/18 15:00 08/17/18 15:00 08/17/18 15:00 08/17/18 15:00 08/17/18 15:00 Intake and Output: 08/17/18 08/17/18 06:59 18:59 Intake Total 420 Balance 420 - Medications Medications: Current Medications Amlodipine Besylate (Norvasc) 10 mg PO DAILY [facility] Last Admin: 08/17/18 11:37 Dose: 10 mg Aspirin (Aspirin Chewable) 81 mg PO DAILY [facility] Last Admin: 08/17/18 11:37 Dose: 81 mg Carvedilol (Coreg) 3.125 mg PO BID [facility] Last Admin: 08/17/18 12:05 Dose: 3.125 mg Enoxaparin Sodium (Lovenox) 40 mg SC DAILY [facility] Last Admin: 08/17/18 11:37 Dose: 40 mg Ferrous Sulfate (Feosol) 325 mg PO BID [facility] Last Admin: 08/17/18 11:37 Dose: 325 mg Hydralazine HCl (Apresoline) 25 mg PO Q8H [facility] Last Admin: 08/17/18 14:53 Dose: 25 mg Levetiracetam (Keppra) 250 mg PO BID [facility] Last Admin: 08/17/18 11:55 Dose: 250 mg Pantoprazole Sodium (Protonix Ec Tab) 40 mg PO DAILY [facility] Last Admin: 08/17/18 11:37 Dose: 40 mg Rosuvastatin Calcium (Crestor) 20 mg PO HS [facility] Last Admin: 08/16/18 22:17 Dose: 20 mg Venlafaxine HCl (Effexor Xr) 37.5 mg PO DAILY [facility] Last Admin: 08/17/18 12:04 Dose: 37.5 mg - Labs Labs: 08/17/18 07:30 08/17/18 07:30 Attending/Attestation - Attestation I have personally seen and examined this patient.: Yes I have fully participated in the care of the patient.: Yes I have reviewed all pertinent clinical information, including history, physical exam and plan: Yes Notes (Text): 62-year-old female past medical history of cerebral aneurysm status post coil, prior stroke, PVD, hypertension, lipid disorder, previously brought in by family members due to poor appetite with conmittent dehydration. Since then July 27, 2018. Hospitalist service covering Dr. Olvera who is away until Monday. This is a 61 seen patient. Patient is awake alert responds to name on slow to react but is very sweet otherwise. Remains in bed. No acute events noted by nursing staff. Patient is awaiting placement. Discussed with social and case management family members have completed medical application for placement however it is also dependent on the financial which family members will need to follow-up with. Patient remained stable otherwise. We will continue to monitor.
[2018-08-16 07:35] LABS: BASO % 0.4 % (0.0-2.0); EOS # 0.1 K/uL (0.0-0.7); EOS % 1.9 % (0.0-4.0); HEMOGLOBIN 10.8 g/dL (11.0-16.0); LYMPH # 1.7 K/uL (1.0-4.3); LYMPH % 27.5 % (20.0-40.0); MEAN CELL VOLUME 81.2 fL (81.0-99.0); MEAN CORPUSCULAR HEMOGLOBIN 26.5 pg (27.0-31.0); MEAN CORPUSCULAR HGB CONC 32.6 g/dL (33.0-37.0); MEAN PLATELET VOLUME 8.1 fL (7.2-11.7); MONO # 0.6 K/uL (0.0-0.8); MONO % 8.7 % (0.0-10.0); NEUT # 3.9 K/uL (1.8-7.0); NEUT % 61.5 % (50.0-75.0); RBC 4.06 Mil/uL (3.80-5.20); RED CELL DISTRIBUTION WIDTH 17.8 % (11.5-14.5); WHITE BLOOD COUNT 6.3 K/uL (4.8-10.8)
[2018-08-16 07:46] LABS: ALB/GLOB RATIO 1.4 (1.0-2.1); ALBUMIN 3.6 g/dL (3.5-5.0); ALT/SGPT 31 U/L (9-52); AST/SGOT 20 U/L (14-36); BLOOD UREA NITROGEN 13 mg/dL (7-17); CALCIUM 9.2 mg/dl (8.6-10.4); GFR NON-AFRICAN AMERICAN > 60
[2018-08-16] MEDS: Pantoprazole 40 mg EC Tab PO SCH (10:47)
[2018-08-16] MEDS: Enoxaparin 40 mg Syringe SC SCH (10:47)
[2018-08-16] MEDS: Venlafaxine 37.5 mg ER Cap PO SCH (10:48)
[2018-08-16] MEDS: levETIRAcetam 100 mg/ml (5ml) Oral Syringe PO SCH ×2 (11:37→19:15)
[2018-08-17 08:00] LABS: BASO % 0.4 % (0.0-2.0); EOS # 0.1 K/uL (0.0-0.7); EOS % 2.1 % (0.0-4.0); HEMOGLOBIN 11.3 g/dL (11.0-16.0); LYMPH # 1.7 K/uL (1.0-4.3); LYMPH % 29.4 % (20.0-40.0); MEAN CELL VOLUME 80.8 fL (81.0-99.0); MEAN CORPUSCULAR HGB CONC 32.2 g/dL (33.0-37.0); MEAN PLATELET VOLUME 7.8 fL (7.2-11.7); MONO # 0.4 K/uL (0.0-0.8); MONO % 7.3 % (0.0-10.0); NEUT # 3.5 K/uL (1.8-7.0); NEUT % 60.8 % (50.0-75.0); RBC 4.33 Mil/uL (3.80-5.20); RED CELL DISTRIBUTION WIDTH 17.5 % (11.5-14.5); WHITE BLOOD COUNT 5.7 K/uL (4.8-10.8)
[2018-08-17 08:18] LABS: ALB/GLOB RATIO 1.3 (1.0-2.1); ALBUMIN 3.7 g/dL (3.5-5.0); ALT/SGPT 26 U/L (9-52); AST/SGOT 16 U/L (14-36); BLOOD UREA NITROGEN 14 mg/dL (7-17); CALCIUM 9.5 mg/dl (8.6-10.4); GFR NON-AFRICAN AMERICAN > 60
--- NOTE | 2018-08-17 11:35 | CP.PCM.PN ---
<Imelda Bhatia - Last Filed: 08/17/18 15:16> Subjective - Date & Time of Evaluation Date of Evaluation: 08/17/18 Time of Evaluation: 11:35 - Subjective Subjective: Progress note for Dr. Castro (covering for Dr. Antonio) Patient was seen and examined at bedside in no acute distress. Patient is alert and oriented to person and place. Patient states she is "fine" and says no to chest pain, abdominal pain, leg pain. ROS limited due to patients condition. Objective - Vital Signs/Intake and Output Vital Signs (last 24 hours): Temp Pulse Resp BP Pulse Ox 98.0 F 72 20 117/79 96 08/17/18 08:00 08/17/18 08:00 08/17/18 08:00 08/17/18 08:00 08/17/18 08:00 Intake and Output: 08/17/18 08/17/18 06:59 18:59 Intake Total 420 Balance 420 - Medications Medications: Current Medications Amlodipine Besylate (Norvasc) 10 mg PO DAILY [facility] Last Admin: 08/16/18 10:47 Dose: 10 mg Aspirin (Aspirin Chewable) 81 mg PO DAILY [facility] Last Admin: 08/16/18 10:47 Dose: 81 mg Carvedilol (Coreg) 3.125 mg PO BID [facility] Last Admin: 08/16/18 19:15 Dose: 3.125 mg Enoxaparin Sodium (Lovenox) 40 mg SC DAILY [facility] Last Admin: 08/16/18 10:47 Dose: 40 mg Ferrous Sulfate (Feosol) 325 mg PO BID [facility] Last Admin: 08/16/18 19:15 Dose: 325 mg Hydralazine HCl (Apresoline) 25 mg PO Q8H [facility] Last Admin: 08/17/18 06:28 Dose: 25 mg Levetiracetam (Keppra) 250 mg PO BID [facility] Last Admin: 08/16/18 19:15 Dose: 250 mg Pantoprazole Sodium (Protonix Ec Tab) 40 mg PO DAILY [facility] Last Admin: 08/16/18 10:47 Dose: 40 mg Rosuvastatin Calcium (Crestor) 20 mg PO HS [facility] Last Admin: 08/16/18 22:17 Dose: 20 mg Venlafaxine HCl (Effexor Xr) 37.5 mg PO DAILY [facility] Last Admin: 08/16/18 10:48 Dose: 37.5 mg - Labs Labs: 08/17/18 07:30 08/17/18 07:30 - Additional Findings Additional findings: - Constitutional Appears: No Acute Distress, Chronically Ill - Head Exam Head Exam: NORMAL INSPECTION - Eye Exam Eye Exam: EOMI, Normal appearance - ENT Exam ENT Exam: Mucous Membranes Dry - Respiratory Exam Respiratory Exam: NORMAL BREATHING PATTERN. absent: Rales, Rhonchi, Wheezes, Respiratory Distress - Cardiovascular Exam Cardiovascular Exam: REGULAR RHYTHM, +S1, +S2 - GI/Abdominal Exam GI & Abdominal Exam: Soft, Normal Bowel Sounds. absent: Distended, Tenderness - Extremities Exam Extremities Exam: Full ROM, Normal Inspection, No edema - Neurological Exam Neurological Exam: Awake. absent: Alert, Oriented x3 - Psychiatric Exam Psychiatric exam: Flat Affect - Skin Skin Exam: Dry, Warm Assessment and Plan - Assessment and Plan (Free Text) Plan: Lethargy 2/2 to severe dehydration * Poor PO intake, poor care or possible infection - improving, patient more awake, alert, and eating * Continue Ensure nutritional supplement * UA: Negative * Urine Culture: Negative * Blood Culture: No growth * Chest X-ray: No active disease * Abx discontinued Brain aneurysm * Hx of brain aneursym * S/p coil in 10/2017 * Head CT (07/16/17): Embolization coils are seen adjacent to the basilar artery. There is a large amount of metallic artifact. Chronic lacunar infarcts are seen in the thalamus bilaterally. There is also a chronic infarct of the left occipital lobe. The ocular lenses are dislocated bilaterally * Keppra 250mg PO BID History of CVA * Residual right sided deficit * ASA 81 mg PO daily; As per daughter, patient's plavix has been discontinued * Crestor 20 mg PO HS Hypertension Continue home Medications * Amlodipine 10mg daily * Hydralazine 25 mg PO Q8H * Coreg 3.125 mg PO daily Elevated liver enzymes (Resolved) * Resolved, within normal range * likely multifactorial in etiology * NS @ 100 cc/hr * Will monitor with am labs Depression as late effect of cerebrovascular accident (CVA) * Continue Effexor 37.5mg PO daily Hx of iron deficiency anemia * Feosol 325mg PO BID GI/DVT ppx * DVT: Lovenox 40 mg SC daily * GI: Protonix 40mg PO daily * PT/OT Disposition: Patient is medically stable. Patient's sisters signed all medical paperwork. We are currently awaiting them to provide all financial paperwork to get their Medicaid application approved. Once their application is approved, patient is to be discharged to [facility] with transition to adjunct faculty for medical terminology care. Case discussed with and patient seen with Dr. Castro (covering for Dr. Antonio). <Fransisca Castro V - Last Filed: 08/17/18 17:17> Objective - Vital Signs/Intake and Output Vital Signs (last 24 hours): Temp Pulse Resp BP Pulse Ox 98.4 F 71 20 96/61 L 95 08/17/18 15:00 08/17/18 15:00 08/17/18 15:00 08/17/18 15:00 08/17/18 15:00 Intake and Output: 08/17/18 08/17/18 06:59 18:59 Intake Total 420 Balance 420 - Medications Medications: Current Medications Amlodipine Besylate (Norvasc) 10 mg PO DAILY [facility] Last Admin: 08/17/18 11:37 Dose: 10 mg Aspirin (Aspirin Chewable) 81 mg PO DAILY [facility] Last Admin: 08/17/18 11:37 Dose: 81 mg Carvedilol (Coreg) 3.125 mg PO BID [facility] Last Admin: 08/17/18 12:05 Dose: 3.125 mg Enoxaparin Sodium (Lovenox) 40 mg SC DAILY [facility] Last Admin: 08/17/18 11:37 Dose: 40 mg Ferrous Sulfate (Feosol) 325 mg PO BID [facility] Last Admin: 08/17/18 11:37 Dose: 325 mg Hydralazine HCl (Apresoline) 25 mg PO Q8H [facility] Last Admin: 08/17/18 14:53 Dose: 25 mg Levetiracetam (Keppra) 250 mg PO BID [facility] Last Admin: 08/17/18 11:55 Dose: 250 mg Pantoprazole Sodium (Protonix Ec Tab) 40 mg PO DAILY [facility] Last Admin: 08/17/18 11:37 Dose: 40 mg Rosuvastatin Calcium (Crestor) 20 mg PO HS [facility] Last Admin: 08/16/18 22:17 Dose: 20 mg Venlafaxine HCl (Effexor Xr) 37.5 mg PO DAILY [facility] Last Admin: 08/17/18 12:04 Dose: 37.5 mg - Labs Labs: 08/17/18 07:30 08/17/18 07:30 Attending/Attestation - Attestation I have personally seen and examined this patient.: Yes I have fully participated in the care of the patient.: Yes I have reviewed all pertinent clinical information, including history, physical exam and plan: Yes Notes (Text): Hospitalist covering Dr. Antonio service. Patient seen, examined, case discussed with medical housekeeper. Patient with a prior medical history including but not limited to brain aneurysm status post coiling, stroke, peptic ulcer disease, hypertension, who is awaiting placement patient has been treated for severe dehydration and poor appetite. Patient is medically stable. Will need to follow-up with case and social work in regards to discharge planning. Depending on family members to completed financial paperwork to assist in discharge planning. Noted patient had a mild bowel movement in the very deckhand clam dredge per nursing staff. Did not eat breakfast today. But appetite is slowly. We will continue to monitor.
[2018-08-17] MEDS: Enoxaparin 40 mg Syringe SC SCH (11:37)
[2018-08-17] MEDS: Pantoprazole 40 mg EC Tab PO SCH (11:37)
[2018-08-17] MEDS: levETIRAcetam 100 mg/ml (5ml) Oral Syringe PO SCH ×2 (11:55→18:00)
[2018-08-17] MEDS: Venlafaxine 37.5 mg ER Cap PO SCH (12:04)
[2018-08-18 07:34] LABS: BASO % 0.6 % (0.0-2.0); EOS # 0.1 K/uL (0.0-0.7); EOS % 1.8 % (0.0-4.0); HEMOGLOBIN 11.4 g/dL (11.0-16.0); LYMPH # 1.5 K/uL (1.0-4.3); LYMPH % 24.7 % (20.0-40.0); MEAN CELL VOLUME 81.1 fL (81.0-99.0); MEAN CORPUSCULAR HEMOGLOBIN 26.1 pg (27.0-31.0); MEAN CORPUSCULAR HGB CONC 32.2 g/dL (33.0-37.0); MEAN PLATELET VOLUME 8.2 fL (7.2-11.7); MONO # 0.5 K/uL (0.0-0.8); NEUT % 64.9 % (50.0-75.0); RBC 4.35 Mil/uL (3.80-5.20); RED CELL DISTRIBUTION WIDTH 17.2 % (11.5-14.5); WHITE BLOOD COUNT 6.1 K/uL (4.8-10.8)
[2018-08-18 07:45] LABS: ALB/GLOB RATIO 1.4 (1.0-2.1); ALT/SGPT 26 U/L (9-52); AST/SGOT 15 U/L (14-36); BLOOD UREA NITROGEN 15 mg/dL (7-17); CALCIUM 9.8 mg/dl (8.6-10.4); GFR NON-AFRICAN AMERICAN > 60
[2018-08-18] MEDS: Enoxaparin 40 mg Syringe SC SCH (10:23)
[2018-08-18] MEDS: Pantoprazole 40 mg EC Tab PO SCH (10:24)
[2018-08-18] MEDS: levETIRAcetam 100 mg/ml (5ml) Oral Syringe PO SCH ×2 (10:26→18:12)
[2018-08-18] MEDS: Venlafaxine 37.5 mg ER Cap PO SCH (10:28)
--- NOTE | 2018-08-18 14:44 | CP.PCM.PN ---
<Mike Colorado - Last Filed: 08/18/18 14:45> Subjective - Date & Time of Evaluation Date of Evaluation: 08/18/18 Time of Evaluation: 14:40 - Subjective Subjective: Progress note. Attending: Dr. Castro. Pt seen and examined at bedside. No acute distress. No events overnight. No fevers, chills, vomiting, diarrhea. Objective - Vital Signs/Intake and Output Vital Signs (last 24 hours): Temp Pulse Resp BP Pulse Ox 97.9 F 77 20 121/68 97 08/18/18 07:45 08/18/18 07:45 08/18/18 07:45 08/18/18 07:45 08/18/18 07:45 Intake and Output: 08/18/18 08/18/18 06:59 18:59 Intake Total 200 Balance 200 - Medications Medications: Current Medications Amlodipine Besylate (Norvasc) 10 mg PO DAILY [facility] Last Admin: 08/18/18 10:24 Dose: 10 mg Aspirin (Aspirin Chewable) 81 mg PO DAILY [facility] Last Admin: 08/18/18 10:24 Dose: 81 mg Carvedilol (Coreg) 3.125 mg PO BID [facility] Last Admin: 08/18/18 10:28 Dose: 3.125 mg Enoxaparin Sodium (Lovenox) 40 mg SC DAILY [facility] Last Admin: 08/18/18 10:23 Dose: 40 mg Ferrous Sulfate (Feosol) 325 mg PO BID [facility] Last Admin: 08/18/18 10:24 Dose: 325 mg Hydralazine HCl (Apresoline) 25 mg PO Q8H [facility] Last Admin: 08/18/18 05:23 Dose: 25 mg Levetiracetam (Keppra) 250 mg PO BID [facility] Last Admin: 08/18/18 10:26 Dose: 250 mg Pantoprazole Sodium (Protonix Ec Tab) 40 mg PO DAILY [facility] Last Admin: 08/18/18 10:24 Dose: 40 mg Rosuvastatin Calcium (Crestor) 20 mg PO HS [facility] Last Admin: 08/17/18 21:56 Dose: 20 mg Venlafaxine HCl (Effexor Xr) 37.5 mg PO DAILY [facility] Last Admin: 08/18/18 10:28 Dose: 37.5 mg - Labs Labs: 08/18/18 07:24 08/18/18 07:24 - Constitutional Appears: Chronically Ill - Head Exam Head Exam: ATRAUMATIC, NORMAL INSPECTION, NORMOCEPHALIC - Eye Exam Eye Exam: EOMI - ENT Exam ENT Exam: Mucous Membranes Moist - Neck Exam Neck Exam: Normal Inspection - Respiratory Exam Respiratory Exam: absent: Respiratory Distress - Cardiovascular Exam Cardiovascular Exam: +S1, +S2 - GI/Abdominal Exam GI & Abdominal Exam: Soft, Normal Bowel Sounds. absent: Tenderness - Extremities Exam Extremities Exam: absent: Normal Inspection - Neurological Exam Neurological Exam: Awake, CN II-XII Intact - Psychiatric Exam Psychiatric exam: Flat Affect - Skin Skin Exam: Dry, Intact, Normal Color, Warm Assessment and Plan - Assessment and Plan (Free Text) Assessment: This is a 62 year old female with 1. Lethargy 2/2 to severe dehydration * Poor PO intake, poor care or possible infection - improving, patient more awake, alert, and eating * Continue Ensure nutritional supplement * UA: Negative * Urine Culture: Negative * Blood Culture: No growth * Chest X-ray: No active disease * Abx discontinued 2. Brain aneurysm * Hx of brain aneursym * S/p coil in 10/2017 * Head CT (07/16/17): Embolization coils are seen adjacent to the basilar artery. There is a large amount of metallic artifact. Chronic lacunar infarcts are seen in the thalamus bilaterally. There is also a chronic infarct of the left occipital lobe. The ocular lenses are dislocated bilaterally * Keppra 250 mg PO BID 3. History of CVA * Residual right sided deficit * ASA 81 mg PO daily; As per daughter, patient's plavix has been discontinued * Crestor 20 mg PO HS 3.hx of Hypertension Continue home Medications * Amlodipine 10mg daily * Hydralazine 25 mg PO Q8H * Coreg 3.125 mg PO daily 4. Transaminitis * Resolved, within normal range * likely multifactorial in etiology 5. Depression as late effect of cerebrovascular accident (CVA) * Continue Effexor 37.5 mg PO daily 6. Hx of iron deficiency anemia * Feosol 325mg PO BID 7. GI/DVT ppx * DVT: Lovenox 40 mg SC daily * GI: Protonix 40mg PO daily * PT/OT Disposition: Patient is medically stable. Patient's sisters signed all medical paperwork. Currently waiting for family to provide all financial paperwork to ge t Medicaid application approved. Once the application is approved, patient is to be discharged to [facility] with transition to [facility] care. <Fransisca Castro V - Last Filed: 09/04/18 17:35> Objective - Vital Signs/Intake and Output Vital Signs (last 24 hours): Temp Pulse Resp BP Pulse Ox 98.2 F 109 H 20 102/69 95 09/04/18 15:00 09/04/18 15:00 09/04/18 15:00 09/04/18 15:00 09/04/18 15:00 Intake and Output: 09/04/18 09/04/18 06:59 18:59 Intake Total 300 Balance 300 - Medications Medications: Current Medications Amlodipine Besylate (Norvasc) 10 mg PO DAILY [facility] Last Admin: 09/04/18 09:11 Dose: 10 mg Aspirin (Aspirin Chewable) 81 mg PO DAILY [facility] Last Admin: 09/04/18 09:10 Dose: 81 mg Carvedilol (Coreg) 3.125 mg PO BID [facility] Last Admin: 09/04/18 17:09 Dose: 3.125 mg Enoxaparin Sodium (Lovenox) 40 mg SC DAILY [facility] Last Admin: 09/04/18 09:10 Dose: 40 mg Ferrous Sulfate (Feosol) 325 mg PO BID [facility] Last Admin: 09/04/18 17:08 Dose: 325 mg Hydralazine HCl (Apresoline) 25 mg PO Q8H [facility] Last Admin: 09/04/18 17:17 Dose: 25 mg Levetiracetam (Keppra) 250 mg PO BID [facility] Last Admin: 09/04/18 17:08 Dose: 250 mg Pantoprazole Sodium (Protonix Ec Tab) 40 mg PO DAILY [facility] Last Admin: 09/04/18 09:10 Dose: 40 mg Rosuvastatin Calcium (Crestor) 20 mg PO HS [facility] Last Admin: 09/03/18 21:27 Dose: 20 mg Venlafaxine HCl (Effexor Xr) 37.5 mg PO DAILY [facility] Last Admin: 09/04/18 09:10 Dose: 37.5 mg - Labs Labs: 09/03/18 08:05 09/03/18 08:05 Attending/Attestation - Attestation I have personally seen and examined this patient.: Yes I have fully participated in the care of the patient.: Yes I have reviewed all pertinent clinical information, including history, physical exam and plan: Yes Notes (Text): This is late computer entry for 08/18/18. Hospitalist Covering Dr. Antonio's service patient seen, examined and case discussed with day-time resident. Patient is medically stable; advised resident to follow-up for bowel movement. Patient is pending discharge planning; social and case management following up with family regarding further paperwork required to be filled out for placement.
[2018-08-19] MEDS: Enoxaparin 40 mg Syringe SC SCH (10:24)
[2018-08-19] MEDS: levETIRAcetam 100 mg/ml (5ml) Oral Syringe PO SCH ×2 (10:25→17:05)
[2018-08-19] MEDS: Pantoprazole 40 mg EC Tab PO SCH (10:25)
[2018-08-19] MEDS: Venlafaxine 37.5 mg ER Cap PO SCH (10:26)
--- NOTE | 2018-08-19 16:53 | CP.PCM.PN ---
<Mike Colorado - Last Filed: 08/19/18 16:53> Subjective - Date & Time of Evaluation Date of Evaluation: 08/19/18 Time of Evaluation: 16:50 - Subjective Subjective: Progress note. Attending: Dr. Castro (covering for Dr. Antonio) Pt seen and examined at bedside. No acute distress. Minimally talkative. No fevers, chills, vomiting, diarrhea. Pt did have soft BM last night following fleet enema. Objective - Vital Signs/Intake and Output Vital Signs (last 24 hours): Temp Pulse Resp BP Pulse Ox 98.5 F 95 H 20 122/76 95 08/19/18 15:47 08/19/18 15:47 08/19/18 15:47 08/19/18 15:47 08/19/18 15:47 Intake and Output: 08/19/18 08/19/18 06:59 18:59 Intake Total 300 500 Balance 300 500 - Medications Medications: Current Medications Amlodipine Besylate (Norvasc) 10 mg PO DAILY [facility] Last Admin: 08/19/18 10:25 Dose: 10 mg Aspirin (Aspirin Chewable) 81 mg PO DAILY [facility] Last Admin: 08/19/18 10:25 Dose: 81 mg Carvedilol (Coreg) 3.125 mg PO BID [facility] Last Admin: 08/19/18 10:25 Dose: 3.125 mg Enoxaparin Sodium (Lovenox) 40 mg SC DAILY [facility] Last Admin: 08/19/18 10:24 Dose: 40 mg Ferrous Sulfate (Feosol) 325 mg PO BID [facility] Last Admin: 08/19/18 10:25 Dose: 325 mg Hydralazine HCl (Apresoline) 25 mg PO Q8H [facility] Last Admin: 08/19/18 13:58 Dose: 25 mg Levetiracetam (Keppra) 250 mg PO BID [facility] Last Admin: 08/19/18 10:25 Dose: 250 mg Pantoprazole Sodium (Protonix Ec Tab) 40 mg PO DAILY [facility] Last Admin: 08/19/18 10:25 Dose: 40 mg Rosuvastatin Calcium (Crestor) 20 mg PO HS [facility] Last Admin: 08/18/18 22:01 Dose: Not Given Venlafaxine HCl (Effexor Xr) 37.5 mg PO DAILY [facility] Last Admin: 08/19/18 10:26 Dose: 37.5 mg - Labs Labs: 08/18/18 07:24 08/18/18 07:24 - Constitutional Appears: No Acute Distress, Chronically Ill - Head Exam Head Exam: ATRAUMATIC, NORMAL INSPECTION, NORMOCEPHALIC - Eye Exam Eye Exam: EOMI - ENT Exam ENT Exam: Mucous Membranes Moist - Neck Exam Neck Exam: Full ROM, Normal Inspection - Respiratory Exam Respiratory Exam: absent: Respiratory Distress - Cardiovascular Exam Cardiovascular Exam: +S1, +S2 - GI/Abdominal Exam GI & Abdominal Exam: Soft, Normal Bowel Sounds. absent: Tenderness - Extremities Exam Extremities Exam: Full ROM, Normal Inspection - Neurological Exam Neurological Exam: Awake - Psychiatric Exam Psychiatric exam: Flat Affect - Skin Skin Exam: Dry, Intact, Normal Color, Warm Assessment and Plan - Assessment and Plan (Free Text) Assessment: This is a 62 year old female with 1. Lethargy 2/2 to severe dehydration * Poor PO intake, poor care or possible infection - improving, patient more awake, alert, and eating * Continue Ensure nutritional supplement * UA: Negative * Urine Culture: Negative * Blood Culture: No growth * Chest X-ray: No active disease * Abx discontinued 2. Constipation -pt given fleet enema -pt had BM last night -continue to monitor 2. Brain aneurysm * Hx of brain aneursym * S/p coil in 10/2017 * Head CT (07/16/17): Embolization coils are seen adjacent to the basilar artery. There is a large amount of metallic artifact. Chronic lacunar infarcts are seen in the thalamus bilaterally. There is also a chronic infarct of the left occipital lobe. The ocular lenses are dislocated bilaterally * Keppra 250 mg PO BID 3. History of CVA * Residual right sided deficit * ASA 81 mg PO daily; As per daughter, patient's plavix has been discontinued * Crestor 20 mg PO HS 3.hx of Hypertension Continue home Medications * Amlodipine 10mg daily * Hydralazine 25 mg PO Q8H * Coreg 3.125 mg PO daily 4. Transaminitis * Resolved, within normal range * likely multifactorial in etiology 5. Depression as late effect of cerebrovascular accident (CVA) * Continue Effexor 37.5 mg PO daily 6. Hx of iron deficiency anemia * Feosol 325mg PO BID 7. GI/DVT ppx * DVT: Lovenox 40 mg SC daily * GI: Protonix 40mg PO daily * PT/OT Disposition: Patient is medically stable. Patient's sisters signed all medical paperwork. Currently waiting for family to provide all financial paperwork to get Medicaid application approved. Once the application is approved, patient is to be discharged to [facility] with transition to associate chemist care. <Fransisca Castro V - Last Filed: 09/04/18 17:46> Objective - Vital Signs/Intake and Output Vital Signs (last 24 hours): Temp Pulse Resp BP Pulse Ox 98.2 F 109 H 20 102/69 95 09/04/18 15:00 09/04/18 15:00 09/04/18 15:00 09/04/18 15:00 09/04/18 15:00 Intake and Output: 09/04/18 09/04/18 06:59 18:59 Intake Total 300 Balance 300 - Medications Medications: Current Medications Amlodipine Besylate (Norvasc) 10 mg PO DAILY [facility] Last Admin: 09/04/18 09:11 Dose: 10 mg Aspirin (Aspirin Chewable) 81 mg PO DAILY [facility] Last Admin: 09/04/18 09:10 Dose: 81 mg Carvedilol (Coreg) 3.125 mg PO BID [facility] Last Admin: 09/04/18 17:09 Dose: 3.125 mg Enoxaparin Sodium (Lovenox) 40 mg SC DAILY [facility] Last Admin: 09/04/18 09:10 Dose: 40 mg Ferrous Sulfate (Feosol) 325 mg PO BID [facility] Last Admin: 09/04/18 17:08 Dose: 325 mg Hydralazine HCl (Apresoline) 25 mg PO Q8H [facility] Last Admin: 09/04/18 17:17 Dose: 25 mg Levetiracetam (Keppra) 250 mg PO BID [facility] Last Admin: 09/04/18 17:08 Dose: 250 mg Pantoprazole Sodium (Protonix Ec Tab) 40 mg PO DAILY [facility] Last Admin: 09/04/18 09:10 Dose: 40 mg Rosuvastatin Calcium (Crestor) 20 mg PO HS [facility] Last Admin: 09/03/18 21:27 Dose: 20 mg Venlafaxine HCl (Effexor Xr) 37.5 mg PO DAILY [facility] Last Admin: 09/04/18 09:10 Dose: 37.5 mg - Labs Labs: 09/03/18 08:05 09/03/18 08:05 Attending/Attestation - Attestation I have personally seen and examined this patient.: Yes I have fully participated in the care of the patient.: Yes I have reviewed all pertinent clinical information, including history, physical exam and plan: Yes Notes (Text): This is late computer entry for 08/19/18. Hospitalist Service Covering Dr. Antonio's service Patient seen, examined, and case discussed with day-time resident. Spoke with family at bedside this afternoon. Patient very active with them. Family is working with social and case management for the necessary paperwork for discharge planning.
--- NOTE | 2018-08-20 07:37 | CP.PCM.PN ---
<Jeannette Mckeon - Last Filed: 08/20/18 14:54> Subjective - Date & Time of Evaluation Date of Evaluation: 08/20/18 Time of Evaluation: 08:00 - Subjective Subjective: Progress note for Dr. Cespedes (covering for Dr. Antonio) Patient was seen and examined at bedside in no acute distress. Patient is alert and oriented to person and place. Patient says no to chest pain, abdominal pain, leg pain. ROS limited due to patients condition. Objective - Vital Signs/Intake and Output Vital Signs (last 24 hours): Temp Pulse Resp BP Pulse Ox 98.2 F 84 20 112/62 97 08/20/18 00:06 08/20/18 05:38 08/20/18 00:06 08/20/18 05:38 08/20/18 00:06 Intake and Output: 08/20/18 08/20/18 06:59 18:59 Intake Total 550 Balance 550 - Medications Medications: Current Medications Amlodipine Besylate (Norvasc) 10 mg PO DAILY [facility] Last Admin: 08/19/18 10:25 Dose: 10 mg Aspirin (Aspirin Chewable) 81 mg PO DAILY [facility] Last Admin: 08/19/18 10:25 Dose: 81 mg Carvedilol (Coreg) 3.125 mg PO BID [facility] Last Admin: 08/19/18 17:05 Dose: 3.125 mg Enoxaparin Sodium (Lovenox) 40 mg SC DAILY [facility] Last Admin: 08/19/18 10:24 Dose: 40 mg Ferrous Sulfate (Feosol) 325 mg PO BID [facility] Last Admin: 08/19/18 17:04 Dose: 325 mg Hydralazine HCl (Apresoline) 25 mg PO Q8H [facility] Last Admin: 08/20/18 05:38 Dose: 25 mg Levetiracetam (Keppra) 250 mg PO BID [facility] Last Admin: 08/19/18 17:05 Dose: 250 mg Pantoprazole Sodium (Protonix Ec Tab) 40 mg PO DAILY [facility] Last Admin: 08/19/18 10:25 Dose: 40 mg Rosuvastatin Calcium (Crestor) 20 mg PO HS [facility] Last Admin: 08/19/18 21:15 Dose: 20 mg Venlafaxine HCl (Effexor Xr) 37.5 mg PO DAILY [facility] Last Admin: 08/19/18 10:26 Dose: 37.5 mg - Labs Labs: 08/18/18 07:24 08/18/18 07:24 - Constitutional Appears: No Acute Distress, Older Than Stated Age, Chronically Ill - Head Exam Head Exam: ATRAUMATIC, NORMAL INSPECTION - Eye Exam Eye Exam: EOMI, Normal appearance - ENT Exam ENT Exam: Mucous Membranes Moist - Respiratory Exam Respiratory Exam: NORMAL BREATHING PATTERN - Cardiovascular Exam Cardiovascular Exam: REGULAR RHYTHM, +S1, +S2 - GI/Abdominal Exam GI & Abdominal Exam: Soft, Normal Bowel Sounds. absent: Tenderness - Extremities Exam Extremities Exam: Normal Inspection - Neurological Exam Neurological Exam: Awake. absent: Oriented x3 - Psychiatric Exam Psychiatric exam: Flat Affect Assessment and Plan - Assessment and Plan (Free Text) Assessment: Lethargy 2/2 to severe dehydration * Poor PO intake, poor care or possible infection - improving, patient more awake, alert, and eating * Continue Ensure nutritional supplement * UA: Negative * Urine Culture: Negative * Blood Culture: No growth * Chest X-ray: No active disease * Abx discontinued Brain aneurysm * Hx of brain aneursym * S/p coil in 10/2017 * Head CT (07/16/17): Embolization coils are seen adjacent to the basilar artery. There is a large amount of metallic artifact. Chronic lacunar infarcts are seen in the thalamus bilaterally. There is also a chronic infarct of the left occipital lobe. The ocular lenses are dislocated bilaterally * Keppra 250mg PO BID History of CVA * Residual right sided deficit * ASA 81 mg PO daily; As per daughter, patient's plavix has been discontinued * Crestor 20 mg PO HS Hypertension Continue home Medications * Amlodipine 10mg daily * Hydralazine 25 mg PO Q8H * Coreg 3.125 mg PO daily Elevated liver enzymes (Resolved) * Resolved, within normal range * likely multifactorial in etiology * Will monitor with am labs Depression as late effect of cerebrovascular accident (CVA) * Continue Effexor 37.5mg PO daily Hx of iron deficiency anemia * Feosol 325mg PO BID GI/DVT ppx * DVT: Lovenox 40 mg SC daily * GI: Protonix 40mg PO daily * PT/OT Disposition: Patient is medically stable. Patient's sisters signed all medical paperwork. We are currently awaiting them to provide all financial paperwork to get their Medicaid application approved. Once their application is approved, patient is to be discharged to [facility] with transition to custodial care. Case discussed with and patient seen with Dr. Cespedes (covering for Dr. Antonio). Jeannette Mckeon PGY-2 <Segundo Cespedes - Last Filed: 08/20/18 18:29> Objective - Vital Signs/Intake and Output Vital Signs (last 24 hours): Temp Pulse Resp BP Pulse Ox 99.7 F H 93 H 20 111/76 98 08/20/18 15:49 08/20/18 15:49 08/20/18 15:49 08/20/18 15:49 08/20/18 15:49 Intake and Output: 08/20/18 08/20/18 06:59 18:59 Intake Total 550 450 Balance 550 450 - Medications Medications: Current Medications Amlodipine Besylate (Norvasc) 10 mg PO DAILY [facility] Last Admin: 08/20/18 09:36 Dose: 10 mg Aspirin (Aspirin Chewable) 81 mg PO DAILY [facility] Last Admin: 08/20/18 09:36 Dose: 81 mg Carvedilol (Coreg) 3.125 mg PO BID [facility] Last Admin: 08/20/18 17:28 Dose: 3.125 mg Enoxaparin Sodium (Lovenox) 40 mg SC DAILY [facility] Last Admin: 08/20/18 09:34 Dose: 40 mg Ferrous Sulfate (Feosol) 325 mg PO BID [facility] Last Admin: 08/20/18 17:28 Dose: 325 mg Hydralazine HCl (Apresoline) 25 mg PO Q8H [facility] Last Admin: 08/20/18 14:12 Dose: 25 mg Levetiracetam (Keppra) 250 mg PO BID [facility] Last Admin: 08/20/18 09:35 Dose: 250 mg Pantoprazole Sodium (Protonix Ec Tab) 40 mg PO DAILY [facility] Last Admin: 08/20/18 09:36 Dose: 40 mg Rosuvastatin Calcium (Crestor) 20 mg PO HS [facility] Last Admin: 08/19/18 21:15 Dose: 20 mg Venlafaxine HCl (Effexor Xr) 37.5 mg PO DAILY [facility] Last Admin: 08/20/18 09:36 Dose: 37.5 mg - Labs Labs: 08/18/18 07:24 08/18/18 07:24 Attending/Attestation - Attestation I have personally seen and examined this patient.: Yes I have fully participated in the care of the patient.: Yes I have reviewed all pertinent clinical information, including history, physical exam and plan: Yes
[2018-08-20] MEDS: Enoxaparin 40 mg Syringe SC SCH (09:34)
[2018-08-20] MEDS: levETIRAcetam 100 mg/ml (5ml) Oral Syringe PO SCH ×2 (09:35→18:00)
[2018-08-20] MEDS: Venlafaxine 37.5 mg ER Cap PO SCH (09:36)
[2018-08-20] MEDS: Pantoprazole 40 mg EC Tab PO SCH (09:36)
--- NOTE | 2018-08-21 07:09 | CP.PCM.PN ---
Subjective - Date & Time of Evaluation Date of Evaluation: 08/21/18 Time of Evaluation: 08:00 - Subjective Subjective: Medicine Progress note for Dr. Antonio Patient was seen and examined at bedside in no acute distress. Patient is alert and oriented to person. Patient says no to chest pain, abdominal pain, leg pain. ROS limited due to patients condition. Objective - Vital Signs/Intake and Output Vital Signs (last 24 hours): Temp Pulse Resp BP Pulse Ox 97.6 F 74 20 140/95 H 99 08/21/18 00:00 08/21/18 00:00 08/21/18 00:00 08/21/18 00:00 08/21/18 00:00 Intake and Output: 08/21/18 08/21/18 06:59 18:59 Intake Total 420 Balance 420 - Medications Medications: Current Medications Amlodipine Besylate (Norvasc) 10 mg PO DAILY [facility] Last Admin: 08/20/18 09:36 Dose: 10 mg Aspirin (Aspirin Chewable) 81 mg PO DAILY [facility] Last Admin: 08/20/18 09:36 Dose: 81 mg Carvedilol (Coreg) 3.125 mg PO BID [facility] Last Admin: 08/20/18 17:28 Dose: 3.125 mg Enoxaparin Sodium (Lovenox) 40 mg SC DAILY [facility] Last Admin: 08/20/18 09:34 Dose: 40 mg Ferrous Sulfate (Feosol) 325 mg PO BID [facility] Last Admin: 08/20/18 17:28 Dose: 325 mg Hydralazine HCl (Apresoline) 25 mg PO Q8H [facility] Last Admin: 08/21/18 06:31 Dose: 25 mg Levetiracetam (Keppra) 250 mg PO BID [facility] Last Admin: 08/20/18 09:35 Dose: 250 mg Pantoprazole Sodium (Protonix Ec Tab) 40 mg PO DAILY [facility] Last Admin: 08/20/18 09:36 Dose: 40 mg Rosuvastatin Calcium (Crestor) 20 mg PO HS [facility] Last Admin: 08/20/18 22:35 Dose: 20 mg Venlafaxine HCl (Effexor Xr) 37.5 mg PO DAILY [facility] Last Admin: 08/20/18 09:36 Dose: 37.5 mg - Labs Labs: 08/18/18 07:24 08/18/18 07:24 - Constitutional Appears: No Acute Distress, Confused, Chronically Ill - Eye Exam Eye Exam: EOMI, Normal appearance - ENT Exam ENT Exam: Mucous Membranes Moist - Respiratory Exam Respiratory Exam: NORMAL BREATHING PATTERN - Cardiovascular Exam Cardiovascular Exam: REGULAR RHYTHM, +S1, +S2 - GI/Abdominal Exam GI & Abdominal Exam: Soft, Normal Bowel Sounds. absent: Tenderness - Extremities Exam Extremities Exam: Normal Inspection - Neurological Exam Neurological Exam: Awake - Psychiatric Exam Psychiatric exam: Flat Affect - Skin Skin Exam: Normal Color Assessment and Plan - Assessment and Plan (Free Text) Assessment: Lethargy 2/2 to severe dehydration * Poor PO intake, poor care or possible infection - improving, patient more awake, alert, and eating * Continue Ensure nutritional supplement * UA: Negative * Urine Culture: Negative * Blood Culture: No growth * Chest X-ray: No active disease * Abx discontinued Brain aneurysm * Hx of brain aneursym * S/p coil in 10/2017 * Head CT (07/16/17): Embolization coils are seen adjacent to the basilar artery. There is a large amount of metallic artifact. Chronic lacunar infarcts are seen in the thalamus bilaterally. There is also a chronic infarct of the left occipital lobe. The ocular lenses are dislocated bilaterally * Keppra 250mg PO BID History of CVA * Residual right sided deficit * ASA 81 mg PO daily; As per daughter, patient's plavix has been discontinued * Crestor 20 mg PO HS Hypertension Continue home Medications * Amlodipine 10mg daily * Hydralazine 25 mg PO Q8H * Coreg 3.125 mg PO daily Elevated liver enzymes (Resolved) * Resolved, within normal range * likely multifactorial in etiology * Will monitor with am labs Depression as late effect of cerebrovascular accident (CVA) * Continue Effexor 37.5mg PO daily Hx of iron deficiency anemia * Feosol 325mg PO BID GI/DVT ppx * DVT: Lovenox 40 mg SC daily * GI: Protonix 40mg PO daily * PT/OT Disposition: Patient is medically stable. Patient's sisters signed all medical paperwork. We are currently awaiting them to provide all financial paperwork to get their Medicaid application approved. Once their application is approved, patient is to be discharged to [facility] with transition to adjunct faculty for medical terminology care. Case discussed with Dr. Marisela Mckeon PGY-2
[2018-08-21] MEDS: Pantoprazole 40 mg EC Tab PO SCH (10:18)
[2018-08-21] MEDS: Venlafaxine 37.5 mg ER Cap PO SCH (10:18)
[2018-08-21] MEDS: Enoxaparin 40 mg Syringe SC SCH (10:18)
[2018-08-21] MEDS: levETIRAcetam 100 mg/ml (5ml) Oral Syringe PO SCH ×2 (10:18→17:54)
[2018-08-21] MEDS: SILVASORB ANTIMICROBIAL WOUND GEL TOP SCH (11:25)
--- NOTE | 2018-08-21 17:00 | PQF ---
PROVIDER RESPONSE TEXT: Metabolic Encephalopathy in the setting of Severe Dehydration and Hypernatremia w/ Uz=630 , manifeste d by Lethargy and gen weakness. treated with gentle hydration REVIEWER QUERY TEXT: Clarification of Clinical Diagnostic Findings Please clarify documentation or clinical relevance for the clinical / diagnostic findings or whether those are insignificant or unable to be further specified. Metabolic Encephalopathy in the setting of Severe Dehydration and Hypernatremia w/ Fa=133 , manifeste d by Lethargy and gen weakness. treated with gentle hydration. -Other Explanation. - Unable to Determine The patient's Clinical Indicators include: Clinical Findings: Lethargy , gen weakness,( POA ). PPoor Po Intake, Severe Dehydration, Labs showing Na= 152 Treatment : Gentle Hydration w/ IVF w/ 1/2 NS 100ml/hr Risk factor:Severe Dehydration Query created by: Danae Gutierrez on 08/09/2018 5:12 PM Electronically signed by: Jeannette cMkeon 08/21/2018 4:57 PM
--- NOTE | 2018-08-22 06:57 | CP.PCM.PN ---
Subjective - Date & Time of Evaluation Date of Evaluation: 08/22/18 Time of Evaluation: 06:56 - Subjective Subjective: Progress note for Dr. Antonio Patient was seen and examined at bedside in no acute distress. Patient states she is "fine" and is smiling. Patient denies chest pain, abdominal pain, leg pain. ROS limited due to patients condition. Objective - Vital Signs/Intake and Output Vital Signs (last 24 hours): Temp Pulse Resp BP Pulse Ox 98.1 F 69 20 102/65 98 08/21/18 23:51 08/22/18 06:00 08/22/18 06:00 08/22/18 06:00 08/22/18 06:00 Intake and Output: 08/21/18 08/22/18 18:59 06:59 Intake Total 400 Balance 400 - Medications Medications: Current Medications Amlodipine Besylate (Norvasc) 10 mg PO DAILY [facility] Last Admin: 08/21/18 10:19 Dose: 10 mg Aspirin (Aspirin Chewable) 81 mg PO DAILY [facility] Last Admin: 08/21/18 10:19 Dose: 81 mg Carvedilol (Coreg) 3.125 mg PO BID [facility] Last Admin: 08/21/18 17:23 Dose: 3.125 mg Enoxaparin Sodium (Lovenox) 40 mg SC DAILY [facility] Last Admin: 08/21/18 10:18 Dose: 40 mg Ferrous Sulfate (Feosol) 325 mg PO BID [facility] Last Admin: 08/21/18 17:21 Dose: 325 mg Hydralazine HCl (Apresoline) 25 mg PO Q8H [facility] Last Admin: 08/22/18 06:42 Dose: Not Given Levetiracetam (Keppra) 250 mg PO BID [facility] Last Admin: 08/21/18 17:54 Dose: 250 mg Pantoprazole Sodium (Protonix Ec Tab) 40 mg PO DAILY [facility] Last Admin: 08/21/18 10:18 Dose: 40 mg Rosuvastatin Calcium (Crestor) 20 mg PO HS [facility] Last Admin: 08/21/18 21:32 Dose: 20 mg Venlafaxine HCl (Effexor Xr) 37.5 mg PO DAILY [facility] Last Admin: 08/21/18 10:18 Dose: 37.5 mg - Labs Labs: 08/18/18 07:24 08/18/18 07:24 - Additional Findings Additional findings: - Constitutional Appears: No Acute Distress, Chronically Ill - Head Exam Head Exam: NORMAL INSPECTION - Eye Exam Eye Exam: EOMI, Normal appearance - ENT Exam ENT Exam: Mucous Membranes Dry - Respiratory Exam Respiratory Exam: NORMAL BREATHING PATTERN. absent: Rales, Rhonchi, Wheezes, Respiratory Distress - Cardiovascular Exam Cardiovascular Exam: REGULAR RHYTHM, +S1, +S2 - GI/Abdominal Exam GI & Abdominal Exam: Soft, Normal Bowel Sounds. absent: Distended, Tenderness - Extremities Exam Extremities Exam: Full ROM, Normal Inspection, No edema - Neurological Exam Neurological Exam: Awake. absent: Alert, Oriented x3 - Psychiatric Exam Psychiatric exam: Flat Affect - Skin Skin Exam: Dry, Warm Assessment and Plan - Assessment and Plan (Free Text) Plan: Metabolic Encephalopathy 2/2 to severe dehydration/Hypernatremia * Poor PO intake, poor care or possible infection - improving, patient more awake, alert, and eating * Na on admission 152 * Continue Ensure nutritional supplement * UA: Negative * Urine Culture: Negative * Blood Culture: No growth * Chest X-ray: No active disease * Abx discontinued Brain aneurysm * Hx of brain aneursym * S/p coil in 10/2017 * Head CT (07/16/17): Embolization coils are seen adjacent to the basilar artery. There is a large amount of metallic artifact. Chronic lacunar infarcts are seen in the thalamus bilaterally. There is also a chronic infarct of the left occipital lobe. The ocular lenses are dislocated bilaterally * Keppra 250mg PO BID History of CVA * Residual right sided deficit * ASA 81 mg PO daily; As per daughter, patient's plavix has been discontinued * Crestor 20 mg PO HS Hypertension Continue home Medications * Amlodipine 10mg daily * Hydralazine 25 mg PO Q8H * Coreg 3.125 mg PO daily Elevated liver enzymes (Resolved) * Resolved, within normal range * likely multifactorial in etiology * Will monitor with am labs Depression as late effect of cerebrovascular accident (CVA) * Continue Effexor 37.5mg PO daily Hx of iron deficiency anemia * Feosol 325mg PO BID GI/DVT ppx * DVT: Lovenox 40 mg SC daily * GI: Protonix 40mg PO daily * PT/OT Disposition: Patient is medically stable. Patient's sisters signed all medical paperwork. We are currently awaiting them to provide all financial paperwork to get their Medicaid application approved. Once their application is approved, patient is to be discharged to [facility] with transition to remote computer terminal operator care. Case discussed with Dr. Marisela Hutchins PGY-2
[2018-08-22] MEDS: Enoxaparin 40 mg Syringe SC SCH (10:09)
[2018-08-22] MEDS: levETIRAcetam 100 mg/ml (5ml) Oral Syringe PO SCH ×2 (10:10→17:35)
[2018-08-22] MEDS: Pantoprazole 40 mg EC Tab PO SCH (10:11)
[2018-08-22] MEDS: Venlafaxine 37.5 mg ER Cap PO SCH (10:12)
[2018-08-23] MEDS: Enoxaparin 40 mg Syringe SC SCH (09:49)
[2018-08-23] MEDS: Pantoprazole 40 mg EC Tab PO SCH (09:49)
[2018-08-23] MEDS: levETIRAcetam 100 mg/ml (5ml) Oral Syringe PO SCH ×2 (09:49→17:33)
[2018-08-23] MEDS: Venlafaxine 37.5 mg ER Cap PO SCH (09:49)
--- NOTE | 2018-08-23 11:44 | CP.PCM.PN ---
Subjective - Date & Time of Evaluation Date of Evaluation: 08/23/18 Time of Evaluation: 08:00 - Subjective Subjective: Medicine Progress note for Dr. Antonio Patient was seen and examined at bedside in no acute distress. Patient is alert and oriented to person. Patient says no to chest pain, abdominal pain, leg pain. ROS limited due to patients condition. Objective - Vital Signs/Intake and Output Vital Signs (last 24 hours): Temp Pulse Resp BP Pulse Ox 97.8 F 78 20 113/75 95 08/23/18 08:00 08/23/18 08:00 08/23/18 08:00 08/23/18 08:00 08/23/18 08:00 Intake and Output: 08/23/18 08/23/18 06:59 18:59 Intake Total 300 200 Balance 300 200 - Medications Medications: Current Medications Amlodipine Besylate (Norvasc) 10 mg PO DAILY [facility] Last Admin: 08/23/18 09:50 Dose: 10 mg Aspirin (Aspirin Chewable) 81 mg PO DAILY [facility] Last Admin: 08/23/18 09:50 Dose: 81 mg Carvedilol (Coreg) 3.125 mg PO BID [facility] Last Admin: 08/23/18 10:27 Dose: 3.125 mg Enoxaparin Sodium (Lovenox) 40 mg SC DAILY [facility] Last Admin: 08/23/18 09:49 Dose: 40 mg Ferrous Sulfate (Feosol) 325 mg PO BID [facility] Last Admin: 08/23/18 09:50 Dose: 325 mg Hydralazine HCl (Apresoline) 25 mg PO Q8H [facility] Last Admin: 08/23/18 05:35 Dose: 25 mg Levetiracetam (Keppra) 250 mg PO BID [facility] Last Admin: 08/23/18 09:49 Dose: 250 mg Pantoprazole Sodium (Protonix Ec Tab) 40 mg PO DAILY [facility] Last Admin: 08/23/18 09:49 Dose: 40 mg Rosuvastatin Calcium (Crestor) 20 mg PO HS [facility] Last Admin: 08/22/18 21:35 Dose: 20 mg Venlafaxine HCl (Effexor Xr) 37.5 mg PO DAILY [facility] Last Admin: 08/23/18 09:49 Dose: 37.5 mg - Labs Labs: 08/18/18 07:24 08/18/18 07:24 - Constitutional Appears: No Acute Distress, Confused, Chronically Ill - Head Exam Head Exam: ATRAUMATIC, NORMAL INSPECTION - Eye Exam Eye Exam: EOMI, Normal appearance - ENT Exam ENT Exam: Mucous Membranes Moist - Respiratory Exam Respiratory Exam: NORMAL BREATHING PATTERN - Cardiovascular Exam Cardiovascular Exam: REGULAR RHYTHM, +S1, +S2 - GI/Abdominal Exam GI & Abdominal Exam: Soft, Normal Bowel Sounds. absent: Tenderness - Extremities Exam Extremities Exam: Normal Inspection - Neurological Exam Neurological Exam: Awake - Psychiatric Exam Psychiatric exam: Flat Affect Assessment and Plan - Assessment and Plan (Free Text) Assessment: Metabolic Encephalopathy 2/2 to severe dehydration/Hypernatremia * Poor PO intake, poor care or possible infection - improving, patient more awake, alert, and eating * Na on admission 152 * Continue Ensure nutritional supplement * UA: Negative * Urine Culture: Negative * Blood Culture: No growth * Chest X-ray: No active disease * Abx discontinued Brain aneurysm * Hx of brain aneursym * S/p coil in 10/2017 * Head CT (07/16/17): Embolization coils are seen adjacent to the basilar artery. There is a large amount of metallic artifact. Chronic lacunar infarcts are seen in the thalamus bilaterally. There is also a chronic infarct of the left occipital lobe. The ocular lenses are dislocated bilaterally * Keppra 250mg PO BID History of CVA * Residual right sided deficit * ASA 81 mg PO daily; As per daughter, patient's plavix has been discontinued * Crestor 20 mg PO HS Hypertension Continue home Medications * Amlodipine 10mg daily * Hydralazine 25 mg PO Q8H * Coreg 3.125 mg PO daily Elevated liver enzymes (Resolved) * Resolved, within normal range * likely multifactorial in etiology * Will monitor with am labs Depression as late effect of cerebrovascular accident (CVA) * Continue Effexor 37.5mg PO daily Hx of iron deficiency anemia * Feosol 325mg PO BID GI/DVT ppx * DVT: Lovenox 40 mg SC daily * GI: Protonix 40mg PO daily * PT/OT Disposition: Patient is medically stable. Patient's sisters signed all medical paperwork. We are currently awaiting them to provide all financial paperwork to get their Medicaid application approved. Once their application is approved, patient is to be discharged to [facility] with transition to terminal supervisor care. Case discussed with Dr. Marisela Mckeon PGY-2
--- NOTE | 2018-08-24 06:59 | CP.PCM.PN ---
Subjective - Date & Time of Evaluation Date of Evaluation: 08/24/18 Time of Evaluation: 06:58 - Subjective Subjective: Progress note for Dr. Antonio Patient was seen and examined at bedside in no acute distress. Patient states she is "alright" and is smiling. She is oriented to person, but not place. Patient denies chest pain, abdominal pain, leg pain. ROS limited due to patients condition. Objective - Vital Signs/Intake and Output Vital Signs (last 24 hours): Temp Pulse Resp BP Pulse Ox 97.1 F L 66 20 121/81 98 08/24/18 00:00 08/24/18 00:00 08/24/18 00:00 08/24/18 00:00 08/24/18 00:00 Intake and Output: 08/23/18 08/24/18 18:59 06:59 Intake Total 440 300 Balance 440 300 - Medications Medications: Current Medications Amlodipine Besylate (Norvasc) 10 mg PO DAILY [facility] Last Admin: 08/23/18 09:50 Dose: 10 mg Aspirin (Aspirin Chewable) 81 mg PO DAILY [facility] Last Admin: 08/23/18 09:50 Dose: 81 mg Carvedilol (Coreg) 3.125 mg PO BID [facility] Last Admin: 08/23/18 17:25 Dose: 3.125 mg Enoxaparin Sodium (Lovenox) 40 mg SC DAILY [facility] Last Admin: 08/23/18 09:49 Dose: 40 mg Ferrous Sulfate (Feosol) 325 mg PO BID [facility] Last Admin: 08/23/18 17:25 Dose: 325 mg Hydralazine HCl (Apresoline) 25 mg PO Q8H [facility] Last Admin: 08/24/18 05:32 Dose: 25 mg Levetiracetam (Keppra) 250 mg PO BID [facility] Last Admin: 08/23/18 17:33 Dose: 250 mg Pantoprazole Sodium (Protonix Ec Tab) 40 mg PO DAILY [facility] Last Admin: 08/23/18 09:49 Dose: 40 mg Rosuvastatin Calcium (Crestor) 20 mg PO HS [facility] Last Admin: 08/23/18 22:05 Dose: 20 mg Venlafaxine HCl (Effexor Xr) 37.5 mg PO DAILY [facility] Last Admin: 08/23/18 09:49 Dose: 37.5 mg - Labs Labs: 08/18/18 07:24 08/18/18 07:24 - Additional Findings Additional findings: - Constitutional Appears: No Acute Distress, Chronically Ill - Head Exam Head Exam: NORMAL INSPECTION - Eye Exam Eye Exam: EOMI, Normal appearance - ENT Exam ENT Exam: Mucous Membranes Dry - Respiratory Exam Respiratory Exam: NORMAL BREATHING PATTERN. absent: Rales, Rhonchi, Wheezes, Respiratory Distress - Cardiovascular Exam Cardiovascular Exam: REGULAR RHYTHM, +S1, +S2 - GI/Abdominal Exam GI & Abdominal Exam: Soft, Normal Bowel Sounds. absent: Distended, Tenderness - Extremities Exam Extremities Exam: Full ROM, Normal Inspection, No edema - Neurological Exam Neurological Exam: Awake. absent: Alert, Oriented x3 - Psychiatric Exam Psychiatric exam: Flat Affect - Skin Skin Exam: Dry, Warm Assessment and Plan - Assessment and Plan (Free Text) Plan: Metabolic Encephalopathy 2/2 to severe dehydration/Hypernatremia * Poor PO intake, poor care or possible infection - improving, patient more awake, alert, and eating * Na on admission 152 * Continue Ensure nutritional supplement * UA: Negative * Urine Culture: Negative * Blood Culture: No growth * Chest X-ray: No active disease * Abx discontinued Brain aneurysm * Hx of brain aneursym * S/p coil in 10/2017 * Head CT (07/16/17): Embolization coils are seen adjacent to the basilar artery. There is a large amount of metallic artifact. Chronic lacunar infarcts are seen in the thalamus bilaterally. There is also a chronic infarct of the left occipital lobe. The ocular lenses are dislocated bilaterally * Keppra 250mg PO BID History of CVA * Residual right sided deficit * ASA 81 mg PO daily; As per daughter, patient's plavix has been discontinued * Crestor 20 mg PO HS Hypertension Continue home Medications * Amlodipine 10mg daily * Hydralazine 25 mg PO Q8H * Coreg 3.125 mg PO daily Elevated liver enzymes (Resolved) * Resolved, within normal range * likely multifactorial in etiology * Will monitor with am labs Depression as late effect of cerebrovascular accident (CVA) * Continue Effexor 37.5mg PO daily Hx of iron deficiency anemia * Feosol 325mg PO BID GI/DVT ppx * DVT: Lovenox 40 mg SC daily * GI: Protonix 40mg PO daily * PT/OT Disposition: Patient is medically stable. Patient's sisters signed all medical paperwork. We are currently awaiting them to provide all financial paperwork to get their Medicaid application approved. Once their application is approved, patient is to be discharged to [facility] with transition to termite treater helper care. Case discussed with Dr. Marisela Hutchins PGY-2
[2018-08-24] MEDS: Venlafaxine 37.5 mg ER Cap PO SCH (09:16)
[2018-08-24] MEDS: levETIRAcetam 100 mg/ml (5ml) Oral Syringe PO SCH ×2 (09:16→17:43)
[2018-08-24] MEDS: Pantoprazole 40 mg EC Tab PO SCH (09:17)
[2018-08-24] MEDS: Enoxaparin 40 mg Syringe SC SCH (09:17)
[2018-08-25] MEDS: Enoxaparin 40 mg Syringe SC SCH ×2 (10:03→10:13)
[2018-08-25] MEDS: Pantoprazole 40 mg EC Tab PO SCH (10:03)
[2018-08-25] MEDS: levETIRAcetam 100 mg/ml (5ml) Oral Syringe PO SCH ×2 (10:03→10:13)
[2018-08-25] MEDS: Venlafaxine 37.5 mg ER Cap PO SCH (10:03)
[2018-08-26] MEDS: Venlafaxine 37.5 mg ER Cap PO SCH (09:40)
[2018-08-26] MEDS: Pantoprazole 40 mg EC Tab PO SCH (09:41)
[2018-08-26] MEDS: Enoxaparin 40 mg Syringe SC SCH (09:41)
[2018-08-26] MEDS: levETIRAcetam 100 mg/ml (5ml) Oral Syringe PO SCH (17:39)
--- NOTE | 2018-08-27 08:33 | CP.PCM.PN ---
Subjective - Date & Time of Evaluation Date of Evaluation: 08/27/18 Time of Evaluation: 08:00 - Subjective Subjective: Medicine Progress note for Dr. Antonio Patient was seen and examined at bedside in no acute distress. Patient is alert and oriented to person. Patient says no to chest pain, abdominal pain, leg pain. ROS limited due to patients condition. Objective - Vital Signs/Intake and Output Vital Signs (last 24 hours): Temp Pulse Resp BP Pulse Ox 97.8 F 69 20 105/71 96 08/27/18 07:32 08/27/18 07:32 08/27/18 07:32 08/27/18 07:32 08/27/18 07:32 Intake and Output: 08/27/18 08/27/18 06:59 18:59 Intake Total 240 120 Balance 240 120 - Medications Medications: Current Medications Amlodipine Besylate (Norvasc) 10 mg PO DAILY [facility] Last Admin: 08/26/18 09:41 Dose: 10 mg Aspirin (Aspirin Chewable) 81 mg PO DAILY [facility] Last Admin: 08/26/18 09:40 Dose: 81 mg Carvedilol (Coreg) 3.125 mg PO BID [facility] Last Admin: 08/26/18 17:40 Dose: 3.125 mg Enoxaparin Sodium (Lovenox) 40 mg SC DAILY [facility] Last Admin: 08/26/18 09:41 Dose: 40 mg Ferrous Sulfate (Feosol) 325 mg PO BID [facility] Last Admin: 08/26/18 17:40 Dose: 325 mg Hydralazine HCl (Apresoline) 25 mg PO Q8H [facility] Last Admin: 08/27/18 05:17 Dose: Not Given Levetiracetam (Keppra) 250 mg PO BID [facility] Last Admin: 08/26/18 17:39 Dose: 250 mg Pantoprazole Sodium (Protonix Ec Tab) 40 mg PO DAILY [facility] Last Admin: 08/26/18 09:41 Dose: 40 mg Rosuvastatin Calcium (Crestor) 20 mg PO HS [facility] Last Admin: 08/26/18 22:07 Dose: 20 mg Venlafaxine HCl (Effexor Xr) 37.5 mg PO DAILY [facility] Last Admin: 08/26/18 09:40 Dose: 37.5 mg - Labs Labs: 08/18/18 07:24 08/18/18 07:24 - Constitutional Appears: Older Than Stated Age, Confused, Chronically Ill - Head Exam Head Exam: ATRAUMATIC, NORMAL INSPECTION - Eye Exam Eye Exam: EOMI, Normal appearance - ENT Exam ENT Exam: Mucous Membranes Moist - Respiratory Exam Respiratory Exam: NORMAL BREATHING PATTERN - Cardiovascular Exam Cardiovascular Exam: REGULAR RHYTHM, +S1, +S2 - GI/Abdominal Exam GI & Abdominal Exam: Soft, Normal Bowel Sounds. absent: Tenderness - Extremities Exam Extremities Exam: absent: Tenderness - Neurological Exam Neurological Exam: Awake. absent: Alert, Oriented x3 - Psychiatric Exam Psychiatric exam: Flat Affect Assessment and Plan - Assessment and Plan (Free Text) Assessment: Metabolic Encephalopathy 2/2 to severe dehydration/Hypernatremia * Poor PO intake, poor care or possible infection - improving, patient more awake, alert, and eating * Na on admission 152 * Continue Ensure nutritional supplement * UA: Negative * Urine Culture: Negative * Blood Culture: No growth * Chest X-ray: No active disease * Abx discontinued Brain aneurysm * Hx of brain aneursym * S/p coil in 10/2017 * Head CT (07/16/17): Embolization coils are seen adjacent to the basilar artery. There is a large amount of metallic artifact. Chronic lacunar infarcts are seen in the thalamus bilaterally. There is also a chronic infarct of the left occipital lobe. The ocular lenses are dislocated bilaterally * Keppra 250mg PO BID History of CVA * Residual right sided deficit * ASA 81 mg PO daily; As per daughter, patient's plavix has been discontinued * Crestor 20 mg PO HS Hypertension Continue home Medications * Amlodipine 10mg daily * Hydralazine 25 mg PO Q8H * Coreg 3.125 mg PO daily Elevated liver enzymes (Resolved) * Resolved, within normal range * likely multifactorial in etiology * Will monitor with am labs Depression as late effect of cerebrovascular accident (CVA) * Continue Effexor 37.5mg PO daily Hx of iron deficiency anemia * Feosol 325mg PO BID GI/DVT ppx * DVT: Lovenox 40 mg SC daily * GI: Protonix 40mg PO daily * PT/OT Disposition: Patient is medically stable. Patient's sisters signed all medical paperwork. We are currently awaiting them to provide all financial paperwork to get their Medicaid application approved. Once their application is approved, patient is to be discharged to [facility] with transition to half-way care. Case discussed with Dr. Marisela Mckeon PGY-2
[2018-08-27] MEDS: levETIRAcetam 100 mg/ml (5ml) Oral Syringe PO SCH ×3 (10:36→17:45)
[2018-08-27] MEDS: Pantoprazole 40 mg EC Tab PO SCH ×2 (10:36→10:37)
[2018-08-27] MEDS: Venlafaxine 37.5 mg ER Cap PO SCH (10:37)
[2018-08-27] MEDS: Enoxaparin 40 mg Syringe SC SCH ×2 (10:37)
[2018-08-27] MEDS: SILVASORB ANTIMICROBIAL WOUND GEL TOP SCH (10:53)
[2018-08-27 11:39] LABS: BASO % 0.4 % (0.0-2.0); EOS # 0.2 K/uL (0.0-0.7); EOS % 3.5 % (0.0-4.0); HEMOGLOBIN 11.3 g/dL (11.0-16.0); LYMPH # 1.5 K/uL (1.0-4.3); LYMPH % 24.2 % (20.0-40.0); MEAN CELL VOLUME 81.1 fL (81.0-99.0); MEAN CORPUSCULAR HEMOGLOBIN 26.6 pg (27.0-31.0); MEAN CORPUSCULAR HGB CONC 32.8 g/dL (33.0-37.0); MEAN PLATELET VOLUME 8.4 fL (7.2-11.7); MONO # 0.5 K/uL (0.0-0.8); NEUT # 3.9 K/uL (1.8-7.0); NEUT % 63.9 % (50.0-75.0); RBC 4.23 Mil/uL (3.80-5.20); RED CELL DISTRIBUTION WIDTH 16.4 % (11.5-14.5)
[2018-08-27 11:58] LABS: ALB/GLOB RATIO 1.4 (1.0-2.1); ALBUMIN 3.8 g/dL (3.5-5.0); ALT/SGPT 130 U/L (9-52); AST/SGOT 68 U/L (14-36); BLOOD UREA NITROGEN 17 mg/dL (7-17); CALCIUM 9.7 mg/dl (8.6-10.4); GFR NON-AFRICAN AMERICAN > 60
--- NOTE | 2018-08-28 07:41 | CP.PCM.PN ---
Subjective - Date & Time of Evaluation Date of Evaluation: 08/28/18 Time of Evaluation: 08:00 - Subjective Subjective: Medicine Progress note for Dr. Antonio Patient was seen and examined at bedside in no acute distress. Patient is alert and oriented to person. Patient states she is "tired". Patient says no to chest pain, abdominal pain, leg pain. ROS limited due to patients condition. Objective - Vital Signs/Intake and Output Vital Signs (last 24 hours): Temp Pulse Resp BP Pulse Ox 97.4 F L 64 20 123/77 98 08/27/18 23:42 08/28/18 02:07 08/28/18 02:07 08/28/18 02:07 08/28/18 02:07 Intake and Output: 08/28/18 08/28/18 06:59 18:59 Intake Total 400 Balance 400 - Medications Medications: Current Medications Amlodipine Besylate (Norvasc) 10 mg PO DAILY [facility] Last Admin: 08/27/18 10:36 Dose: 10 mg Aspirin (Aspirin Chewable) 81 mg PO DAILY [facility] Last Admin: 08/27/18 10:36 Dose: 81 mg Carvedilol (Coreg) 3.125 mg PO BID [facility] Last Admin: 08/27/18 17:45 Dose: 3.125 mg Enoxaparin Sodium (Lovenox) 40 mg SC DAILY [facility] Last Admin: 08/27/18 10:37 Dose: 40 mg Ferrous Sulfate (Feosol) 325 mg PO BID [facility] Last Admin: 08/27/18 17:45 Dose: 325 mg Hydralazine HCl (Apresoline) 25 mg PO Q8H [facility] Last Admin: 08/28/18 02:11 Dose: 25 mg Levetiracetam (Keppra) 250 mg PO BID [facility] Last Admin: 08/27/18 17:45 Dose: 250 mg Pantoprazole Sodium (Protonix Ec Tab) 40 mg PO DAILY [facility] Last Admin: 08/27/18 10:36 Dose: 40 mg Rosuvastatin Calcium (Crestor) 20 mg PO HS [facility] Last Admin: 08/27/18 22:10 Dose: 20 mg Venlafaxine HCl (Effexor Xr) 37.5 mg PO DAILY [facility] - Labs Labs: 08/27/18 11:26 08/27/18 11:26 - Constitutional Appears: No Acute Distress, Chronically Ill - Head Exam Head Exam: ATRAUMATIC, NORMAL INSPECTION - Eye Exam Eye Exam: EOMI, Normal appearance - ENT Exam ENT Exam: Mucous Membranes Moist - Respiratory Exam Respiratory Exam: NORMAL BREATHING PATTERN - Cardiovascular Exam Cardiovascular Exam: REGULAR RHYTHM, +S1, +S2 - GI/Abdominal Exam GI & Abdominal Exam: Soft, Normal Bowel Sounds. absent: Tenderness - Extremities Exam Extremities Exam: Normal Inspection - Neurological Exam Neurological Exam: Awake. absent: Oriented x3 - Psychiatric Exam Psychiatric exam: Flat Affect - Skin Skin Exam: Normal Color Assessment and Plan - Assessment and Plan (Free Text) Assessment: Metabolic Encephalopathy 2/2 to severe dehydration/Hypernatremia * Poor PO intake, poor care or possible infection - improving, patient more awake, alert, and eating * Na on admission 152 * Continue Ensure nutritional supplement * UA: Negative * Urine Culture: Negative * Blood Culture: No growth * Chest X-ray: No active disease * Abx discontinued Brain aneurysm * Hx of brain aneursym * S/p coil in 10/2017 * Head CT (07/16/17): Embolization coils are seen adjacent to the basilar artery. There is a large amount of metallic artifact. Chronic lacunar infarcts are seen in the thalamus bilaterally. There is also a chronic infarct of the left occipital lobe. The ocular lenses are dislocated bilaterally * Keppra 250mg PO BID History of CVA * Residual right sided deficit * ASA 81 mg PO daily; As per daughter, patient's plavix has been discontinued * Crestor 20 mg PO HS Hypertension Continue home Medications * Amlodipine 10mg daily * Hydralazine 25 mg PO Q8H * Coreg 3.125 mg PO daily Elevated liver enzymes (Resolved) * Resolved, within normal range * likely multifactorial in etiology * Will monitor with am labs Depression as late effect of cerebrovascular accident (CVA) * Continue Effexor 37.5mg PO daily Hx of iron deficiency anemia * Feosol 325mg PO BID GI/DVT ppx * DVT: Lovenox 40 mg SC daily * GI: Protonix 40mg PO daily * PT/OT Disposition: Patient is medically stable. Patient's sisters signed all medical paperwork. We are currently awaiting them to provide all financial paperwork to get their Medicaid application approved. Once their application is approved, patient is to be discharged to [facility] with transition to intermodal dispatcher care. Case discussed with Dr. Marisela Mckeon PGY-2
[2018-08-28] MEDS: Pantoprazole 40 mg EC Tab PO SCH (09:39)
[2018-08-28] MEDS: Venlafaxine 37.5 mg ER Cap PO SCH (09:39)
[2018-08-28] MEDS: Enoxaparin 40 mg Syringe SC SCH (09:40)
[2018-08-28] MEDS: levETIRAcetam 100 mg/ml (5ml) Oral Syringe PO SCH ×2 (10:22→17:21)
--- NOTE | 2018-08-29 07:27 | CP.PCM.PN ---
Subjective - Date & Time of Evaluation Date of Evaluation: 08/29/18 Time of Evaluation: 07:26 - Subjective Subjective: Progress note for Dr. Antonio Patient was seen and examined at bedside in no acute distress. Patient states she is "alright". Patient denies chest pain, abdominal pain, leg pain. ROS limited due to patients condition. Objective - Vital Signs/Intake and Output Vital Signs (last 24 hours): Temp Pulse Resp BP Pulse Ox 98.4 F 77 20 128/84 97 08/29/18 00:00 08/29/18 00:00 08/29/18 00:00 08/29/18 02:15 08/29/18 00:00 Intake and Output: 08/29/18 08/29/18 06:59 18:59 Intake Total 250 Balance 250 - Medications Medications: Current Medications Amlodipine Besylate (Norvasc) 10 mg PO DAILY [facility] Last Admin: 08/28/18 09:38 Dose: 10 mg Aspirin (Aspirin Chewable) 81 mg PO DAILY [facility] Last Admin: 08/28/18 09:39 Dose: 81 mg Carvedilol (Coreg) 3.125 mg PO BID [facility] Last Admin: 08/28/18 17:17 Dose: 3.125 mg Enoxaparin Sodium (Lovenox) 40 mg SC DAILY [facility] Last Admin: 08/28/18 09:40 Dose: 40 mg Ferrous Sulfate (Feosol) 325 mg PO BID [facility] Last Admin: 08/28/18 17:17 Dose: 325 mg Hydralazine HCl (Apresoline) 25 mg PO Q8H [facility] Last Admin: 08/29/18 02:27 Dose: 25 mg Levetiracetam (Keppra) 250 mg PO BID [facility] Last Admin: 08/28/18 17:21 Dose: 250 mg Pantoprazole Sodium (Protonix Ec Tab) 40 mg PO DAILY [facility] Last Admin: 08/28/18 09:39 Dose: 40 mg Rosuvastatin Calcium (Crestor) 20 mg PO HS [facility] Last Admin: 08/28/18 21:32 Dose: 20 mg Venlafaxine HCl (Effexor Xr) 37.5 mg PO DAILY [facility] Last Admin: 08/28/18 09:39 Dose: 37.5 mg - Labs Labs: 08/27/18 11:26 08/27/18 11:26 - Additional Findings Additional findings: - Constitutional Appears: No Acute Distress, Chronically Ill - Head Exam Head Exam: NORMAL INSPECTION - Eye Exam Eye Exam: EOMI, Normal appearance - ENT Exam ENT Exam: Mucous Membranes Dry - Respiratory Exam Respiratory Exam: NORMAL BREATHING PATTERN. absent: Rales, Rhonchi, Wheezes, Respiratory Distress - Cardiovascular Exam Cardiovascular Exam: REGULAR RHYTHM, +S1, +S2 - GI/Abdominal Exam GI & Abdominal Exam: Soft, Normal Bowel Sounds. absent: Distended, Tenderness - Extremities Exam Extremities Exam: Full ROM, Normal Inspection, No edema - Neurological Exam Neurological Exam: Awake. absent: Alert, Oriented x3 - Psychiatric Exam Psychiatric exam: Flat Affect - Skin Skin Exam: Dry, Warm Assessment and Plan - Assessment and Plan (Free Text) Plan: Metabolic Encephalopathy 2/2 to severe dehydration/Hypernatremia * Poor PO intake, poor care or possible infection - improving, patient more awake, alert, and eating * Na on admission 152 * Continue Ensure nutritional supplement * UA: Negative * Urine Culture: Negative * Blood Culture: No growth * Chest X-ray: No active disease * Abx discontinued Brain aneurysm * Hx of brain aneursym * S/p coil in 10/2017 * Head CT (07/16/17): Embolization coils are seen adjacent to the basilar artery. There is a large amount of metallic artifact. Chronic lacunar infarcts are seen in the thalamus bilaterally. There is also a chronic infarct of the left occipital lobe. The ocular lenses are dislocated bilaterally * Keppra 250mg PO BID History of CVA * Residual right sided deficit * ASA 81 mg PO daily; As per daughter, patient's plavix has been discontinued * Crestor 20 mg PO HS Hypertension Continue home Medications * Amlodipine 10mg daily * Hydralazine 25 mg PO Q8H * Coreg 3.125 mg PO daily Elevated liver enzymes (Resolved) * Resolved, within normal range * likely multifactorial in etiology * Will monitor with am labs Depression as late effect of cerebrovascular accident (CVA) * Continue Effexor 37.5mg PO daily Hx of iron deficiency anemia * Feosol 325mg PO BID GI/DVT ppx * DVT: Lovenox 40 mg SC daily * GI: Protonix 40mg PO daily * PT/OT Disposition: Patient is medically stable. Patient's sisters signed all medical paperwork. Once their application is approved, patient is to be discharged to [facility] with transition to prison care. Case discussed with and patient seen with Dr. Marisela Hutchins PGY-2
[2018-08-29] MEDS: Enoxaparin 40 mg Syringe SC SCH (09:33)
[2018-08-29] MEDS: Venlafaxine 37.5 mg ER Cap PO SCH (09:33)
[2018-08-29] MEDS: Pantoprazole 40 mg EC Tab PO SCH (09:33)
[2018-08-29] MEDS: levETIRAcetam 100 mg/ml (5ml) Oral Syringe PO SCH ×2 (10:16→17:57)
--- NOTE | 2018-08-30 07:49 | CP.PCM.PN ---
Subjective - Date & Time of Evaluation Date of Evaluation: 08/30/18 Time of Evaluation: 07:48 - Subjective Subjective: Progress note for Dr. Antonio Patient was seen and examined at bedside in no acute distress. Patient states she is "fine". Patient denies chest pain, abdominal pain, leg pain. ROS limited due to patients condition. Objective - Vital Signs/Intake and Output Vital Signs (last 24 hours): Temp Pulse Resp BP Pulse Ox 98 F 85 20 120/82 97 08/30/18 00:00 08/30/18 00:00 08/30/18 00:00 08/30/18 00:00 08/30/18 00:00 Intake and Output: 08/30/18 08/30/18 06:59 18:59 Intake Total 300 80 Balance 300 80 - Medications Medications: Current Medications Amlodipine Besylate (Norvasc) 10 mg PO DAILY [facility] Last Admin: 08/29/18 09:33 Dose: 10 mg Aspirin (Aspirin Chewable) 81 mg PO DAILY [facility] Last Admin: 08/29/18 09:33 Dose: 81 mg Carvedilol (Coreg) 3.125 mg PO BID [facility] Last Admin: 08/29/18 17:55 Dose: 3.125 mg Enoxaparin Sodium (Lovenox) 40 mg SC DAILY [facility] Last Admin: 08/29/18 09:33 Dose: 40 mg Ferrous Sulfate (Feosol) 325 mg PO BID [facility] Last Admin: 08/29/18 17:55 Dose: 325 mg Hydralazine HCl (Apresoline) 25 mg PO Q8H [facility] Last Admin: 08/30/18 02:49 Dose: 25 mg Levetiracetam (Keppra) 250 mg PO BID [facility] Last Admin: 08/29/18 17:57 Dose: 250 mg Pantoprazole Sodium (Protonix Ec Tab) 40 mg PO DAILY [facility] Last Admin: 08/29/18 09:33 Dose: 40 mg Rosuvastatin Calcium (Crestor) 20 mg PO HS [facility] Last Admin: 08/29/18 21:22 Dose: 20 mg Venlafaxine HCl (Effexor Xr) 37.5 mg PO DAILY [facility] Last Admin: 08/29/18 09:33 Dose: 37.5 mg - Labs Labs: 08/27/18 11:26 08/27/18 11:26 - Additional Findings Additional findings: - Constitutional Appears: No Acute Distress, Chronically Ill - Head Exam Head Exam: NORMAL INSPECTION - Eye Exam Eye Exam: EOMI, Normal appearance - ENT Exam ENT Exam: Mucous Membranes Dry - Respiratory Exam Respiratory Exam: NORMAL BREATHING PATTERN. absent: Rales, Rhonchi, Wheezes, Respiratory Distress - Cardiovascular Exam Cardiovascular Exam: REGULAR RHYTHM, +S1, +S2 - GI/Abdominal Exam GI & Abdominal Exam: Soft, Normal Bowel Sounds. absent: Distended, Tenderness - Extremities Exam Extremities Exam: Full ROM, Normal Inspection, No edema - Neurological Exam Neurological Exam: Awake. absent: Alert, Oriented x3 - Psychiatric Exam Psychiatric exam: Flat Affect - Skin Skin Exam: Dry, Warm Assessment and Plan - Assessment and Plan (Free Text) Plan: Metabolic Encephalopathy 2/2 to severe dehydration/Hypernatremia * Poor PO intake, poor care or possible infection - improving, patient more awake, alert, and eating * Na on admission 152 * Continue Ensure nutritional supplement * UA: Negative * Urine Culture: Negative * Blood Culture: No growth * Chest X-ray: No active disease * Abx discontinued Brain aneurysm * Hx of brain aneursym * S/p coil in 10/2017 * Head CT (07/16/17): Embolization coils are seen adjacent to the basilar artery. There is a large amount of metallic artifact. Chronic lacunar infarcts are seen in the thalamus bilaterally. There is also a chronic infarct of the left occipital lobe. The ocular lenses are dislocated bilaterally * Keppra 250mg PO BID History of CVA * Residual right sided deficit * ASA 81 mg PO daily; As per daughter, patient's plavix has been discontinued * Crestor 20 mg PO HS Hypertension Continue home Medications * Amlodipine 10mg daily * Hydralazine 25 mg PO Q8H * Coreg 3.125 mg PO daily Elevated liver enzymes (Resolved) * Resolved, within normal range * likely multifactorial in etiology * Will monitor with am labs Depression as late effect of cerebrovascular accident (CVA) * Continue Effexor 37.5mg PO daily Hx of iron deficiency anemia * Feosol 325mg PO BID GI/DVT ppx * DVT: Lovenox 40 mg SC daily * GI: Protonix 40mg PO daily * PT/OT Disposition: Patient is medically stable. Patient's sisters signed all medical paperwork. Once their application is approved, patient is to be discharged to [facility] with transition to contract attorney care. Case discussed with and patient seen with Dr. Marisela Hutchins PGY-2
[2018-08-30] MEDS: Pantoprazole 40 mg EC Tab PO SCH (09:57)
[2018-08-30] MEDS: Venlafaxine 37.5 mg ER Cap PO SCH (09:57)
[2018-08-30] MEDS: Enoxaparin 40 mg Syringe SC SCH (09:58)
[2018-08-30] MEDS: levETIRAcetam 100 mg/ml (5ml) Oral Syringe PO SCH ×2 (09:58→17:26)
--- NOTE | 2018-08-31 07:40 | CP.PCM.PN ---
Subjective - Date & Time of Evaluation Date of Evaluation: 08/31/18 Time of Evaluation: 07:37 - Subjective Subjective: Progress note for Dr. Antonio Patient was seen and examined at bedside in no acute distress. Patient states she is "fine". Patient denies chest pain. ROS limited due to patients condition. Objective - Vital Signs/Intake and Output Vital Signs (last 24 hours): Temp Pulse Resp BP Pulse Ox 98.8 F 72 20 121/76 99 08/30/18 23:49 08/30/18 23:49 08/30/18 23:49 08/30/18 23:49 08/30/18 23:49 Intake and Output: 08/31/18 08/31/18 06:59 18:59 Intake Total 300 150 Balance 300 150 - Medications Medications: Current Medications Amlodipine Besylate (Norvasc) 10 mg PO DAILY [facility] Last Admin: 08/30/18 09:58 Dose: 10 mg Aspirin (Aspirin Chewable) 81 mg PO DAILY [facility] Last Admin: 08/30/18 09:57 Dose: 81 mg Carvedilol (Coreg) 3.125 mg PO BID [facility] Last Admin: 08/30/18 17:27 Dose: 3.125 mg Enoxaparin Sodium (Lovenox) 40 mg SC DAILY [facility] Last Admin: 08/30/18 09:58 Dose: 40 mg Ferrous Sulfate (Feosol) 325 mg PO BID [facility] Last Admin: 08/30/18 17:27 Dose: 325 mg Hydralazine HCl (Apresoline) 25 mg PO Q8H [facility] Last Admin: 08/31/18 02:17 Dose: 25 mg Levetiracetam (Keppra) 250 mg PO BID [facility] Last Admin: 08/30/18 17:26 Dose: 250 mg Pantoprazole Sodium (Protonix Ec Tab) 40 mg PO DAILY [facility] Last Admin: 08/30/18 09:57 Dose: 40 mg Rosuvastatin Calcium (Crestor) 20 mg PO HS [facility] Last Admin: 08/30/18 22:14 Dose: 20 mg Venlafaxine HCl (Effexor Xr) 37.5 mg PO DAILY [facility] Last Admin: 08/30/18 09:57 Dose: 37.5 mg - Labs Labs: 08/27/18 11:26 08/27/18 11:26 - Additional Findings Additional findings: - Constitutional Appears: No Acute Distress, Chronically Ill - Head Exam Head Exam: NORMAL INSPECTION - Eye Exam Eye Exam: EOMI, Normal appearance - ENT Exam ENT Exam: Mucous Membranes Dry - Respiratory Exam Respiratory Exam: NORMAL BREATHING PATTERN. absent: Rales, Rhonchi, Wheezes, Respiratory Distress - Cardiovascular Exam Cardiovascular Exam: REGULAR RHYTHM, +S1, +S2 - GI/Abdominal Exam GI & Abdominal Exam: Soft, Normal Bowel Sounds. absent: Distended, Tenderness - Extremities Exam Extremities Exam: Full ROM, Normal Inspection, No edema - Neurological Exam Neurological Exam: Awake. absent: Alert, Oriented x3 - Psychiatric Exam Psychiatric exam: Flat Affect - Skin Skin Exam: Dry, Warm Assessment and Plan - Assessment and Plan (Free Text) Plan: Metabolic Encephalopathy 2/2 to severe dehydration/Hypernatremia * Poor PO intake, poor care or possible infection - improving, patient more awake, alert, and eating * Na on admission 152 * Continue Ensure nutritional supplement * UA: Negative * Urine Culture: Negative * Blood Culture: No growth * Chest X-ray: No active disease * Abx discontinued Brain aneurysm * Hx of brain aneursym * S/p coil in 10/2017 * Head CT (07/16/17): Embolization coils are seen adjacent to the basilar artery. There is a large amount of metallic artifact. Chronic lacunar infarcts are seen in the thalamus bilaterally. There is also a chronic infarct of the left occipital lobe. The ocular lenses are dislocated bilaterally * Keppra 250mg PO BID History of CVA * Residual right sided deficit * ASA 81 mg PO daily; As per daughter, patient's plavix has been discontinued * Crestor 20 mg PO HS Hypertension Continue home Medications * Amlodipine 10mg daily * Hydralazine 25 mg PO Q8H * Coreg 3.125 mg PO daily Elevated liver enzymes (Resolved) * Resolved, within normal range * likely multifactorial in etiology * Will monitor with am labs Depression as late effect of cerebrovascular accident (CVA) * Continue Effexor 37.5mg PO daily Hx of iron deficiency anemia * Feosol 325mg PO BID GI/DVT ppx * DVT: Lovenox 40 mg SC daily * GI: Protonix 40mg PO daily * PT/OT Disposition: Patient is medically stable. Patient's sisters signed all medical paperwork. Once their application is approved, patient is to be discharged to [facility] with transition to alf care. Case discussed with and patient seen with Dr. Marisela Hutchins PGY-2
[2018-08-31] MEDS: Enoxaparin 40 mg Syringe SC SCH (09:59)
[2018-08-31] MEDS: levETIRAcetam 100 mg/ml (5ml) Oral Syringe PO SCH ×2 (09:59→17:41)
[2018-08-31] MEDS: Venlafaxine 37.5 mg ER Cap PO SCH (10:00)
[2018-08-31] MEDS: Pantoprazole 40 mg EC Tab PO SCH (10:00)
[2018-09-01] MEDS: Venlafaxine 37.5 mg ER Cap PO SCH (09:32)
[2018-09-01] MEDS: levETIRAcetam 100 mg/ml (5ml) Oral Syringe PO SCH ×2 (09:32→20:42)
[2018-09-01] MEDS: Enoxaparin 40 mg Syringe SC SCH (09:32)
[2018-09-01] MEDS: Pantoprazole 40 mg EC Tab PO SCH (09:32)
[2018-09-02] MEDS: Venlafaxine 37.5 mg ER Cap PO SCH (09:23)
[2018-09-02] MEDS: levETIRAcetam 100 mg/ml (5ml) Oral Syringe PO SCH ×2 (09:23→17:43)
[2018-09-02] MEDS: Pantoprazole 40 mg EC Tab PO SCH (09:23)
[2018-09-02] MEDS: Enoxaparin 40 mg Syringe SC SCH (09:23)
[2018-09-02] MEDS: SILVASORB ANTIMICROBIAL WOUND GEL TOP SCH (09:31)
[2018-09-03 08:24] LABS: BASO # 0.1 K/uL (0.0-0.2); BASO % 0.6 % (0.0-2.0); EOS % 0.1 % (0.0-4.0); HEMOGLOBIN 12.3 g/dL (11.0-16.0); LYMPH # 1.9 K/uL (1.0-4.3); LYMPH % 17.4 % (20.0-40.0); MEAN CELL VOLUME 82.8 fL (81.0-99.0); MEAN CORPUSCULAR HEMOGLOBIN 26.8 pg (27.0-31.0); MEAN CORPUSCULAR HGB CONC 32.4 g/dL (33.0-37.0); MONO # 0.5 K/uL (0.0-0.8); MONO % 4.5 % (0.0-10.0); NEUT # 8.3 K/uL (1.8-7.0); NEUT % 77.4 % (50.0-75.0); RBC 4.59 Mil/uL (3.80-5.20); RED CELL DISTRIBUTION WIDTH 16.7 % (11.5-14.5)
[2018-09-03 08:25] LABS: WHITE BLOOD COUNT 10.7 K/uL (4.8-10.8)
[2018-09-03 08:36] LABS: ALB/GLOB RATIO 1.5 (1.0-2.1); ALBUMIN 4.5 g/dL (3.5-5.0); ALT/SGPT 21 U/L (9-52); AST/SGOT 17 U/L (14-36); BLOOD UREA NITROGEN 31 mg/dL (7-17); CALCIUM 10.5 mg/dl (8.6-10.4); GFR NON-AFRICAN AMERICAN > 60
--- NOTE | 2018-09-03 09:33 | CP.PCM.PN ---
Subjective - Date & Time of Evaluation Date of Evaluation: 09/03/18 Time of Evaluation: 08:00 - Subjective Subjective: Medicine Progress note for Dr. Antonio Patient was seen and examined at bedside in no acute distress. Patient is alert and oriented to person. Patient says no to chest pain, abdominal pain, leg pain. ROS limited due to patients condition. Objective - Vital Signs/Intake and Output Vital Signs (last 24 hours): Temp Pulse Resp BP Pulse Ox 98 F 110 H 20 124/86 97 09/03/18 08:02 09/03/18 08:02 09/03/18 08:02 09/03/18 08:02 09/03/18 08:02 Intake and Output: 09/03/18 09/03/18 06:59 18:59 Intake Total 300 50 Balance 300 50 - Medications Medications: Current Medications Amlodipine Besylate (Norvasc) 10 mg PO DAILY [facility] Last Admin: 09/02/18 09:23 Dose: 10 mg Aspirin (Aspirin Chewable) 81 mg PO DAILY [facility] Last Admin: 09/02/18 09:25 Dose: 81 mg Carvedilol (Coreg) 3.125 mg PO BID [facility] Last Admin: 09/02/18 17:44 Dose: 3.125 mg Enoxaparin Sodium (Lovenox) 40 mg SC DAILY [facility] Last Admin: 09/02/18 09:23 Dose: 40 mg Ferrous Sulfate (Feosol) 325 mg PO BID [facility] Last Admin: 09/02/18 17:44 Dose: 325 mg Hydralazine HCl (Apresoline) 25 mg PO Q8H [facility] Last Admin: 09/03/18 03:16 Dose: Not Given Levetiracetam (Keppra) 250 mg PO BID [facility] Last Admin: 09/02/18 17:43 Dose: 250 mg Pantoprazole Sodium (Protonix Ec Tab) 40 mg PO DAILY [facility] Last Admin: 09/02/18 09:23 Dose: 40 mg Rosuvastatin Calcium (Crestor) 20 mg PO HS [facility] Last Admin: 09/02/18 21:42 Dose: 20 mg Venlafaxine HCl (Effexor Xr) 37.5 mg PO DAILY [facility] Last Admin: 09/02/18 09:23 Dose: 37.5 mg - Labs Labs: 09/03/18 08:05 09/03/18 08:05 - Constitutional Appears: Chronically Ill - Head Exam Head Exam: ATRAUMATIC, NORMAL INSPECTION - Eye Exam Eye Exam: EOMI, Normal appearance - ENT Exam ENT Exam: Mucous Membranes Moist - Respiratory Exam Respiratory Exam: NORMAL BREATHING PATTERN - Cardiovascular Exam Cardiovascular Exam: REGULAR RHYTHM, +S1, +S2 - GI/Abdominal Exam GI & Abdominal Exam: Soft, Normal Bowel Sounds. absent: Tenderness - Extremities Exam Extremities Exam: Normal Inspection - Neurological Exam Neurological Exam: Awake - Psychiatric Exam Psychiatric exam: Normal Affect Assessment and Plan - Assessment and Plan (Free Text) Assessment: Metabolic Encephalopathy 2/2 to severe dehydration/Hypernatremia * Poor PO intake, poor care or possible infection - improving, patient more constantine ke, alert, and eating * Na on admission 152 * Continue Ensure nutritional supplement * UA: Negative * Urine Culture: Negative * Blood Culture: No growth * Chest X-ray: No active disease * Abx discontinued Brain aneurysm * Hx of brain aneursym * S/p coil in 10/2017 * Head CT (07/16/17): Embolization coils are seen adjacent to the basilar artery. There is a large amount of metallic artifact. Chronic lacunar infarcts are seen in the thalamus bilaterally. There is also a chronic infarct of the left occipital lobe. The ocular lenses are dislocated bilaterally * Keppra 250mg PO BID History of CVA * Residual right sided deficit * ASA 81 mg PO daily; As per daughter, patient's plavix has been discontinued * Crestor 20 mg PO HS Hypertension Continue home Medications * Amlodipine 10mg daily * Hydralazine 25 mg PO Q8H * Coreg 3.125 mg PO daily Elevated liver enzymes (Resolved) * Resolved, within normal range * likely multifactorial in etiology * Will monitor with am labs Depression as late effect of cerebrovascular accident (CVA) * Continue Effexor 37.5mg PO daily Hx of iron deficiency anemia * Feosol 325mg PO BID GI/DVT ppx * DVT: Lovenox 40 mg SC daily * GI: Protonix 40mg PO daily * PT/OT Disposition: Patient is medically stable. Patient's sisters signed all medical paperwork. Once their application is approved, patient is to be discharged to [facility] with transition to local intermodal truck driver care. Case discussed with and patient seen with Dr. Marisela Mckeon PGY-2
[2018-09-03] MEDS: levETIRAcetam 100 mg/ml (5ml) Oral Syringe PO SCH ×2 (09:55→18:49)
[2018-09-03] MEDS: Venlafaxine 37.5 mg ER Cap PO SCH (09:55)
[2018-09-03] MEDS: Enoxaparin 40 mg Syringe SC SCH (09:56)
[2018-09-03] MEDS: Pantoprazole 40 mg EC Tab PO SCH (09:56)
--- NOTE | 2018-09-04 07:53 | CP.PCM.PN ---
Subjective - Date & Time of Evaluation Date of Evaluation: 09/04/18 Time of Evaluation: 08:00 - Subjective Subjective: Medicine Progress note for Dr. Antonio Patient was seen and examined at bedside in no acute distress. Patient is alert and oriented to person. Patient says no to chest pain, abdominal pain, leg pain. ROS limited due to patients condition. Objective - Vital Signs/Intake and Output Vital Signs (last 24 hours): Temp Pulse Resp BP Pulse Ox 99.1 F 67 20 106/73 98 09/04/18 01:00 09/04/18 01:00 09/04/18 01:00 09/04/18 01:00 09/04/18 01:00 - Medications Medications: Current Medications Amlodipine Besylate (Norvasc) 10 mg PO DAILY [facility] Last Admin: 09/03/18 09:56 Dose: 10 mg Aspirin (Aspirin Chewable) 81 mg PO DAILY [facility] Last Admin: 09/03/18 09:55 Dose: 81 mg Carvedilol (Coreg) 3.125 mg PO BID [facility] Last Admin: 09/03/18 18:51 Dose: 3.125 mg Enoxaparin Sodium (Lovenox) 40 mg SC DAILY [facility] Last Admin: 09/03/18 09:56 Dose: 40 mg Ferrous Sulfate (Feosol) 325 mg PO BID [facility] Last Admin: 09/03/18 18:49 Dose: 325 mg Hydralazine HCl (Apresoline) 25 mg PO Q8H [facility] Last Admin: 09/04/18 02:15 Dose: Not Given Levetiracetam (Keppra) 250 mg PO BID [facility] Last Admin: 09/03/18 18:49 Dose: 250 mg Pantoprazole Sodium (Protonix Ec Tab) 40 mg PO DAILY [facility] Last Admin: 09/03/18 09:56 Dose: 40 mg Rosuvastatin Calcium (Crestor) 20 mg PO HS [facility] Last Admin: 09/03/18 21:27 Dose: 20 mg Venlafaxine HCl (Effexor Xr) 37.5 mg PO DAILY [facility] Last Admin: 09/03/18 09:55 Dose: 37.5 mg - Labs Labs: 09/03/18 08:05 09/03/18 08:05 - Constitutional Appears: No Acute Distress, Confused, Chronically Ill - Head Exam Head Exam: ATRAUMATIC, NORMAL INSPECTION - Eye Exam Eye Exam: EOMI, Normal appearance - ENT Exam ENT Exam: Mucous Membranes Moist - Respiratory Exam Respiratory Exam: NORMAL BREATHING PATTERN - Cardiovascular Exam Cardiovascular Exam: REGULAR RHYTHM, +S1, +S2 - GI/Abdominal Exam GI & Abdominal Exam: Soft, Normal Bowel Sounds. absent: Tenderness - Neurological Exam Neurological Exam: Awake. absent: Alert, Oriented x3 - Psychiatric Exam Psychiatric exam: Normal Affect Assessment and Plan - Assessment and Plan (Free Text) Assessment: Metabolic Encephalopathy 2/2 to severe dehydration/Hypernatremia * Poor PO intake, poor care or possible infection - improving, patient more awake, alert, and eating * Na on admission 152 * Continue Ensure nutritional supplement * UA: Negative * Urine Culture: Negative * Blood Culture: No growth * Chest X-ray: No active disease * Abx discontinued Brain aneurysm * Hx of brain aneursym * S/p coil in 10/2017 * Head CT (07/16/17): Embolization coils are seen adjacent to the basilar artery. There is a large amount of metallic artifact. Chronic lacunar infarcts are seen in the thalamus bilaterally. There is also a chronic infarct of the left occipital lobe. The ocular lenses are dislocated bilaterally * Keppra 250mg PO BID History of CVA * Residual right sided deficit * ASA 81 mg PO daily; As per daughter, patient's plavix has been discontinued * Crestor 20 mg PO HS Hypertension Continue home Medications * Amlodipine 10mg daily * Hydralazine 25 mg PO Q8H * Coreg 3.125 mg PO daily Elevated liver enzymes (Resolved) * Resolved, within normal range * likely multifactorial in etiology * Will monitor with am labs Depression as late effect of cerebrovascular accident (CVA) * Continue Effexor 37.5mg PO daily Hx of iron deficiency anemia * Feosol 325mg PO BID GI/DVT ppx * DVT: Lovenox 40 mg SC daily * GI: Protonix 40mg PO daily * PT/OT Disposition: Patient is medically stable. Patient's sisters signed all medical paperwork. Once their application is approved, patient is to be discharged to [facility] with transition to detention care. Case discussed with and patient seen with Dr. Marisela Mckeon PGY-2
[2018-09-04] MEDS: Pantoprazole 40 mg EC Tab PO SCH (09:10)
[2018-09-04] MEDS: levETIRAcetam 100 mg/ml (5ml) Oral Syringe PO SCH ×2 (09:10→17:08)
[2018-09-04] MEDS: Venlafaxine 37.5 mg ER Cap PO SCH (09:10)
[2018-09-04] MEDS: Enoxaparin 40 mg Syringe SC SCH (09:10)
--- NOTE | 2018-09-05 09:15 | CP.PCM.PN ---
Subjective - Date & Time of Evaluation Date of Evaluation: 09/05/18 Time of Evaluation: 09:13 - Subjective Subjective: Progress note for Dr. Antonio Patient was seen and examined at bedside in no acute distress. Patient is smiling and states she is feeling "alright". Patient denies chest pain, abdominal pain, leg pain. ROS limited due to patients condition. Objective - Vital Signs/Intake and Output Vital Signs (last 24 hours): Temp Pulse Resp BP Pulse Ox 97.4 F L 60 20 100/62 96 09/05/18 07:00 09/05/18 07:00 09/05/18 07:00 09/05/18 07:00 09/05/18 07:00 - Medications Medications: Current Medications Amlodipine Besylate (Norvasc) 10 mg PO DAILY [facility] Last Admin: 09/04/18 09:11 Dose: 10 mg Aspirin (Aspirin Chewable) 81 mg PO DAILY [facility] Last Admin: 09/04/18 09:10 Dose: 81 mg Carvedilol (Coreg) 3.125 mg PO BID [facility] Last Admin: 09/04/18 17:09 Dose: 3.125 mg Enoxaparin Sodium (Lovenox) 40 mg SC DAILY [facility] Last Admin: 09/04/18 09:10 Dose: 40 mg Ferrous Sulfate (Feosol) 325 mg PO BID [facility] Last Admin: 09/04/18 17:08 Dose: 325 mg Hydralazine HCl (Apresoline) 25 mg PO Q8H [facility] Last Admin: 09/05/18 02:10 Dose: Not Given Levetiracetam (Keppra) 250 mg PO BID [facility] Last Admin: 09/04/18 17:08 Dose: 250 mg Pantoprazole Sodium (Protonix Ec Tab) 40 mg PO DAILY [facility] Last Admin: 09/04/18 09:10 Dose: 40 mg Rosuvastatin Calcium (Crestor) 20 mg PO HS [facility] Last Admin: 09/04/18 22:18 Dose: 20 mg Venlafaxine HCl (Effexor Xr) 37.5 mg PO DAILY [facility] Last Admin: 09/04/18 09:10 Dose: 37.5 mg - Labs Labs: 09/03/18 08:05 09/03/18 08:05 - Additional Findings Additional findings: - Constitutional Appears: No Acute Distress, Chronically Ill - Head Exam Head Exam: NORMAL INSPECTION - Eye Exam Eye Exam: EOMI, Normal appearance - ENT Exam ENT Exam: Mucous Membranes Dry - Respiratory Exam Respiratory Exam: NORMAL BREATHING PATTERN. absent: Rales, Rhonchi, Wheezes, Respiratory Distress - Cardiovascular Exam Cardiovascular Exam: REGULAR RHYTHM, +S1, +S2 - GI/Abdominal Exam GI & Abdominal Exam: Soft, Normal Bowel Sounds. absent: Distended, Tenderness - Extremities Exam Extremities Exam: Full ROM, Normal Inspection, No edema - Neurological Exam Neurological Exam: Awake. absent: Alert, Oriented x3 - Skin Skin Exam: Dry, Warm Assessment and Plan - Assessment and Plan (Free Text) Plan: Metabolic Encephalopathy 2/2 to severe dehydration/Hypernatremia * Poor PO intake, poor care or possible infection - improving, patient more awake, alert, and eating * Na on admission 152 * Continue Ensure nutritional supplement * UA: Negative * Urine Culture: Negative * Blood Culture: No growth * Chest X-ray: No active disease * Abx discontinued Brain aneurysm * Hx of brain aneursym * S/p coil in 10/2017 * Head CT (07/16/17): Embolization coils are seen adjacent to the basilar artery. There is a large amount of metallic artifact. Chronic lacunar infarcts are seen in the thalamus bilaterally. There is also a chronic infarct of the left occipital lobe. The ocular lenses are dislocated bilaterally * Keppra 250mg PO BID History of CVA * Residual right sided deficit * ASA 81 mg PO daily; As per daughter, patient's plavix has been discontinued * Crestor 20 mg PO HS Hypertension Continue home Medications * Amlodipine 10mg daily * Hydralazine 25 mg PO Q8H * Coreg 3.125 mg PO daily Elevated liver enzymes (Resolved) * Resolved, within normal range * likely multifactorial in etiology * Will monitor with am labs Depression as late effect of cerebrovascular accident (CVA) * Continue Effexor 37.5mg PO daily Hx of iron deficiency anemia * Feosol 325mg PO BID GI/DVT ppx * DVT: Lovenox 40 mg SC daily * GI: Protonix 40mg PO daily * PT/OT Disposition: Patient is medically stable. Patient's sisters signed all medical paperwork. Once their application is approved, patient is to be discharged to [facility] with transition to care home care. Case discussed with and patient seen with Dr. Marisela Hutchins PGY-2
[2018-09-05] MEDS: Enoxaparin 40 mg Syringe SC SCH (09:38)
[2018-09-05] MEDS: levETIRAcetam 100 mg/ml (5ml) Oral Syringe PO SCH ×2 (09:38→17:33)
[2018-09-05] MEDS: Pantoprazole 40 mg EC Tab PO SCH (09:39)
[2018-09-05] MEDS: Venlafaxine 37.5 mg ER Cap PO SCH (09:39)
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
--- NOTE | 2018-09-06 07:36 | CP.PCM.PN ---
Subjective - Date & Time of Evaluation Date of Evaluation: 09/06/18 Time of Evaluation: 08:00 - Subjective Subjective: Medicine Progress note for Dr. Antonio Patient was seen and examined at bedside in no acute distress. Patient is alert and oriented to person. Patient says no to chest pain, abdominal pain, leg pain. ROS limited due to patients condition. Objective - Vital Signs/Intake and Output Vital Signs (last 24 hours): Temp Pulse Resp BP Pulse Ox 98.1 F 101 H 20 125/81 95 09/05/18 23:35 09/05/18 23:35 09/05/18 23:35 09/05/18 23:35 09/05/18 23:35 Intake and Output: 09/06/18 09/06/18 06:59 18:59 Intake Total 240 Balance 240 - Medications Medications: Current Medications Amlodipine Besylate (Norvasc) 10 mg PO DAILY [facility] Last Admin: 09/05/18 09:39 Dose: 10 mg Aspirin (Aspirin Chewable) 81 mg PO DAILY [facility] Last Admin: 09/05/18 09:39 Dose: 81 mg Carvedilol (Coreg) 3.125 mg PO BID [facility] Last Admin: 09/05/18 17:32 Dose: 3.125 mg Enoxaparin Sodium (Lovenox) 40 mg SC DAILY [facility] Last Admin: 09/05/18 09:38 Dose: 40 mg Ferrous Sulfate (Feosol) 325 mg PO BID [facility] Last Admin: 09/05/18 17:32 Dose: 325 mg Hydralazine HCl (Apresoline) 25 mg PO Q8H [facility] Last Admin: 09/06/18 02:48 Dose: Not Given Levetiracetam (Keppra) 250 mg PO BID [facility] Last Admin: 09/05/18 17:33 Dose: 250 mg Pantoprazole Sodium (Protonix Ec Tab) 40 mg PO DAILY [facility] Last Admin: 09/05/18 09:39 Dose: 40 mg Rosuvastatin Calcium (Crestor) 20 mg PO HS [facility] Last Admin: 09/05/18 21:42 Dose: 20 mg Venlafaxine HCl (Effexor Xr) 37.5 mg PO DAILY [facility] Last Admin: 09/05/18 09:39 Dose: 37.5 mg - Labs Labs: 09/03/18 08:05 09/03/18 08:05 - Constitutional Appears: No Acute Distress, Chronically Ill - Head Exam Head Exam: ATRAUMATIC, NORMAL INSPECTION - Eye Exam Eye Exam: EOMI, Normal appearance - ENT Exam ENT Exam: Mucous Membranes Moist - Respiratory Exam Respiratory Exam: NORMAL BREATHING PATTERN - Cardiovascular Exam Cardiovascular Exam: REGULAR RHYTHM - GI/Abdominal Exam GI & Abdominal Exam: Soft, Normal Bowel Sounds. absent: Tenderness - Extremities Exam Extremities Exam: Normal Inspection - Neurological Exam Neurological Exam: Awake - Psychiatric Exam Psychiatric exam: Normal Affect Assessment and Plan - Assessment and Plan (Free Text) Assessment: Metabolic Encephalopathy 2/2 to severe dehydration/Hypernatremia * Poor PO intake, poor care or possible infection - improving, patient more awake, alert, and eating * Na on admission 152 * Continue Ensure nutritional supplement * UA: Negative * Urine Culture: Negative * Blood Culture: No growth * Chest X-ray: No active disease * Abx discontinued Brain aneurysm * Hx of brain aneursym * S/p coil in 10/2017 * Head CT (07/16/17): Embolization coils are seen adjacent to the basilar artery. There is a large amount of metallic artifact. Chronic lacunar infarcts are seen in the thalamus bilaterally. There is also a chronic infarct of the left occipital lobe. The ocular lenses are dislocated bilaterally * Keppra 250mg PO BID History of CVA * Residual right sided deficit * ASA 81 mg PO daily; As per daughter, patient's plavix has been discontinued * Crestor 20 mg PO HS Hypertension Continue home Medications * Amlodipine 10mg daily * Hydralazine 25 mg PO Q8H * Coreg 3.125 mg PO daily Elevated liver enzymes (Resolved) * Resolved, within normal range * likely multifactorial in etiology * Will monitor with am labs Depression as late effect of cerebrovascular accident (CVA) * Continue Effexor 37.5mg PO daily Hx of iron deficiency anemia * Feosol 325mg PO BID GI/DVT ppx * DVT: Lovenox 40 mg SC daily * GI: Protonix 40mg PO daily * PT/OT Disposition: Patient is medically stable. Patient's sisters signed all medical paperwork. Once their application is approved, patient is to be discharged to [facility] with transition to terminal make up operator care. Case discussed with and patient seen with Dr. Marisela Mckeon PGY-2
[2018-09-06] MEDS: Pantoprazole 40 mg EC Tab PO SCH (09:25)
[2018-09-06] MEDS: levETIRAcetam 100 mg/ml (5ml) Oral Syringe PO SCH ×2 (09:25→17:17)
[2018-09-06] MEDS: Enoxaparin 40 mg Syringe SC SCH (09:26)
[2018-09-06] MEDS: Venlafaxine 37.5 mg ER Cap PO SCH (09:26)
--- NOTE | 2018-09-07 07:31 | CP.PCM.PN ---
Subjective - Date & Time of Evaluation Date of Evaluation: 09/07/18 Time of Evaluation: 07:31 - Subjective Subjective: Progress note for Dr. Antonio Patient was seen and examined at bedside in no acute distress. Patient is smiling and states she is feeling "alright". Patient denies chest pain, abdominal pain, leg pain. ROS limited due to patients condition. Per nursing, patient has normal BM today and yesterday and has been tolerating diet. Objective - Vital Signs/Intake and Output Vital Signs (last 24 hours): Temp Pulse Resp BP Pulse Ox 97.6 F 61 18 128/76 98 09/07/18 00:00 09/07/18 00:00 09/07/18 00:00 09/07/18 00:00 09/07/18 00:00 Intake and Output: 09/07/18 09/07/18 06:59 18:59 Intake Total 300 Balance 300 - Medications Medications: Current Medications Amlodipine Besylate (Norvasc) 10 mg PO DAILY [facility] Last Admin: 09/06/18 09:25 Dose: 10 mg Aspirin (Aspirin Chewable) 81 mg PO DAILY [facility] Last Admin: 09/06/18 09:25 Dose: 81 mg Carvedilol (Coreg) 3.125 mg PO BID [facility] Last Admin: 09/06/18 17:17 Dose: 3.125 mg Enoxaparin Sodium (Lovenox) 40 mg SC DAILY [facility] Last Admin: 09/06/18 09:26 Dose: 40 mg Ferrous Sulfate (Feosol) 325 mg PO BID [facility] Last Admin: 09/06/18 17:15 Dose: 325 mg Hydralazine HCl (Apresoline) 25 mg PO Q8H [facility] Last Admin: 09/07/18 02:15 Dose: Not Given Levetiracetam (Keppra) 250 mg PO BID [facility] Last Admin: 09/06/18 17:17 Dose: 250 mg Pantoprazole Sodium (Protonix Ec Tab) 40 mg PO DAILY [facility] Last Admin: 09/06/18 09:25 Dose: 40 mg Rosuvastatin Calcium (Crestor) 20 mg PO HS [facility] Last Admin: 09/06/18 21:46 Dose: 20 mg Venlafaxine HCl (Effexor Xr) 37.5 mg PO DAILY [facility] Last Admin: 09/06/18 09:26 Dose: 37.5 mg - Labs Labs: 09/03/18 08:05 09/03/18 08:05 - Additional Findings Additional findings: - Constitutional Appears: No Acute Distress, Chronically Ill - Head Exam Head Exam: NORMAL INSPECTION - Eye Exam Eye Exam: EOMI, Normal appearance - ENT Exam ENT Exam: Mucous Membranes Dry - Respiratory Exam Respiratory Exam: NORMAL BREATHING PATTERN. absent: Rales, Rhonchi, Wheezes, Respiratory Distress - Cardiovascular Exam Cardiovascular Exam: REGULAR RHYTHM, +S1, +S2 - GI/Abdominal Exam GI & Abdominal Exam: Soft, Normal Bowel Sounds. absent: Distended, Tenderness - Extremities Exam Extremities Exam: Full ROM, Normal Inspection, No edema - Neurological Exam Neurological Exam: Awake. absent: Alert, Oriented x3 - Skin Skin Exam: Dry, Warm Assessment and Plan - Assessment and Plan (Free Text) Plan: Metabolic Encephalopathy 2/2 to severe dehydration/Hypernatremia * Poor PO intake, poor care or possible infection - improving, patient more awake, alert, and eating * Na on admission 152 * Continue Ensure nutritional supplement * UA: Negative * Urine Culture: Negative * Blood Culture: No growth * Chest X-ray: No active disease * Abx discontinued Brain aneurysm * Hx of brain aneursym * S/p coil in 10/2017 * Head CT (07/16/17): Embolization coils are seen adjacent to the basilar artery. There is a large amount of metallic artifact. Chronic lacunar infarcts are seen in the thalamus bilaterally. There is also a chronic infarct of the left occipital lobe. The ocular lenses are dislocated bilaterally * Keppra 250mg PO BID History of CVA * Residual right sided deficit * ASA 81 mg PO daily; As per daughter, patient's plavix has been discontinued * Crestor 20 mg PO HS Hypertension Continue home Medications * Amlodipine 10mg daily * Hydralazine 25 mg PO Q8H * Coreg 3.125 mg PO daily Elevated liver enzymes (Resolved) * Resolved, within normal range * likely multifactorial in etiology * Will monitor with am labs Depression as late effect of cerebrovascular accident (CVA) * Continue Effexor 37.5mg PO daily Hx of iron deficiency anemia * Feosol 325mg PO BID GI/DVT ppx * DVT: Lovenox 40 mg SC daily * GI: Protonix 40mg PO daily * PT/OT Disposition: Patient is medically stable. Patient's sisters signed all medical paperwork. Once their application is approved, patient is to be discharged to [facility] with transition to bellows tester care. Case discussed with and patient seen with Dr. Marisela Hutchins PGY-2
[2018-09-07] MEDS: levETIRAcetam 100 mg/ml (5ml) Oral Syringe PO SCH ×2 (09:55→17:03)
[2018-09-07] MEDS: Enoxaparin 40 mg Syringe SC SCH (09:56)
[2018-09-07] MEDS: Venlafaxine 37.5 mg ER Cap PO SCH (09:56)
[2018-09-07] MEDS: Pantoprazole 40 mg EC Tab PO SCH (09:56)
[2018-09-08] MEDS: levETIRAcetam 100 mg/ml (5ml) Oral Syringe PO SCH ×2 (09:21→17:40)
[2018-09-08] MEDS: Enoxaparin 40 mg Syringe SC SCH (09:22)
[2018-09-08] MEDS: Pantoprazole 40 mg EC Tab PO SCH (09:22)
[2018-09-08] MEDS: Venlafaxine 37.5 mg ER Cap PO SCH (09:22)
[2018-09-09] MEDS: Pantoprazole 40 mg EC Tab PO SCH (09:01)
[2018-09-09] MEDS: Venlafaxine 37.5 mg ER Cap PO SCH (09:01)
[2018-09-09] MEDS: levETIRAcetam 100 mg/ml (5ml) Oral Syringe PO SCH ×2 (09:02→17:25)
[2018-09-09] MEDS: Enoxaparin 40 mg Syringe SC SCH (09:02)
[2018-09-10 08:06] LABS: BASO % 0.4 % (0.0-2.0); EOS # 0.2 K/uL (0.0-0.7); EOS % 3.3 % (0.0-4.0); LYMPH % 28.8 % (20.0-40.0); MEAN CELL VOLUME 81.9 fL (81.0-99.0); MEAN CORPUSCULAR HEMOGLOBIN 26.2 pg (27.0-31.0); MEAN CORPUSCULAR HGB CONC 31.9 g/dL (33.0-37.0); MEAN PLATELET VOLUME 8.5 fL (7.2-11.7); MONO # 0.5 K/uL (0.0-0.8); MONO % 6.8 % (0.0-10.0); NEUT # 4.2 K/uL (1.8-7.0); NEUT % 60.7 % (50.0-75.0); RBC 4.2 Mil/uL (3.80-5.20); RED CELL DISTRIBUTION WIDTH 15.9 % (11.5-14.5); WHITE BLOOD COUNT 6.9 K/uL (4.8-10.8)
[2018-09-10 08:52] LABS: ALB/GLOB RATIO 1.4 (1.0-2.1); ALBUMIN 3.8 g/dL (3.5-5.0); ALT/SGPT 19 U/L (9-52); AST/SGOT 16 U/L (14-36); BLOOD UREA NITROGEN 17 mg/dL (7-17); CALCIUM 9.5 mg/dl (8.6-10.4); GFR NON-AFRICAN AMERICAN > 60
[2018-09-10] MEDS: Enoxaparin 40 mg Syringe SC SCH (10:52)
[2018-09-10] MEDS: levETIRAcetam 100 mg/ml (5ml) Oral Syringe PO SCH ×2 (10:52→17:27)
[2018-09-10] MEDS: Venlafaxine 37.5 mg ER Cap PO SCH (10:54)
[2018-09-10] MEDS: Pantoprazole 40 mg EC Tab PO SCH (10:55)
--- NOTE | 2018-09-10 12:03 | CP.PCM.PN ---
Subjective - Date & Time of Evaluation Date of Evaluation: 09/10/18 Time of Evaluation: 08:00 - Subjective Subjective: Progress note for Dr. Antonio Patient was seen and examined at bedside in no acute distress. Patient is resting comfortably in bed with daughter at bedside. Patient has no complaints and daughter says she is doing well. Objective - Vital Signs/Intake and Output Vital Signs (last 24 hours): Temp Pulse Resp BP Pulse Ox 97.3 F L 76 20 105/72 96 09/10/18 08:00 09/10/18 08:00 09/10/18 08:00 09/10/18 08:00 09/10/18 08:00 Intake and Output: 09/10/18 09/10/18 06:59 18:59 Intake Total 300 Balance 300 - Medications Medications: Current Medications Amlodipine Besylate (Norvasc) 10 mg PO DAILY [facility] Last Admin: 09/10/18 10:59 Dose: 10 mg Aspirin (Aspirin Chewable) 81 mg PO DAILY [facility] Last Admin: 09/10/18 10:53 Dose: 81 mg Carvedilol (Coreg) 3.125 mg PO BID [facility] Last Admin: 09/10/18 10:59 Dose: Not Given Enoxaparin Sodium (Lovenox) 40 mg SC DAILY [facility] Last Admin: 09/10/18 10:52 Dose: 40 mg Ferrous Sulfate (Feosol) 325 mg PO BID [facility] Last Admin: 09/10/18 10:54 Dose: 325 mg Hydralazine HCl (Apresoline) 25 mg PO Q8H [facility] Last Admin: 09/10/18 10:59 Dose: 25 mg Levetiracetam (Keppra) 250 mg PO BID [facility] Last Admin: 09/10/18 10:52 Dose: 250 mg Pantoprazole Sodium (Protonix Ec Tab) 40 mg PO DAILY [facility] Last Admin: 09/10/18 10:55 Dose: 40 mg Rosuvastatin Calcium (Crestor) 20 mg PO HS [facility] Last Admin: 09/09/18 21:48 Dose: 20 mg Venlafaxine HCl (Effexor Xr) 37.5 mg PO DAILY [facility] Last Admin: 09/10/18 10:54 Dose: 37.5 mg - Labs Labs: 09/10/18 07:10 09/10/18 08:32 - Additional Findings Additional findings: - Constitutional Appears: No Acute Distress, Chronically Ill - Head Exam Head Exam: NORMAL INSPECTION - Eye Exam Eye Exam: EOMI, Normal appearance - ENT Exam ENT Exam: Mucous Membranes Dry - Respiratory Exam Respiratory Exam: NORMAL BREATHING PATTERN. absent: Rales, Rhonchi, Wheezes, Respiratory Distress - Cardiovascular Exam Cardiovascular Exam: REGULAR RHYTHM, +S1, +S2 - GI/Abdominal Exam GI & Abdominal Exam: Soft, Normal Bowel Sounds. absent: Distended, Tenderness - Extremities Exam Extremities Exam: Full ROM, Normal Inspection, No edema - Neurological Exam Neurological Exam: Awake. absent: Alert, Oriented x3 - Skin Skin Exam: Dry, Warm Assessment and Plan - Assessment and Plan (Free Text) Assessment: Brain aneurysm * Hx of brain aneursym * S/p coil in 10/2017 * Head CT (07/16/17): Embolization coils are seen adjacent to the basilar artery. There is a large amount of metallic artifact. Chronic lacunar infarcts are seen in the thalamus bilaterally. There is also a chronic infarct of the left occipital lobe. The ocular lenses are dislocated bilaterally * Keppra 250mg PO BID History of CVA * Residual right sided deficit * ASA 81 mg PO daily; As per daughter, patient's plavix has been discontinued * Crestor 20 mg PO HS Metabolic Encephalopathy 2/2 to severe dehydration/Hypernatremia - improved * Poor PO intake, poor care or possible infection - improving, patient more awake, alert, and eating * Na on admission 152 * Continue Ensure nutritional supplement * UA: Negative * Urine Culture: Negative * Blood Culture: No growth * Chest X-ray: No active disease * Abx discontinued Hypertension Continue home Medications * Amlodipine 10mg daily * Hydralazine 25 mg PO Q8H * Coreg 3.125 mg PO BID Elevated liver enzymes (Resolved) * Resolved, within normal range * likely multifactorial in etiology * Will monitor with am labs Depression as late effect of cerebrovascular accident (CVA) * Continue Effexor Xr 37.5mg PO daily Hx of iron deficiency anemia * Feosol 325mg PO BID GI/DVT ppx * DVT: Lovenox 40 mg SC daily * GI: Protonix 40mg PO daily * PT/OT Disposition: Patient is medically stable. Patient's sister signed all medical paperwork. Once application is approved, patient is to be discharged to [facility] with transition to general laborer care. Case discussed with and patient seen with Dr. Antonio
[2018-09-11] MEDS: Pantoprazole 40 mg EC Tab PO SCH (09:38)
[2018-09-11] MEDS: levETIRAcetam 100 mg/ml (5ml) Oral Syringe PO SCH ×2 (09:39→18:12)
[2018-09-11] MEDS: Venlafaxine 37.5 mg ER Cap PO SCH (09:39)
[2018-09-11] MEDS: Enoxaparin 40 mg Syringe SC SCH (09:39)
--- NOTE | 2018-09-11 10:03 | CP.PCM.PN ---
Subjective - Date & Time of Evaluation Date of Evaluation: 09/11/18 Time of Evaluation: 09:00 - Subjective Subjective: Progress note for Dr. Antonio Patient was seen and examined at bedside in no acute distress. Patient is resting comfortably in bed. Patient shakes her head no when asked if she has any pain. Patient does not verbalize anything to me today and only smiles and answers questions by shaking her head. Objective - Vital Signs/Intake and Output Vital Signs (last 24 hours): Temp Pulse Resp BP Pulse Ox 98.1 F 73 20 118/72 97 09/11/18 08:30 09/11/18 08:30 09/11/18 08:30 09/11/18 08:30 09/11/18 08:30 Intake and Output: 09/11/18 09/11/18 06:59 18:59 Intake Total 240 Balance 240 - Medications Medications: Current Medications Amlodipine Besylate (Norvasc) 10 mg PO DAILY [facility] Last Admin: 09/11/18 09:38 Dose: 10 mg Aspirin (Aspirin Chewable) 81 mg PO DAILY [facility] Last Admin: 09/11/18 09:38 Dose: 81 mg Carvedilol (Coreg) 3.125 mg PO BID [facility] Last Admin: 09/11/18 09:38 Dose: 3.125 mg Enoxaparin Sodium (Lovenox) 40 mg SC DAILY [facility] Last Admin: 09/11/18 09:39 Dose: 40 mg Ferrous Sulfate (Feosol) 325 mg PO BID [facility] Last Admin: 09/11/18 09:38 Dose: 325 mg Hydralazine HCl (Apresoline) 25 mg PO Q8H [facility] Last Admin: 09/11/18 09:41 Dose: 25 mg Levetiracetam (Keppra) 250 mg PO BID [facility] Last Admin: 09/11/18 09:39 Dose: 250 mg Pantoprazole Sodium (Protonix Ec Tab) 40 mg PO DAILY [facility] Last Admin: 09/11/18 09:38 Dose: 40 mg Rosuvastatin Calcium (Crestor) 20 mg PO HS [facility] Last Admin: 09/10/18 21:26 Dose: 20 mg Venlafaxine HCl (Effexor Xr) 37.5 mg PO DAILY [facility] Last Admin: 09/11/18 09:39 Dose: 37.5 mg - Labs Labs: 09/10/18 07:10 09/10/18 08:32 - Additional Findings Additional findings: - Constitutional Appears: No Acute Distress, Chronically Ill - Head Exam Head Exam: NORMAL INSPECTION - Eye Exam Eye Exam: EOMI, Normal appearance - ENT Exam ENT Exam: Mucous Membranes Dry - Respiratory Exam Respiratory Exam: NORMAL BREATHING PATTERN. absent: Rales, Rhonchi, Wheezes, Respiratory Distress - Cardiovascular Exam Cardiovascular Exam: REGULAR RHYTHM, +S1, +S2 - GI/Abdominal Exam GI & Abdominal Exam: Soft, Normal Bowel Sounds. absent: Distended, Tenderness - Extremities Exam Extremities Exam: Full ROM, Normal Inspection, No edema - Neurological Exam Neurological Exam: Awake. absent: Alert, Oriented x3 - Skin Skin Exam: Dry, Warm Assessment and Plan - Assessment and Plan (Free Text) Assessment: History of Brain aneurysm * Hx of brain aneursym * S/p coil in 10/2017 * Head CT (07/16/17): Embolization coils are seen adjacent to the basilar artery. There is a large amount of metallic artifact. Chronic lacunar infarcts are seen in the thalamus bilaterally. There is also a chronic infarct of the left occipital lobe. The ocular lenses are dislocated bilaterally * Keppra 250mg PO BID History of CVA * Residual right sided deficit * ASA 81 mg PO daily; As per daughter, patient's plavix has been discontinued * Crestor 20 mg PO HS Metabolic Encephalopathy 2/2 to severe dehydration/Hypernatremia - improved * Poor PO intake, poor care or possible infection - improving, patient more awake, alert, and eating * Na on admission 152 * Continue Ensure nutritional supplement * UA: Negative * Urine Culture: Negative * Blood Culture: No growth * Chest X-ray: No active disease * Abx discontinued Hypertension Continue home Medications * Amlodipine 10mg daily * Hydralazine 25 mg PO Q8H * Coreg 3.125 mg PO BID Elevated liver enzymes (Resolved) * Resolved, within normal range * likely multifactorial in etiology * Will monitor with am labs Depression as late effect of cerebrovascular accident (CVA) * Continue Effexor Xr 37.5mg PO daily Hx of iron deficiency anemia * Feosol 325mg PO BID GI/DVT ppx * DVT: Lovenox 40 mg SC daily * GI: Protonix 40mg PO daily * PT/OT Disposition: Patient is medically stable. Patient's sister signed all medical paperwork. Once application is approved, patient is to be discharged to [facility] with transition to alf care. Case discussed with and patient seen with Dr. Antonio
[2018-09-12] MEDS: Venlafaxine 37.5 mg ER Cap PO SCH (10:47)
[2018-09-12] MEDS: Enoxaparin 40 mg Syringe SC SCH (10:48)
[2018-09-12] MEDS: levETIRAcetam 100 mg/ml (5ml) Oral Syringe PO SCH ×2 (10:48→17:20)
[2018-09-12] MEDS: Pantoprazole 40 mg EC Tab PO SCH (10:48)
--- NOTE | 2018-09-12 13:39 | CP.PCM.PN ---
Subjective - Date & Time of Evaluation Date of Evaluation: 09/12/18 Time of Evaluation: 13:35 - Subjective Subjective: Medicine Note for Dr. Antonio Patient was seen and examined at bedside. Patient is nonverbal but nods her head to respond. Denied any current pain. Objective - Vital Signs/Intake and Output Vital Signs (last 24 hours): Temp Pulse Resp BP Pulse Ox 97.6 F 66 20 115/74 96 09/12/18 07:20 09/12/18 07:20 09/12/18 07:20 09/12/18 07:20 09/12/18 07:20 Intake and Output: 09/12/18 09/12/18 06:59 18:59 Intake Total 360 Balance 360 - Medications Medications: Current Medications Amlodipine Besylate (Norvasc) 10 mg PO DAILY [facility] Last Admin: 09/12/18 10:47 Dose: 10 mg Aspirin (Aspirin Chewable) 81 mg PO DAILY [facility] Last Admin: 09/12/18 10:47 Dose: 81 mg Carvedilol (Coreg) 3.125 mg PO BID [facility] Last Admin: 09/12/18 10:47 Dose: 3.125 mg Docusate Sodium (Colace) 100 mg PO BID [facility] Last Admin: 09/12/18 10:47 Dose: 100 mg Enoxaparin Sodium (Lovenox) 40 mg SC DAILY [facility] Last Admin: 09/12/18 10:48 Dose: 40 mg Ferrous Sulfate (Feosol) 325 mg PO BID [facility] Last Admin: 09/12/18 10:47 Dose: 325 mg Hydralazine HCl (Apresoline) 25 mg PO Q8H [facility] Last Admin: 09/12/18 10:51 Dose: 25 mg Levetiracetam (Keppra) 250 mg PO BID [facility] Last Admin: 09/12/18 10:48 Dose: 250 mg Pantoprazole Sodium (Protonix Ec Tab) 40 mg PO DAILY [facility] Last Admin: 09/12/18 10:48 Dose: 40 mg Rosuvastatin Calcium (Crestor) 20 mg PO HS [facility] Last Admin: 09/11/18 21:52 Dose: 20 mg Venlafaxine HCl (Effexor Xr) 37.5 mg PO DAILY [facility] Last Admin: 09/12/18 10:47 Dose: 37.5 mg - Labs Labs: 09/10/18 07:10 09/10/18 08:32 - Constitutional Appears: No Acute Distress - Head Exam Head Exam: NORMAL INSPECTION, NORMOCEPHALIC - Eye Exam Eye Exam: EOMI, Normal appearance, PERRL Pupil Exam: NORMAL ACCOMODATION - ENT Exam ENT Exam: Mucous Membranes Moist - Respiratory Exam Respiratory Exam: Clear to Ausculation Bilateral, NORMAL BREATHING PATTERN. absent: Decreased Breath Sounds, Rhonchi, Wheezes - Cardiovascular Exam Cardiovascular Exam: REGULAR RHYTHM, RRR, +S1, +S2 - GI/Abdominal Exam GI & Abdominal Exam: Soft, Normal Bowel Sounds. absent: Distended, Tenderness - Extremities Exam Extremities Exam: Normal Inspection. absent: Pedal Edema, Tenderness - Neurological Exam Neurological Exam: Alert, Awake, Oriented x3 - Psychiatric Exam Psychiatric exam: Normal Affect, Normal Mood - Skin Skin Exam: Dry, Intact, Normal Color, Warm Assessment and Plan - Assessment and Plan (Free Text) Plan: History of Brain aneurysm * Hx of brain aneursym * S/p coil in 10/2017 * Head CT (07/16/17): Embolization coils are seen adjacent to the basilar artery. There is a large amount of metallic artifact. Chronic lacunar infarcts are seen in the thalamus bilaterally. There is also a chronic infarct of the left occipital lobe. The ocular lenses are dislocated bilaterally * Keppra 250mg PO BID History of CVA * Residual right sided deficit * ASA 81 mg PO daily; As per daughter, patient's plavix has been discontinued * Crestor 20 mg PO HS Metabolic Encephalopathy 2/2 to severe dehydration/Hypernatremia - improved * Poor PO intake, poor care or possible infection - improving, patient more awake, alert, and eating * Na on admission 152 * Continue Ensure nutritional supplement * UA: Negative * Urine Culture: Negative * Blood Culture: No growth * Chest X-ray: No active disease * Abx discontinued Hypertension Continue home Medications * Amlodipine 10mg daily * Hydralazine 25 mg PO Q8H * Coreg 3.125 mg PO BID Elevated liver enzymes (Resolved) * Resolved, within normal range * likely multifactorial in etiology * Will monitor with am labs Depression as late effect of cerebrovascular accident (CVA) * Continue Effexor Xr 37.5mg PO daily Hx of iron deficiency anemia * Feosol 325mg PO BID * Colace 100mg PO BID GI/DVT ppx * DVT: Lovenox 40 mg SC daily * GI: Protonix 40mg PO daily * PT/OT Disposition: Patient is medically stable. Patient's sister signed all medical paperwork. Once application is approved, patient is to be discharged to [facility] with transition to usp care. Case discussed with and patient seen with Elva Colin DO, PGY 2
--- NOTE | 2018-09-13 07:30 | CP.PCM.PN ---
Subjective - Date & Time of Evaluation Date of Evaluation: 09/13/18 Time of Evaluation: 07:00 - Subjective Subjective: Medicine Note for Dr. Antonio Patient was seen and examined at bedside. Patient is nonverbal but nods her head to respond. Denied any current pain. Objective - Vital Signs/Intake and Output Vital Signs (last 24 hours): Temp Pulse Resp BP Pulse Ox 98.0 F 70 20 100/68 97 09/12/18 23:25 09/13/18 02:13 09/12/18 23:25 09/13/18 02:13 09/12/18 23:25 Intake and Output: 09/13/18 09/13/18 06:59 18:59 Intake Total 240 Balance 240 - Medications Medications: Current Medications Amlodipine Besylate (Norvasc) 10 mg PO DAILY [facility] Last Admin: 09/12/18 10:47 Dose: 10 mg Aspirin (Aspirin Chewable) 81 mg PO DAILY [facility] Last Admin: 09/12/18 10:47 Dose: 81 mg Carvedilol (Coreg) 3.125 mg PO BID [facility] Last Admin: 09/12/18 17:22 Dose: 3.125 mg Docusate Sodium (Colace) 100 mg PO BID [facility] Last Admin: 09/12/18 17:20 Dose: 100 mg Enoxaparin Sodium (Lovenox) 40 mg SC DAILY [facility] Last Admin: 09/12/18 10:48 Dose: 40 mg Ferrous Sulfate (Feosol) 325 mg PO BID [facility] Last Admin: 09/12/18 17:21 Dose: 325 mg Hydralazine HCl (Apresoline) 25 mg PO Q8H [facility] Last Admin: 09/13/18 02:45 Dose: Not Given Levetiracetam (Keppra) 250 mg PO BID [facility] Last Admin: 09/12/18 17:20 Dose: 250 mg Pantoprazole Sodium (Protonix Ec Tab) 40 mg PO DAILY [facility] Last Admin: 09/12/18 10:48 Dose: 40 mg Rosuvastatin Calcium (Crestor) 20 mg PO HS [facility] Last Admin: 09/12/18 21:36 Dose: 20 mg Venlafaxine HCl (Effexor Xr) 37.5 mg PO DAILY [facility] Last Admin: 09/12/18 10:47 Dose: 37.5 mg - Labs Labs: 09/10/18 07:10 09/10/18 08:32 - Additional Findings Additional findings: - Constitutional Appears: No Acute Distress - Head Exam Head Exam: NORMAL INSPECTION, NORMOCEPHALIC - Eye Exam Eye Exam: EOMI, Normal appearance, PERRL Pupil Exam: NORMAL ACCOMODATION - ENT Exam ENT Exam: Mucous Membranes Moist - Respiratory Exam Respiratory Exam: Clear to Ausculation Bilateral, NORMAL BREATHING PATTERN. ab sent: Decreased Breath Sounds, Rhonchi, Wheezes - Cardiovascular Exam Cardiovascular Exam: REGULAR RHYTHM, RRR, +S1, +S2 - GI/Abdominal Exam GI & Abdominal Exam: Soft, Normal Bowel Sounds. absent: Distended, Tenderness - Extremities Exam Extremities Exam: Normal Inspection. absent: Pedal Edema, Tenderness - Neurological Exam Neurological Exam: Alert, Awake, Oriented x3 - Psychiatric Exam Psychiatric exam: Normal Affect, Normal Mood - Skin Skin Exam: Dry, Intact, Normal Color, Warm Assessment and Plan - Assessment and Plan (Free Text) Plan: History of Brain aneurysm * Hx of brain aneursym * S/p coil in 10/2017 * Head CT (07/16/17): Embolization coils are seen adjacent to the basilar artery. There is a large amount of metallic artifact. Chronic lacunar infarcts are seen in the thalamus bilaterally. There is also a chronic infarct of the left occipital lobe. The ocular lenses are dislocated bilaterally * Keppra 250mg PO BID History of CVA * Residual right sided deficit * ASA 81 mg PO daily; As per daughter, patient's plavix has been discontinued * Crestor 20 mg PO HS Metabolic Encephalopathy 2/2 to severe dehydration/Hypernatremia - improved * Poor PO intake, poor care or possible infection - improving, patient more awake, alert, and eating * Na on admission 152 * Continue Ensure nutritional supplement * UA: Negative * Urine Culture: Negative * Blood Culture: No growth * Chest X-ray: No active disease * Abx discontinued Hypertension Continue home Medications * Amlodipine 10mg daily * Hydralazine 25 mg PO Q8H * Coreg 3.125 mg PO BID Elevated liver enzymes (Resolved) * Resolved, within normal range * likely multifactorial in etiology * Will monitor with am labs Depression as late effect of cerebrovascular accident (CVA) * Continue Effexor Xr 37.5mg PO daily Hx of iron deficiency anemia * Feosol 325mg PO BID * Colace 100mg PO BID GI/DVT ppx * DVT: Lovenox 40 mg SC daily * GI: Protonix 40mg PO daily * PT/OT Disposition: Patient is medically stable. Patient's sister signed all medical paperwork. Once application is approved, patient is to be discharged to [facility] with transition to leasing assistant care. Case discussed with and patient seen with Elva Colin DO, PGY 2
[2018-09-13] MEDS: Pantoprazole 40 mg EC Tab PO SCH (10:19)
[2018-09-13] MEDS: levETIRAcetam 100 mg/ml (5ml) Oral Syringe PO SCH ×2 (10:19→17:51)
[2018-09-13] MEDS: Enoxaparin 40 mg Syringe SC SCH (10:20)
[2018-09-13] MEDS: Venlafaxine 37.5 mg ER Cap PO SCH (10:23)
[2018-09-14] MEDS: levETIRAcetam 100 mg/ml (5ml) Oral Syringe PO SCH ×2 (09:23→17:59)
[2018-09-14] MEDS: Pantoprazole 40 mg EC Tab PO SCH (09:23)
[2018-09-14] MEDS: Venlafaxine 37.5 mg ER Cap PO SCH (09:23)
[2018-09-14] MEDS: Enoxaparin 40 mg Syringe SC SCH (09:24)
[2018-09-14] MEDS: SILVASORB ANTIMICROBIAL WOUND GEL TOP SCH (13:50)
--- NOTE | 2018-09-14 18:18 | CP.PCM.PN ---
Subjective - Date & Time of Evaluation Date of Evaluation: 09/14/18 Time of Evaluation: 10:30 - Subjective Subjective: Patient was seen and examined at bedside. No overnight events reported. ROS unabled to be obtained due to patient being non-verbal. She did deny any pain with a head nod Objective - Vital Signs/Intake and Output Vital Signs (last 24 hours): Temp Pulse Resp BP Pulse Ox 98.7 F 77 20 96/61 L 98 09/14/18 15:00 09/14/18 15:00 09/14/18 15:00 09/14/18 15:00 09/14/18 15:00 Intake and Output: 09/14/18 09/14/18 06:59 18:59 Intake Total 610 Balance 610 - Medications Medications: Current Medications Amlodipine Besylate (Norvasc) 10 mg PO DAILY [facility] Last Admin: 09/14/18 09:23 Dose: 10 mg Aspirin (Aspirin Chewable) 81 mg PO DAILY [facility] Last Admin: 09/14/18 09:23 Dose: 81 mg Carvedilol (Coreg) 3.125 mg PO BID [facility] Last Admin: 09/14/18 18:00 Dose: Not Given Docusate Sodium (Colace) 100 mg PO BID [facility] Last Admin: 09/14/18 17:59 Dose: 100 mg Enoxaparin Sodium (Lovenox) 40 mg SC DAILY [facility] Last Admin: 09/14/18 09:24 Dose: 40 mg Ferrous Sulfate (Feosol) 325 mg PO BID [facility] Last Admin: 09/14/18 17:59 Dose: 325 mg Hydralazine HCl (Apresoline) 25 mg PO Q8H [facility] Last Admin: 09/14/18 17:59 Dose: Not Given Levetiracetam (Keppra) 250 mg PO BID [facility] Last Admin: 09/14/18 17:59 Dose: 250 mg Pantoprazole Sodium (Protonix Ec Tab) 40 mg PO DAILY [facility] Last Admin: 09/14/18 09:23 Dose: 40 mg Rosuvastatin Calcium (Crestor) 20 mg PO HS [facility] Last Admin: 09/13/18 21:46 Dose: 20 mg Venlafaxine HCl (Effexor Xr) 37.5 mg PO DAILY [facility] Last Admin: 09/14/18 09:23 Dose: 37.5 mg - Labs Labs: 09/10/18 07:10 09/10/18 08:32 - Additional Findings Additional findings: - Constitutional Appears: No Acute Distress - Head Exam Head Exam: NORMAL INSPECTION, NORMOCEPHALIC - Eye Exam Eye Exam: EOMI, Normal appearance, PERRL Pupil Exam: NORMAL ACCOMODATION - ENT Exam ENT Exam: Mucous Membranes Moist - Respiratory Exam Respiratory Exam: Clear to Ausculation Bilateral, NORMAL BREATHING PATTERN. absent: Decreased Breath Sounds, Rhonchi, Wheezes - Cardiovascular Exam Cardiovascular Exam: REGULAR RHYTHM, RRR, +S1, +S2 - GI/Abdominal Exam GI & Abdominal Exam: Soft, Normal Bowel Sounds. absent: Distended, Tenderness - Extremities Exam Extremities Exam: Normal Inspection. absent: Pedal Edema, Tenderness - Neurological Exam Neurological Exam: Alert, Awake, Oriented x3 - Psychiatric Exam Psychiatric exam: Normal Affect, Normal Mood - Skin Skin Exam: Dry, Intact, Normal Color, Warm Assessment and Plan - Assessment and Plan (Free Text) Plan: History of Brain aneurysm * Hx of brain aneursym * S/p coil in 10/2017 * Head CT (07/16/17): Embolization coils are seen adjacent to the basilar artery. There is a large amount of metallic artifact. Chronic lacunar infarcts are seen in the thalamus bilaterally. There is also a chronic infarct of the left occipital lobe. The ocular lenses are dislocated bilaterally * Keppra 250mg PO BID History of CVA * Residual right sided deficit * ASA 81 mg PO daily; As per daughter, patient's plavix has been discontinued * Crestor 20 mg PO HS Metabolic Encephalopathy 2/2 to severe dehydration/Hypernatremia - improved * Poor PO intake, poor care or possible infection - improving, patient more awake, alert, and eating * Na on admission 152 * Continue Ensure nutritional supplement * UA: Negative * Urine Culture: Negative * Blood Culture: No growth * Chest X-ray: No active disease * Abx discontinued Hypertension Continue home Medications * Amlodipine 10mg daily * Hydralazine 25 mg PO Q8H * Coreg 3.125 mg PO BID Elevated liver enzymes (Resolved) * Resolved, within normal range * likely multifactorial in etiology * Will monitor with am labs Depression as late effect of cerebrovascular accident (CVA) * Continue Effexor Xr 37.5mg PO daily Hx of iron deficiency anemia * Feosol 325mg PO BID * Colace 100mg PO BID GI/DVT ppx * DVT: Lovenox 40 mg SC daily * GI: Protonix 40mg PO daily * PT/OT Disposition: Patient is medically stable. Patient's sister signed all medical paperwork. Once application is approved, patient is to be discharged to [facility] with transition to fdc care. Case discussed with and patient seen with Saul Colin DO, PGY 2
[2018-09-15] MEDS: Venlafaxine 37.5 mg ER Cap PO SCH (09:45)
[2018-09-15] MEDS: levETIRAcetam 100 mg/ml (5ml) Oral Syringe PO SCH ×2 (09:47→17:20)
[2018-09-15] MEDS: Enoxaparin 40 mg Syringe SC SCH (09:47)
[2018-09-15] MEDS: Pantoprazole 40 mg EC Tab PO SCH (09:52)
[2018-09-16] MEDS: Venlafaxine 37.5 mg ER Cap PO SCH (09:59)
[2018-09-16] MEDS: Enoxaparin 40 mg Syringe SC SCH (09:59)
[2018-09-16] MEDS: Pantoprazole 40 mg EC Tab PO SCH (09:59)
[2018-09-16] MEDS: levETIRAcetam 100 mg/ml (5ml) Oral Syringe PO SCH ×2 (09:59→17:05)
[2018-09-17 06:58] LABS: BASO % 0.5 % (0.0-2.0); EOS # 0.2 K/uL (0.0-0.7); HEMOGLOBIN 11.3 g/dL (11.0-16.0); LYMPH # 1.6 K/uL (1.0-4.3); LYMPH % 19.6 % (20.0-40.0); MEAN CELL VOLUME 81.5 fL (81.0-99.0); MEAN CORPUSCULAR HEMOGLOBIN 26.9 pg (27.0-31.0); MEAN CORPUSCULAR HGB CONC 32.9 g/dL (33.0-37.0); MEAN PLATELET VOLUME 8.2 fL (7.2-11.7); MONO # 0.6 K/uL (0.0-0.8); MONO % 7.8 % (0.0-10.0); NEUT # 5.6 K/uL (1.8-7.0); NEUT % 70.1 % (50.0-75.0); RBC 4.22 Mil/uL (3.80-5.20); RED CELL DISTRIBUTION WIDTH 15.6 % (11.5-14.5)
[2018-09-17 07:39] LABS: ALB/GLOB RATIO 1.3 (1.0-2.1); ALBUMIN 3.8 g/dL (3.5-5.0); ALT/SGPT 16 U/L (9-52); AST/SGOT 18 U/L (14-36); BLOOD UREA NITROGEN 18 mg/dL (7-17); CALCIUM 9.9 mg/dl (8.6-10.4); GFR NON-AFRICAN AMERICAN > 60
--- NOTE | 2018-09-17 09:39 | CP.PCM.PN ---
Subjective - Date & Time of Evaluation Date of Evaluation: 09/17/18 Time of Evaluation: 09:00 - Subjective Subjective: PGY2 Progress Note for Dr. Antonio Patient was seen and examined resting in bed. No overnight events reported. Patient said hi and denied any complaints by shaking her head. Objective - Vital Signs/Intake and Output Vital Signs (last 24 hours): Temp Pulse Resp BP Pulse Ox 98.0 F 76 20 108/70 100 09/17/18 08:00 09/17/18 08:00 09/17/18 08:00 09/17/18 08:00 09/17/18 08:00 - Medications Medications: Current Medications Amlodipine Besylate (Norvasc) 10 mg PO DAILY [facility] Last Admin: 09/16/18 10:00 Dose: Not Given Aspirin (Aspirin Chewable) 81 mg PO DAILY [facility] Last Admin: 09/16/18 10:00 Dose: Not Given Carvedilol (Coreg) 3.125 mg PO BID [facility] Last Admin: 09/16/18 17:07 Dose: 3.125 mg Docusate Sodium (Colace) 100 mg PO BID [facility] Last Admin: 09/16/18 21:37 Dose: 100 mg Enoxaparin Sodium (Lovenox) 40 mg SC DAILY [facility] Last Admin: 09/16/18 09:59 Dose: 40 mg Ferrous Sulfate (Feosol) 325 mg PO BID [facility] Last Admin: 09/16/18 17:05 Dose: 325 mg Hydralazine HCl (Apresoline) 25 mg PO Q8H [facility] Last Admin: 09/17/18 03:04 Dose: Not Given Levetiracetam (Keppra) 250 mg PO BID [facility] Last Admin: 09/16/18 17:05 Dose: 250 mg Pantoprazole Sodium (Protonix Ec Tab) 40 mg PO DAILY [facility] Last Admin: 09/16/18 09:59 Dose: Not Given Rosuvastatin Calcium (Crestor) 20 mg PO HS [facility] Last Admin: 09/16/18 21:37 Dose: 20 mg Venlafaxine HCl (Effexor Xr) 37.5 mg PO DAILY [facility] Last Admin: 09/16/18 09:59 Dose: Not Given - Labs Labs: 09/17/18 06:51 09/17/18 06:51 - Additional Findings Additional findings: - Constitutional Appears: No Acute Distress - Head Exam Head Exam: NORMAL INSPECTION, NORMOCEPHALIC - Eye Exam Eye Exam: EOMI, Normal appearance, PERRL Pupil Exam: NORMAL ACCOMODATION - ENT Exam ENT Exam: Mucous Membranes Moist - Respiratory Exam Respiratory Exam: Clear to Ausculation Bilateral, NORMAL BREATHING PATTERN. absent: Decreased Breath Sounds, Rhonchi, Wheezes - Cardiovascular Exam Cardiovascular Exam: REGULAR RHYTHM, RRR, +S1, +S2 - GI/Abdominal Exam GI & Abdominal Exam: Soft, Normal Bowel Sounds. absent: Distended, Tenderness - Extremities Exam Extremities Exam: Normal Inspection. absent: Pedal Edema, Tenderness - Neurological Exam Neurological Exam: Alert, Awake, Oriented x3 - Psychiatric Exam Psychiatric exam: Normal Affect, Normal Mood - Skin Skin Exam: Dry, Intact, Normal Color, Warm Assessment and Plan - Assessment and Plan (Free Text) Assessment: History of Brain aneurysm * Hx of brain aneursym * S/p coil in 10/2017 * Head CT (07/16/17): Embolization coils are seen adjacent to the basilar artery. There is a large amount of metallic artifact. Chronic lacunar infarcts are seen in the thalamus bilaterally. There is also a chronic infarct of the left occipital lobe. The ocular lenses are dislocated bilaterally * Keppra 250mg PO BID History of CVA * Residual right sided deficit * ASA 81 mg PO daily; As per daughter, patient's plavix has been discontinued * Crestor 20 mg PO HS Metabolic Encephalopathy 2/2 to severe dehydration/Hypernatremia - improved * Poor PO intake, poor care or possible infection - improving, patient more awake, alert, and eating * Na on admission 152 * Continue Ensure nutritional supplement * UA: Negative * Urine Culture: Negative * Blood Culture: No growth * Chest X-ray: No active disease * Abx discontinued Hypertension Continue home Medications * Amlodipine 10mg daily * Hydralazine 25 mg PO Q8H * Coreg 3.125 mg PO BID Elevated liver enzymes (Resolved) * Resolved, within normal range * likely multifactorial in etiology * Will monitor with am labs Depression as late effect of cerebrovascular accident (CVA) * Continue Effexor Xr 37.5mg PO daily Hx of iron deficiency anemia * Feosol 325mg PO BID * Colace 100mg PO BID GI/DVT ppx * DVT: Lovenox 40 mg SC daily * GI: Protonix 40mg PO daily * PT/OT Disposition: Patient is medically stable. Patient's sister signed all medical paperwork. Once application is approved, patient is to be discharged to [facility] with transition to terminal system operator care. Case discussed with and patient seen with Dr. Antonio
[2018-09-17] MEDS: Enoxaparin 40 mg Syringe SC SCH (09:41)
[2018-09-17] MEDS: levETIRAcetam 100 mg/ml (5ml) Oral Syringe PO SCH ×2 (09:41→17:30)
[2018-09-17] MEDS: Pantoprazole 40 mg EC Tab PO SCH (09:41)
[2018-09-17] MEDS: Venlafaxine 37.5 mg ER Cap PO SCH (10:43)
[2018-09-18] MEDS: Venlafaxine 37.5 mg ER Cap PO SCH (10:09)
[2018-09-18] MEDS: Pantoprazole 40 mg EC Tab PO SCH (10:09)
[2018-09-18] MEDS: levETIRAcetam 100 mg/ml (5ml) Oral Syringe PO SCH ×2 (10:09→17:42)
[2018-09-18] MEDS: Enoxaparin 40 mg Syringe SC SCH (10:10)
--- NOTE | 2018-09-18 16:33 | CP.PCM.PN ---
Subjective - Date & Time of Evaluation Date of Evaluation: 09/18/18 Time of Evaluation: 16:33 - Subjective Subjective: PGY2 Medicine Note for Dr. Antonio Patient seen and examined this morning at bedside. Patient is sitting up in bed. She stated that she is feeling well, is in no pain and has no complaints. Objective - Vital Signs/Intake and Output Vital Signs (last 24 hours): Temp Pulse Resp BP Pulse Ox 98.9 F 86 20 99/63 L 97 09/18/18 15:00 09/18/18 15:00 09/18/18 15:00 09/18/18 15:00 09/18/18 15:00 - Medications Medications: Current Medications Amlodipine Besylate (Norvasc) 10 mg PO DAILY [facility] Last Admin: 09/18/18 10:10 Dose: 10 mg Aspirin (Aspirin Chewable) 81 mg PO DAILY [facility] Last Admin: 09/18/18 10:10 Dose: 81 mg Carvedilol (Coreg) 3.125 mg PO BID [facility] Last Admin: 09/18/18 10:10 Dose: 3.125 mg Docusate Sodium (Colace) 100 mg PO BID [facility] Last Admin: 09/18/18 10:09 Dose: 100 mg Enoxaparin Sodium (Lovenox) 40 mg SC DAILY [facility] Last Admin: 09/18/18 10:10 Dose: 40 mg Ferrous Sulfate (Feosol) 325 mg PO BID [facility] Last Admin: 09/18/18 10:10 Dose: 325 mg Hydralazine HCl (Apresoline) 25 mg PO Q8H [facility] Last Admin: 09/18/18 10:09 Dose: 25 mg Levetiracetam (Keppra) 250 mg PO BID [facility] Last Admin: 09/18/18 10:09 Dose: 250 mg Pantoprazole Sodium (Protonix Ec Tab) 40 mg PO DAILY [facility] Last Admin: 09/18/18 10:09 Dose: 40 mg Rosuvastatin Calcium (Crestor) 20 mg PO HS [facility] Last Admin: 09/17/18 21:24 Dose: 20 mg Venlafaxine HCl (Effexor Xr) 37.5 mg PO DAILY [facility] Last Admin: 09/18/18 10:09 Dose: 37.5 mg - Labs Labs: 09/17/18 06:51 09/17/18 06:51 - Additional Findings Additional findings: - Constitutional Appears: No Acute Distress - Head Exam Head Exam: NORMAL INSPECTION, NORMOCEPHALIC - Eye Exam Eye Exam: EOMI, Normal appearance - ENT Exam ENT Exam: Mucous Membranes Moist - Respiratory Exam Respiratory Exam: Clear to Ausculation Bilateral, NORMAL BREATHING PATTERN. absent: Decreased Breath Sounds, Rhonchi, Wheezes - Cardiovascular Exam Cardiovascular Exam: REGULAR RHYTHM, RRR, +S1, +S2 - GI/Abdominal Exam GI & Abdominal Exam: Soft, Normal Bowel Sounds. absent: Distended, Tenderness - Extremities Exam Extremities Exam: Normal Inspection. absent: Pedal Edema, Tenderness - Neurological Exam Neurological Exam: Alert, Awake, Oriented x3 - Psychiatric Exam Psychiatric exam: Normal Affect, Normal Mood - Skin Skin Exam: Dry, Intact, Normal Color, Warm Assessment and Plan - Assessment and Plan (Free Text) Plan: History of Brain aneurysm * Hx of brain aneursym * S/p coil in 10/2017 * Head CT (07/16/17): Embolization coils are seen adjacent to the basilar artery. There is a large amount of metallic artifact. Chronic lacunar infarcts are seen in the thalamus bilaterally. There is also a chronic infarct of the left occipital lobe. The ocular lenses are dislocated bilaterally * Keppra 250mg PO BID History of CVA * Residual right sided deficit * ASA 81 mg PO daily; As per daughter, patient's plavix has been discontinued * Crestor 20 mg PO HS Metabolic Encephalopathy 2/2 to severe dehydration/Hypernatremia - improved * Poor PO intake, poor care or possible infection - improving, patient more awake, alert, and eating * Na on admission 152 * Continue Ensure nutritional supplement * UA: Negative * Urine Culture: Negative * Blood Culture: No growth * Chest X-ray: No active disease * Abx discontinued Hypertension Continue home Medications * Amlodipine 10mg daily * Hydralazine 25 mg PO Q8H * Coreg 3.125 mg PO BID Elevated liver enzymes (Resolved) * Resolved, within normal range * likely multifactorial in etiology * Will monitor with am labs Depression as late effect of cerebrovascular accident (CVA) * Continue Effexor Xr 37.5mg PO daily Hx of iron deficiency anemia * Feosol 325mg PO BID * Colace 100mg PO BID GI/DVT ppx * DVT: Lovenox 40 mg SC daily * GI: Protonix 40mg PO daily * PT/OT Disposition: Patient is medically stable. Patient's sister signed all medical paperwork. Once application is approved, patient is to be discharged to [facility] with transition to halfway care. As per last SW note on 09/03, there are discussions going on between patient's sister and patient's daughter on where the patient should go for intermediate project manager care. Case discussed with and patient seen with Dr. Antonio
[2018-09-19] MEDS: Enoxaparin 40 mg Syringe SC SCH (09:17)
[2018-09-19] MEDS: levETIRAcetam 100 mg/ml (5ml) Oral Syringe PO SCH ×2 (09:17→17:48)
[2018-09-19] MEDS: Pantoprazole 40 mg EC Tab PO SCH (09:18)
[2018-09-19] MEDS: Venlafaxine 37.5 mg ER Cap PO SCH (09:24)
--- NOTE | 2018-09-19 13:14 | CP.PCM.PN ---
Subjective - Date & Time of Evaluation Date of Evaluation: 09/19/18 Time of Evaluation: 13:11 - Subjective Subjective: Medicine Note for Dr. Antonio's Service Patient was seen and examined at bedside. Patient denied any chest pain, shortness of breath or abdominal pain. No acute complaints. Objective - Vital Signs/Intake and Output Vital Signs (last 24 hours): Temp Pulse Resp BP Pulse Ox 99.7 F H 76 20 142/85 96 09/19/18 08:28 09/19/18 08:28 09/19/18 08:28 09/19/18 08:28 09/19/18 08:28 Intake and Output: 09/19/18 09/19/18 06:59 18:59 Intake Total 500 Output Total 1 Balance 499 - Medications Medications: Current Medications Amlodipine Besylate (Norvasc) 10 mg PO DAILY [facility] Last Admin: 09/19/18 09:17 Dose: 10 mg Aspirin (Aspirin Chewable) 81 mg PO DAILY [facility] Last Admin: 09/19/18 09:18 Dose: 81 mg Carvedilol (Coreg) 3.125 mg PO BID [facility] Last Admin: 09/19/18 09:24 Dose: 3.125 mg Docusate Sodium (Colace) 100 mg PO BID [facility] Last Admin: 09/19/18 09:17 Dose: 100 mg Enoxaparin Sodium (Lovenox) 40 mg SC DAILY [facility] Last Admin: 09/19/18 09:17 Dose: 40 mg Ferrous Sulfate (Feosol) 325 mg PO BID [facility] Last Admin: 09/19/18 09:17 Dose: 325 mg Hydralazine HCl (Apresoline) 25 mg PO Q8H [facility] Last Admin: 09/19/18 09:18 Dose: 25 mg Levetiracetam (Keppra) 250 mg PO BID [facility] Last Admin: 09/19/18 09:17 Dose: 250 mg Pantoprazole Sodium (Protonix Ec Tab) 40 mg PO DAILY [facility] Last Admin: 09/19/18 09:18 Dose: 40 mg Rosuvastatin Calcium (Crestor) 20 mg PO HS [facility] Last Admin: 09/18/18 21:45 Dose: 20 mg Venlafaxine HCl (Effexor Xr) 37.5 mg PO DAILY [facility] Last Admin: 09/19/18 09:24 Dose: 37.5 mg - Labs Labs: 09/17/18 06:51 09/17/18 06:51 - Additional Findings Additional findings: - Constitutional Appears: No Acute Distress - Head Exam Head Exam: NORMAL INSPECTION, NORMOCEPHALIC - Eye Exam Eye Exam: EOMI, Normal appearance - ENT Exam ENT Exam: Mucous Membranes Moist - Respiratory Exam Respiratory Exam: Clear to Ausculation Bilateral, NORMAL BREATHING PATTERN. absent: Decreased Breath Sounds, Rhonchi, Wheezes - Cardiovascular Exam Cardiovascular Exam: REGULAR RHYTHM, RRR, +S1, +S2 - GI/Abdominal Exam GI & Abdominal Exam: Soft, Normal Bowel Sounds. absent: Distended, Tenderness - Extremities Exam Extremities Exam: Normal Inspection. absent: Pedal Edema, Tenderness - Neurological Exam Neurological Exam: Alert, Awake, Oriented x3 - Psychiatric Exam Psychiatric exam: Normal Affect, Normal Mood - Skin Skin Exam: Dry, Intact, Normal Color, Warm Assessment and Plan - Assessment and Plan (Free Text) Plan: History of Brain aneurysm * Hx of brain aneursym * S/p coil in 10/2017 * Head CT (07/16/17): Embolization coils are seen adjacent to the basilar artery. There is a large amount of metallic artifact. Chronic lacunar infarcts are seen in the thalamus bilaterally. There is also a chronic infarct of the left occipital lobe. The ocular lenses are dislocated bilaterally * Keppra 250mg PO BID History of CVA * Residual right sided deficit * ASA 81 mg PO daily; As per daughter, patient's plavix has been discontinued * Crestor 20 mg PO HS Metabolic Encephalopathy 2/2 to severe dehydration/Hypernatremia - improved * Poor PO intake, poor care or possible infection - improving, patient more awake, alert, and eating * Na on admission 152 * Continue Ensure nutritional supplement * UA: Negative * Urine Culture: Negative * Blood Culture: No growth * Chest X-ray: No active disease * Abx discontinued Hypertension Continue home Medications * Amlodipine 10mg daily * Hydralazine 25 mg PO Q8H * Coreg 3.125 mg PO BID Elevated liver enzymes (Resolved) * Resolved, within normal range * likely multifactorial in etiology * Will monitor with am labs Depression as late effect of cerebrovascular accident (CVA) * Continue Effexor Xr 37.5mg PO daily Hx of iron deficiency anemia * Feosol 325mg PO BID * Colace 100mg PO BID GI/DVT ppx * DVT: Lovenox 40 mg SC daily * GI: Protonix 40mg PO daily * PT/OT Disposition: Patient is medically stable. Patient's sister signed all medical paperwork. Once application is approved, patient is to be discharged to [facility] with transition to alf care. As per last SW note on 09/03, there are discussions going on between patient's sister and patient's daughter on where the patient should go for alf care. DW Dr. Antonio, Elva Golden DO, PGY2
[2018-09-20] MEDS: Enoxaparin 40 mg Syringe SC SCH (09:12)
[2018-09-20] MEDS: levETIRAcetam 100 mg/ml (5ml) Oral Syringe PO SCH ×2 (09:12→18:43)
[2018-09-20] MEDS: Venlafaxine 37.5 mg ER Cap PO SCH (09:13)
[2018-09-20] MEDS: Pantoprazole 40 mg EC Tab PO SCH (09:13)
[2018-09-20] MEDS: SILVASORB ANTIMICROBIAL WOUND GEL TOP SCH (09:35)
--- NOTE | 2018-09-20 10:19 | CP.PCM.PN ---
Subjective - Date & Time of Evaluation Date of Evaluation: 09/20/18 Time of Evaluation: 09:00 - Subjective Subjective: Patient was seen and examined at bedside. Patient says she is feeling "alright." Patient denies any chest pain, shortness of breath or abdominal pain. No acute complaints. Objective - Vital Signs/Intake and Output Vital Signs (last 24 hours): Temp Pulse Resp BP Pulse Ox 98.1 F 72 20 142/82 96 09/20/18 08:18 09/20/18 08:18 09/20/18 08:18 09/20/18 08:18 09/20/18 08:18 Intake and Output: 09/20/18 09/20/18 06:59 18:59 Intake Total 120 Output Total 1 Balance 119 - Medications Medications: Current Medications Amlodipine Besylate (Norvasc) 10 mg PO DAILY [facility] Last Admin: 09/20/18 09:13 Dose: 10 mg Aspirin (Aspirin Chewable) 81 mg PO DAILY [facility] Last Admin: 09/20/18 09:13 Dose: 81 mg Carvedilol (Coreg) 3.125 mg PO BID [facility] Last Admin: 09/20/18 09:12 Dose: 3.125 mg Docusate Sodium (Colace) 100 mg PO BID [facility] Last Admin: 09/20/18 09:13 Dose: 100 mg Enoxaparin Sodium (Lovenox) 40 mg SC DAILY [facility] Last Admin: 09/20/18 09:12 Dose: 40 mg Ferrous Sulfate (Feosol) 325 mg PO BID [facility] Last Admin: 09/20/18 09:12 Dose: 325 mg Hydralazine HCl (Apresoline) 25 mg PO Q8H [facility] Last Admin: 09/20/18 09:16 Dose: 25 mg Levetiracetam (Keppra) 250 mg PO BID [facility] Last Admin: 09/20/18 09:12 Dose: 250 mg Pantoprazole Sodium (Protonix Ec Tab) 40 mg PO DAILY [facility] Last Admin: 09/20/18 09:13 Dose: 40 mg Rosuvastatin Calcium (Crestor) 20 mg PO HS [facility] Last Admin: 09/19/18 21:28 Dose: 20 mg Venlafaxine HCl (Effexor Xr) 37.5 mg PO DAILY [facility] Last Admin: 09/20/18 09:13 Dose: 37.5 mg - Labs Labs: 09/17/18 06:51 09/17/18 06:51 - Additional Findings Additional findings: - Constitutional Appears: No Acute Distress - Head Exam Head Exam: NORMAL INSPECTION, NORMOCEPHALIC - Eye Exam Eye Exam: EOMI, Normal appearance - ENT Exam ENT Exam: Mucous Membranes Moist - Respiratory Exam Respiratory Exam: Clear to Ausculation Bilateral, NORMAL BREATHING PATTERN. absent: Decreased Breath Sounds, Rhonchi, Wheezes - Cardiovascular Exam Cardiovascular Exam: REGULAR RHYTHM, RRR, +S1, +S2 - GI/Abdominal Exam GI & Abdominal Exam: Soft, Normal Bowel Sounds. absent: Distended, Tenderness - Extremities Exam Extremities Exam: Normal Inspection. absent: Pedal Edema, Tenderness - Neurological Exam Neurological Exam: Alert, Awake, Oriented x3 - Psychiatric Exam Psychiatric exam: Normal Affect, Normal Mood - Skin Skin Exam: Dry, Intact, Normal Color, Warm Assessment and Plan - Assessment and Plan (Free Text) Assessment: History of Brain aneurysm * Hx of brain aneursym * S/p coil in 10/2017 * Head CT (07/16/17): Embolization coils are seen adjacent to the basilar artery. There is a large amount of metallic artifact. Chronic lacunar infarcts are seen in the thalamus bilaterally. There is also a chronic infarct of the left occipital lobe. The ocular lenses are dislocated bilaterally * Keppra 250mg PO BID History of CVA * Residual right sided deficit * ASA 81 mg PO daily; As per daughter, patient's plavix has been discontinued * Crestor 20 mg PO HS Metabolic Encephalopathy 2/2 to severe dehydration/Hypernatremia - improved * Poor PO intake, poor care or possible infection - improving, patient more awake, alert, and eating * Na on admission 152 * Continue Ensure nutritional supplement * UA: Negative * Urine Culture: Negative * Blood Culture: No growth * Chest X-ray: No active disease * Abx discontinued Hypertension Continue home Medications * Amlodipine 10mg daily * Hydralazine 25 mg PO Q8H * Coreg 3.125 mg PO BID Elevated liver enzymes (Resolved) * Resolved, within normal range * likely multifactorial in etiology * Will monitor with am labs Depression as late effect of cerebrovascular accident (CVA) * Continue Effexor Xr 37.5mg PO daily Hx of iron deficiency anemia * Feosol 325mg PO BID * Colace 100mg PO BID GI/DVT ppx * DVT: Lovenox 40 mg SC daily * GI: Protonix 40mg PO daily * PT/OT Disposition: Patient is medically stable. Patient's sister signed all medical paperwork. Once application is approved, patient is to be discharged to [facility] with transition to terminal block assembler care. As per last SW note on 09/03, there are discussions going on between patient's sister and patient's daughter on where the patient should go for nursing home care. discussed Dr. Antonio
--- NOTE | 2018-09-21 07:35 | CP.PCM.PN ---
Subjective - Date & Time of Evaluation Date of Evaluation: 09/21/18 Time of Evaluation: 09:00 - Subjective Subjective: PGY2- Progress Note for Dr. Antonio Patient seen and examined at bedside sitting up eating breakfast. Patient has no complaints. No acute events overnight as per nursing. Objective - Vital Signs/Intake and Output Vital Signs (last 24 hours): Temp Pulse Resp BP Pulse Ox 98.3 F 70 20 100/65 98 09/21/18 00:00 09/21/18 02:45 09/21/18 00:00 09/21/18 02:45 09/21/18 00:00 Intake and Output: 09/21/18 09/21/18 06:59 18:59 Intake Total 360 Balance 360 - Medications Medications: Current Medications Amlodipine Besylate (Norvasc) 10 mg PO DAILY [facility] Last Admin: 09/20/18 09:13 Dose: 10 mg Aspirin (Aspirin Chewable) 81 mg PO DAILY [facility] Last Admin: 09/20/18 09:13 Dose: 81 mg Carvedilol (Coreg) 3.125 mg PO BID [facility] Last Admin: 09/20/18 18:43 Dose: Not Given Docusate Sodium (Colace) 100 mg PO BID [facility] Last Admin: 09/20/18 18:43 Dose: 100 mg Enoxaparin Sodium (Lovenox) 40 mg SC DAILY [facility] Last Admin: 09/20/18 09:12 Dose: 40 mg Ferrous Sulfate (Feosol) 325 mg PO BID [facility] Last Admin: 09/20/18 18:43 Dose: 325 mg Hydralazine HCl (Apresoline) 25 mg PO Q8H [facility] Last Admin: 09/21/18 02:59 Dose: Not Given Levetiracetam (Keppra) 250 mg PO BID [facility] Last Admin: 09/20/18 18:43 Dose: 250 mg Pantoprazole Sodium (Protonix Ec Tab) 40 mg PO DAILY [facility] Last Admin: 09/20/18 09:13 Dose: 40 mg Rosuvastatin Calcium (Crestor) 20 mg PO HS [facility] Last Admin: 09/20/18 22:19 Dose: 20 mg Venlafaxine HCl (Effexor Xr) 37.5 mg PO DAILY [facility] Last Admin: 09/20/18 09:13 Dose: 37.5 mg - Labs Labs: 09/17/18 06:51 09/17/18 06:51 - Additional Findings Additional findings: - Constitutional Appears: No Acute Distress - Head Exam Head Exam: NORMAL INSPECTION, NORMOCEPHALIC - Eye Exam Eye Exam: EOMI, Normal appearance - ENT Exam ENT Exam: Mucous Membranes Moist - Respiratory Exam Respiratory Exam: Clear to Ausculation Bilateral, NORMAL BREATHING PATTERN. absent: Decreased Breath Sounds, Rhonchi, Wheezes - Cardiovascular Exam Cardiovascular Exam: REGULAR RHYTHM, RRR, +S1, +S2 - GI/Abdominal Exam GI & Abdominal Exam: Soft, Normal Bowel Sounds. absent: Distended, Tenderness - Extremities Exam Extremities Exam: Normal Inspection. absent: Pedal Edema, Tenderness - Neurological Exam Neurological Exam: Alert, Awake, Oriented x3 - Psychiatric Exam Psychiatric exam: Normal Affect, Normal Mood - Skin Skin Exam: Dry, Intact, Normal Color, Warm Assessment and Plan - Assessment and Plan (Free Text) Assessment: History of Brain aneurysm * Hx of brain aneursym * S/p coil in 10/2017 * Head CT (07/16/17): Embolization coils are seen adjacent to the basilar artery. There is a large amount of metallic artifact. Chronic lacunar infarcts are seen in the thalamus bilaterally. There is also a chronic infarct of the left occipital lobe. The ocular lenses are dislocated bilaterally * Keppra 250mg PO BID History of CVA * Residual right sided deficit * ASA 81 mg PO daily; As per daughter, patient's plavix has been discontinued * Crestor 20 mg PO HS Metabolic Encephalopathy 2/2 to severe dehydration/Hypernatremia - improved * Poor PO intake, poor care or possible infection - improving, patient more awake, alert, and eating * Na on admission 152 * Continue Ensure nutritional supplement * UA: Negative * Urine Culture: Negative * Blood Culture: No growth * Chest X-ray: No active disease * Abx discontinued Hypertension Continue home Medications * Amlodipine 10mg daily * Hydralazine 25 mg PO Q8H * Coreg 3.125 mg PO BID Elevated liver enzymes (Resolved) * Resolved, within normal range * likely multifactorial in etiology * Will monitor with am labs Depression as late effect of cerebrovascular accident (CVA) * Continue Effexor Xr 37.5mg PO daily Hx of iron deficiency anemia * Feosol 325mg PO BID * Colace 100mg PO BID GI/DVT ppx * DVT: Lovenox 40 mg SC daily * GI: Protonix 40mg PO daily * PT/OT Disposition: Patient is medically stable. Patient's sister signed all medical paperwork. Once application is approved, patient is to be discharged to [facility] with transition to rn long term care care. As per last SW note on 09/03, there are discussions going on between patient's sister and patient's daughter on where the patient should go for rn long term care care. discussed Dr. Antonio
[2018-09-21] MEDS: Enoxaparin 40 mg Syringe SC SCH (09:24)
[2018-09-21] MEDS: levETIRAcetam 100 mg/ml (5ml) Oral Syringe PO SCH ×2 (09:24→17:36)
[2018-09-21] MEDS: Pantoprazole 40 mg EC Tab PO SCH (09:25)
[2018-09-21] MEDS: Venlafaxine 37.5 mg ER Cap PO SCH (09:25)
[2018-09-22] MEDS: Venlafaxine 37.5 mg ER Cap PO SCH (11:20)
[2018-09-22] MEDS: Pantoprazole 40 mg EC Tab PO SCH (11:21)
[2018-09-22] MEDS: levETIRAcetam 100 mg/ml (5ml) Oral Syringe PO SCH ×2 (11:23→18:14)
[2018-09-22] MEDS: Enoxaparin 40 mg Syringe SC SCH (11:24)
[2018-09-23] MEDS: levETIRAcetam 100 mg/ml (5ml) Oral Syringe PO SCH ×2 (10:29→17:43)
[2018-09-23] MEDS: Venlafaxine 37.5 mg ER Cap PO SCH (10:30)
[2018-09-23] MEDS: Pantoprazole 40 mg EC Tab PO SCH (10:30)
[2018-09-23] MEDS: Enoxaparin 40 mg Syringe SC SCH (10:31)
[2018-09-23] MEDS: SILVASORB ANTIMICROBIAL WOUND GEL TOP SCH (10:55)
[2018-09-24 07:42] LABS: BASO % 0.4 % (0.0-2.0); EOS # 0.3 K/uL (0.0-0.7); EOS % 3.5 % (0.0-4.0); HEMOGLOBIN 11.2 g/dL (11.0-16.0); LYMPH % 26.9 % (20.0-40.0); MEAN CELL VOLUME 83.4 fL (81.0-99.0); MEAN CORPUSCULAR HEMOGLOBIN 27.6 pg (27.0-31.0); MEAN PLATELET VOLUME 8.3 fL (7.2-11.7); MONO # 0.6 K/uL (0.0-0.8); MONO % 7.5 % (0.0-10.0); NEUT # 4.5 K/uL (1.8-7.0); NEUT % 61.7 % (50.0-75.0); NRBC % 0.1 % (0.0-2.0); RBC 4.07 Mil/uL (3.80-5.20); RED CELL DISTRIBUTION WIDTH 15.1 % (11.5-14.5); WHITE BLOOD COUNT 7.3 K/uL (4.8-10.8)
[2018-09-24 08:18] LABS: ALB/GLOB RATIO 1.4 (1.0-2.1); ALBUMIN 3.8 g/dL (3.5-5.0); ALT/SGPT 14 U/L (9-52); AST/SGOT 17 U/L (14-36); BLOOD UREA NITROGEN 19 mg/dL (7-17); CALCIUM 9.9 mg/dl (8.6-10.4); GFR NON-AFRICAN AMERICAN > 60
--- NOTE | 2018-09-24 09:26 | CP.PCM.PN ---
Subjective - Date & Time of Evaluation Date of Evaluation: 09/24/18 Time of Evaluation: 09:26 - Subjective Subjective: Medicine Progress Note - Dr Antonio's service Patient seen and examined at bedside. Per nursing no acute events overnight. Patient offers no complaints at this time. Tolerating diet. Objective - Vital Signs/Intake and Output Vital Signs (last 24 hours): Temp Pulse Resp BP Pulse Ox 97 F L 74 18 103/58 L 97 09/24/18 00:22 09/24/18 02:15 09/24/18 02:15 09/24/18 02:15 09/24/18 02:15 Intake and Output: 09/24/18 09/24/18 06:59 18:59 Intake Total 550 Output Total 1 Balance 549 - Medications Medications: Current Medications Amlodipine Besylate (Norvasc) 10 mg PO DAILY [facility] Last Admin: 09/23/18 10:30 Dose: 10 mg Aspirin (Aspirin Chewable) 81 mg PO DAILY [facility] Last Admin: 09/23/18 10:30 Dose: 81 mg Carvedilol (Coreg) 3.125 mg PO BID [facility] Last Admin: 09/23/18 17:44 Dose: Not Given Docusate Sodium (Colace) 100 mg PO BID [facility] Last Admin: 09/23/18 17:43 Dose: 100 mg Ferrous Sulfate (Feosol) 325 mg PO BID [facility] Last Admin: 09/23/18 17:44 Dose: 325 mg Hydralazine HCl (Apresoline) 25 mg PO Q8H [facility] Last Admin: 09/24/18 02:15 Dose: Not Given Levetiracetam (Keppra) 250 mg PO BID [facility] Last Admin: 09/23/18 17:43 Dose: 250 mg Pantoprazole Sodium (Protonix Ec Tab) 40 mg PO DAILY [facility] Last Admin: 09/23/18 10:30 Dose: 40 mg Rosuvastatin Calcium (Crestor) 20 mg PO HS [facility] Last Admin: 09/23/18 21:30 Dose: 20 mg Venlafaxine HCl (Effexor Xr) 37.5 mg PO DAILY [facility] Last Admin: 09/23/18 10:30 Dose: 37.5 mg - Labs Labs: 09/24/18 07:17 09/24/18 07:17 - Additional Findings Additional findings: - Constitutional Appears: No Acute Distress - Head Exam Head Exam: NORMAL INSPECTION, NORMOCEPHALIC - Eye Exam Eye Exam: EOMI, Normal appearance - ENT Exam ENT Exam: Mucous Membranes Moist - Respiratory Exam Respiratory Exam: Clear to Ausculation Bilateral, NORMAL BREATHING PATTERN. absent: Decreased Breath Sounds, Rhonchi, Wheezes - Cardiovascular Exam Cardiovascular Exam: REGULAR RHYTHM, RRR, +S1, +S2 - GI/Abdominal Exam GI & Abdominal Exam: Soft, Normal Bowel Sounds. absent: Distended, Tenderness - Extremities Exam Extremities Exam: Normal Inspection. absent: Pedal Edema, Tenderness - Neurological Exam Neurological Exam: Alert, Awake, Oriented x3 - Psychiatric Exam Psychiatric exam: Normal Affect, Normal Mood - Skin Skin Exam: Dry, Intact, Normal Color, Warm Assessment and Plan - Assessment and Plan (Free Text) Assessment: History of Brain aneurysm * Hx of brain aneursym * S/p coil in 10/2017 * Head CT (07/16/17): Embolization coils are seen adjacent to the basilar artery. There is a large amount of metallic artifact. Chronic lacunar infarcts are seen in the thalamus bilaterally. There is also a chronic infarct of the left occipital lobe. The ocular lenses are dislocated bilaterally * Keppra 250mg PO BID History of CVA * Residual right sided deficit * ASA 81 mg PO daily; As per daughter, patient's plavix has been discontinued * Crestor 20 mg PO HS Metabolic Encephalopathy 2/2 to severe dehydration/Hypernatremia - improved * Poor PO intake, poor care or possible infection - improving, patient more constantine ke, alert, and eating * Na on admission 152 * Continue Ensure nutritional supplement * UA: Negative * Urine Culture: Negative * Blood Culture: No growth * Chest X-ray: No active disease * Abx discontinued Hypertension Continue home Medications * Amlodipine 10mg daily * Hydralazine 25 mg PO Q8H * Coreg 3.125 mg PO BID Elevated liver enzymes (Resolved) * Resolved, within normal range * likely multifactorial in etiology * Will monitor with am labs Depression as late effect of cerebrovascular accident (CVA) * Continue Effexor Xr 37.5mg PO daily Hx of iron deficiency anemia * Feosol 325mg PO BID * Colace 100mg PO BID GI/DVT ppx * DVT: Lovenox 40 mg SC daily * GI: Protonix 40mg PO daily * PT/OT Disposition: Patient is medically stable. Patient discharged to [facility]. Discussed Dr. Marisela Day DO PGY-2
[2018-09-24] MEDS: levETIRAcetam 100 mg/ml (5ml) Oral Syringe PO SCH ×2 (10:29→17:44)
[2018-09-24] MEDS: Venlafaxine 37.5 mg ER Cap PO SCH (10:31)
[2018-09-24] MEDS: Pantoprazole 40 mg EC Tab PO SCH (10:32)
[2018-09-24 10:48] VITALS: RESP 20
[2018-09-24 16:19] VITALS: BP 95/63; PULSE 107; TEMP 99.4; O2SAT 96
== END 2018-09-24 21:45 | DRG 640 ==
LOC: C.ER 11:43 → C.9E 14:25 → C.3T 15:38 → OBSVTOIN 07-18 14:36 → C.3T 07-18 20:11
PROVIDERS: ADMIT Internal Medicine Pulmonary Disease; ATTEND Internal Medicine Pulmonary Disease
DX: E86.0 Dehydration (principal); G93.41 Metabolic encephalopathy; I69.351 Hemiplegia and hemiparesis following cerebral infarction affecting right dominant side; Z68.1 Body mass index [BMI] 19.9 or less, adult; R64 Cachexia; T76.01XA Adult neglect or abandonment, suspected, initial encounter; I10 Essential (primary) hypertension; E87.0 Hyperosmolality and hypernatremia; F32.9 Major depressive disorder, single episode, unspecified; I69.398 Other sequelae of cerebral infarction; R62.7 Adult failure to thrive; D50.9 Iron deficiency anemia, unspecified; R56.9 Unspecified convulsions; K21.9 Gastro-esophageal reflux disease without esophagitis; E11.51 Type 2 diabetes mellitus with diabetic peripheral angiopathy without gangrene; H27.10 Unspecified dislocation of lens; E78.5 Hyperlipidemia, unspecified; L89.152 Pressure ulcer of sacral region, stage 2; R74.8 Abnormal levels of other serum enzymes; K59.00 Constipation, unspecified; E78.00 Pure hypercholesterolemia, unspecified; Z96.651 Presence of right artificial knee joint; Z95.828 Presence of other vascular implants and grafts; Z86.79 Personal history of other diseases of the circulatory system; Z87.11 Personal history of peptic ulcer disease; Z87.891 Personal history of nicotine dependence; Z79.82 Long term (current) use of aspirin; Z79.899 Other long term (current) drug therapy; Z90.710 Acquired absence of both cervix and uterus; Z74.01 Bed confinement status; Z75.1 Person awaiting admission to adequate facility elsewhere; Z91.81 History of falling